=== PATIENT | male | born 1970 | race Caucasian/White ===

== ENCOUNTER 2017-02-14 20:16 | Inpatient (IN) | payer OTHER ==
[2017-02-14] MEDS ORDERED: RX INFO: IV CONTRAST WAS GIVEN 1 EACH MISC MISCELLANE PRN (20:29)
[2017-02-14] MEDS ORDERED: MORPHINE SULFATE 4 MG/ML SYRINGE IVP STA (20:29)
[2017-02-14 20:44] LABS: Basophils % (A) 1 %; CH 29.3; CHCM 35.1; Eosinophils # (A) 0.1 k/uL (0-0.7); Eosinophils % (A) 2 %; HCT 43.1 % (39.0-53.0); HDW 3.54; HGB 15.4 gm/dL (13.0-17.5); Luc # (Auto) 0.18; Luc % (Auto) 3; Lymphocytes # (A) 2.2 k/uL (1.0-4.8); Lymphocytes % (A) 36 %; MCHC 35.8 g/dL (31.0-37.0); MCV 83.9 fL (80.0-100.0); Mean Platelet Volume 7.5; Monocytes # (A) 0.4 k/uL (0-1.0); Monocytes % (A) 6 %; Neutrophils # (A) 3.2 k/uL (1.3-7.7); Neutrophils % (A) 53 %; Poikilocytosis Slight; RBC 5.14 m/uL (4.30-5.90); RDW 13.9 % (11.5-15.5); WBC 6.1 k/uL (3.8-10.6)
[2017-02-14 21:02] LABS: ALT 40 U/L (21-72); AST 25 U/L (17-59); Alkaline Phosphatase 80 U/L (38-126); Amylase 48 U/L (30-110); Anion Gap 13 mmol/L; Blood Urea Nitrogen 14 mg/dL (9-20); Calcium 9.9 mg/dL (8.4-10.2); Carbon Dioxide 25 mmol/L (22-30); Chloride 99 mmol/L (98-107); Glucose 299 mg/dL (74-99); Non-African American GFR(MDRD) >60 (>60 ml/min/1.73 sqM); Potassium 4.2 mmol/L (3.5-5.1); Sodium 137 mmol/L (137-145); Total Bilirubin 0.6 mg/dL (0.2-1.3)
--- NOTE | 2017-02-14 21:11 | XR ---
EXAMINATION TYPE: XR chest 1V DATE OF EXAM: 02/14/2017 COMPARISON: NONE HISTORY: Chest pain TECHNIQUE: Single frontal view of the chest is obtained. FINDINGS: Heart and mediastinum are normal. Lungs are clear. There are chest leads. Diaphragm is nor mal. IMPRESSION: Normal chest
[2017-02-14 21:19] LABS: Creatine Kinase MB 0.7 ng/mL (0.0-2.4)
[2017-02-14 21:23] LABS: Troponin I 0.045 ng/mL (0.000-0.034)
--- NOTE | 2017-02-14 21:51 | CT ---
EXAMINATION TYPE: CT angio chest DATE OF EXAM: 02/14/2017 9:46 PM COMPARISON: NONE HISTORY: Pain between shoulder blades and shortness of breath CT DLP: 629.8 mGycm Automated exposure control for dose reduction was used. CONTRAST: CTA scan of the thorax is performed with IV Contrast, patient injected with 100 mL of Omnipaque 350, pulmonary embolism protocol. There are 3-D post processed images.. FINDINGS: The lungs are clear of consolidation. There is no sign of a pulmonary mass. There is no evidence of a ortic aneurysm or dissection. I see no filling defects in the pulmonary arteries. There is normal con trast opacification of the pulmonary arteries. There are no hilar masses. There is no mediastinal franco nopathy. The bony thorax is intact. There is a triangle shaped 8mm density in the subpleural left pos terior lung base of doubtful significance. There is a 4 mm calcified granuloma in the subpleural righ t lower lobe. IMPRESSION: NO EVIDENCE OF PULMONARY EMBOLISM. MINIMAL PULMONARY FINDINGS OF DOUBTFUL SIGNIFICANCE.
[2017-02-14] MEDS ORDERED: ASPIRIN 81 MG CHEW PO STA (22:09)
[2017-02-14] MEDS ORDERED: NITROGLYCERIN SL TABS 0.4 MG TAB SUBLINGUAL PRN (22:35)
[2017-02-14] MEDS ORDERED: HEPARIN SODIUM,PORCINE 5,000 UNIT/ML 1 ML VIAL IV ONE (22:35)
--- NOTE | 2017-02-14 22:35 | ED ---
Chest Pain HPI - General Chief Complaint: Chest Pain Stated Complaint: Chest Pain Time Seen by Provider: 02/14/17 20:21 Source: patient Mode of arrival: wheelchair Limitations: no limitations - History of Present Illness Initial Comments: This is a 38-year-old male with history of hypertension and diabetes who presents emergency department for stabbing back pain shooting through to his chest. He states that it started earlier today and has progressively getting worse. He states that nothing seems to make it better or worse. He states he has not had anything like this previously. He does suffer from spinal stenosis and his cervical spine but not in worries having pain currently. He denies any shortness of breath. Denies that it's a ripping sensation. No nausea or vomiting. No other complaints. - Related Data Home Medications Medication Instructions Recorded Confirmed Ascorbic Acid [Vitamin C] 500 mg PO DAILY 02/14/17 02/14/17 Aspirin [Adult Low Dose Aspirin EC] 81 mg PO DAILY 02/14/17 02/14/17 Cholecalciferol [Vitamin D3] 400 unit PO DAILY 02/14/17 02/14/17 Cranberry Fruit Extract [Cranberry] 200 mg PO DAILY 02/14/17 02/14/17 Insulin Aspart [NovoLOG Flexpen] 5 units SQ BID 02/14/17 02/14/17 Insulin Glargine,Hum.rec.anlog 15 unit SQ HS 02/14/17 02/14/17 [Lantus Solostar] Lisinopril [Zestril] 5 mg PO DAILY 02/14/17 02/14/17 Multivitamins, Thera [Multivitamin 1 tab PO DAILY 02/14/17 02/14/17 (formulary)] [place]-3 Fatty Acids/Fish Oil [Fish 1 cap PO DAILY 02/14/17 02/14/17 Oil 1,000 mg Capsule] Omeprazole [PriLOSEC] 20 mg PO DAILY 02/14/17 02/14/17 amLODIPine [Norvasc] 10 mg PO DAILY 02/14/17 02/14/17 glipiZIDE [Glipizide] 10 mg PO BID 02/14/17 02/14/17 metFORMIN HCL [Metformin HCl] 1,000 mg PO BID 02/14/17 02/14/17 Allergies Allergy/AdvReac Type Severity Reaction Status Date / Time steroids Allergy Hallucinati Uncoded 02/14/17 20:24 ons Review of Systems ROS Statement: Those systems with pertinent positive or pertinent negative responses have been documented in the HPI. ROS Other: All systems not noted in ROS Statement are negative. EKG Findings - EKG Comments: EKG Findings:: EKG showing sinus tachycardia with rate of 116. No abnormal ST segment changes. There is some T-wave inversions in lead 3 and aVF. QTC is 444. Other intervals normal. No ectopy. Past Medical History Past Medical History: Diabetes Mellitus, Hyperlipidemia, Hypertension History of Any Multi-Drug Resistant Organisms: None Reported Past Surgical History: Appendectomy, Heart Catheterization Additional Past Surgical History / Comment(s): lap band 2008 Past Psychological History: No Psychological Hx Reported Smoking Status: Never smoker Past Alcohol Use History: Rare Past Drug Use History: None Reported General Exam - General Exam Comments Initial Comments: Constitutional: Awake alert appears uncomfortable Head: Normocephalic atraumatic Eyes: no conjunctival injection No scleral icterus EOMI Neck: No JVD Supple Heart: Regular rate rhythm normal S1-S2 no murmurs Lungs: Clear to auscultation bilaterally No wheezing No rales Abdomen: Soft nondistended nontender Extremities: Non edematous DP pulses intact Radial pulses intact Neuro: A&Ox3 No focal neurologic deficits Psych: Appropriate mood and affect Limitations: no limitations Course Vital Signs 02/14/17 02/14/17 02/14/17 20:21 20:25 21:25 Temperature 97.6 F Pulse Rate 85 114 H 106 H Respiratory 24 24 20 Rate Blood Pressure 193/93 184/89 143/80 O2 Sat by Pulse 99 95 Oximetry Chest Pain MDM - MDM Is a 38-year-old male presents emergency department for back and chest pain. CTA of the chest did not reveal any PE or aortic dissection. Troponin is slightly elevated at 0.045. I like to keep the patient hospital for further cardiac evaluation. Patient was updated and agrees. Dr. Hannon accepts admission. Disposition Clinical Impression: Unstable angina Disposition: ADMITTED IP TO THIS HOSP Condition: Stable Referrals: Natan Morrison DO [Primary Care Provider] - 1-2 days
[2017-02-14] MEDS ORDERED: HEPARIN SODIUM,PORCINE/D5W PMX 25,000 UNIT in DEXTROSE/WATER 1 500ML.BAG IV SCH (22:45)
[2017-02-14] MEDS ORDERED: TEMAZEPAM 15 MG CAP PO PRN (23:22)
[2017-02-14] MEDS ORDERED: ALPRAZolam 0.25 MG TAB PO PRN (23:22)
[2017-02-14 23:56] LABS: Glucose,Whole Blood 198 mg/dL (75-99)
[2017-02-15 00:03] LABS: INR 0.9 (<1.1); Partial Thromboplastin Time 22.9 sec (22.0-30.0); Prothrombin Time 9.8 sec (9.0-12.0)
[2017-02-15] MEDS: INSULIN GLARGINE 100 UNIT/ML 10 ML VIAL SQ SCH ×2 (00:37→21:30)
[2017-02-15 00:41] LABS: Glucose,Whole Blood 247 mg/dL (75-99)
[2017-02-15] MEDS: INSULIN LISPRO (humaLOG) 300 UNIT/3 ML VIAL SQ SCH ×7 (01:38→21:31)
[2017-02-15 02:56] LABS: Creatine Kinase MB 0.6 ng/mL (0.0-2.4)
[2017-02-15 03:32] LABS: Troponin I 0.064 ng/mL (0.000-0.034)
[2017-02-15 05:53] LABS: Glucose,Whole Blood 197 mg/dL (75-99)
[2017-02-15 06:04] LABS: Basophils % (A) 1 %; CH 29.2; CHCM 35.3; Eosinophils # (A) 0.1 k/uL (0-0.7); Eosinophils % (A) 3 %; HCT 40.3 % (39.0-53.0); HDW 3.57; HGB 13.9 gm/dL (13.0-17.5); Luc # (Auto) 0.11; Luc % (Auto) 2; Lymphocytes # (A) 1.6 k/uL (1.0-4.8); Lymphocytes % (A) 34 %; MCH 28.8 pg (25.0-35.0); MCHC 34.5 g/dL (31.0-37.0); MCV 83.4 fL (80.0-100.0); Mean Platelet Volume 7.6; Monocytes # (A) 0.3 k/uL (0-1.0); Monocytes % (A) 6 %; Neutrophils # (A) 2.6 k/uL (1.3-7.7); Neutrophils % (A) 54 %; Poikilocytosis Slight; RBC 4.84 m/uL (4.30-5.90); WBC 4.8 k/uL (3.8-10.6); WBC (Perox) 4.98
[2017-02-15] MEDS: PANTOPRAZOLE 40 MG TABLET PO SCH (06:08)
[2017-02-15 06:15] LABS: Anion Gap 9 mmol/L; Blood Urea Nitrogen 14 mg/dL (9-20); Calcium 9.3 mg/dL (8.4-10.2); Carbon Dioxide 27 mmol/L (22-30); Chloride 102 mmol/L (98-107); Cholesterol 248 mg/dL (<200); Glucose 197 mg/dL (74-99); HDL Cholesterol 37 mg/dL (40-60); Non-African American GFR(MDRD) >60 (>60 ml/min/1.73 sqM); Potassium 4.1 mmol/L (3.5-5.1); Sodium 138 mmol/L (137-145)
[2017-02-15 06:23] LABS: Triglycerides 658 mg/dL (<150)
[2017-02-15] MEDS ORDERED: HEPARIN SODIUM,PORCINE 5,000 UNIT/ML 1 ML VIAL IV STA (06:26)
[2017-02-15] MEDS ORDERED: NITROGLYCERIN SL TABS 0.4 MG TAB SUBLINGUAL PRN ×2 (08:49→12:56)
[2017-02-15] MEDS ORDERED: ALPRAZolam 0.5 MG TAB PO PRN ×2 (08:49→12:56)
[2017-02-15] MEDS ORDERED: ALPRAZolam 0.25 MG TAB PO PRN ×2 (08:49→12:56)
[2017-02-15] MEDS ORDERED: SODIUM CHLORIDE 0.9% 1,000 ML in EMPTY BAG 1 BAG IV ONE ×2 (08:49→12:56)
[2017-02-15] MEDS ORDERED: ATORVASTATIN 80 MG TAB PO STA ×2 (08:49→12:56)
[2017-02-15] MEDS ORDERED: ASPIRIN 325 MG TAB PO STA ×2 (08:49→12:56)
[2017-02-15] MEDS: CHOLECALCIFEROL 400 UNIT TAB PO SCH (08:57)
[2017-02-15] MEDS: glipiZIDE 10 MG TAB PO SCH ×2 (08:57→21:30)
[2017-02-15] MEDS: amLODIPine 10 MG TAB PO SCH (08:59)
[2017-02-15] MEDS ORDERED: INSULIN LISPRO (humaLOG) 300 UNIT/3 ML VIAL SQ SCH (09:00)
[2017-02-15] MEDS ORDERED: NON-FORMULARY DRUG (Omeprazole 20 MG) PO SCH (09:00)
[2017-02-15] MEDS ORDERED: ASPIRIN 325 MG TAB PO SCH (09:00)
[2017-02-15] MEDS ORDERED: NON-FORMULARY DRUG (Metformin Hcl [Metformin Hcl] 1,000 MG) PO SCH (09:00)
[2017-02-15] MEDS: MULTIVITAMINS, THERA 1 EACH TAB PO SCH (09:02)
--- NOTE | 2017-02-15 09:19 | CONS ---
DATE OF CONSULTATION: CHIEF COMPLAINT: Chest pain. Bishnu is a 46-year-old gentleman with multiple coronary risk factors including hypertension, diabetes, dyslipidemia, and family history of premature coronary artery disease who presented to [facility] Emergency Room complaining of chest pain. He describes it as episodes of chest pressure that he felt in the interscapular area, came on with activity and gradually subsided after he came to the hospital. The patient has a cervical spine problem and usually when he has disc discomfort he takes pain medications with which the pain usually resolves. This pain was different. He has also been becoming short of breath over the last several days with activity. It is mild to moderate intensity. In the ER, they did a CT scan of the chest that is negative for pulmonary embolism. EKGs are within normal limits. He had a troponin that is elevated at 0.04 and 0.06. Creatinine is normal at 0.7. Hemoglobin is 13.9. The patient had a cardiac catheterization in [address] out of town and was told that he had minimal disease. Past medical history is significant for hypertension, diabetes, dyslipidemia. Medications include fish oil, multivitamin, insulin, metformin, glipizide, Norvasc, Prilosec, Zestril and aspirin. Allergic to STEROIDS. Family history is significant for premature coronary artery disease in his father. Social history is negative for smoking, EtOH abuse or drug abuse. REVIEW OF SYSTEMS: HEENT: Unremarkable. CARDIAC: As described above. RESPIRATORY: Negative. GI: Negative. GENITOURINARY: Negative. ALLERGY/IMMUNOLOGY: Negative. SKIN: Negative. MUSCULOSKELETAL: Negative. ENDOCRINE: Negative. HEMATOLOGICAL: Negative. DERMATOLOGY: Negative. CONSTITUTIONAL: Negative. The rest of the system review is not relevant. On exam, he is comfortable at rest, morbidly obese. Vital signs are stable. There is no jugular venous distention. Carotid upstroke is normal. There is no bruit. Chest exam reveals good air entry bilaterally. Heart exam reveals first and second heart sounds. No gallop. No murmur. Abdomen is soft, nontender. Exam of extremities did not reveal edema. Peripheral pulses are felt. 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 EKG does not reveal ischemic changes. Troponins are slightly elevated. Cholesterol is elevated at 248, triglycerides is 658, HDL is 37. His blood sugars are elevated. ASSESSMENT: 1. Unstable angina. 2. Dyslipidemia. 3. Hypertension. 4. Insulin-requiring diabetes with poorly controlled blood sugars. PLAN: Given the chest pain, elevated troponin and the multiple risk factors, I advised the patient to undergo cardiac catheterization with a view to performing angioplasty. If the cath is normal, he can be discharged home. If not, he will undergo angioplasty and will go home tomorrow. He will have an echocardiogram done to assess his LV function.
[2017-02-15 09:48] LABS: Creatine Kinase MB 0.7 ng/mL (0.0-2.4)
[2017-02-15 09:51] LABS: Troponin I 0.091 ng/mL (0.000-0.034)
[2017-02-15] MEDS ORDERED: IV FLUID CONTINUATION 1,000 ML IV ONE (09:55)
[2017-02-15] MEDS ORDERED: LIDOCAINE 2% INJ 20 MG/ML (20 ML MDV) ONE (10:14)
[2017-02-15] MEDS ORDERED: MIDAZOLAM 2 MG/2 ML VIAL ONE (10:14)
[2017-02-15] MEDS: MIDAZOLAM 2 MG/2 ML VIAL IV ONE ×2 (10:17→10:24)
[2017-02-15] MEDS ORDERED: fentaNYL (PF) 50 MCG/ML 2 ML AMP ONE (10:18)
[2017-02-15] MEDS ORDERED: LIDOCAINE 2% INJ 20 MG/ML SQ ONE (10:19)
[2017-02-15] MEDS: fentaNYL (PF) 50 MCG/ML 2 ML AMP IV ONE ×2 (10:19→10:45)
[2017-02-15] MEDS ORDERED: METOPROLOL TARTRATE 5 MG/5 ML VIAL IVP ONE ×2 (10:41→10:44)
[2017-02-15] MEDS ORDERED: NITROGLYCERIN OINT 1 INCH/GM PACKET TOPICAL ONE ×2 (10:41→10:44)
[2017-02-15] MEDS ORDERED: IOHEXOL 350 MG/ML 125ML BOTTLE INJ ONE (10:56)
--- NOTE | 2017-02-15 11:13 | CC ---
INDICATION: Unstable angina. PROCEDURE NOTE: After obtaining informed consent, left heart catheterization and coronary angiogram were performed via the right femoral artery using standard Rebel catheters. Patient tolerated the procedure well without any immediate complications. Total sedation time was 15 minutes. Conscious sedation was done. FINDINGS: 1. Hemodynamics: Left ventricular end-diastolic pressure is 14 to 16 mm. There is no significant gradient across the aortic valve. 2. Left ventriculogram: Left ventriculogram is not performed. 3. Angiographic data: a. Left main coronary artery: Left main coronary artery is a normal size vessel and is free of stenosis, divides into left anterior descending coronary artery and circumflex coronary artery. LAD shows a 95% stenosis in the proximal part. b. Circumflex coronary artery is a large dominant vessel that shows mild atherosclerotic plaque involving OM 1, OM 2 and distal third. c. Right coronary artery is a nondominant vessel and is free of significant stenosis. CONCLUSIONS: 95% focal stenosis in the proximal left anterior descending coronary artery. PLAN: Patient will undergo angioplasty of the same by Dr. Quarles, the on-call technology trainer.
[2017-02-15] MEDS ORDERED: RX INFO: IV CONTRAST WAS GIVEN 1 EACH MISC MISCELLANE PRN (11:15)
[2017-02-15 11:49] LABS: Hemoglobin A1C 9.5 % (4.2-6.1)
[2017-02-15] MEDS: LISINOPRIL 5 MG TAB PO SCH (11:51)
[2017-02-15] MEDS: HYDROmorphone 1 MG/ML 1 ML SYRINGE IVP PRN ×2 (11:51→23:45)
[2017-02-15] MEDS: SODIUM CHLORIDE 0.9% 1,000 ML IV SCH ×2 (11:52→23:37)
--- NOTE | 2017-02-15 11:53 | HP ---
DATE OF ADMISSION: DATE OF SERVICE: 02/14/2017 CHIEF COMPLAINT: Interscapular pain and chest pain. HISTORY OF PRESENT ILLNESS: This 46-year-old gentleman with a past medical history of diabetes mellitus, hypertension, hyperlipidemia, history of cardiac catheterization being followed by Dr. Natan Morrison in the outpatient setting admitted with chest pain. The patient initially had interscapular pain, which was sharp in character, which was felt in the anterior part of the chest also. There was no history of any fevers, rigors or chills. No history of headache, loss of consciousness or seizures. The patient was rather shooting and getting worse and there was no associated sweating or palpitations. There is no shortness of breath. The patient cam to [facility] Emergency Room and was admitted for further evaluation and treatment. In the emergency room, the patient had a CTA of the chest which showed no evidence of pulmonary embolism. The patient was admitted for further evaluation and treatment. A 4 calcified granuloma and 8 mm density in the subpleural area was also noted. Of note, the troponin was found to 0.045. EKG was reviewed which showed tachycardia and ST-T changes. The patient also had cardiac stress test several years ago followed by cardiac catheterization, which apparently showed only 30% stenosis, results are not available and the patient also had a chemical stress test about 2 years ago, again results are not available, but apparently patient passed the test. There is no history of any fever, rigors or chills. No history of headache, loss of consciousness or seizures PAST MEDICAL HISTORY: History of diabetes, hypertension, hyperlipidemia, previous cardiac cath and lap band surgery as stress test as mentioned earlier. MEDICATIONS PRIOR TO ADMISSION: 1. [place]-3 fatty acid 1 p.o. daily. 2. Multivitamin 1 p.o. daily. 3. Insulin NovoLog 5 units subcu b.i.d. 4. Lantus 15 units subcu q.h.s. 5. Metformin 1000 mg p.o. b.i.d. 6. Glipizide 10 mg b.i.d. 7. Cranberry 200 mg daily. 8. Vitamin D3, 400 units daily 9. Vitamin C 500 daily. 10. Norvasc 10 mg daily. 11. Prilosec 20 mg daily. 12. Zestril 5 mg p.o. daily. 13. Aspirin 81 mg daily. Allergies are STEROIDS. FAMILY HISTORY: No history of heart disease or strokes in the family. 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 No history of smoking. No history of alcohol intake. REVIEW OF SYSTEMS: ENT: No diminishing hearing or diminished vision. CARDIOVASCULAR: As mentioned earlier. RESPIRATORY: As mentioned earlier. GI: No nausea. : No dysuria. NERVOUS SYSTEM: No numbness or weakness. ALLERGY/IMMUNOLOGY: No history of asthma or hayfever. MUSCULOSKELETAL: As mentioned earlier. HEMATOLOGY/ONCOLOGY: No history of anemia. ENDOCRINE: As mentioned earlier. CONSTITUTIONAL: As mentioned earlier. DERMATOLOGY: Negative. RHEUMATOLOGY: Negative. PSYCHIATRY: As mentioned earlier. PHYSICAL EXAMINATION: The patient is alert and oriented x3. Pulse 106, blood pressure 143/80, respirations 20, temperature 97.6, pulse ox 95% on 2 L. HEENT: Conjunctivae normal. Oral mucosa moist. NECK: No jugular venous distention. No carotid bruit. No lymph node enlargement. CARDIOVASCULAR: S1 and S2, muffled. No S3, no S4. RESPIRATORY: Breath sounds diminished at the bases. No rhonchi, no crackles. ABDOMEN: Soft, obese, nontender. No mass palpable. LEGS: No edema, no swelling. NERVOUS SYSTEM: Higher function as mentioned. Moves all 4 limbs. No focal motor or sensory deficits. LYMPHATICS: No lymphadenopathy of neck, axillae or groin. SKIN: No ulcers, rashes or bleeding. Labs are at this time shows CBC within normal limits. Glucose 299. Troponin 0.045. ASSESSMENT: 1. Chest pain, possible unstable angina, rule out acute non-ST segment elevation myocardial infarction. 2. Troponin 0.045. 3. Diabetes mellitus type 2. 4. Obesity, body mass index 41.3. 5. Hypertension, essential. 6. Hyperlipidemia. 7. History of appendectomy. 8. History of cardiac catheterization previously, 9. History of lap band. 10. FULL CODE. RECOMMENDATIONS AND DISCUSSION: This 46-year-old gentleman who presented with multiple complex medical issues, we will monitor the patient closely. Continue the current medications. Continue symptomatic treatment. unstable angina protocol. Will closely follow with Cardiology. Other than that I would also recommend symptomatic treatment. Resume the home medications. Guarded prognosis because of multiple complex medical issues. Further recommendations to follow. See orders for further details. Will check troponin x3. Discussed with the patient. A copy of dictation forwarded to Dr. Morrison who is the primary physician. TATUM
[2017-02-15 12:01] LABS: Glucose,Whole Blood 184 mg/dL (75-99)
--- NOTE | 2017-02-15 12:25 | ECHOF ---
Referral Reason:chest pain MEASUREMENTS -------- HEIGHT: 175.3 cm WEIGHT: 126.1 kg BP: 131/86 RVIDd: 2.9 cm (< 3.3) IVSd: 1.4 cm (0.6 - 1.1) LVIDd: 4.2 cm (3.9 - 5.3) LVPWd: 1.3 cm (0.6 - 1.1) IVSs: 1.7 cm LVIDs: 3.0 cm LVPWs: 1.9 cm LA Diam: 3.9 cm (2.7 - 3.8) LAESV Index (A-L): 26.61 ml/m Ao Diam: 3.4 cm (2.0 - 3.7) AV Cusp: 2.5 cm (1.5 - 2.6) MV EXCURSION: 12.148 mm (> 18.000) MV EF SLOPE: 38 mm/s (70 - 150) EPSS: 0.9 cm MV E Dave: 1.07 m/s MV DecT: 215 ms MV A Dave: 0.96 m/s MV E/A Ratio: 1.11 RAP: 5.00 mmHg RVSP: 28.81 mmHg FINDINGS -------- This was a technically adequate study. The left ventricular size is normal. There is moderate concentric left ventricular hypertrophy. Overall left ventricular systolic function is normal with, an EF between 55 - 60 %. The right ventricle is normal in size. Normal LA size by volume 22+/-6 ml/m2. The right atrium is normal in size. The aortic valve is trileaflet and appears structurally normal. Mild mitral annular calcification present. There is trace mitral regurgitation. Mild thickening of the anterior mitral valve leaflet. Trace tricuspid regurgitation present. Right ventricular systolic pressure is normal at < 35 mmHg. The pulmonic valve was not well visualized. The aortic root size is normal. The pericardium is normal. CONCLUSIONS -------- 1. This was a technically adequate study. 2. There is trace mitral regurgitation. 3. Mild thickening of the anterior mitral valve leaflet. 4. Trace tricuspid regurgitation present. 5. Right ventricular systolic pressure is normal at < 35 mmHg. 6. The pulmonic valve was not well visualized. 7. The aortic root size is normal. 8. The pericardium is normal. 9. The left ventricular size is normal. 10. There is moderate concentric left ventricular hypertrophy. 11. Overall left ventricular systolic function is normal with, an EF between 55 - 60 %. 12. The right ventricle is normal in size. 13. Normal LA size by volume 22+/-6 ml/m2. 14. The right atrium is normal in size. 15. The aortic valve is trileaflet and appears structurally normal. 16. Mild mitral annular calcification present. PIANO REGULATOR: Nadia Childs RDCS
[2017-02-15] MEDS: HYDROcodone/APAP 5-325MG 1 EACH TAB PO PRN ×2 (13:18→21:28)
[2017-02-15 16:11] VITALS: BMI 41.1
[2017-02-15 16:56] LABS: Glucose,Whole Blood 201 mg/dL (75-99)
[2017-02-15 20:57] LABS: Glucose,Whole Blood 193 mg/dL (75-99)
--- NOTE | 2017-02-15 21:40 | PN ---
DATE OF SERVICE: 02/15/2017 This 46-year-old gentleman admitted with scapular pain and chest pain and features of acute non-ST elevation myocardial infarction. The patient underwent cardiac catheterization by Dr. Mccullough which showed LAD 95% focus on proximal LAD. Stenting angioplasty was planned by cardiology, Dr. Quarles tomorrow. No chest or palpitation. No fever. On exam, alert and oriented x3. Pulse is 90 blood pressure 136/82. Respiratory rate 16. Temperature 97 degrees. Pulse ox 94% on room air. HEENT: Conjunctivae normal. NECK : No jugular venous distention. CARDIOVASCULAR: S1, S2 muffled. RESPIRATORY: Breath sounds diminished at the bases. A few scattered rhonchi and crackles. ABDOMEN: Soft, nontender. LEGS: No edema. No swelling. CENTRAL NERVOUS SYSTEM: No focal deficits. LABS: Triglycerides 658, cholesterol is 248, and troponin was 0.091. ASSESSMENT: 1. Chest pain, possible acute non-ST segment elevation myocardial infarction. Troponin 0.045. 2. Status post cardiac catheterization, left anterior descending coronary artery stenosis. 3. Hyperlipidemia. 4. Hypertriglyceridemia. 5. Diabetes mellitus type 2. 6. Obesity body mass index 41.3. 7. Essential hypertension. 8. History of appendectomy. 9. History of cardiac catheterization previously. 10. History of lap band. 11. FULL CODE. RECOMMENDATIONS AND DISCUSSION: Recommend to continue with the current medications, continue symptomatic. Otherwise, at this time, continue with cholesterol-lowering agents. I would also recommend antiplatelet agents. Follow closely with cardiology. Further stenting and other evaluation by cardiology. Further recommendations to follow to follow.
[2017-02-16 05:45] LABS: Basophils % (A) 0 %; CH 29.2; CHCM 34.9; Eosinophils # (A) 0.1 k/uL (0-0.7); Eosinophils % (A) 1 %; HCT 41.1 % (39.0-53.0); HDW 3.51; HGB 14.3 gm/dL (13.0-17.5); Luc # (Auto) 0.09; Luc % (Auto) 1; Lymphocytes # (A) 1.2 k/uL (1.0-4.8); Lymphocytes % (A) 18 %; MCH 29.1 pg (25.0-35.0); MCHC 34.7 g/dL (31.0-37.0); Mean Platelet Volume 7.2; Monocytes # (A) 0.4 k/uL (0-1.0); Monocytes % (A) 6 %; Neutrophils # (A) 4.9 k/uL (1.3-7.7); Neutrophils % (A) 74 %; Poikilocytosis Slight; RDW 13.9 % (11.5-15.5); WBC 6.6 k/uL (3.8-10.6); WBC (Perox) 7.02
[2017-02-16 05:57] LABS: Anion Gap 11 mmol/L; Blood Urea Nitrogen 10 mg/dL (9-20); Calcium 9.2 mg/dL (8.4-10.2); Carbon Dioxide 27 mmol/L (22-30); Chloride 100 mmol/L (98-107); Glucose 165 mg/dL (74-99); Non-African American GFR(MDRD) >60 (>60 ml/min/1.73 sqM); Potassium 4.5 mmol/L (3.5-5.1); Sodium 138 mmol/L (137-145)
[2017-02-16 05:59] LABS: Glucose,Whole Blood 152 mg/dL (75-99)
[2017-02-16] MEDS: amLODIPine 10 MG TAB PO SCH (06:07)
[2017-02-16] MEDS: LISINOPRIL 5 MG TAB PO SCH ×3 (06:07→20:15)
[2017-02-16] MEDS ORDERED: LIDOCAINE 2% INJ 20 MG/ML (20 ML MDV) ONE (06:33)
[2017-02-16] MEDS: INSULIN LISPRO (humaLOG) 300 UNIT/3 ML VIAL SQ SCH ×6 (06:33→21:45)
[2017-02-16] MEDS ORDERED: VERAPAMIL 2.5 MG/ML 2 ML AMP ONE (06:33)
[2017-02-16] MEDS ORDERED: HEPARIN SODIUM 1,000 UNIT/ML VIAL ONE (06:33)
[2017-02-16] MEDS ORDERED: fentaNYL (PF) 50 MCG/ML 2 ML AMP ONE (06:34)
[2017-02-16] MEDS ORDERED: fentaNYL (PF) 50 MCG/ML 2 ML AMP IV ONE (06:47)
[2017-02-16] MEDS ORDERED: LIDOCAINE 2% INJ 20 MG/ML SQ ONE (06:49)
[2017-02-16] MEDS ORDERED: VERAPAMIL SYRINGE (5 MG/10 ML) INTRAARTER ONE (06:50)
[2017-02-16] MEDS ORDERED: SODIUM CHLORIDE 0.9% 1,000 ML IV ONE (06:50)
[2017-02-16] MEDS ORDERED: PRASUGREL 10 MG TAB ONE (06:52)
[2017-02-16] MEDS ORDERED: PRASUGREL 10 MG TAB PO ONE (06:55)
[2017-02-16] MEDS ORDERED: BIVALIRUDIN BOLUS 250 MG/50 ML IV ONE (06:58)
[2017-02-16] MEDS ORDERED: BIVALIRUDIN 250 MG in SODIUM CHLORIDE 0.9% 50 ML IV ONE (06:58)
[2017-02-16] MEDS ORDERED: NITROGLYCERIN 1000MCG/10ML SYRINGE INTRACORON ONE (06:59)
[2017-02-16] MEDS ORDERED: IOHEXOL 350 MG/ML 100 ML BOTTLE INJ ONE (07:11)
[2017-02-16] MEDS ORDERED: NITROGLYCERIN SL TABS 0.4 MG TAB SUBLINGUAL PRN (07:19)
[2017-02-16] MEDS ORDERED: RX INFO: IV CONTRAST WAS GIVEN 1 EACH MISC MISCELLANE PRN (07:19)
[2017-02-16] MEDS ORDERED: MAG HYDROX/AL HYDROX/SIMETH 30 ML CUP PO PRN (07:19)
[2017-02-16] MEDS ORDERED: ATROPINE SULFATE 0.1 MG/ML 10ML SYRINGE IV PRN (07:19)
[2017-02-16] MEDS: PANTOPRAZOLE 40 MG TABLET PO SCH (07:29)
[2017-02-16] MEDS ORDERED: SODIUM CHLORIDE 0.9% 1,000 ML IV SCH (07:30)
[2017-02-16] MEDS: CHOLECALCIFEROL 400 UNIT TAB PO SCH (07:37)
[2017-02-16] MEDS: amLODIPine 5 MG TAB PO SCH (07:39)
[2017-02-16] MEDS: glipiZIDE 10 MG TAB PO SCH ×2 (07:46→21:45)
[2017-02-16] MEDS ORDERED: ASPIRIN 81 MG CHEW PO SCH (09:00)
[2017-02-16] MEDS: METOPROLOL TARTRATE 25 MG TAB PO SCH ×2 (13:25→20:15)
[2017-02-16] MEDS: MULTIVITAMINS, THERA 1 EACH TAB PO SCH (13:28)
[2017-02-16] MEDS: SODIUM CHLORIDE 0.9% 1,000 ML IV SCH (13:29)
[2017-02-16 16:52] LABS: Glucose,Whole Blood 221 mg/dL (75-99)
--- NOTE | 2017-02-16 17:20 | PTCA ---
DATE OF SERVICE: Mr. Ellis is a 46-year-old male with known history of diabetes who presented with symptoms of chest discomfort and was diagnosed with non-STEMI. He underwent cardiac catheterization by Dr. Mccullough and was found to have significant stenosis involving the proximal LAD. In view of that, recommendation was made regarding angioplasty and stenting. The procedure, its risks and complications were discussed with the patient, who was in full understanding and agreement. PROCEDURE: Patient was brought to the dental laboratory manager in fasting, semi-sedated state after receiving fentanyl and Benadryl. After achieving moderate conscious sedated state, using Xylocaine anesthesia and Seldinger technique, a 6 [place] sheath was introduced in the right radial artery. A 6 [place] 3-1/2 FL guiding catheter was introduced into the system. After cannulating the left main, a 0.014 balanced medium-weight J-wire was advanced across the lesion, positioned distally. Then 3.5 x 23 mm Xience Alpine stent was deployed, post dilated at 14 atmospheres. After the last inflation, after appropriate wait, the balloon and the guidewire were withdrawn back into the guiding catheter. Images were obtained and repeated. Those images revealed stable successful stenting. At that point the guiding catheter, the balloon and the guidewire were removed. The sheath was removed. Hemostasis was obtained with deployment of a TR band. There was no immediate complication. Patient was returned to his room in stable condition. Of note, the patient had chest discomfort and EKG changes with the inflation that resolved at the end of the procedure. RESULT: Successful stenting of a long segment of the proximal LAD with reduction in stenosis from 95% to 0%. RECOMMENDATION: Patient will be continued on aspirin, Effient, beta raj and simvastatin. The importance of dual antiplatelet treatment was discussed with the patient and his family, and they are in full understanding and agreement. Duration of the procedure was 25 minutes.
--- NOTE | 2017-02-16 17:22 | LTR ---
February 16, 2017 RE: Bishnu Ellis Dear Dr. Morrison, I had the pleasure of performing coronary angioplasty and stenting on Mr. Ellis at [facility] February 16, and a full copy of the procedure note will be forwarded to you. In brief, he underwent successful stenting of the proximal LAD using a drug-eluting stent. I am hopeful that this procedure will stabilize his status. Thank you again for allowing me to participate in his care. Please feel free to call with any questions. Sincerely, JALYN CARPENTER MD
--- NOTE | 2017-02-16 19:46 | PN ---
DATE OF SERVICE: 02/16/2017 This 46-year-old gentleman admitted with acute [id number]-elevation myocardial infarction had LAD stenting today. No chest pain. No palpitation. No fever. On exam, alert and oriented x3. Pulse 85, blood pressure 130/71, respiration 18, temperature 97.3, pulse ox 96% on room air. HEENT: Conjunctivae normal. NECK: No jugular venous distention. CARDIOVASCULAR SYSTEM: S1, S2 muffled. RESPIRATORY SYSTEM: Breath sounds diminished at the bases. No rhonchi. No crackles. ABDOMEN: Soft, non-tender. No mass palpable. LEGS: No edema. No swelling. NERVOUS SYSTEM: No focal deficit. LABS: CBC within normal limits. Accu-Cheks are 152. ASSESSMENT: 1. Chest pain, possible acute bvl-ZL-[id number]-elevation myocardial infarction; troponin 0.045. 2. Status post cardiac catheterization; left anterior descending coronary artery. 3. Hyperlipidemia. 4. Hypertriglyceridemia. 5. Diabetes mellitus, type 2. 6. Obesity; body mass index of 41.3. 7. Essential hypertension. 8. History of appendectomy. 9. History of cardiac catheterization previously. 10. History of lap band. 11. FULL CODE. RECOMMENDATIONS AND DISCUSSION: I recommend to continue with the current medications, continue with the monitoring, symptomatic treatment. Otherwise, we will monitor the patient closely. Continue with dual antiplatelet treatment. Guarded prognosis because of multiple complex medical issues. Further recommendations to follow.
[2017-02-16] MEDS ORDERED: ZOLPIDEM 5 MG TAB PO PRN (21:00)
[2017-02-16] MEDS ORDERED: ATORVASTATIN 80 MG TAB PO SCH (21:00)
[2017-02-16 21:03] LABS: Glucose,Whole Blood 234 mg/dL (75-99)
[2017-02-16] MEDS: INSULIN GLARGINE 100 UNIT/ML 10 ML VIAL SQ SCH (21:44)
[2017-02-17] MEDS: SODIUM CHLORIDE 0.9% 1,000 ML IV SCH (05:57)
[2017-02-17 06:41] LABS: Glucose,Whole Blood 223 mg/dL (75-99)
[2017-02-17] MEDS: PANTOPRAZOLE 40 MG TABLET PO SCH (06:43)
[2017-02-17] MEDS: INSULIN LISPRO (humaLOG) 300 UNIT/3 ML VIAL SQ SCH ×4 (07:16→12:46)
[2017-02-17] MEDS: glipiZIDE 10 MG TAB PO SCH (07:54)
[2017-02-17] MEDS: METOPROLOL TARTRATE 25 MG TAB PO SCH (07:54)
[2017-02-17] MEDS: CHOLECALCIFEROL 400 UNIT TAB PO SCH (07:55)
[2017-02-17] MEDS: amLODIPine 5 MG TAB PO SCH (07:55)
[2017-02-17] MEDS: LISINOPRIL 5 MG TAB PO SCH (07:55)
[2017-02-17] MEDS: MULTIVITAMINS, THERA 1 EACH TAB PO SCH (07:55)
[2017-02-17 08:57] VITALS: TEMP 97.4
[2017-02-17] MEDS ORDERED: PRASUGREL 10 MG TAB PO SCH (09:00)
[2017-02-17] MEDS ORDERED: ASPIRIN 81 MG CHEW PO SCH (09:00)
[2017-02-17 10:43] LABS: Basophils % (A) 1 %; CH 29.4; CHCM 34.6; Eosinophils # (A) 0.1 k/uL (0-0.7); Eosinophils % (A) 2 %; HCT 40.1 % (39.0-53.0); HGB 13.7 gm/dL (13.0-17.5); Luc # (Auto) 0.12; Luc % (Auto) 2; Lymphocytes % (A) 18 %; MCH 29.1 pg (25.0-35.0); MCHC 34.1 g/dL (31.0-37.0); MCV 85.3 fL (80.0-100.0); Mean Platelet Volume 7.9; Monocytes # (A) 0.5 k/uL (0-1.0); Monocytes % (A) 9 %; Neutrophils # (A) 3.9 k/uL (1.3-7.7); Neutrophils % (A) 69 %; RDW 13.9 % (11.5-15.5); WBC 5.7 k/uL (3.8-10.6); WBC (Perox) 5.83
[2017-02-17 10:48] LABS: Anion Gap 9 mmol/L; Blood Urea Nitrogen 10 mg/dL (9-20); Calcium 9.4 mg/dL (8.4-10.2); Carbon Dioxide 29 mmol/L (22-30); Chloride 100 mmol/L (98-107); Glucose 245 mg/dL (74-99); Non-African American GFR(MDRD) >60 (>60 ml/min/1.73 sqM); Potassium 4.3 mmol/L (3.5-5.1); Sodium 138 mmol/L (137-145)
--- NOTE | 2017-02-17 12:07 | P.PN ---
Subjective Principal diagnosis: LAD stent This is a 46-year-old gentleman who presented to the hospital with acute coronary syndrome, he underwent angioplasty with stent placement of the LAD by Dr. Quarles. Patient was seen and examined this morning, feels well, denies any chest pain or difficulty in breathing. Right groin and right radial site clean and dry with good distal pulses. Blood pressure 122/80 with a heart rate in the 80s. CBC normal. Potassium 4.3, BUN 10, creatinine 0.7. Objective - Vital Signs Vital signs: Vital Signs Temp 97.4 F L 02/17/17 08:00 Pulse 91 02/17/17 08:00 Resp 17 02/17/17 08:00 BP 158/73 02/17/17 08:00 Pulse Ox 97 02/17/17 08:00 Intake & Output 02/16/17 02/17/17 02/17/17 18:59 06:59 18:59 Intake Total 1480 150 230 Output Total 1000 Balance 480 150 230 Weight 123.5 kg Intake: IV 150 Sodium Chloride 0.9% 1, 150 000 ml @ 75 mls/hr IV . [id number] [facility] Rx#:[id number] Intake, IV Titration 1000 Amount Sodium Chloride 0.9% 1, 1000 000 ml @ 100 mls/hr IV . Q10H [facility] Rx#:[id number] Oral 480 230 Output: Urine 1000 Other: Voiding Method Toilet Toilet Urinal Urinal # Voids 1 1 2 - Exam PHYSICAL EXAMINATION: HEENT: Head is atraumatic, normocephalic. Pupils equal, round. Neck is supple. There is no elevated jugular venous pressure. HEART EXAMINATION: Heart S1, S2 normal. No murmur or gallop heard. CHEST EXAMINATION: Lungs are clear to auscultation and precussion. No chest wall tenderness is noted on palpation or with deep breathing. ABDOMEN: Soft, nontender. Bowel sounds are heard. No organomegaly noted. Right groin and right radial site clean and dry, good distal pulse. EXTREMITIES: 2+ peripheral pulses with no evidence of peripheral edema and no calf tenderness noted. NEUROLOGIC patient is awake, alert and oriented -3. . - Labs CBC & Chem 7: 02/17/17 06:08 02/17/17 06:08 Labs: Abnormal Lab Results - Last 24 Hours (Table) 02/16/17 02/16/17 02/17/17 Range/Units 16:47 21:02 06:08 Glucose 245 H (74-99) mg/dL POC Glucose (mg/dL) 221 H 234 H (75-99) mg/dL 02/17/17 Range/Units 06:31 Glucose (74-99) mg/dL POC Glucose (mg/dL) 223 H (75-99) mg/dL Assessment and Plan (1) ACS (acute coronary syndrome) Status: Acute (2) Presence of stent in LAD coronary artery Status: Acute (3) HTN (hypertension) Status: Acute (4) Diabetes Status: Acute (5) Hyperlipemia Status: Acute Plan: From cardiology's perspective, patient may be able to be discharged home today. He will be discharged home on Effient 10 mg daily, which she will take for one month, then the patient will start Plavix 75 mg daily. He will also be discharged home on aspirin 81 mg daily, Norvasc 5 mg daily, Lipitor 80 mg daily , Glucotrol 10 mg twice a day, insulin as at home, Zestril 5 mg by mouth twice a day, metoprolol tartrate 25 mg one tablet by mouth twice a day, and sublingual nitroglycerin as needed for chest pain. Patient has been educated regarding his medication, diet, activity, and follow-up appointment. See Dr. Mendoza in the office in one week. DNP note has been reviewed, I agree with a documented findings and plan of care. Patient was seen and examined.
[2017-02-17 12:59] VITALS: BP 150/70; PULSE 85; RESP 18
--- NOTE | 2017-02-18 15:21 | DS ---
DATE OF ADMISSION: 02/14/2017 DATE OF DISCHARGE: 02/17/2017 FINAL DIAGNOSES: 1. Chest pain, possible acute non- ST segment elevation myocardial infarction. Troponin 0.045. 2. Status post cardiac catheterization and left anterior descending stenting. 3. Hyperlipidemia. 4. Hypertriglyceridemia. 5. Diabetes mellitus type 2. 6. Obesity, body mass index of 41.3. 7. History of hypertension. 8. History of appendectomy. 9. History of cardiac catheterization previously. 10. History of lap band. 11. FULL CODE. DISCHARGE DISPOSITION: Patient is being discharged in stable condition with guarded prognosis. HISTORY OF PRESENT ILLNESS: This 46-year-old gentleman with a past medical history of multiple medical problems was admitted with chest pain, possible acute non-ST elevation myocardial infarction. Cardiac catheterization and stenting also. Patient improved significantly. On exam, vitals are stable. CARDIOVASCULAR SYSTEM: S1, S2. ABDOMEN: soft. NERVOUS SYSTEM: No focal deficits. LABS: Glucose is elevated to 223, recommend a close follow up in the outpatient setting. DISCHARGE ADVICE: 1. Diet is cardiac, consistent carb. 2. Activity limited until follow up. 3. Follow up with Dr. Morrison in 1 to 2 days. 4. Follow with Dr. Casandra Mccullough as advised. MEDICATIONS: 1. Norvasc 10 mg p.o. daily. 2. Vitamin C 500 mg p.o. daily. 3. Ecotrin 81 mg p.o. daily. 4. Lipitor 80 mg p.o. q.h.s. 5. Vitamin D 300 to 400 units daily. 6. Cranberry 200 mg p.o. daily. 7. Glipizide 10 mg p.o. b.i.d. 8. NovoLog Flex pen 5 units subcu b.i.d. 9. Lantus 15 units subcu q.h.s. 10. Zestril 5 mg p.o. daily. 11. Metformin 1000 mg p.o. b.i.d. 12. Lopressor 25 mg p.o. b.i.d. 13. Multivitamin 1 p.o. daily. 14. Nitrostat 0.4 sublingual p.r.n. 15. Fish oil 1 p.o. daily. 16. Prilosec 20 mg p.o. daily. 17. Effient 10 mg p.o. daily. Once again, the patient is being discharged in stable condition with guarded prognosis.
== END 2017-02-17 14:29 | disposition home or self-care (01) | DRG 247 ==
LOC: EC 20:16 → 6SEL 22:35
PROVIDERS: ADMIT Hospitalist; ATTEND Hospitalist
PROC: 027034Z Dilation of Coronary Artery, One Artery with Drug-eluting Intraluminal Device, Percutaneous Approach (ICD-10-PCS; 2017-02-15)
PROC: 4A023N7 Measurement of Cardiac Sampling and Pressure, Left Heart, Percutaneous Approach (ICD-10-PCS; principal; 2017-02-15 09:55)
PROC: B2111ZZ Fluoroscopy of Multiple Coronary Arteries using Low Osmolar Contrast (ICD-10-PCS; principal; 2017-02-15 09:55)
DX: I21.4 Non-ST elevation (NSTEMI) myocardial infarction (principal); Z68.41 Body mass index [BMI] 40.0-44.9, adult; I10 Essential (primary) hypertension; E11.9 Type 2 diabetes mellitus without complications; E66.9 Obesity, unspecified; E78.1 Pure hyperglyceridemia; E78.5 Hyperlipidemia, unspecified; I25.110 Atherosclerotic heart disease of native coronary artery with unstable angina pectoris; Z79.4 Long term (current) use of insulin; Z79.82 Long term (current) use of aspirin; Z79.84 Long term (current) use of oral hypoglycemic drugs; Z79.899 Other long term (current) drug therapy; Z82.49 Family history of ischemic heart disease and other diseases of the circulatory system; Z88.8 Allergy status to other drugs, medicaments and biological substances; Z98.84 Bariatric surgery status
CPT/HCPCS: 36415; 71010; 71275; 80048; 80053; 80061; 82150; 82550; 82553; 83036; 83690; 84484; 85025; 85610; 85730; 93005; 93306; 93458; 96365; 96375; 96376; 99285

== ENCOUNTER 2017-03-01 22:22 | Observation (INO) | payer OTHER ==
[2017-03-01] MEDS ORDERED: NITROGLYCERIN OINT 1 INCH/GM PACKET TOPICAL STA (22:34)
[2017-03-01] MEDS ORDERED: SODIUM CHLORIDE 0.9% 1,000 ML IV STA (22:34)
[2017-03-01] MEDS ORDERED: ASPIRIN 81 MG CHEW PO STA (22:34)
[2017-03-01] MEDS ORDERED: MORPHINE SULFATE 4 MG/ML SYRINGE IV STA (22:34)
--- NOTE | 2017-03-01 22:41 | ED ---
Chest Pain HPI - General Chief Complaint: Chest Pain Stated Complaint: Chest pain Heart Hx Time Seen by Provider: 03/01/17 22:30 Source: patient, family, RN notes reviewed, old records reviewed Mode of arrival: ambulatory Limitations: no limitations - History of Present Illness Initial Comments: This is a 38-year-old male with a history of hypertension and insulin-dependent diabetes any recent stent placed in the LAD who presents with complaints of the onset of chest pain this evening. He did take multiple nitroglycerin was some relief. He states pain was as severe as 8/10 and states pain is still 8/10 severity. He had nausea with a no vomiting did take 81 mg of aspirin this morning along with his Plavix. He denies any fever or chills he did have some sweats MD Complaint: chest pain - Related Data Home Medications Medication Instructions Recorded Confirmed Ascorbic Acid [Vitamin C] 500 mg PO DAILY 02/14/17 03/01/17 Aspirin [Adult Low Dose Aspirin EC] 81 mg PO DAILY 02/14/17 03/01/17 Cholecalciferol [Vitamin D3] 400 unit PO DAILY 02/14/17 03/01/17 Cranberry Fruit Extract [Cranberry] 200 mg PO DAILY 02/14/17 03/01/17 Insulin Aspart [NovoLOG Flexpen] 5 units SQ BID 02/14/17 03/01/17 Insulin Glargine,Hum.rec.anlog 15 unit SQ HS 02/14/17 03/01/17 [Lantus Solostar] Lisinopril [Zestril] 5 mg PO DAILY 02/14/17 03/01/17 Multivitamins, Thera [Multivitamin 1 tab PO DAILY 02/14/17 03/01/17 (formulary)] [place]-3 Fatty Acids/Fish Oil [Fish 1 cap PO DAILY 02/14/17 03/01/17 Oil 1,000 mg Capsule] Omeprazole [PriLOSEC] 20 mg PO DAILY 02/14/17 03/01/17 amLODIPine [Norvasc] 10 mg PO DAILY 02/14/17 03/01/17 glipiZIDE [Glipizide] 10 mg PO BID 02/14/17 03/01/17 metFORMIN HCL [Metformin HCl] 1,000 mg PO BID 02/14/17 03/01/17 Previous Rx's Medication Instructions Recorded Atorvastatin [Lipitor] 80 mg PO HS #30 tab 02/17/17 Metoprolol Tartrate [Lopressor] 25 mg PO BID #60 tab 02/17/17 Nitroglycerin Sl Tabs [Nitrostat] 0.4 mg SUBLINGUAL Q5M PRN #25 tab 02/17/17 Prasugrel [Effient] 10 mg PO DAILY #30 tab 02/17/17 Allergies Allergy/AdvReac Type Severity Reaction Status Date / Time steroids Allergy Hallucinati Uncoded 03/01/17 22:35 ons Review of Systems ROS Statement: Those systems with pertinent positive or pertinent negative responses have been documented in the HPI. ROS Other: All systems not noted in ROS Statement are negative. EKG Findings - EKG Results: EKG: interpreted by [facility], sinus rhythm (Sinus tachycardia rate 113. We'll 154 QRS 96 QT since QTC of 326/[address]-T wave changes as compared with previous EKGs 02/17/17 except for the rate no acute changes) Past Medical History Past Medical History: Diabetes Mellitus, Hyperlipidemia, Hypertension History of Any Multi-Drug Resistant Organisms: None Reported Past Surgical History: Appendectomy, Heart Catheterization Additional Past Surgical History / Comment(s): lap band 2008 Past Anesthesia/Blood Transfusion Reactions: No Reported Reaction Past Psychological History: No Psychological Hx Reported Smoking Status: Never smoker Past Alcohol Use History: Rare Past Drug Use History: None Reported - Past Family History Father Family Medical History: Diabetes Mellitus, Deep Vein Thrombosis (DVT), Hypertension, Myocardial Infarction ([place]) Mother Family Medical History: Cancer Additional Family Medical History / Comment(s): Brain tumor, mass removed from neck General Exam - General Exam Comments Initial Comments: This is a well-developed well-nourished awake alert oriented 3 male Limitations: no limitations General appearance: alert Head exam: Present: atraumatic, normocephalic, normal inspection Eye exam: Present: normal appearance, PERRL, EOMI. Absent: scleral icterus, conjunctival injection, periorbital swelling ENT exam: Present: normal exam, mucous membranes moist Neck exam: Present: normal inspection. Absent: tenderness, meningismus, lymphadenopathy Respiratory exam: Present: normal lung sounds bilaterally. Absent: respiratory distress, wheezes, rales, rhonchi, stridor Cardiovascular Exam: Present: regular rate, normal rhythm, normal heart sounds. Absent: systolic murmur, diastolic murmur, rubs, gallop, clicks GI/Abdominal exam: Present: soft, normal bowel sounds. Absent: distended, tenderness, guarding, rebound, rigid Extremities exam: Present: normal inspection, full ROM, normal capillary refill. Absent: tenderness, pedal edema, joint swelling, calf tenderness Back exam: Present: normal inspection Neurological exam: Present: alert, oriented X3, CN II-XII intact Psychiatric exam: Present: normal affect, normal mood Skin exam: Present: warm, intact, normal color, diaphoretic. Absent: rash Course Vital Signs 03/01/17 03/01/17 22:33 23:17 Temperature 97.7 F Pulse Rate 113 H 101 H Respiratory 20 18 Rate Blood Pressure 143/76 117/65 O2 Sat by Pulse 99 96 Oximetry - Reevaluation(s) Reevaluation #1: 03/01/17 23:55 Reevaluation patient reveals he is pain-free. Chest Pain MDM - MDM I did review the x-ray no acute findings and discussed the patient's family. Patient be admitted for evaluation by cardiology. Critical Care Time Critical Care Time: Yes Critical Care Time: 31 minutes of critical care time which includes initial presentation with history physical labs x-rays reevaluation the patient review of old charting. Documentation above discussion with the admitting physician and admission orders. Disposition Clinical Impression: Unstable angina Disposition: ADMITTED IP TO THIS HOSP Condition: Stable Referrals: Natan Morrison DO [Primary Care Provider] - 1-2 days
[2017-03-01 22:55] LABS: Basophils # (A) 0.1 k/uL (0-0.2); Basophils % (A) 1 %; CHCM 33.5; Eosinophils # (A) 0.1 k/uL (0-0.7); Eosinophils % (A) 2 %; HCT 46.5 % (39.0-53.0); HDW 3.41; Luc # (Auto) 0.14; Luc % (Auto) 2; Lymphocytes # (A) 2.2 k/uL (1.0-4.8); Lymphocytes % (A) 35 %; MCH 29.1 pg (25.0-35.0); MCHC 32.3 g/dL (31.0-37.0); MCV 90.2 fL (80.0-100.0); Mean Platelet Volume 9.3; Monocytes # (A) 0.3 k/uL (0-1.0); Monocytes % (A) 5 %; Neutrophils # (A) 3.4 k/uL (1.3-7.7); Neutrophils % (A) 55 %; Poikilocytosis Slight; RBC 5.15 m/uL (4.30-5.90); RDW 15.3 % (11.5-15.5); WBC 6.2 k/uL (3.8-10.6); WBC (Perox) 5.52
[2017-03-01 23:01] LABS: INR 0.9 (<1.1); Partial Thromboplastin Time 22.8 sec (22.0-30.0); Prothrombin Time 9.6 sec (9.0-12.0)
[2017-03-01 23:09] LABS: ALT 52 U/L (21-72); AST 28 U/L (17-59); Alkaline Phosphatase 84 U/L (38-126); Anion Gap 17 mmol/L; Blood Urea Nitrogen 15 mg/dL (9-20); Calcium 10.2 mg/dL (8.4-10.2); Carbon Dioxide 24 mmol/L (22-30); Chloride 99 mmol/L (98-107); Glucose 241 mg/dL (74-99); Magnesium 1.6 mg/dL (1.6-2.3); Non-African American GFR(MDRD) >60 (>60 ml/min/1.73 sqM); Sodium 140 mmol/L (137-145); Total Bilirubin 0.4 mg/dL (0.2-1.3); Total Protein 7.6 g/dL (6.3-8.2)
[2017-03-01 23:12] LABS: Creatine Kinase 54 U/L (55-170)
--- NOTE | 2017-03-01 23:23 | XR ---
EXAM: XR Chest, 2 Views CLINICAL HISTORY: Chest pain. TECHNIQUE: Frontal and lateral views of the chest. COMPARISON: CXR and CTA dated 02/14/2017. FINDINGS: Lungs: Slightly low lung volumes. No definite focal consolidation. No evidence of pulmonary edema. Pleural space: No pleural effusion. No pneumothorax. Heart: Unremarkable. No cardiomegaly. Mediastinum: Unremarkable. Bones/joints: Unremarkable. IMPRESSION: No radiographic evidence of acute cardiopulmonary process accounting for slightly low lung volumes.
[2017-03-01 23:25] LABS: Creatine Kinase MB 0.3 ng/mL (0.0-2.4); Troponin I <0.012 ng/mL (0.000-0.034)
[2017-03-01] MEDS ORDERED: SODIUM CHLORIDE 0.9% 1,000 ML IV SCH (23:45)
[2017-03-01] MEDS ORDERED: NITROGLYCERIN SL TABS 0.4 MG TAB SUBLINGUAL PRN (23:56)
[2017-03-02] MEDS: NITROGLYCERIN OINT 1 INCH/GM PACKET TOPICAL SCH ×2 (00:23→05:36)
[2017-03-02] MEDS ORDERED: INSULIN GLARGINE 100 UNIT/ML 10 ML VIAL SQ SCH ×2 (01:11→21:00)
[2017-03-02] MEDS: ACETAMINOPHEN TAB 325 MG TAB PO PRN ×2 (01:33→11:38)
[2017-03-02 06:05] LABS: Cholesterol 215 mg/dL (<200); HDL Cholesterol 41 mg/dL (40-60); Triglycerides 223 mg/dL (<150)
[2017-03-02 06:07] LABS: Creatine Kinase 41 U/L (55-170)
[2017-03-02 06:20] LABS: Creatine Kinase MB 0.2 ng/mL (0.0-2.4); Troponin I <0.012 ng/mL (0.000-0.034)
[2017-03-02 06:47] LABS: Glucose,Whole Blood 221 mg/dL (75-99)
[2017-03-02] MEDS ORDERED: SODIUM CHLORIDE 0.9% 1,000 ML in EMPTY BAG 1 BAG IV ONE (07:07)
[2017-03-02] MEDS ORDERED: ATORVASTATIN 80 MG TAB PO STA (07:07)
[2017-03-02] MEDS ORDERED: NITROGLYCERIN SL TABS 0.4 MG TAB SUBLINGUAL PRN (07:07)
[2017-03-02] MEDS ORDERED: ASPIRIN 325 MG TAB PO STA (07:07)
[2017-03-02] MEDS ORDERED: ALPRAZolam 0.5 MG TAB PO PRN (07:07)
[2017-03-02] MEDS ORDERED: ALPRAZolam 0.25 MG TAB PO PRN (07:07)
[2017-03-02 07:26] VITALS: RESP 16; TEMP 98
[2017-03-02] MEDS ORDERED: SODIUM CHLORIDE 0.9% 500 ML IV ONE (08:00)
[2017-03-02] MEDS ORDERED: CLOPIDOGREL 75 MG TAB PO ONE (08:10)
[2017-03-02] MEDS ORDERED: ASPIRIN 325 MG TAB PO ONE (08:10)
[2017-03-02] MEDS ORDERED: fentaNYL (PF) 50 MCG/ML 2 ML AMP IV ONE (08:12)
[2017-03-02] MEDS ORDERED: LIDOCAINE 2% INJ 20 MG/ML SQ ONE ×2 (08:12)
[2017-03-02] MEDS ORDERED: MIDAZOLAM 2 MG/2 ML VIAL IV ONE (08:13)
[2017-03-02] MEDS ORDERED: IOHEXOL 350 MG/ML 125ML BOTTLE INJ ONE (08:29)
[2017-03-02] MEDS ORDERED: RX INFO: IV CONTRAST WAS GIVEN 1 EACH MISC MISCELLANE PRN (08:32)
[2017-03-02] MEDS ORDERED: SODIUM CHLORIDE 0.9% 1,000 ML IV SCH (08:45)
[2017-03-02 08:58] LABS: Glucose,Whole Blood 239 mg/dL (75-99)
[2017-03-02] MEDS ORDERED: CLOPIDOGREL 75 MG TAB PO SCH (09:00)
[2017-03-02] MEDS ORDERED: INSULIN LISPRO (humaLOG) 300 UNIT/3 ML VIAL SQ SCH (09:00)
[2017-03-02] MEDS ORDERED: LISINOPRIL 5 MG TAB PO SCH (09:00)
[2017-03-02] MEDS ORDERED: metFORMIN 500 MG TAB PO SCH (09:00)
[2017-03-02] MEDS ORDERED: PANTOPRAZOLE 40 MG TABLET PO SCH (09:00)
[2017-03-02] MEDS ORDERED: ASPIRIN 325 MG TAB PO SCH (09:00)
[2017-03-02] MEDS ORDERED: glipiZIDE 10 MG TAB PO SCH (09:00)
[2017-03-02] MEDS ORDERED: amLODIPine 10 MG TAB PO SCH (09:00)
[2017-03-02] MEDS ORDERED: PRASUGREL 10 MG TAB PO SCH (09:00)
[2017-03-02] MEDS ORDERED: METOPROLOL TARTRATE 25 MG TAB PO SCH (09:00)
[2017-03-02] MEDS ORDERED: MULTIVITAMINS, THERA 1 EACH TAB PO SCH (09:00)
[2017-03-02] MEDS ORDERED: NON-FORMULARY DRUG (Omega-3 Fatty Acids/Fish Oil [Fish Oil 1,000 Mg Capsule] 1 CAP) PO SCH (09:00)
--- NOTE | 2017-03-02 09:21 | CC ---
DATE OF SERVICE: INDICATION: Unstable angina. PROCEDURE NOTE: After obtaining informed consent, left heart catheterization and coronary angiogram are performed via the right femoral artery using standard Rebel catheters. Patient tolerated the procedure well without any obvious immediate complications. Total sedation time was 20 minutes. A femoral angiogram was obtained and Angio-Seal was deployed for hemostasis. FINDINGS: 1. HEMODYNAMICS: Ventricular end-diastolic pressure is 12 mm. There is no significant gradient across the aortic valve. 2. LEFT VENTRICULOGRAM: Left ventriculogram was not performed. 3. ANGIOGRAPHIC DATA: Left main coronary artery: Left main coronary artery is a short vessel and is free of stenosis, divides into left anterior descending coronary artery and circumflex coronary artery. LAD was previously stented in its midportion and the stented segment appears patent. There is a small caliber diagonal branch that shows a mild atherosclerotic plaque in its ostial portion. I engage the LAD using a size 4.5 Rebel catheter. Circumflex coronary artery, which is a large codominant vessel. There is a moderate area of stenosis involving the distal circ and the OM branch. Right coronary artery is a nondominant vessel and is free of significant stenosis. CONCLUSIONS: Patent stent within the left anterior descending artery, moderate disease involving circ and obtuse marginal. PLAN: Lesions do not seem to be bad enough to do an angioplasty at this time. I will do an outpatient stress test and if necessary perform angioplasty at that time. The diag shows mild stenosis in the ostial portion, which looks the same as it did at the end of last angioplasty.
[2017-03-02 11:27] VITALS: BP 129/80; PULSE 78
[2017-03-02 11:40] LABS: Glucose,Whole Blood 247 mg/dL (75-99)
[2017-03-02 12:39] LABS: Creatine Kinase 43 U/L (55-170)
--- NOTE | 2017-03-02 12:39 | CONS ---
DATE OF CONSULTATION: Mr. Ellis is a 46-year-old male with known history of hypertension, hyperlipidemia, diabetes mellitus, and a history of coronary artery disease, who presented with symptoms of chest discomfort. His cardiac history is remarkable for the fact that earlier this month he was admitted to the hospital with symptoms of chest discomfort and was diagnosed with non- ST segment elevation myocardial infarction. He underwent a cardiac catheterization by Dr. Mccullough and was found to have significant stenosis involving the left anterior descending artery and subsequently to that he underwent a stenting of the left anterior descending artery on the 16 of February using 3.5, 23 mm Xience Alpine stent. He has done well from the cardiac standpoint, went home. He is not very active physically, but has done well up until yesterday when he started to have discomfort in the chest associated with nausea, took some nitroglycerin with some improvement. Because of the persistent symptoms, he came into the emergency room and subsequently admitted. At the time of my evaluation, he is pain free. Patient denies any dizziness. No palpitation. No syncope. He denies any PND, orthopnea, or peripheral edema. His coronary risk factors are noted for hypertension, hyperlipidemia, and diabetes. His medications include aspirin, Lipitor 80 mg daily, insulin, lisinopril 5 mg daily, metoprolol tartrate 25 mg twice a day, Plavix 75 mg daily, amlodipine 10 mg daily, glipizide 10 mg twice a day and metformin 1 gram twice a day. REVIEW OF SYSTEMS: RESPIRATORY SYSTEM: No recent wheezing. No cough. No history of obstructive lung disease. GI SYSTEM: No recent GI bleeding. No peptic ulcer disease. SYSTEM: No dysuria or hematuria. NERVOUS SYSTEM: No stroke or seizure. PHYSICAL EXAMINATION: A 46-year-old male, alert, oriented, in no apparent distress. Blood pressure 106/60 with the heart rate in the 80s. HEAD: Normocephalic. EYES: Sclerae anicteric. NECK: Good upstroke. No bruit. No jugular venous distention. LUNGS: Clear to auscultation. HEART: Regular rate and rhythm. S1, S2, no S3, no rub with a soft systolic murmur. ABDOMEN: Soft, nontender, obese. Positive bowel sounds. No organomegaly. EXTREMITIES: No edema. Intact distal pulses. Lab data revealed a troponin less than 0.012 for 2 samples. Cholesterol 215, LDL 129. BUN and creatinine 15 and 0.8. Potassium 4.0. Hemoglobin of 15. EKG revealed a sinus mechanism, rate of [address]-T wave changes. A chest x-ray shows no evidence of infiltrate. IMPRESSION: 1. Symptoms of chest discomfort in a patient who has underwent percutaneous revascularization recently. The details of the symptoms are unclear the likelihood of stent thrombosis is very low since his enzymes and EKG are unremarkable. Patient is too early to have an in-stent restenosis. 2. Hypertension. 3. Hyperlipidemia. 4. Diabetes mellitus. 5. Obesity. RECOMMENDATION: Because of his prior history and presentation, I have recommended to proceed with coronary angiography to assess his stent. The procedure will be done by Dr. Mccullough. I have discussed with the patient those findings. He is in full understanding and agreement. Thank you for this consult. We will follow with you.
[2017-03-02 12:50] LABS: Creatine Kinase MB 0.3 ng/mL (0.0-2.4); Troponin I <0.012 ng/mL (0.000-0.034)
--- NOTE | 2017-03-02 19:56 | HP ---
DATE OF ADMISSION: 03/01/2017 CHIEF COMPLAINT: Chest pain. HISTORY OF PRESENT ILLNESS: Mr. Ellis is a 46-year-old male with a known history of hypertension, hyperlipidemia, insulin-dependent diabetes mellitus and coronary artery disease, status post stent placed to the LAD recently came to the ER with complaints of chest pain, started yesterday evening. He did take multiple nitroglycerin tablets at home without much relief. ( ) 8 out of 10, midsternal. Had nausea but no associated vomiting. Denied any radiation of the pain. Due to persistence of symptoms, patient came to the ER. Currently, patient was seen by cardiology and recommended cardiac catheterization. Currently chest pain free. Otherwise, denied any dizziness or lightheadedness. No palpitation. No orthopnea, no PND. REVIEW OF SYSTEMS: CONSTITUTIONAL: No fever. No chills. No weakness. RESPIRATORY: No cough or sputum production. CARDIOVASCULAR: No chest pain or short of breath. ABDOMEN: No nausea, vomiting, abdominal pain. GENITOURINARY: No dysuria or hematuria. NEUROLOGICAL: Negative. ENDOCRINE: Negative. PSYCHIATRY: Negative. SKIN: Negative. All other 14 point review of systems negative except as above. PAST MEDICAL HISTORY: Hypertension, hyperlipidemia, diabetes mellitus, coronary artery disease and stent placement recently. PAST SURGICAL HISTORY: Appendectomy. Heart catheterization. Lap band surgery in 2008. No psychosocial history. FAMILY HISTORY: Father had diabetes mellitus. DVT, hypertension, and [place]. Mother has brain tumor, mass removed from neck. SOCIAL HISTORY: Patient never a smoker. Occasional alcohol use. Denied any drugs or IVDU. ALLERGIES: STEROIDS. Home medications include: 1. Ascorbic acid. 2. Aspirin. 3. Vitamin D3. 4. Cranberry fruit extract. 5. NovoLog. 6. Insulin glargine. 7. Lisinopril. 8. Multivitamin. 9. [place]-3 fatty acids. 10. Prilosec. 11. Amlodipine. 12. Glipizide. 13. Metformin. 14. Atorvastatin. 15. Metoprolol tartrate. 16. Nitroglycerin sublingual tablets. 17. Effient. PHYSICAL EXAMINATION: A 46-year-old male, morbidly obese, lying in the bed comfortably, in no apparent distress. VITALS: Blood pressure is 122/59, pulse is 90, respirations 18, temperature afebrile, pulse ox is saturating well on room air. HEENT: Atraumatic. Neck is supple. No JVD. CVS: S1, S2 heard. No murmurs, no gallop, no rub. LUNGS: Bilateral air entry is present. No wheezing. No crackles. Nonlabored breathing. ABDOMEN: Soft, nontender. Bowel sounds present. PHLEBOTOMY INSTRUCTOR: Awake, alert and oriented x3. No focal deficits. EXTREMITIES: No edema. Pulses palpable bilaterally. No clubbing or cyanosis. PSYCHIATRIC: Cooperative. LABORATORY DATA: WBC 6.2, hemoglobin 15.0, platelets 235 and INR 0.9. Sodium 140, potassium 4.0, chloride 99, bicarb is 24. BUN 15, creatinine 0.8, blood sugar is elevated to 221, Magnesium 1.6 and LDL is 129. EKG sinus tachycardia. Chest x-ray, no radiographic evidence of acute cardiopulmonary process accounting for slightly low lung volumes. IMPRESSION: 1. Chest discomfort/angina in a patient with recent PCI. 2. History of coronary artery disease, status post recent stent placement to left anterior descending coronary artery. Patient says that he is compliant with his medications. 3. Hypertension, controlled. 4. Hyperlipidemia. 5. Hyperglycemia with uncontrolled diabetes. 6. Morbid obesity with body mass index 39.9. DISCUSSION AND PLAN: Patient will be continued on telemonitoring and serial EKGs and troponins. ( ). Cardiology is being consulted for further evaluation.
[2017-03-02] MEDS ORDERED: ATORVASTATIN 80 MG TAB PO SCH (21:00)
[2017-03-03] MEDS ORDERED: ASPIRIN 81 MG CHEW PO SCH (09:00)
--- NOTE | 2017-03-03 13:18 | DS ---
DATE OF ADMISSION: 03/01/2017 DATE OF DISCHARGE: 03/02/2017 DISCHARGE DIAGNOSES: 1. Angina pectoris with recent PCI. Repeat angiogram showed no evidence of stenosis. Serial EKGs and troponins are negative. 2. History of coronary artery disease. 3. Hypertension. 4. Uncontrolled diabetes mellitus. 5. Hyperlipidemia. 6. Morbid obesity. HOSPITAL COURSE: Mr. Ellis is a 46-year-old male with known history of recent PCI with stenting to left anterior descending admitted to the hospital with complaints of chest discomfort with nausea and diaphoresis. No radiation. No orthopnea, no PND as noted. Due to persistence of symptoms patient came to the hospital and not relieved by nitroglycerin. The patient was seen by cardiology and serial EKGs and troponins are negative. Cardiology recommended for repeat cardiac catheterization which was done by Dr. Mccullough today, which showed no evidence of significant stenosis. Otherwise patient is chest pain free now. Cleared from Cardiology standpoint. Patient will be continued on current medications and follow with primary care physician. The patient otherwise stable to be discharged home. DISCHARGE PHYSICAL EXAMINATION: A 46-year-old male lying in the bed, awake, alert, and oriented x3. Appears to be in no apparent distress. VITALS: Blood pressure is 129/80, pulse is 78, respirations 16, temperature afebrile, pulse ox 97% on room air. Laboratory data reviewed. LDL is 129, total cholesterol is 215. Troponin x3 negative. Discharge physical examination done. Discharge medication reconciliation done. Discharge medications include: 1. Vitamin C 500 mg p.o. daily. 2. Aspirin 81 mg p.o. daily. 3. Vitamin D3 400 units of p.o. daily. 4. Cranberry fruit extract 200 mg p.o. daily. 5. NovoLog Flex pen 5 units subcutaneous b.i.d. 6. Insulin glargine 15 units subcu at bedtime. 7. Lisinopril 5 mg p.o. daily. 8. Multivitamins 1 tablet daily. 9. [place]-3 fatty acids 1 capsule p.o. daily. 10. Prilosec 20 mg p.o. daily. 11. Amlodipine 10 mg p.o. daily. 12. Glipizide 10 mg p.o. b.i.d. 13. Atorvastatin 80 mg p.o. at bedtime. 14. Metoprolol 25 mg p.o. b.i.d. 15. Nitroglycerin sublingual 0.4 mg sublingual q.5 minutes p.r.n. for chest pain. 16. Prasugrel 10 mg p.o. daily. 17. Metformin 1000 mg p.o. b.i.d. Patient will be discharged home in stable condition. Activity as tolerated. Follow with Dr. Natan Morrison in [address] Raheem Mccullough in the cardiology clinic. Heart healthy diet and low cholesterol diet. Activity as tolerated. Home with self-care.
== END 2017-03-02 16:00 | disposition home or self-care (01) ==
LOC: EC 22:22 → 3OBS 23:56
PROVIDERS: ADMIT Internal Medicine; ATTEND Internal Medicine
DX: I25.110 Atherosclerotic heart disease of native coronary artery with unstable angina pectoris (principal); E11.65 Type 2 diabetes mellitus with hyperglycemia; I10 Essential (primary) hypertension; E78.5 Hyperlipidemia, unspecified; E66.01 Morbid (severe) obesity due to excess calories; I25.2 Old myocardial infarction; Z98.84 Bariatric surgery status; Z82.49 Family history of ischemic heart disease and other diseases of the circulatory system; Z79.899 Other long term (current) drug therapy; Z79.4 Long term (current) use of insulin; Z95.5 Presence of coronary angioplasty implant and graft; Z79.82 Long term (current) use of aspirin; Z79.02 Long term (current) use of antithrombotics/antiplatelets; Z79.84 Long term (current) use of oral hypoglycemic drugs; Z88.8 Allergy status to other drugs, medicaments and biological substances; Z68.39 Body mass index [BMI] 39.0-39.9, adult
CPT/HCPCS: 96374; 99291; 36415; 93005; 93458; 80061; 80053; 82550 ×2; 82553 ×2; 83735; 84484 ×2; 85025; 85610; 85730; 71020; G0378 ×2; C1760; C1894; C1769; J2001; J2250; J2270; J3010; Q9967

== ENCOUNTER 2017-03-22 18:10 | Emergency (ER) | payer OTHER ==
[2017-03-22] MEDS ORDERED: RX INFO: IV CONTRAST WAS GIVEN 1 EACH MISC MISCELLANE PRN (19:59)
[2017-03-22] MEDS ORDERED: SODIUM CHLORIDE 0.9% 1,000 ML IV STA (19:59)
--- NOTE | 2017-03-22 20:07 | ED ---
Abdominal Pain HPI - General Chief Complaint: Abdominal Pain Stated Complaint: Abd pain Time Seen by Provider: 03/22/17 19:42 Source: patient, RN notes reviewed Mode of arrival: ambulatory Limitations: no limitations - History of Present Illness Initial Comments: 46 yo male presents to the ER with cc of right sided abdominal pain. Patient states it's in the lower right side. Patient states it feels as if someone is taking pending stabbing him. Patient states he did have nausea vomiting the day before this started this started yesterday. Patient states been on a continuous 6 out of 10. 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 Patient states he was concerned about that. Patient states at that time he was told he had his appendix improve but recent CTs they said he still did have an appendix. Patient denies any fever chills with this. Patient denies any changes in bowel or bladder function. They were concerned due to the patient's pains without that he should be seen. Patient denies any recent fever, chills, shortness of breath, chest pain, back pain, numbness or tingling , dysuria or hematuria, constipation or diarrhea, headaches or visual changes, or any other current symptoms. - Related Data Home Medications Medication Instructions Recorded Confirmed Ascorbic Acid [Vitamin C] 500 mg PO DAILY 02/14/17 03/22/17 Aspirin [Adult Low Dose Aspirin EC] 81 mg PO DAILY 02/14/17 03/22/17 Cholecalciferol [Vitamin D3] 400 unit PO DAILY 02/14/17 03/22/17 Cranberry Fruit Extract [Cranberry] 200 mg PO DAILY 02/14/17 03/22/17 Insulin Aspart [NovoLOG Flexpen] 5 units SQ BID 02/14/17 03/22/17 Insulin Glargine,Hum.rec.anlog 15 unit SQ HS 02/14/17 03/22/17 [Lantus Solostar] Lisinopril [Zestril] 5 mg PO DAILY 02/14/17 03/22/17 Multivitamins, Thera [Multivitamin 1 tab PO DAILY 02/14/17 03/22/17 (formulary)] Mclaughlin-3 Fatty Acids/Fish Oil [Fish 1 cap PO DAILY 02/14/17 03/22/17 Oil 1,000 mg Capsule] Omeprazole [PriLOSEC] 20 mg PO DAILY 02/14/17 03/22/17 amLODIPine [Norvasc] 10 mg PO DAILY 02/14/17 03/22/17 glipiZIDE [-] 10 mg PO BID 02/14/17 03/22/17 Clopidogrel Bisulfate [Plavix] 75 mg PO DAILY 03/22/17 03/22/17 Metoprolol Succinate (ER) [Toprol 50 mg PO DAILY 03/22/17 03/22/17 Xl] Previous Rx's Medication Instructions Recorded Nitroglycerin Sl Tabs [Nitrostat] 0.4 mg SUBLINGUAL Q5M PRN #25 tab 02/17/17 metFORMIN HCL [Metformin HCl] 1,000 mg PO BID #0 03/02/17 Allergies Allergy/AdvReac Type Severity Reaction Status Date / Time steroids Allergy Hallucinati Uncoded 03/22/17 18:31 ons Review of Systems ROS Statement: Those systems with pertinent positive or pertinent negative responses have been documented in the HPI. ROS Other: All systems not noted in ROS Statement are negative. Past Medical History Past Medical History: Diabetes Mellitus, Hyperlipidemia, Hypertension, Myocardial Infarction ([place]) Last Myocardial Infarction Date:: 02/16/17 History of Any Multi-Drug Resistant Organisms: None Reported Past Surgical History: Appendectomy, Heart Catheterization, Heart Catheterization With Stent Additional Past Surgical History / Comment(s): lap band 2008, cardiac cath with stent to LAD 02/16/2017 Past Anesthesia/Blood Transfusion Reactions: No Reported Reaction Date of Last Stent Placement:: 02/16/17 Past Psychological History: No Psychological Hx Reported Smoking Status: Never smoker Past Alcohol Use History: None Reported Past Drug Use History: None Reported - Past Family History Father Family Medical History: Diabetes Mellitus, Deep Vein Thrombosis (DVT), Hypertension, Myocardial Infarction ([place]) Mother Family Medical History: Cancer Additional Family Medical History / Comment(s): Brain tumor, mass removed from neck General Exam - General Exam Comments Initial Comments: General: The patient is awake and alert, in no distress, and does not appear acutely ill. Eye: Pupils are equal, round and reactive to light, extra-ocular movements are intact; there is normal conjunctiva bilaterally. No signs of icterus. Ears, nose, mouth and throat: There are moist mucous membranes and no oral lesions. Neck: The neck is supple, there is no tenderness. Cardiovascular: There is a regular rate and rhythm. No murmur, rub or gallop is appreciated. Respiratory: Lungs are clear to auscultation, respirations are non-labored, breath sounds are equal. No wheezes, stridor, rales, or rhonchi. Gastrointestinal: Soft, non-distended, mild tender in the right lower quadrant of the abdomen without masses or organomegaly noted. There is no rebound or guarding present. No CVA tenderness. Bowel sounds are unremarkable. Back: There is no tenderness to palpation in the midline. There is no obvious deformity. No rashes noted. Musculoskeletal: Normal ROM, no tenderness, There is no pedal edema. There is no calf tenderness or swelling. Sensation intact. Pulses equal bilaterally 2+. Neurological: CN II-XII intact, There are no obvious motor or sensory deficits. Coordination appears grossly intact. Speech is normal. Skin: Skin is warm and dry and no rashes or lesions are noted. Psychiatric: Cooperative, appropriate mood & affect, normal judgment. Limitations: no limitations Course Vital Signs 03/22/17 03/22/17 18:29 22:00 Temperature 98.4 F 98.9 F Pulse Rate 90 87 Respiratory 20 18 Rate Blood Pressure 135/76 142/76 O2 Sat by Pulse 99 95 Oximetry Medical Decision Making - Medical Decision Making 46-year-old male presents emergency Department chief complaint of right-sided abdominal pain. At this time the patient does appear to have urinary retention. We did straight Patient and did empty his bladder. At this time the patient was out. However he does not want that. At this time we discussed single home he did urinate throughout the day today without difficulty. We discussed that he does not urinate by morning please return to the emergency department immediately. We did discuss the significance of this. We will begin follow-up urology. Patient is in agreement with this plan all questions have been answered. This time patient will be discharged home. - Lab Data Result diagrams: 03/22/17 20:10 03/22/17 20:10 Lab Results 03/22/17 03/22/17 03/22/17 Range/Units 20:10 20:10 20:10 WBC 4.9 (3.8-10.6) k/uL RBC 5.22 (4.30-5.90) m/uL Hgb 14.9 (13.0-17.5) gm/dL Hct 43.5 (39.0-53.0) % MCV 83.2 D (80.0-100.0) fL MCH 28.5 (25.0-35.0) pg MCHC 34.3 (31.0-37.0) g/dL RDW 14.1 (11.5-15.5) % Plt Count 189 (150-450) k/uL Neutrophils % 61 % Lymphocytes % 28 % Monocytes % 7 % Eosinophils % 2 % Basophils % 1 % Neutrophils # 3.0 (1.3-7.7) k/uL Lymphocytes # 1.4 (1.0-4.8) k/uL Monocytes # 0.3 (0-1.0) k/uL Eosinophils # 0.1 (0-0.7) k/uL Basophils # 0.0 (0-0.2) k/uL Poikilocytosis Slight PT 9.7 (9.0-12.0) sec INR 0.9 (<1.1) APTT 23.0 (22.0-30.0) sec Sodium 141 (137-145) mmol/L Potassium 4.4 (3.5-5.1) mmol/L Chloride 99 (98-107) mmol/L Carbon Dioxide 29 (22-30) mmol/L Anion Gap 13 mmol/L BUN 10 (9-20) mg/dL Creatinine 0.70 (0.66-1.25) mg/dL Est GFR (MDRD) Af Amer >60 (>60 ml/min/1.73 sqM) Est GFR (MDRD) Non-Af >60 (>60 ml/min/1.73 sqM) Glucose 204 H (74-99) mg/dL Plasma Lactic Acid Zaki (0.7-2.0) mmol/L Calcium 10.2 (8.4-10.2) mg/dL Total Bilirubin 0.4 (0.2-1.3) mg/dL AST 21 (17-59) U/L ALT 41 (21-72) U/L Alkaline Phosphatase 67 (38-126) U/L Total Protein 7.6 (6.3-8.2) g/dL Albumin 4.6 (3.5-5.0) g/dL Amylase <30 L (30-110) U/L Lipase 98 (23-300) U/L Urine Color Urine Appearance (Clear) Urine pH (5.0-8.0) Ur Specific [place] (1.001-1.035) Urine Protein (Negative) Urine Glucose (UA) (Negative) Urine Ketones (Negative) Urine Blood (Negative) Urine Nitrite (Negative) Urine Bilirubin (Negative) Urine Urobilinogen (<2.0) mg/dL Ur Leukocyte Esterase (Negative) Urine RBC (0-5) /hpf Urine WBC (0-5) /hpf 03/22/17 03/22/17 Range/Units 20:35 22:45 WBC (3.8-10.6) k/uL RBC (4.30-5.90) m/uL Hgb (13.0-17.5) gm/dL Hct (39.0-53.0) % MCV (80.0-100.0) fL MCH (25.0-35.0) pg MCHC (31.0-37.0) g/dL RDW (11.5-15.5) % Plt Count (150-450) k/uL Neutrophils % % Lymphocytes % % Monocytes % % Eosinophils % % Basophils % % Neutrophils # (1.3-7.7) k/uL Lymphocytes # (1.0-4.8) k/uL Monocytes # (0-1.0) k/uL Eosinophils # (0-0.7) k/uL Basophils # (0-0.2) k/uL Poikilocytosis PT (9.0-12.0) sec INR (<1.1) APTT (22.0-30.0) sec Sodium (137-145) mmol/L Potassium (3.5-5.1) mmol/L Chloride (98-107) mmol/L Carbon Dioxide (22-30) mmol/L Anion Gap mmol/L BUN (9-20) mg/dL Creatinine (0.66-1.25) mg/dL Est GFR (MDRD) Af Amer (>60 ml/min/1.73 sqM) Est GFR (MDRD) Non-Af (>60 ml/min/1.73 sqM) Glucose (74-99) mg/dL Plasma Lactic Acid Zaki 1.9 (0.7-2.0) mmol/L Calcium (8.4-10.2) mg/dL Total Bilirubin (0.2-1.3) mg/dL AST (17-59) U/L ALT (21-72) U/L Alkaline Phosphatase (38-126) U/L Total Protein (6.3-8.2) g/dL Albumin (3.5-5.0) g/dL Amylase (30-110) U/L Lipase (23-300) U/L Urine Color Light Yellow Urine Appearance Clear (Clear) Urine pH 7.0 (5.0-8.0) Ur Specific [place] >1.050 H (1.001-1.035) Urine Protein Trace H (Negative) Urine Glucose (UA) 3+ H (Negative) Urine Ketones Negative (Negative) Urine Blood Trace H (Negative) Urine Nitrite Negative (Negative) Urine Bilirubin Negative (Negative) Urine Urobilinogen <2.0 (<2.0) mg/dL Ur Leukocyte Esterase Negative (Negative) Urine RBC 2 (0-5) /hpf Urine WBC <1 (0-5) /hpf - Radiology Data Radiology results: report reviewed, image reviewed Disposition Clinical Impression: Urinary retention Disposition: HOME SELF-CARE Condition: Stable Instructions: Urinary Retention in Men (ED) Additional Instructions: Please use medication as discussed. Please follow up with family doctor if symptoms have not improved over the next two days. Please return to the emergency room if your symptoms increase or worsen or for any other concerns. Referrals: Natan Morrison DO [Primary Care Provider] - 1-2 days Mckay De La Cruz MD [STAFF PHYSICIAN] - 1-2 days Time of Disposition: 23:30
[2017-03-22 20:25] LABS: Basophils % (A) 1 %; CH 28.7; CHCM 34.6; Eosinophils # (A) 0.1 k/uL (0-0.7); Eosinophils % (A) 2 %; HCT 43.5 % (39.0-53.0); HDW 3.43; HGB 14.9 gm/dL (13.0-17.5); Luc % (Auto) 2; Lymphocytes # (A) 1.4 k/uL (1.0-4.8); Lymphocytes % (A) 28 %; MCH 28.5 pg (25.0-35.0); MCHC 34.3 g/dL (31.0-37.0); Mean Platelet Volume 7.6; Monocytes # (A) 0.3 k/uL (0-1.0); Monocytes % (A) 7 %; Neutrophils % (A) 61 %; Poikilocytosis Slight; RBC 5.22 m/uL (4.30-5.90); RDW 14.1 % (11.5-15.5); WBC 4.9 k/uL (3.8-10.6); WBC (Perox) 4.91
[2017-03-22 20:27] LABS: MCV 83.2 fL (80.0-100.0)
[2017-03-22 20:34] LABS: ALT 41 U/L (21-72); AST 21 U/L (17-59); Alkaline Phosphatase 67 U/L (38-126); Amylase <30 U/L (30-110); Anion Gap 13 mmol/L; Blood Urea Nitrogen 10 mg/dL (9-20); Calcium 10.2 mg/dL (8.4-10.2); Carbon Dioxide 29 mmol/L (22-30); Chloride 99 mmol/L (98-107); Glucose 204 mg/dL (74-99); Non-African American GFR(MDRD) >60 (>60 ml/min/1.73 sqM); Potassium 4.4 mmol/L (3.5-5.1); Sodium 141 mmol/L (137-145); Total Bilirubin 0.4 mg/dL (0.2-1.3); Total Protein 7.6 g/dL (6.3-8.2)
[2017-03-22 20:45] LABS: INR 0.9 (<1.1); Prothrombin Time 9.7 sec (9.0-12.0)
--- NOTE | 2017-03-22 21:59 | CT ---
EXAMINATION TYPE: CT abdomen pelvis w con DATE OF EXAM: 03/22/2017 COMPARISON: NONE HISTORY: RLQ pain x1 day. CT DLP: 2282.4 mGycm Automated exposure control for dose reduction was used. TECHNIQUE: Helical acquisition of images was performed from the lung bases through the pelvis. CONTRAST: Performed without Oral Contrast and with IV Contrast, patient injected with 100 mL of Omnipaque 300. FINDINGS: LUNG BASES: No significant abnormality is appreciated. LIVER/GB: No significant abnormality is appreciated. PANCREAS: No significant abnormality is seen. SPLEEN: No significant abnormality is seen. ADRENALS: No significant abnormality is seen. KIDNEYS: No significant abnormality is seen. FREE AIR: No free air is visualized. RETROPERITONEAL ADENOPATHY: None visualized REPRODUCTIVE ORGANS: No significant abnormality is seen URINARY BLADDER: No significant abnormality is seen. PELVIC ADENOPATHY: None visualized. OSSEOUS STRUCTURES: No significant abnormality is seen. BOWEL: Gastric band is noted. No significant abnormality is seen. OTHER: Vasculature is unremarkable. IMPRESSION: NO ACUTE PROCESS.
[2017-03-22 22:21] VITALS: RESP 18
[2017-03-22 23:10] LABS: Appearance,Urine Clear (Clear); Bilirubin,Urine Negative (Negative); Glucose,Urine (UA) 3+ (Negative); Ketones,Urine Negative (Negative); Leukocyte Esterase,Urine Negative (Negative); Nitrite,Urine Negative (Negative); Particle Count 221; Protein,Urine Trace (Negative); RBC,Urine 2 /hpf (0-5); UA Billing (MACRO vs. MICRO) MICRO; Urobilinogen,Urine <2.0 mg/dL (<2.0); WBC,Urine <1 /hpf (0-5)
[2017-03-22 23:11] LABS: Specific Gravity,Urine >1.050 (1.001-1.035)
[2017-03-22] MEDS ORDERED: TAMSULOSIN 0.4 MG CAP.ER.24H PO STA (23:30)
[2017-03-22 23:49] VITALS: BP 137/62; PULSE 82; TEMP 98
== END 2017-03-22 23:45 | disposition home or self-care (01) ==
LOC: EC 18:10
DX: R33.9 Retention of urine, unspecified (principal); R10.31 Right lower quadrant pain; R11.2 Nausea with vomiting, unspecified; E11.9 Type 2 diabetes mellitus without complications; I10 Essential (primary) hypertension; I25.2 Old myocardial infarction; Z79.02 Long term (current) use of antithrombotics/antiplatelets; Z79.4 Long term (current) use of insulin; Z79.82 Long term (current) use of aspirin; Z79.899 Other long term (current) drug therapy; Z88.8 Allergy status to other drugs, medicaments and biological substances; Z90.49 Acquired absence of other specified parts of digestive tract
CPT/HCPCS: 36415; 80053; 82150; 83605; 83690; 85025; 85610; 85730; 81001; 87086; 74177; 99284; 96360; Q9967

== ENCOUNTER 2018-09-17 02:11 | Emergency (ER) | payer OTHER ==
[2018-09-17] MEDS ORDERED: SODIUM CHLORIDE 0.9% 2,000 ML IV ONE (02:37)
[2018-09-17 02:42] VITALS: TEMP 98.1
[2018-09-17 03:45] LABS: Glucose,Whole Blood 331 mg/dL (75-99)
[2018-09-17] MEDS ORDERED: ACETAMINOPHEN TAB 325 MG TAB PO STA (03:45)
[2018-09-17 03:46] LABS: Basophils % (A) 0 %; Eosinophils # (A) 0.1 k/uL (0-0.7); Eosinophils % (A) 1 %; HCT 39.6 % (39.0-53.0); HGB 13.7 gm/dL (13.0-17.5); Lymphocytes # (A) 1.2 k/uL (1.0-4.8); Lymphocytes % (A) 18 %; MCH 29.3 pg (25.0-35.0); MCHC 34.7 g/dL (31.0-37.0); MCV 84.5 fL (80.0-100.0); Mean Platelet Volume 8.5; Monocytes # (A) 0.5 k/uL (0-1.0); Monocytes % (A) 7 %; Neutrophils # (A) 4.9 k/uL (1.3-7.7); Neutrophils % (A) 72 %; Platelet Count 187 k/uL (150-450); RBC 4.69 m/uL (4.30-5.90); RDW 14.2 % (11.5-15.5); WBC 6.8 k/uL (3.8-10.6)
[2018-09-17 03:57] LABS: ALT 37 U/L (21-72); AST 30 U/L (17-59); Acetaminophen <10.0 ug/mL; Albumin 4.4 g/dL (3.5-5.0); Alcohol <10 mg/dL; Alkaline Phosphatase 68 U/L (38-126); Anion Gap 10 mmol/L; Blood Urea Nitrogen 19 mg/dL (9-20); Calcium 9.6 mg/dL (8.4-10.2); Carbon Dioxide 25 mmol/L (22-30); Chloride 102 mmol/L (98-107); Glucose 304 mg/dL (74-99); Magnesium 1.7 mg/dL (1.6-2.3); Potassium 5.3 mmol/L (3.5-5.1); Salicylate <1.0 mg/dL; Sodium 137 mmol/L (137-145); Total Bilirubin 0.8 mg/dL (0.2-1.3); Total Protein 7.2 g/dL (6.3-8.2)
[2018-09-17 04:12] LABS: Appearance,Urine Clear (Clear); Bilirubin,Urine Negative (Negative); Blood,Urine Trace (Negative); Color,Urine Yellow; Glucose,Urine (UA) 4+ (Negative); Hyaline Casts,Urine 3 /lpf (0-2); Leukocyte Esterase,Urine Negative (Negative); Mucus,Urine Occasional /hpf; Nitrite,Urine Negative (Negative); PH, Urine 5.5 (5.0-8.0); Protein,Urine 1+ (Negative); RBC,Urine 2 /hpf (0-5); Specific Gravity,Urine 1.025 (1.001-1.035); Urobilinogen,Urine <2.0 mg/dL (<2.0); WBC,Urine 2 /hpf (0-5)
[2018-09-17 04:23] LABS: Ketones,Urine 2+ (Negative)
--- NOTE | 2018-09-17 04:30 | ED ---
General Adult HPI - General Chief complaint: Altered Mental Status Stated complaint: Hyperglycemia Time Seen by Provider: 09/17/18 02:33 Source: patient Mode of arrival: EMS Limitations: no limitations - History of Present Illness Initial comments: Bishnu is a 47-year-old gentleman who presents the emergency department for evaluation of agitation and abdominal pain. 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 At that time he was treated with multiple medications. Patient reports at that time he weighed nearly 400 pounds and was told that all of the medications he was given were fat soluble so that if he lost weight quickly the medications would dissolve from the fat back into his body and he would have side effects. Patient reports that anytime he loses more than 2 pounds per week she has side effects from the previous medications he received in 2008. Patient reports that he has been on a diet to help his lose weight for her upcoming back surgery. He reports that because of this he has lost nearly 30 pounds over the past month and he can feel a side effect of the medications coming out of the fact that he is losing. Patient reports that he just feels agitated and out of it. also reports she's having some epigastric abdominal pain and once the position of his lap band checked. She does admit that due to feeling out of it he hasn't taken his oral hypoglycemics for 2 or 3 days. - Related Data Home Medications Medication Instructions Recorded Confirmed Ascorbic Acid [Vitamin C] 500 mg PO DAILY 02/14/17 09/17/18 Aspirin [Adult Low Dose Aspirin EC] 81 mg PO DAILY 02/14/17 09/17/18 Cholecalciferol [Vitamin D3] 400 unit PO DAILY 02/14/17 09/17/18 Cranberry Fruit Extract [Cranberry] 200 mg PO DAILY 02/14/17 09/17/18 Insulin Aspart [NovoLOG Flexpen] 5 units SQ BID 02/14/17 09/17/18 Insulin Glargine,Hum.rec.anlog 15 unit SQ HS 02/14/17 09/17/18 [Lantus Solostar] Lisinopril [Zestril] 5 mg PO DAILY 02/14/17 09/17/18 Multivitamins, Thera [Multivitamin 1 tab PO DAILY 02/14/17 09/17/18 (formulary)] [place]-3 Fatty Acids/Fish Oil [Fish 1 cap PO DAILY 02/14/17 09/17/18 Oil 1,000 mg Capsule] Omeprazole [PriLOSEC] 20 mg PO DAILY 02/14/17 09/17/18 amLODIPine [Norvasc] 10 mg PO DAILY 02/14/17 09/17/18 glipiZIDE [-] 10 mg PO BID 02/14/17 09/17/18 Clopidogrel Bisulfate [Plavix] 75 mg PO DAILY 03/22/17 09/17/18 Metoprolol Succinate (ER) [Toprol 50 mg PO DAILY 03/22/17 09/17/18 Xl] Previous Rx's Medication Instructions Recorded Nitroglycerin Sl Tabs [Nitrostat] 0.4 mg SUBLINGUAL Q5M PRN #25 tab 02/17/17 metFORMIN HCL [Metformin HCl] 1,000 mg PO BID #0 03/02/17 Tamsulosin [Flomax] 0.4 mg PO DAILY #5 cap 03/22/17 Allergies Allergy/AdvReac Type Severity Reaction Status Date / Time steroids Allergy Hallucinati Uncoded 03/22/17 18:31 ons Review of Systems ROS Statement: Those systems with pertinent positive or pertinent negative responses have been documented in the HPI. ROS Other: All systems not noted in ROS Statement are negative. Past Medical History Past Medical History: Diabetes Mellitus, Hyperlipidemia, Hypertension, Myocardial Infarction ([place]) Last Myocardial Infarction Date:: 02/16/17 History of Any Multi-Drug Resistant Organisms: None Reported Past Surgical History: Appendectomy, Heart Catheterization, Heart Catheterization With Stent Additional Past Surgical History / Comment(s): lap band 2008, cardiac cath with stent to LAD 02/16/2017 Past Anesthesia/Blood Transfusion Reactions: No Reported Reaction Date of Last Stent Placement:: 02/16/17 Past Psychological History: No Psychological Hx Reported Smoking Status: Never smoker Past Alcohol Use History: None Reported Past Drug Use History: None Reported - Past Family History Father Family Medical History: Diabetes Mellitus, Deep Vein Thrombosis (DVT), Hypertension, Myocardial Infarction ([place]) Mother Family Medical History: Cancer Additional Family Medical History / Comment(s): Brain tumor, mass removed from neck General Exam - General Exam Comments Initial Comments: Physical Exam GENERAL: Obese male in no acute distress HENT: Normocephalic, Atraumatic. EYES: PERRL, EOMI PULMONARY: Unlabored respirations. No audible rales rhonchi or wheezing was noted. CARDIOVASCULAR: There is a regular rate and rhythm without any murmurs gallops or rubs. ABDOMEN: Soft and nontender with normal bowel sounds. SKIN: Skin is clear with no lesions or rashes and otherwise unremarkable. : Deferred NEUROLOGIC: Patient is alert and oriented x3. Moving all extremities spontaneously Patient at times slurs his speech or speaks in baby talk but then returns to normal speech MUSCULOSKELETAL: Normal extremities with adequate strength and full range of motion. No lower extremity swelling or edema. No calf tenderness. PSYCHIATRIC: Very odd affect Occasional baby talk occasional slurred speech Occasional yelling out Denies homicidal or suicidal ideation does not appear to be acutely psychotic or danger to himself or others Limitations: no limitations Limitations: no limitations Course Vital Signs 09/17/18 09/17/18 02:40 06:58 Temperature 98.1 F Pulse Rate 91 82 Respiratory 20 18 Rate Blood Pressure 165/98 160/90 O2 Sat by Pulse 98 98 Oximetry Medical Decision Making - Medical Decision Making The patient was seen and evaluated history was obtained from the patient and at bedside Patient with a concern that when he loses weight he has side effects from previous medications administered 9 years ago. Patient believes he is having side effects from these medications reports that he just feels off. He reports this happens to him every time that he loses weight this is his typical side effects and he is used to this. Patient reports that he hasn't taken his home medications Labs and abdominal x-ray ordered Labs consistent with hyperglycemia with no evidence of DKA Fluids and insulin ordered X-ray with normal position of patient's lab and with no signs of obstruction Labs and imaging results were discussed with the patient and at bedside. At this time is comfortable with plan for discharge home she reports that the patient gets agitated like this but it usually resolves and she is comfortable with taking him home. Patient is comfortable plan for discharge home. Daughter at bedside with like to take her parents home. - Lab Data Result diagrams: 09/17/18 03:21 09/17/18 03:21 Lab Results 09/17/18 09/17/18 09/17/18 Range/Units 02:41 03:21 03:21 WBC 6.8 (3.8-10.6) k/uL RBC 4.69 (4.30-5.90) m/uL Hgb 13.7 (13.0-17.5) gm/dL Hct 39.6 (39.0-53.0) % MCV 84.5 (80.0-100.0) fL MCH 29.3 (25.0-35.0) pg MCHC 34.7 (31.0-37.0) g/dL RDW 14.2 (11.5-15.5) % Plt Count 187 (150-450) k/uL Neutrophils % 72 % Lymphocytes % 18 % Monocytes % 7 % Eosinophils % 1 % Basophils % 0 % Neutrophils # 4.9 (1.3-7.7) k/uL Lymphocytes # 1.2 (1.0-4.8) k/uL Monocytes # 0.5 (0-1.0) k/uL Eosinophils # 0.1 (0-0.7) k/uL Basophils # 0.0 (0-0.2) k/uL VBG pH (7.31-7.41) VBG pCO2 (37-51) mmHg VBG HCO3 (24-28) mmol/L Sodium 137 (137-145) mmol/L Potassium 5.3 H (3.5-5.1) mmol/L Chloride 102 (98-107) mmol/L Carbon Dioxide 25 (22-30) mmol/L Anion Gap 10 mmol/L BUN 19 (9-20) mg/dL Creatinine 0.83 (0.66-1.25) mg/dL Est GFR (CKD-EPI)AfAm >90 (>60 ml/min/1.73 sqM) Est GFR (CKD-EPI)NonAf >90 (>60 ml/min/1.73 sqM) Glucose 304 H (74-99) mg/dL POC Glucose (mg/dL) 331 H (75-99) mg/dL POC Glu Sports Clerk ID Astrid Ashley Plasma Lactic Acid Zaki (0.7-2.0) mmol/L Calcium 9.6 (8.4-10.2) mg/dL Magnesium 1.7 (1.6-2.3) mg/dL Total Bilirubin 0.8 (0.2-1.3) mg/dL AST 30 (17-59) U/L ALT 37 (21-72) U/L Alkaline Phosphatase 68 (38-126) U/L Total Protein 7.2 (6.3-8.2) g/dL Albumin 4.4 (3.5-5.0) g/dL Urine Color Urine Appearance (Clear) Urine pH (5.0-8.0) Ur Specific Elizabeth (1.001-1.035) Urine Protein (Negative) Urine Glucose (UA) (Negative) Urine Ketones (Negative) Urine Blood (Negative) Urine Nitrite (Negative) Urine Bilirubin (Negative) Urine Urobilinogen (<2.0) mg/dL Ur Leukocyte Esterase (Negative) Urine RBC (0-5) /hpf Urine WBC (0-5) /hpf Hyaline Casts (0-2) /lpf Urine Mucus (None) /hpf Salicylates <1.0 mg/dL Urine Opiates Screen (NotDetected) Ur Oxycodone Screen (NotDetected) Urine Methadone Screen (NotDetected) Ur Propoxyphene Screen (NotDetected) Acetaminophen <10.0 ug/mL Ur Barbiturates Screen (NotDetected) U Tricyclic Antidepress (NotDetected) Ur Phencyclidine Scrn (NotDetected) Ur Amphetamines Screen (NotDetected) U Methamphetamines Scrn (NotDetected) U Benzodiazepines Scrn (NotDetected) Urine Cocaine Screen (NotDetected) U Marijuana (THC) Screen (NotDetected) Serum Alcohol <10 mg/dL Acetone, Qual Negative (Negative) 09/17/18 09/17/18 09/17/18 Range/Units 03:21 03:56 04:06 WBC (3.8-10.6) k/uL RBC (4.30-5.90) m/uL Hgb (13.0-17.5) gm/dL Hct (39.0-53.0) % MCV (80.0-100.0) fL MCH (25.0-35.0) pg MCHC (31.0-37.0) g/dL RDW (11.5-15.5) % Plt Count (150-450) k/uL Neutrophils % % Lymphocytes % % Monocytes % % Eosinophils % % Basophils % % Neutrophils # (1.3-7.7) k/uL Lymphocytes # (1.0-4.8) k/uL Monocytes # (0-1.0) k/uL Eosinophils # (0-0.7) k/uL Basophils # (0-0.2) k/uL VBG pH 7.42 H (7.31-7.41) VBG pCO2 35 L (37-51) mmHg VBG HCO3 22 L (24-28) mmol/L Sodium (137-145) mmol/L Potassium (3.5-5.1) mmol/L Chloride (98-107) mmol/L Carbon Dioxide (22-30) mmol/L Anion Gap mmol/L BUN (9-20) mg/dL Creatinine (0.66-1.25) mg/dL Est GFR (CKD-EPI)AfAm (>60 ml/min/1.73 sqM) Est GFR (CKD-EPI)NonAf (>60 ml/min/1.73 sqM) Glucose (74-99) mg/dL POC Glucose (mg/dL) (75-99) mg/dL POC Glu Sports Clerk ID Plasma Lactic Acid Zaki 1.8 (0.7-2.0) mmol/L Calcium (8.4-10.2) mg/dL Magnesium (1.6-2.3) mg/dL Total Bilirubin (0.2-1.3) mg/dL AST (17-59) U/L ALT (21-72) U/L Alkaline Phosphatase (38-126) U/L Total Protein (6.3-8.2) g/dL Albumin (3.5-5.0) g/dL Urine Color Yellow Urine Appearance Clear (Clear) Urine pH 5.5 (5.0-8.0) Ur Specific Elizabeth 1.025 (1.001-1.035) Urine Protein 1+ H (Negative) Urine Glucose (UA) 4+ H (Negative) Urine Ketones 2+ H (Negative) Urine Blood Trace H (Negative) Urine Nitrite Negative (Negative) Urine Bilirubin Negative (Negative) Urine Urobilinogen <2.0 (<2.0) mg/dL Ur Leukocyte Esterase Negative (Negative) Urine RBC 2 (0-5) /hpf Urine WBC 2 (0-5) /hpf Hyaline Casts 3 H (0-2) /lpf Urine Mucus Occasional H (None) /hpf Salicylates mg/dL Urine Opiates Screen Not Detected (NotDetected) Ur Oxycodone Screen Not Detected (NotDetected) Urine Methadone Screen Not Detected (NotDetected) Ur Propoxyphene Screen Not Detected (NotDetected) Acetaminophen ug/mL Ur Barbiturates Screen Not Detected (NotDetected) U Tricyclic Antidepress Not Detected (NotDetected) Ur Phencyclidine Scrn Not Detected (NotDetected) Ur Amphetamines Screen Not Detected (NotDetected) U Methamphetamines Scrn Not Detected (NotDetected) U Benzodiazepines Scrn Not Detected (NotDetected) Urine Cocaine Screen Not Detected (NotDetected) U Marijuana (THC) Screen Not Detected (NotDetected) Serum Alcohol mg/dL Acetone, Qual (Negative) 09/17/18 Range/Units 05:42 WBC (3.8-10.6) k/uL RBC (4.30-5.90) m/uL Hgb (13.0-17.5) gm/dL Hct (39.0-53.0) % MCV (80.0-100.0) fL MCH (25.0-35.0) pg MCHC (31.0-37.0) g/dL RDW (11.5-15.5) % Plt Count (150-450) k/uL Neutrophils % % Lymphocytes % % Monocytes % % Eosinophils % % Basophils % % Neutrophils # (1.3-7.7) k/uL Lymphocytes # (1.0-4.8) k/uL Monocytes # (0-1.0) k/uL Eosinophils # (0-0.7) k/uL Basophils # (0-0.2) k/uL VBG pH (7.31-7.41) VBG pCO2 (37-51) mmHg VBG HCO3 (24-28) mmol/L Sodium (137-145) mmol/L Potassium (3.5-5.1) mmol/L Chloride (98-107) mmol/L Carbon Dioxide (22-30) mmol/L Anion Gap mmol/L BUN (9-20) mg/dL Creatinine (0.66-1.25) mg/dL Est GFR (CKD-EPI)AfAm (>60 ml/min/1.73 sqM) Est GFR (CKD-EPI)NonAf (>60 ml/min/1.73 sqM) Glucose (74-99) mg/dL POC Glucose (mg/dL) 239 H (75-99) mg/dL POC Glu Sports Clerk ID Ashley Resendiz Plasma Lactic Acid Zaki (0.7-2.0) mmol/L Calcium (8.4-10.2) mg/dL Magnesium (1.6-2.3) mg/dL Total Bilirubin (0.2-1.3) mg/dL AST (17-59) U/L ALT (21-72) U/L Alkaline Phosphatase (38-126) U/L Total Protein (6.3-8.2) g/dL Albumin (3.5-5.0) g/dL Urine Color Urine Appearance (Clear) Urine pH (5.0-8.0) Ur Specific Elizabeth (1.001-1.035) Urine Protein (Negative) Urine Glucose (UA) (Negative) Urine Ketones (Negative) Urine Blood (Negative) Urine Nitrite (Negative) Urine Bilirubin (Negative) Urine Urobilinogen (<2.0) mg/dL Ur Leukocyte Esterase (Negative) Urine RBC (0-5) /hpf Urine WBC (0-5) /hpf Hyaline Casts (0-2) /lpf Urine Mucus (None) /hpf Salicylates mg/dL Urine Opiates Screen (NotDetected) Ur Oxycodone Screen (NotDetected) Urine Methadone Screen (NotDetected) Ur Propoxyphene Screen (NotDetected) Acetaminophen ug/mL Ur Barbiturates Screen (NotDetected) U Tricyclic Antidepress (NotDetected) Ur Phencyclidine Scrn (NotDetected) Ur Amphetamines Screen (NotDetected) U Methamphetamines Scrn (NotDetected) U Benzodiazepines Scrn (NotDetected) Urine Cocaine Screen (NotDetected) U Marijuana (THC) Screen (NotDetected) Serum Alcohol mg/dL Acetone, Qual (Negative) Disposition Clinical Impression: Diabetes, Altered mental status Disposition: HOME SELF-CARE Instructions: Diabetic Hyperglycemia (ED) Is patient prescribed a controlled substance at d/c from ED?: No Referrals: Ochoa iKrkland MD [Primary Care Provider] - 1-2 days
[2018-09-17 04:31] LABS: VBG PH 7.42 (7.31-7.41)
[2018-09-17 04:33] LABS: Amphetamine Screen,Urine Not Detected (NotDetected); Barbiturate Screen,Urine Not Detected (NotDetected); Benzodiazepines Screen,Urine Not Detected (NotDetected); Cocaine Screen,Urine Not Detected (NotDetected); Methadone Screen, Urine Not Detected (NotDetected); Opiate Screen,Urine Not Detected (NotDetected); Oxycodone Screen, Urine Not Detected (NotDetected); Phencyclidine Screen,Urine Not Detected (NotDetected); Tricyclic Antidepressant,Urine Not Detected (NotDetected); Urn Cannabinoid Scrn Not Detected (NotDetected)
[2018-09-17] MEDS ORDERED: INSULIN REGULAR 100 UNIT/ML VIAL SQ ONE (04:46)
--- NOTE | 2018-09-17 05:31 | XR ---
EXAMINATION TYPE: XR KUB DATE OF EXAM: 09/17/2018 COMPARISON: NONE HISTORY: Abdominal pain TECHNIQUE: 2 views upright FINDINGS: There is gastric sleeve noted with tubing over the upper abdomen. There is no sign of intes tinal obstruction or pneumoperitoneum. Fecal pattern is normal. Lung bases are clear. There are no pa thologic calcifications over the kidneys. IMPRESSION: Nonacute abdomen.
[2018-09-17 05:58] LABS: Glucose,Whole Blood 239 mg/dL (75-99)
[2018-09-17 07:00] VITALS: BP 160/90; PULSE 82; RESP 18
== END 2018-09-17 06:59 | disposition home or self-care (01) ==
LOC: EC 02:11
DX: E11.9 Type 2 diabetes mellitus without complications (principal); R41.82 Altered mental status, unspecified; R45.1 Restlessness and agitation; R10.13 Epigastric pain; E78.5 Hyperlipidemia, unspecified; I10 Essential (primary) hypertension; I25.2 Old myocardial infarction; Z90.49 Acquired absence of other specified parts of digestive tract; Z95.5 Presence of coronary angioplasty implant and graft; Z98.890 Other specified postprocedural states; Z79.02 Long term (current) use of antithrombotics/antiplatelets; Z79.4 Long term (current) use of insulin; Z79.82 Long term (current) use of aspirin; Z79.899 Other long term (current) drug therapy; Z88.8 Allergy status to other drugs, medicaments and biological substances
CPT/HCPCS: 36415; 74018; 80053; 80306; 80320; 81001; 82009; 82803; 83520; 83605; 83735; 85025; 96360; 99285

== ENCOUNTER 2018-09-18 11:24 | Emergency (ER) | payer OTHER ==
[2018-09-18] MEDS ORDERED: LORazepam 2 MG/ML INJ IM STA (12:05)
--- NOTE | 2018-09-18 15:32 | ED ---
Psych HPI <Moises Gunderson - Last Filed: 09/18/18 23:01> - General Source: EMS Mode of arrival: EMS <Shannan Wheat - Last Filed: 09/18/18 23:56> - General Chief Complaint: Psychiatric Symptoms Stated Complaint: Mental health Time Seen by Provider: 09/18/18 12:02 - History of Present Illness Initial Comments: 47-year-old male with past medical history of previous episodes of psychosis currently off any antipsychotic medications, hypertension, diabetes on oral regimen, previous myocardial infarction 2 years ago on Plavix, HLD. Patient presents after being petitioned by for bizarre thoughts. 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 He states that this has been ongoing since Sunday. She denies imaging suicidal or homicidal ideations. She states he began throwing around items this morning, she states she called the police and petitioned patient for mental health evaluation. Upon arrival, patient ages a word salad. Patient quickly changes from topic to topic. Patient becomes agitated upon questioning. Patient appears paranoid. Patient will not make appropriate eye contact. Of review of systems obtained and was negative. (Shannan Wheat) - Related Data Home Medications Medication Instructions Recorded Confirmed amLODIPine [Norvasc] 10 mg PO DAILY 02/14/17 09/18/18 glipiZIDE [-] 10 mg PO BID 02/14/17 09/18/18 Clopidogrel Bisulfate [Plavix] 75 mg PO DAILY 03/22/17 09/18/18 Metoprolol Succinate (ER) [Toprol 50 mg PO DAILY 03/22/17 09/18/18 Xl] Candesartan [Atacand] 16 mg PO DAILY 09/18/18 09/18/18 Pantoprazole Sodium [Protonix] 20 mg PO DAILY 09/18/18 09/18/18 Pravastatin Sodium 80 mg PO DAILY 09/18/18 09/18/18 Ursodiol 500 mg PO BID 09/18/18 09/18/18 Previous Rx's Medication Instructions Recorded Nitroglycerin Sl Tabs [Nitrostat] 0.4 mg SUBLINGUAL Q5M PRN #25 tab 02/17/17 metFORMIN HCL [Metformin HCl] 1,000 mg PO BID #0 06/23/17 Allergies Allergy/AdvReac Type Severity Reaction Status Date / Time steroids Allergy Hallucinati Uncoded 09/18/18 11:41 ons Review of Systems ROS Other: All systems not noted in ROS Statement are negative. <Moises Gunderson - Last Filed: 09/18/18 23:01> ROS Other: All systems not noted in ROS Statement are negative. <Shannan Wheat - Last Filed: 09/18/18 23:56> ROS Statement: Those systems with pertinent positive or pertinent negative responses have been documented in the HPI. Past Medical History Past Medical History: Diabetes Mellitus, Hyperlipidemia, Hypertension, Myocardial Infarction ([place]) Last Myocardial Infarction Date:: 02/16/17 History of Any Multi-Drug Resistant Organisms: None Reported Past Surgical History: Appendectomy, Heart Catheterization, Heart Catheterization With Stent Additional Past Surgical History / Comment(s): lap band 2008, cardiac cath with stent to LAD 02/16/2017 Past Anesthesia/Blood Transfusion Reactions: No Reported Reaction Date of Last Stent Placement:: 02/16/17 Past Psychological History: No Psychological Hx Reported Smoking Status: Never smoker Past Alcohol Use History: None Reported Past Drug Use History: None Reported - Past Family History Father Family Medical History: Diabetes Mellitus, Deep Vein Thrombosis (DVT), Hypertension, Myocardial Infarction (DC) Mother Family Medical History: Cancer Additional Family Medical History / Comment(s): Brain tumor, mass removed from neck <Shannan Wheat - Last Filed: 09/18/18 23:56> General Exam <Moises Gunderson - Last Filed: 09/18/18 23:01> <Shannan Wheat - Last Filed: 09/18/18 23:56> - General Exam Comments Initial Comments: General: The patient is awake, stated. Word salad Eye: +3 mm pupils are equal, round and reactive to light, extra-ocular movements are intact. No nystagmus. There is normal conjunctiva bilaterally. No signs of icterus. Ears, nose, mouth and throat: There are moist mucous membranes and no oral lesions. Neck: The neck is supple, there is no tenderness or JVD. Cardiovascular: There is a regular rate and rhythm. No murmur, rub or gallop is appreciated. Respiratory: Lungs are clear to auscultation, respirations are non-labored, breath sounds are equal. No wheezes, stridor, rales, or rhonchi. Gastrointestinal: Soft, non-distended, non-tender abdomen without masses or organomegaly noted. There is no rebound or guarding present. Musculoskeletal: Normal ROM, no tenderness. Strength 5/5. Sensation intact. Pulses equal bilaterally 2+. Neurological: A&O x 3. CN II-XII intact, There are no obvious motor or sensory deficits. Coordination appears grossly intact. Skin: Skin is warm and dry and no rashes or lesions are noted. Psychiatric: Word salad, paranoid, no maintainable eye contact (Shannan Wheat) Vital Signs 09/18/18 09/18/18 09/18/18 11:27 19:30 21:08 Temperature 98.9 F Pulse Rate 119 H Respiratory 16 17 17 Rate Blood Pressure 178/96 O2 Sat by Pulse 97 Oximetry 09/18/18 22:22 Temperature 98.8 F Pulse Rate 105 H Respiratory 22 Rate Blood Pressure 168/92 O2 Sat by Pulse 99 Oximetry Medical Decision Making - Lab Data Result diagrams: 09/18/18 15:45 09/18/18 15:45 - EKG Data -: EKG Interpreted by [facility] EKG shows normal: sinus rhythm, axis (Normal), intervals (Normal), QRS complexes (Normal), ST-T waves (Normal) Rate: normal, tachycardia (Rate 105 bpm) <Moises Gunderson - Last Filed: 09/18/18 23:01> - Lab Data Result diagrams: 09/18/18 15:45 09/18/18 15:45 <Shannan Wheat - Last Filed: 09/18/18 23:56> - Medical Decision Making Laboratory studies unremarkable, glucose elevated patient is known diabetic on oral agents. Patient refuses to give urine sample. Upon initial history taking patient became agitated beginning to rise from bed. Stating " I will show you my home behavior". Pt given 2mg Ativan, pt is aware of administration of medicines and complaint. Remainder of stay in the emergency department, no additional episodes of agitation. Patient was medically cleared for EPS evaluation, they recommended admission as well as transfer for care. I am agreeable with plan. Case discussed with attending who evaluated patient in person. Care resumed with Dr. Gunderson as pt is held in ER until transfer (Shannan Wheat) - Lab Data Lab Results 09/18/18 09/18/18 Range/Units 15:45 15:45 WBC 5.9 (3.8-10.6) k/uL RBC 4.76 (4.30-5.90) m/uL Hgb 13.5 (13.0-17.5) gm/dL Hct 40.6 (39.0-53.0) % MCV 85.5 (80.0-100.0) fL MCH 28.4 (25.0-35.0) pg MCHC 33.2 (31.0-37.0) g/dL RDW 14.5 (11.5-15.5) % Plt Count 195 (150-450) k/uL Neutrophils % 73 % Lymphocytes % 19 % Monocytes % 6 % Eosinophils % 1 % Basophils % 1 % Neutrophils # 4.3 (1.3-7.7) k/uL Lymphocytes # 1.1 (1.0-4.8) k/uL Monocytes # 0.4 (0-1.0) k/uL Eosinophils # 0.0 (0-0.7) k/uL Basophils # 0.0 (0-0.2) k/uL Sodium 137 (137-145) mmol/L Potassium 4.4 (3.5-5.1) mmol/L Chloride 103 (98-107) mmol/L Carbon Dioxide 24 (22-30) mmol/L Anion Gap 10 mmol/L BUN 13 (9-20) mg/dL Creatinine 0.68 (0.66-1.25) mg/dL Est GFR (CKD-EPI)AfAm >90 (>60 ml/min/1.73 sqM) Est GFR (CKD-EPI)NonAf >90 (>60 ml/min/1.73 sqM) Glucose 292 H (74-99) mg/dL Calcium 9.9 (8.4-10.2) mg/dL Total Bilirubin 0.7 (0.2-1.3) mg/dL AST 25 (17-59) U/L ALT 33 (21-72) U/L Alkaline Phosphatase 63 (38-126) U/L Total Protein 7.3 (6.3-8.2) g/dL Albumin 4.5 (3.5-5.0) g/dL TSH 1.140 (0.465-4.680) mIU/L Disposition <Moises Gunderson - Last Filed: 09/18/18 23:01> Time of Disposition: 23:56 <Shannan Wheat - Last Filed: 09/18/18 23:56> Clinical Impression: Psychosis Disposition: TRANSFER TO PSYCH HOSP/UNIT Condition: Stable Referrals: [facility]inic [Primary Care Provider] - 1-2 days
[2018-09-18 16:17] LABS: Basophils % (A) 1 %; Eosinophils % (A) 1 %; HCT 40.6 % (39.0-53.0); HGB 13.5 gm/dL (13.0-17.5); Lymphocytes # (A) 1.1 k/uL (1.0-4.8); Lymphocytes % (A) 19 %; MCH 28.4 pg (25.0-35.0); MCHC 33.2 g/dL (31.0-37.0); MCV 85.5 fL (80.0-100.0); Mean Platelet Volume 7.4; Monocytes # (A) 0.4 k/uL (0-1.0); Monocytes % (A) 6 %; Neutrophils # (A) 4.3 k/uL (1.3-7.7); Neutrophils % (A) 73 %; Platelet Count 195 k/uL (150-450); RBC 4.76 m/uL (4.30-5.90); RDW 14.5 % (11.5-15.5); WBC 5.9 k/uL (3.8-10.6)
[2018-09-18 16:39] LABS: ALT 33 U/L (21-72); AST 25 U/L (17-59); Albumin 4.5 g/dL (3.5-5.0); Alkaline Phosphatase 63 U/L (38-126); Anion Gap 10 mmol/L; Blood Urea Nitrogen 13 mg/dL (9-20); Calcium 9.9 mg/dL (8.4-10.2); Carbon Dioxide 24 mmol/L (22-30); Chloride 103 mmol/L (98-107); Glucose 292 mg/dL (74-99); Potassium 4.4 mmol/L (3.5-5.1); Sodium 137 mmol/L (137-145); Total Bilirubin 0.7 mg/dL (0.2-1.3); Total Protein 7.3 g/dL (6.3-8.2)
[2018-09-19 00:22] LABS: Appearance,Urine Clear (Clear); Bacteria,Urine Rare /hpf; Bilirubin,Urine Negative (Negative); Blood,Urine Trace (Negative); Color,Urine Light Yellow; Glucose,Urine (UA) 4+ (Negative); Ketones,Urine 1+ (Negative); Leukocyte Esterase,Urine Negative (Negative); Mucus,Urine Rare /hpf; Nitrite,Urine Negative (Negative); Protein,Urine Negative (Negative); RBC,Urine 2 /hpf (0-5); Specific Gravity,Urine 1.011 (1.001-1.035); Urobilinogen,Urine <2.0 mg/dL (<2.0)
[2018-09-19 00:32] LABS: Amphetamine Screen,Urine Not Detected (NotDetected); Barbiturate Screen,Urine Not Detected (NotDetected); Benzodiazepines Screen,Urine Detected (NotDetected); Cocaine Screen,Urine Not Detected (NotDetected); Methadone Screen, Urine Not Detected (NotDetected); Opiate Screen,Urine Not Detected (NotDetected); Oxycodone Screen, Urine Not Detected (NotDetected); Phencyclidine Screen,Urine Not Detected (NotDetected); Tricyclic Antidepressant,Urine Not Detected (NotDetected); Urn Cannabinoid Scrn Not Detected (NotDetected)
[2018-09-19] MEDS ORDERED: INSULIN ASPART 100 UNIT/ML 1 ML 10 ML VIAL SQ ONE (09:03)
[2018-09-19 10:42] LABS: Glucose,Whole Blood 383 mg/dL (75-99)
[2018-09-19] MEDS ORDERED: LOSARTAN 50 MG TAB PO SCH (12:00)
[2018-09-19] MEDS ORDERED: amLODIPine 10 MG TAB PO SCH (12:00)
[2018-09-19] MEDS ORDERED: PRAVASTATIN SODIUM 80 MG TAB PO SCH (12:00)
[2018-09-19] MEDS ORDERED: METOPROLOL SUCCINATE (ER) 50 MG TAB.ER.24H PO SCH (12:00)
[2018-09-19] MEDS: glipiZIDE 10 MG TAB PO SCH ×2 (12:03→17:56)
[2018-09-19] MEDS: metFORMIN 500 MG TAB PO SCH ×2 (12:03→17:56)
[2018-09-19] MEDS: INSULIN ASPART 100 UNIT/ML 1 ML 10 ML VIAL SQ SCH ×3 (13:55→22:02)
[2018-09-19 15:33] LABS: Glucose,Whole Blood 175 mg/dL (75-99)
[2018-09-19] MEDS ORDERED: URSODIOL 500 MG PO SCH (21:00)
[2018-09-20 00:37] VITALS: BP 161/95; PULSE 105; RESP 20; TEMP 99
[2018-09-20] MEDS ORDERED: PANTOPRAZOLE 40 MG TABLET PO SCH (07:30)
[2018-09-20 08:03] LABS: Glucose,Whole Blood 180 mg/dL (75-99)
[2018-09-20 08:03] LABS: Glucose,Whole Blood 201 mg/dL (75-99)
[2018-09-20] MEDS ORDERED: CLOPIDOGREL 75 MG TAB PO SCH (09:00)
== END 2018-09-20 00:38 ==
LOC: EC 11:24 → SUPCPDRO 11:24 → EC 09-20 00:38
DX: F29 Unspecified psychosis not due to a substance or known physiological condition (principal); E11.9 Type 2 diabetes mellitus without complications; I10 Essential (primary) hypertension; E78.5 Hyperlipidemia, unspecified; I25.2 Old myocardial infarction; Z91.14 Patient's other noncompliance with medication regimen; Z79.84 Long term (current) use of oral hypoglycemic drugs; Z79.899 Other long term (current) drug therapy; Z88.8 Allergy status to other drugs, medicaments and biological substances; Z79.02 Long term (current) use of antithrombotics/antiplatelets; Z95.5 Presence of coronary angioplasty implant and graft
CPT/HCPCS: 82075; 36415 ×2; 93005; 80053; 84443; 85025; 81001; 80306; 99285; 96372; J2060

== ENCOUNTER 2019-10-06 13:50 | Emergency (ER) | payer OTHER ==
[2019-10-06 14:08] VITALS: BP 144/85; PULSE 85; TEMP 98.1
--- NOTE | 2019-10-06 14:45 | ED ---
General Adult HPI - General Chief complaint: ENT Stated complaint: pain under ear Time Seen by Provider: 10/06/19 14:30 Source: patient, RN notes reviewed, old records reviewed Mode of arrival: ambulatory Limitations: no limitations - History of Present Illness Initial comments: 48-year-old male presents for evaluation of right hip pain. Patient has been ongoing for many months. He states he was told previously that he had an effusion in his right ear and was treated with antihistamines. He has remote history of hydrocephalus and it followed at the [facility] system. He has no shunt. No previous surgical intervention. He denies dizziness, denies lightheadedness. Denies vomiting. Denies headache. Pain is isolated to the base of the right ear. Described as sharp in nature. Denies any focal numbness or weakness. No fevers. No URI symptoms. No nasal congestion. He recently obtained insurance and hasn't plans to follow-up with his primary care physician. He also is requesting referral to a neurologist as he is outside of the [place] system at this time. - Related Data Home Medications Medication Instructions Recorded Confirmed amLODIPine [Norvasc] 10 mg PO DAILY 02/14/17 09/18/18 glipiZIDE [-] 10 mg PO BID 02/14/17 09/18/18 Clopidogrel Bisulfate [Plavix] 75 mg PO DAILY 03/22/17 09/18/18 Metoprolol Succinate (ER) [Toprol 50 mg PO DAILY 03/22/17 09/18/18 Xl] Candesartan [Atacand] 16 mg PO DAILY 09/18/18 09/18/18 Pantoprazole Sodium [Protonix] 20 mg PO DAILY 09/18/18 09/18/18 Pravastatin Sodium 80 mg PO DAILY 09/18/18 09/18/18 Ursodiol 500 mg PO BID 09/18/18 09/18/18 Previous Rx's Medication Instructions Recorded Nitroglycerin Sl Tabs [Nitrostat] 0.4 mg SUBLINGUAL Q5M PRN #25 tab 02/17/17 metFORMIN HCL [Metformin HCl] 1,000 mg PO BID #0 03/02/17 Allergies Allergy/AdvReac Type Severity Reaction Status Date / Time steroids Allergy Hallucinati Uncoded 09/18/18 11:41 ons Review of Systems ROS Statement: Those systems with pertinent positive or pertinent negative responses have been documented in the HPI. ROS Other: All systems not noted in ROS Statement are negative. Past Medical History Past Medical History: Diabetes Mellitus, Hyperlipidemia, Hypertension, Myocardial Infarction ([place]) Additional Past Medical History / Comment(s): hydrocephalus Last Myocardial Infarction Date:: 02/16/17 History of Any Multi-Drug Resistant Organisms: None Reported Past Surgical History: Appendectomy, Heart Catheterization, Heart Catheterization With Stent Additional Past Surgical History / Comment(s): lap band 2008, cardiac cath with stent to LAD 02/16/2017 Past Anesthesia/Blood Transfusion Reactions: No Reported Reaction Date of Last Stent Placement:: 02/16/17 Past Psychological History: No Psychological Hx Reported Smoking Status: Never smoker Past Alcohol Use History: None Reported Past Drug Use History: None Reported - Past Family History Father Family Medical History: Diabetes Mellitus, Deep Vein Thrombosis (DVT), Hypertension, Myocardial Infarction ([place]) Mother Family Medical History: Cancer Additional Family Medical History / Comment(s): Brain tumor, mass removed from neck General Exam Limitations: no limitations General appearance: alert, in no apparent distress Head exam: Present: atraumatic, normocephalic Eye exam: Present: normal appearance, PERRL, EOMI ENT exam: Present: normal exam, normal oropharynx, other (No tenderness at the right mastoid, no erythema). Absent: TM's normal bilaterally (Right TM, trace effusion, no erythema, nonbulging, normal external canal) Neck exam: Present: normal inspection. Absent: tenderness, lymphadenopathy Respiratory exam: Present: normal lung sounds bilaterally. Absent: respiratory distress, wheezes Cardiovascular Exam: Present: regular rate, normal rhythm GI/Abdominal exam: Present: soft. Absent: distended, tenderness Extremities exam: Present: normal inspection, full ROM, normal capillary refill. Absent: pedal edema Neurological exam: Present: alert, oriented X3, CN II-XII intact. Absent: motor sensory deficit Psychiatric exam: Present: normal affect, normal mood Skin exam: Present: warm, dry, intact. Absent: cyanosis, diaphoretic Course Vital Signs 10/06/19 14:04 Temperature 98.1 F Pulse Rate 85 Respiratory 18 Rate Blood Pressure 144/85 O2 Sat by Pulse 98 Oximetry Medical Decision Making - Medical Decision Making 48-year-old male with right ear pain, effusion on exam. Patient started on Claritin, will follow-up with his primary care physician. Patient also requesting neurology follow-up with history of hydrocephalus. No alarming features on history or physical exam to suggest that this ear pain is related to hydrocephalus or anything intracranial. Disposition Clinical Impression: Acute effusion of right ear Disposition: HOME SELF-CARE Condition: Good Instructions (If sedation given, give patient instructions): Earache (ED) Additional Instructions: Please take Claritin daily., Follow-up with her primary care physician. Is patient prescribed a controlled substance at d/c from ED?: No Referrals: Ochoa Kirkland MD [Primary Care Provider] - 1-2 days Reji Ivey MD [Medical Doctor] - 1-2 days Russell Colbert MD [STAFF PHYSICIAN] - 1-2 days Time of Disposition: 14:44
[2019-10-06 15:02] VITALS: RESP 20
== END 2019-10-06 15:03 | disposition home or self-care (01) ==
LOC: EC 13:50
DX: H93.8X1 Other specified disorders of right ear (principal); H92.01 Otalgia, right ear; E11.9 Type 2 diabetes mellitus without complications; E78.5 Hyperlipidemia, unspecified; I10 Essential (primary) hypertension; I25.2 Old myocardial infarction; Z88.8 Allergy status to other drugs, medicaments and biological substances; Z79.02 Long term (current) use of antithrombotics/antiplatelets; Z79.84 Long term (current) use of oral hypoglycemic drugs; Z79.899 Other long term (current) drug therapy; Z95.5 Presence of coronary angioplasty implant and graft; Z86.69 Personal history of other diseases of the nervous system and sense organs
CPT/HCPCS: 99283

== ENCOUNTER 2019-11-23 | Emergency (ER) | payer OTHER | END 2019-11-23 15:39 | disposition left against medical advice (07) | CPT/HCPCS: 36415; 71046; 80053; 83735; 84484; 85025; 85610; 85730; 93005; 99284 ==

== ENCOUNTER 2020-01-27 20:34 | Emergency (ER) | payer OTHER ==
[2020-01-27] MEDS ORDERED: METOCLOPRAMIDE 5 MG/ML 2 ML VIAL IVP STA (20:59)
[2020-01-27] MEDS ORDERED: MORPHINE SULFATE 4 MG/ML SYRINGE IV STA (20:59)
[2020-01-27] MEDS ORDERED: SODIUM CHLORIDE 0.9% 500 ML 500 ML IV ONE (20:59)
--- NOTE | 2020-01-27 21:28 | ED ---
General Adult HPI - General Chief complaint: Headache Stated complaint: Dizziness, nausea Time Seen by Provider: 01/27/20 20:50 Source: patient, RN notes reviewed, old records reviewed Mode of arrival: ambulatory Limitations: no limitations - History of Present Illness Initial comments: 49-year-old male patient past history of hydrocephalus which is currently being watched by MRIs every 6 months since ED for chief complaint headache. Patient reports that approximately 3 PM he had a headache which began behind his left eye and his left joshua frontal region. Patient reports that the headache region active intensity within 30 minutes. Reports that the headache has been very painful. Reports nausea without emesis. Denies a loss of consciousness. D enies any changes in vision. Denies weakness in upper or lower extremities or any facial droop. Denies any use of blood denies. Denies any other complaints. Systemic: Pt denies fatigue, fever/chills, rash. Pt denies weakness, night sweats, weight loss. Neuro: Pt denies visual disturbances, syncope or pre-syncope. HEENT: Pt denies ocular discharge or irritation, otalgia, rhinorrhea, pharyngiti s or notable lymphadenopathy. Cardiopulmonary: Pt denies chest pain, SOB, heart palpitations, dyspnea on exertion. Abdominal/GI: Pt denies abdominal pain, n/v/d. : Pt denies dysuria, burning w/ urination, frequency/urgency. Denies new onset urinary or bowel incontinence. MSK: Pt denies myalgia, loss of strength or function in extremities. Neuro: Pt denies new onset weakness, paresthesias. - Related Data Home Medications Medication Instructions Recorded Confirmed amLODIPine [Norvasc] 10 mg PO DAILY 02/14/17 11/23/19 glipiZIDE [-] 10 mg PO BID 02/14/17 11/23/19 Clopidogrel Bisulfate [Plavix] 75 mg PO DAILY 03/22/17 11/23/19 Metoprolol Succinate (ER) [Toprol 50 mg PO DAILY 03/22/17 11/23/19 Xl] Pravastatin Sodium 80 mg PO HS 09/18/18 11/23/19 Ursodiol 500 mg PO BID 09/18/18 11/23/19 Ascorbic Acid [Vitamin C] 500 mg PO DAILY 11/23/19 11/23/19 Aspirin EC [Ecotrin Low Dose] 81 mg PO DAILY 11/23/19 11/23/19 Cranberry Fruit Extract [Cranberry] 500 mg PO DAILY 11/23/19 11/23/19 Glucos Sul 2Kcl/MSM/Chond/C/Mn 1 cap PO DAILY 11/23/19 11/23/19 [Glucosamine Chondroitin Cap] Multivitamins, Thera [Multivitamin 1 tab PO DAILY 11/23/19 11/23/19 (formulary)] Pantoprazole Sodium [Protonix] 40 mg PO DAILY 11/23/19 11/23/19 Vit C/E/Zn/Coppr/Lutein/Zeaxan 1 cap PO DAILY 11/23/19 11/23/19 [Preservision Areds 2 Softgel] Previous Rx's Medication Instructions Recorded Nitroglycerin Sl Tabs [Nitrostat] 0.4 mg SUBLINGUAL Q5M PRN #25 tab 02/17/17 metFORMIN HCL [Metformin HCl] 1,000 mg PO BID #0 03/02/17 Allergies Allergy/AdvReac Type Severity Reaction Status Date / Time steroids Allergy Hallucinati Uncoded 01/27/20 20:43 ons Review of Systems ROS Statement: Those systems with pertinent positive or pertinent negative responses have been documented in the HPI. ROS Other: All systems not noted in ROS Statement are negative. Past Medical History Past Medical History: Diabetes Mellitus, Hyperlipidemia, Hypertension, Myocardial Infarction ([place]) Additional Past Medical History / Comment(s): hydrocephalus Last Myocardial Infarction Date:: 02/16/17 History of Any Multi-Drug Resistant Organisms: None Reported Past Surgical History: Appendectomy, Heart Catheterization, Heart Catheterization With Stent Additional Past Surgical History / Comment(s): lap band 2008, cardiac cath with stent to LAD 02/16/2017 Past Anesthesia/Blood Transfusion Reactions: No Reported Reaction Date of Last Stent Placement:: 02/16/17 Past Psychological History: No Psychological Hx Reported Smoking Status: Never smoker Past Alcohol Use History: None Reported Past Drug Use History: None Reported - Past Family History Father Family Medical History: Diabetes Mellitus, Deep Vein Thrombosis (DVT), Hypertension, Myocardial Infarction ([place]) Mother Family Medical History: Cancer Additional Family Medical History / Comment(s): Brain tumor, mass removed from neck General Exam - General Exam Comments Initial Comments: Constitutional: NAD, AOX3, Pt has pleasant affect. HEENT: NC/AT, trachea midline, neck supple, no lymphadenopathy. Posterior pharynx non erythematous, without exudates. External ears appear normal, without discharge. Mucous membranes moist. Eyes PERRLA, EOM intact. There is no scleral icterus. No pallor noted. Cardiopulmonary: RRR, no murmurs, rubs or gallops, no JVD noted. Lungs CTAB in anterior and posterior campbell. No peripheral edema. Abdominal exam: Abdomen soft and non-distended. Abdomen non-tender to palpation in all 4 quadrants. Bowel sounds active in LLQ. No hepatosplenomegaly. No ecchymosis Neuro: CN II-XII intact. No nuchal rigidity. No raccon eyes, no núñez sign, no hemotympanum. No cervical spinal tenderness. NIH 0. MSK: No posterior calf tenderness bilaterally, homans sign negative bilaterally. Posterior tibialis and radial pulse +2 bilaterally. Sensation intact in upper and lower extremities. Full active ROM in upper and lower extremities, 5/5 stregnth. Limitations: no limitations Course Vital Signs 01/27/20 20:40 Temperature 97.8 F Pulse Rate 96 Respiratory 20 Rate Blood Pressure 164/92 O2 Sat by Pulse 98 Oximetry Medical Decision Making - Medical Decision Making 49-year-old male patient past history of hydrocephalus which is currently being watched by MRIs every 6 months since ED for chief complaint headache. Patient reports that approximately 3 PM he had a headache which began behind his left eye and his left joshua frontal region. Patient reports that the headache region active intensity within 30 minutes. Reports that the headache has been very painful. Reports nausea without emesis. Denies a loss of consciousness. Denies any changes in vision. Denies weakness in upper or lower extremities or any facial droop. Denies any use of blood denies. Denies any other complaints. Pt VSS, afebrile. Patient vital signs stable, afebrile. Physical exam demonstrates acute pathology. Neurologic exam is intact. Laboratory investigations are unremarkable, mild hyperglycemia. CT displayed no acute intracranial hemorrhage or midline shift. there is mild diffuse age-related cerebral atrophy and chronic small vessel ischemic changes along with assymetric mild to moderate hydrocephalus thought present. Pt reports that headache has essentially resolved and he is feeling much improved, requesting discharge. Pt will be discharged will follow up with PCP and nurologist tomorrow and carli lreturn to ED if condition worsens. Case discussed in depth with Dr. Garces. - Lab Data Result diagrams: 01/27/20 21:35 01/27/20 21:35 Lab Results 01/27/20 01/27/20 Range/Units 21:35 21:35 WBC 6.9 (3.8-10.6) k/uL RBC 4.60 (4.30-5.90) m/uL Hgb 12.7 L (13.0-17.5) gm/dL Hct 38.6 L (39.0-53.0) % MCV 84.0 (80.0-100.0) fL MCH 27.6 (25.0-35.0) pg MCHC 32.9 (31.0-37.0) g/dL RDW 14.0 (11.5-15.5) % Plt Count 189 (150-450) k/uL Neutrophils % 73 % Lymphocytes % 16 % Monocytes % 7 % Eosinophils % 2 % Basophils % 1 % Neutrophils # 5.0 (1.3-7.7) k/uL Lymphocytes # 1.1 (1.0-4.8) k/uL Monocytes # 0.5 (0-1.0) k/uL Eosinophils # 0.2 (0-0.7) k/uL Basophils # 0.0 (0-0.2) k/uL Sodium 136 L (137-145) mmol/L Potassium 4.5 (3.5-5.1) mmol/L Chloride 97 L (98-107) mmol/L Carbon Dioxide 29 (22-30) mmol/L Anion Gap 10 mmol/L BUN 23 H (9-20) mg/dL Creatinine 0.89 (0.66-1.25) mg/dL Est GFR (CKD-EPI)AfAm >90 (>60 ml/min/1.73 sqM) Est GFR (CKD-EPI)NonAf >90 (>60 ml/min/1.73 sqM) Glucose 231 H (74-99) mg/dL Calcium 10.1 (8.4-10.2) mg/dL Total Bilirubin 0.4 (0.2-1.3) mg/dL AST 31 (17-59) U/L ALT 23 (4-49) U/L Alkaline Phosphatase 73 (38-126) U/L Total Protein 8.2 (6.3-8.2) g/dL Albumin 4.8 (3.5-5.0) g/dL - EKG Data -: EKG Interpreted by Me (and Dr. Garces ) EKG Comments: Ventricular rate 89, WI interval 162, QRS 102, QT/QTc 370/450, Normal sinus rhyth, normal EKG, no concern for acute ischemia. Disposition Clinical Impression: Acute headache Disposition: HOME SELF-CARE Condition: Stable Instructions (If sedation given, give patient instructions): Acute Headache (ED) Additional Instructions: Follow up with PCP and neurologist tomorrow. Return to ED if condition worsens in anyway. Is patient prescribed a controlled substance at d/c from ED?: No Referrals: Ochoa Kirkland MD [Primary Care Provider] - 1-2 days
--- NOTE | 2020-01-27 21:47 | CT ---
EXAMINATION TYPE: CT brain wo con DATE OF EXAM: 01/27/2020 HISTORY: Headache and nausea. History of hydrocephalus. CT DLP: 1161.4 mGycm. Automated Exposure Control for Dose Reduction was Utilized. TECHNIQUE: CT scan of the head is performed without contrast. COMPARISON: None at this institution. FINDINGS: There is no acute intracranial hemorrhage or midline shift identified. There is ventricle and sulcal prominence but prominence of the ventricles out of proportion to degree of sulcal effacem ent especially superiorly and involving the fourth ventricle. Correlate clinically for normal pressur e hydrocephalus. There is low-attenuation in the periventricular white matter consistent with chronic small vessel ischemic change. The globes are intact and the visualized sinuses are clear. IMPRESSION: No acute intracranial hemorrhage or midline shift. There is mild diffuse age-related ce rebral atrophy and chronic small vessel ischemic change along with asymmetric mild to moderate hydroc ephalus thought present. Correlation with old outside CT or MRI would be beneficial to confirm stabi lity of the latter.
[2020-01-27 22:01] LABS: Basophils % (A) 1 %; Eosinophils # (A) 0.2 k/uL (0-0.7); Eosinophils % (A) 2 %; HCT 38.6 % (39.0-53.0); HGB 12.7 gm/dL (13.0-17.5); Lymphocytes # (A) 1.1 k/uL (1.0-4.8); Lymphocytes % (A) 16 %; MCH 27.6 pg (25.0-35.0); MCHC 32.9 g/dL (31.0-37.0); Mean Platelet Volume 8.1; Monocytes # (A) 0.5 k/uL (0-1.0); Monocytes % (A) 7 %; Neutrophils % (A) 73 %; Platelet Count 189 k/uL (150-450); WBC 6.9 k/uL (3.8-10.6)
[2020-01-27 22:10] LABS: ALT 23 U/L (4-49); AST 31 U/L (17-59); African American GFR (CKD) >90 (>60 ml/min/1.73 sqM); Albumin 4.8 g/dL (3.5-5.0); Alkaline Phosphatase 73 U/L (38-126); Anion Gap 10 mmol/L; Blood Urea Nitrogen 23 mg/dL (9-20); Calcium 10.1 mg/dL (8.4-10.2); Carbon Dioxide 29 mmol/L (22-30); Chloride 97 mmol/L (98-107); Glucose 231 mg/dL (74-99); Non-African American GFR(CKD) >90 (>60 ml/min/1.73 sqM); Potassium 4.5 mmol/L (3.5-5.1); Sodium 136 mmol/L (137-145); Total Bilirubin 0.4 mg/dL (0.2-1.3); Total Protein 8.2 g/dL (6.3-8.2)
[2020-01-27] MEDS ORDERED: ACETAMINOPHEN TAB 325 MG TAB PO STA (22:41)
[2020-01-27 23:53] VITALS: BP 140/86; PULSE 84; RESP 17
[2020-01-28 00:08] VITALS: TEMP 98.4
== END 2020-01-27 23:53 | disposition home or self-care (01) ==
LOC: EC 20:34
DX: R51 Headache (principal); R42 Dizziness and giddiness; R11.0 Nausea; G91.9 Hydrocephalus, unspecified; G31.1 Senile degeneration of brain, not elsewhere classified; E11.65 Type 2 diabetes mellitus with hyperglycemia; E78.5 Hyperlipidemia, unspecified; I25.2 Old myocardial infarction; Z79.82 Long term (current) use of aspirin; Z79.02 Long term (current) use of antithrombotics/antiplatelets; Z79.899 Other long term (current) drug therapy; Z88.8 Allergy status to other drugs, medicaments and biological substances; Z95.5 Presence of coronary angioplasty implant and graft
CPT/HCPCS: 36415; 93005; 80053; 85025; 70450; 99285; 96374; 96375; 96361; J2270; J2765

== ENCOUNTER 2020-02-04 13:04 | Emergency (ER) | payer OTHER ==
[2020-02-04 13:19] VITALS: BP 120/81; PULSE 78; RESP 18; TEMP 98.6
--- NOTE | 2020-02-04 15:02 | XR ---
EXAM TYPE: LUMBAR SPINE X RAY SERIES COMPARISON: NONE HISTORY: Pain TECHNIQUE: 3 views are submitted. FINDINGS: Alignment is anatomic. The pedicles are intact. The transverse processes are intact. There is no spondylolisthesis. Postoperative gastric surgery suggested. There is degenerative disc disease at L4 -5 and L5-S1 with facet arthropathy and hypertrophic spurring. No compression deformities. IMPRESSION: 1. Moderate degenerative disc disease and facet arthropathy lower lumbar spine.
--- NOTE | 2020-02-04 15:09 | ED ---
Back Pain HPI - General Chief Complaint: Back Pain/Injury Stated Complaint: Lower Back Pain Time Seen by Provider: 02/04/20 13:56 Source: patient Limitations: no limitations - History of Present Illness Initial Comments: Patient is a 49-year-old male presenting to the emergency Department with complaints of lower back pain has been going on for 2 months. Patient states 2 months ago he was pulling on some boxes and doing a lot of lifting and in the next day he had some muscle soreness. Patient states this pain has been increasing over the past 2 months. The reason he came in today was because his pain medications and a longer helping and is having trouble sleeping. He states some pain has been radiating into his right lower extremity. He denies any loss of bowel or bladder control. He denies numbness into his lower extremities. He denies any further injuries or trauma. Denies any previous back surgeries. He denies any fever or chills. He has no other complaints. - Related Data Home Medications Medication Instructions Recorded Confirmed amLODIPine [Norvasc] 10 mg PO DAILY 02/14/17 11/23/19 glipiZIDE [-] 10 mg PO BID 02/14/17 11/23/19 Clopidogrel Bisulfate [Plavix] 75 mg PO DAILY 03/22/17 11/23/19 Metoprolol Succinate (ER) [Toprol 50 mg PO DAILY 03/22/17 11/23/19 Xl] Pravastatin Sodium 80 mg PO HS 09/18/18 11/23/19 Ursodiol 500 mg PO BID 09/18/18 11/23/19 Ascorbic Acid [Vitamin C] 500 mg PO DAILY 11/23/19 11/23/19 Aspirin EC [Ecotrin Low Dose] 81 mg PO DAILY 11/23/19 11/23/19 Cranberry Fruit Extract [Cranberry] 500 mg PO DAILY 11/23/19 11/23/19 Glucos Sul 2Kcl/MSM/Chond/C/Mn 1 cap PO DAILY 11/23/19 11/23/19 [Glucosamine Chondroitin Cap] Multivitamins, Thera [Multivitamin 1 tab PO DAILY 11/23/19 11/23/19 (formulary)] Pantoprazole Sodium [Protonix] 40 mg PO DAILY 11/23/19 11/23/19 Vit C/E/Zn/Coppr/Lutein/Zeaxan 1 cap PO DAILY 11/23/19 11/23/19 [Preservision Areds 2 Softgel] Previous Rx's Medication Instructions Recorded Nitroglycerin Sl Tabs [Nitrostat] 0.4 mg SUBLINGUAL Q5M PRN #25 tab 02/17/17 metFORMIN HCL [Metformin HCl] 1,000 mg PO BID #0 03/02/17 Allergies Allergy/AdvReac Type Severity Reaction Status Date / Time steroids Allergy Hallucinati Uncoded 02/04/20 13:19 ons Review of Systems ROS Statement: Those systems with pertinent positive or pertinent negative responses have been documented in the HPI. ROS Other: All systems not noted in ROS Statement are negative. Past Medical History Past Medical History: Diabetes Mellitus, Hyperlipidemia, Hypertension, Myoca [place]dial Infarction ([place]) Additional Past Medical History / Comment(s): hydrocephalus Last Myocardial Infarction Date:: 02/16/17 History of Any Multi-Drug Resistant Organisms: None Reported Past Surgical History: Appendectomy, Heart Catheterization, Heart Catheterization With Stent Additional Past Surgical History / Comment(s): lap band 2008, cardiac cath with stent to LAD 02/16/2017 Past Anesthesia/Blood Transfusion Reactions: No Reported Reaction Date of Last Stent Placement:: 02/16/17 Past Psychological History: No Psychological Hx Reported Smoking Status: Never smoker Past Alcohol Use History: None Reported Past Drug Use History: None Reported - Past Family History Father Family Medical History: Diabetes Mellitus, Deep Vein Thrombosis (DVT), Hypertension, Myocardial Infarction ([place]) Mother Family Medical History: Cancer Additional Family Medical History / Comment(s): Brain tumor, mass removed from neck General Exam - General Exam Comments Initial Comments: GENERAL: Well-appearing, well-nourished and in no acute distress. HEAD: Atraumatic, normocephalic. EYES: Pupils equal round and reactive to light, extraocular movements intact, sclera anicteric, conjunctiva are normal. ENT: TMs normal, nares patent, oropharynx clear without exudates. Moist mucous membranes. NECK: Normal range of motion, supple without lymphadenopathy or JVD. LUNGS: Breath sounds clear to auscultation bilaterally and equal. No wheezes rales or rhonchi. HEART: Regular rate and rhythm without murmurs, rubs or gallops. ABDOMEN: Soft, nontender, normoactive bowel sounds. No guarding, no rebound. No masses appreciated. : Deferred EXTREMITIES: Normal Glut activation. Patient has full trunk range of motion, increased pain with trunk flexion. Patient has 5 out of 5 strength in his upper and lower extremities. Sensation is equal in bilateral lower extremities. Normal range of motion, no pitting or edema. No clubbing or cyanosis. NEUROLOGICAL: Cranial nerves II through XII grossly intact. Normal speech, normal gait. PSYCH: Normal mood, normal affect. SKIN: Warm, Dry, normal turgor, no rashes or lesions noted. Limitations: no limitations Course Vital Signs 02/04/20 13:16 Temperature 98.6 F Pulse Rate 78 Respiratory 18 Rate Blood Pressure 120/81 O2 Sat by Pulse 97 Oximetry Medical Decision Making - Medical Decision Making Patient is a 49-year-old male presenting for low back pain 2 months. Patient denies any falls or acute injury. X-rays reveal no acute fractures dislocations. Patient has normal glut activation. No neuro deficits. Patient is already prescribed narcotics as well as muscle relaxer from previous injuries. He will continue taking these as needed for pain control. I discussed with patient this is most likely coming from a muscle spasm and or inflammation. I recommended heat to the area and gentle stretching. Patient will follow up with Juancarlos gaviria. He is in agreement with this plan of care. He is stable for discharge at this time. Disposition Clinical Impression: Lumbar back pain with radiculopathy affecting right lower extremity Disposition: HOME SELF-CARE Condition: Stable Instructions (If sedation given, give patient instructions): Acute Low Back Pain (ED) Additional Instructions: Please return to the Emergency Department if symptoms worsen or any other concerns. Follow up with orthopedics as discussed. Continue with home pain medications and/or muscle relaxers. Trial of heat to the area and gentle stretching. Is patient prescribed a controlled substance at d/c from ED?: No Referrals: Ochoa Kirkland MD [Primary Care Provider] - 1-2 days Tony Valdes DO [Doctor of Osteopathic Medicine] - 1-2 days
== END 2020-02-04 15:18 | disposition home or self-care (01) ==
LOC: EC 13:04
DX: M51.16 Intervertebral disc disorders with radiculopathy, lumbar region (principal); E11.9 Type 2 diabetes mellitus without complications; I10 Essential (primary) hypertension; E78.5 Hyperlipidemia, unspecified; I25.2 Old myocardial infarction; Z79.84 Long term (current) use of oral hypoglycemic drugs; Z79.02 Long term (current) use of antithrombotics/antiplatelets; Z79.899 Other long term (current) drug therapy; Z79.82 Long term (current) use of aspirin; Z88.8 Allergy status to other drugs, medicaments and biological substances; Z98.84 Bariatric surgery status; Z95.5 Presence of coronary angioplasty implant and graft
CPT/HCPCS: 72100; 99283

== ENCOUNTER 2021-06-23 06:58 | Emergency (ER) | payer BC, OTHER ==
[2021-06-23 07:54] LABS: Basophils # (A) 0.1 k/uL (0-0.2); Basophils % (A) 1 %; Eosinophils # (A) 0.2 k/uL (0-0.7); Eosinophils % (A) 3 %; HCT 35.3 % (39.0-53.0); Lymphocytes # (A) 1.3 k/uL (1.0-4.8); Lymphocytes % (A) 20 %; MCH 28.8 pg (25.0-35.0); MCHC 33.9 g/dL (31.0-37.0); MCV 84.9 fL (80.0-100.0); Mean Platelet Volume 8.4; Monocytes # (A) 0.4 k/uL (0-1.0); Monocytes % (A) 7 %; Neutrophils # (A) 4.3 k/uL (1.3-7.7); Neutrophils % (A) 68 %; Platelet Count 220 k/uL (150-450); RBC 4.16 m/uL (4.30-5.90); RDW 13.7 % (11.5-15.5); WBC 6.3 k/uL (3.8-10.6)
--- NOTE | 2021-06-23 07:56 | XR ---
EXAMINATION TYPE: XR chest 1V portable DATE OF EXAM: 06/23/2021 COMPARISON: Chest x-ray November 23, 2019 HISTORY: Chest pain and shortness of breath. TECHNIQUE: Single AP portable frontal upright view of the chest is obtained. FINDINGS: There is no suspicious new focal air space opacity, pleural effusion, or pneumothorax seen . The cardiac silhouette size is mildly enlarged. The osseous structures remain intact. Overlying EKG leads redemonstrated. IMPRESSION: Mild cardiomegaly without acute pulmonary process.
[2021-06-23 07:58] LABS: INR 0.9 (<1.2); Partial Thromboplastin Time 23.7 sec (22.0-30.0); Prothrombin Time 9.7 sec (9.0-12.0)
[2021-06-23 08:01] LABS: Albumin 4.4 g/dL (3.5-5.0); Calcium 9.7 mg/dL (8.4-10.2); Magnesium 1.8 mg/dL (1.6-2.3); Potassium 4.4 mmol/L (3.5-5.1); Total Bilirubin 0.4 mg/dL (0.2-1.3); Total Protein 7.6 g/dL (6.3-8.2)
--- NOTE | 2021-06-23 08:08 | ED ---
General Adult HPI - General Chief complaint: Chest Pain Stated complaint: SOB Time Seen by Provider: 06/23/21 07:17 Source: patient Mode of arrival: ambulatory Limitations: no limitations - History of Present Illness Initial comments: Dictation was produced using [employer] dictation software. please excuse any grammatical, word or spelling errors. Chief Complaint: 50-year-old male presents to the emergency department for chest pain History of Present Illness: She is 50-year-old male who states that several years ago he had coronary artery disease and stent placement performed by one of our local voltage tester. Today he complains of substernal chest pressure. Nonradiating. No associated diaphoresis or nausea. He has some mild pain at rest but feels like it's worse whenever he palpates anterior chest. No fevers. No cough. No pleurisy. He has been complaining of some mild dyspnea and lower extremity swelling for the last several months. No calf pain. The ROS documented in this emergency department record has been reviewed and confirmed by me. Those systems with pertinent positive or negative responses have been documented in the HPI. All other systems are other negative and/or noncontributory. PHYSICAL EXAM: General Impression: Alert and oriented x3, not in acute distress HEENT: Normocephalic atraumatic, extra-ocular movements intact, pupils equal and reactive to light bilaterally, mucous membranes moist. Cardiovascular: Heart regular rate and rhythm Chest: Able to complete full sentences, no retractions, no tachypnea Abdomen: abdomen soft, non-tender, non-distended, no organomegaly Musculoskeletal: Pulses present and equal in all extremities, no peripheral edema Motor: no focal deficits noted Neurological: CN II-XII grossly intact, no focal motor or sensory deficits noted Skin: Intact with no visualized rashes Psych: Normal affect and mood ED course: 50-year-old male presents to the emergency department for chest pain and shortness of breath. His chest pain is atypical with typical features. Complains of dyspnea however is not tachycardic or hypoxic. He is not showing any signs of dyspnea at the bedside. Upon arrival are within acceptable limits. EKG interpretation: Ventricular rate a 7, normal sinus rhythm,. Interval 164, QRS 90, QTc 454. No DE prolongation, no QTC prolongation, no ST or T-wave changes noted. EKG compared to 01/27/2020 showing no changes. Overall, this EK G is unremarkable Laboratory evaluation obtained. CBC within acceptable limits. Coag panel unremarkable. Metabolic panel shows slight elevation of renal markers. Glucose of 287. 4 panel viral PCR is negative. Chest x-ray is nonacute. Disposition options were discussed with patient. He is agreeable to 2nd troponin. 2 troponins negative. patient advised to follow up with PCP. return precautions discussed - Related Data Home Medications Medication Instructions Recorded Confirmed amLODIPine [Norvasc] 10 mg PO DAILY 02/14/17 11/23/19 glipiZIDE [-] 10 mg PO BID 02/14/17 11/23/19 Clopidogrel Bisulfate [Plavix] 75 mg PO DAILY 03/22/17 11/23/19 Metoprolol Succinate (ER) [Toprol 50 mg PO DAILY 03/22/17 11/23/19 Xl] Pravastatin Sodium 80 mg PO HS 09/18/18 11/23/19 ursodioL [Ursodiol] 500 mg PO BID 09/18/18 11/23/19 Ascorbic Acid [Vitamin C] 500 mg PO DAILY 11/23/19 11/23/19 Aspirin EC [Ecotrin Low Dose] 81 mg PO DAILY 11/23/19 11/23/19 Cranberry Fruit Extract [Cranberry] 500 mg PO DAILY 11/23/19 11/23/19 Glucos Sul 2Kcl/MSM/Chond/C/Mn 1 cap PO DAILY 11/23/19 11/23/19 [Glucosamine Chondroitin Cap] Multivitamins, Thera [Multivitamin 1 tab PO DAILY 11/23/19 11/23/19 (formulary)] Pantoprazole Sodium [Protonix] 40 mg PO DAILY 11/23/19 11/23/19 Vit C/E/Zn/Coppr/Lutein/Zeaxan 1 cap PO DAILY 11/23/19 11/23/19 [Preservision Areds 2 Softgel] Previous Rx's Medication Instructions Recorded Nitroglycerin Sl Tabs [Nitrostat] 0.4 mg SUBLINGUAL Q5M PRN #25 tab 02/17/17 metFORMIN HCL [Metformin HCl] 1,000 mg PO BID #0 03/02/17 Allergies Allergy/AdvReac Type Severity Reaction Status Date / Time steroids AdvReac Hallucinati Uncoded 06/23/21 12:14 ons Review of Systems ROS Statement: Those systems with pertinent positive or pertinent negative responses have been documented in the HPI. ROS Other: All systems not noted in ROS Statement are negative. Past Medical History Past Medical History: Diabetes Mellitus, Hyperlipidemia, Hypertension, Myocardial Infarction ([place]) Additional Past Medical History / Comment(s): hydrocephalus Last Myocardial Infarction Date:: 02/16/17 History of Any Multi-Drug Resistant Organisms: None Reported Past Surgical History: Appendectomy, Heart Catheterization, Heart Catheterization With Stent Additional Past Surgical History / Comment(s): lap band 2008, cardiac cath with stent to LAD 02/16/2017 Past Anesthesia/Blood Transfusion Reactions: No Reported Reaction Date of Last Stent Placement:: 02/16/17 Past Psychological History: No Psychological Hx Reported Smoking Status: Never smoker Past Alcohol Use History: None Reported Past Drug Use History: None Reported - Past Family History Father Family Medical History: Diabetes Mellitus, Deep Vein Thrombosis (DVT), Hypertension, Myocardial Infarction ([place]) Mother Family Medical History: Cancer Additional Family Medical History / Comment(s): Brain tumor, mass removed from neck General Exam Limitations: no limitations Course Vital Signs 06/23/21 06/23/21 06/23/21 07:09 09:37 11:47 Temperature 98.2 F Pulse Rate 79 78 73 Respiratory 22 16 16 Rate Blood Pressure 151/92 148/91 136/86 O2 Sat by Pulse 99 98 95 Oximetry Medical Decision Making - Lab Data Result diagrams: 06/23/21 07:27 06/23/21 07:27 Lab Results 06/23/21 06/23/21 06/23/21 Range/Units 07:27 07:27 07:27 WBC 6.3 (3.8-10.6) k/uL RBC 4.16 L (4.30-5.90) m/uL Hgb 12.0 L (13.0-17.5) gm/dL Hct 35.3 L (39.0-53.0) % MCV 84.9 (80.0-100.0) fL MCH 28.8 (25.0-35.0) pg MCHC 33.9 (31.0-37.0) g/dL RDW 13.7 (11.5-15.5) % Plt Count 220 (150-450) k/uL MPV 8.4 Neutrophils % 68 % Lymphocytes % 20 % Monocytes % 7 % Eosinophils % 3 % Basophils % 1 % Neutrophils # 4.3 (1.3-7.7) k/uL Lymphocytes # 1.3 (1.0-4.8) k/uL Monocytes # 0.4 (0-1.0) k/uL Eosinophils # 0.2 (0-0.7) k/uL Basophils # 0.1 (0-0.2) k/uL PT 9.7 (9.0-12.0) sec INR 0.9 (<1.2) APTT 23.7 (22.0-30.0) sec Sodium 137 (137-145) mmol/L Potassium 4.4 (3.5-5.1) mmol/L Chloride 101 (98-107) mmol/L Carbon Dioxide 24 (22-30) mmol/L Anion Gap 12 mmol/L BUN 26 H (9-20) mg/dL Creatinine 1.45 H (0.66-1.25) mg/dL Est GFR (CKD-EPI)AfAm 64 (>60 ml/min/1.73 sqM) Est GFR (CKD-EPI)NonAf 55 (>60 ml/min/1.73 sqM) Glucose 287 H (74-99) mg/dL Calcium 9.7 (8.4-10.2) mg/dL Magnesium 1.8 (1.6-2.3) mg/dL Total Bilirubin 0.4 (0.2-1.3) mg/dL AST 25 (17-59) U/L ALT 23 (4-49) U/L Alkaline Phosphatase 89 (38-126) U/L Troponin I (0.000-0.034) ng/mL NT-Pro-B Natriuret Pep pg/mL Total Protein 7.6 (6.3-8.2) g/dL Albumin 4.4 (3.5-5.0) g/dL TSH 0.191 L (0.465-4.680) mIU/L Influenza Type A (PCR) (Not Detectd) Influenza Type B (PCR) (Not Detectd) RSV (PCR) (Not Detectd) SARS-CoV-2 (PCR) (Not Detectd) 06/23/21 06/23/21 06/23/21 Range/Units 07:27 07:27 07:27 WBC (3.8-10.6) k/uL RBC (4.30-5.90) m/uL Hgb (13.0-17.5) gm/dL Hct (39.0-53.0) % MCV (80.0-100.0) fL MCH (25.0-35.0) pg MCHC (31.0-37.0) g/dL RDW (11.5-15.5) % Plt Count (150-450) k/uL MPV Neutrophils % % Lymphocytes % % Monocytes % % Eosinophils % % Basophils % % Neutrophils # (1.3-7.7) k/uL Lymphocytes # (1.0-4.8) k/uL Monocytes # (0-1.0) k/uL Eosinophils # (0-0.7) k/uL Basophils # (0-0.2) k/uL PT (9.0-12.0) sec INR (<1.2) APTT (22.0-30.0) sec Sodium (137-145) mmol/L Potassium (3.5-5.1) mmol/L Chloride (98-107) mmol/L Carbon Dioxide (22-30) mmol/L Anion Gap mmol/L BUN (9-20) mg/dL Creatinine (0.66-1.25) mg/dL Est GFR (CKD-EPI)AfAm (>60 ml/min/1.73 sqM) Est GFR (CKD-EPI)NonAf (>60 ml/min/1.73 sqM) Glucose (74-99) mg/dL Calcium (8.4-10.2) mg/dL Magnesium (1.6-2.3) mg/dL Total Bilirubin (0.2-1.3) mg/dL AST (17-59) U/L ALT (4-49) U/L Alkaline Phosphatase (38-126) U/L Troponin I <0.012 (0.000-0.034) ng/mL NT-Pro-B Natriuret Pep 50 pg/mL Total Protein (6.3-8.2) g/dL Albumin (3.5-5.0) g/dL TSH (0.465-4.680) mIU/L Influenza Type A (PCR) Not Detected (Not Detectd) Influenza Type B (PCR) Not Detected (Not Detectd) RSV (PCR) Not Detected (Not Detectd) SARS-CoV-2 (PCR) Not Detected (Not Detectd) 06/23/21 Range/Units 10:27 WBC (3.8-10.6) k/uL RBC (4.30-5.90) m/uL Hgb (13.0-17.5) gm/dL Hct (39.0-53.0) % MCV (80.0-100.0) fL MCH (25.0-35.0) pg MCHC (31.0-37.0) g/dL RDW (11.5-15.5) % Plt Count (150-450) k/uL MPV Neutrophils % % Lymphocytes % % Monocytes % % Eosinophils % % Basophils % % Neutrophils # (1.3-7.7) k/uL Lymphocytes # (1.0-4.8) k/uL Monocytes # (0-1.0) k/uL Eosinophils # (0-0.7) k/uL Basophils # (0-0.2) k/uL PT (9.0-12.0) sec INR (<1.2) APTT (22.0-30.0) sec Sodium (137-145) mmol/L Potassium (3.5-5.1) mmol/L Chloride (98-107) mmol/L Carbon Dioxide (22-30) mmol/L Anion Gap mmol/L BUN (9-20) mg/dL Creatinine (0.66-1.25) mg/dL Est GFR (CKD-EPI)AfAm (>60 ml/min/1.73 sqM) Est GFR (CKD-EPI)NonAf (>60 ml/min/1.73 sqM) Glucose (74-99) mg/dL Calcium (8.4-10.2) mg/dL Magnesium (1.6-2.3) mg/dL Total Bilirubin (0.2-1.3) mg/dL AST (17-59) U/L ALT (4-49) U/L Alkaline Phosphatase (38-126) U/L Troponin I <0.012 (0.000-0.034) ng/mL NT-Pro-B Natriuret Pep pg/mL Total Protein (6.3-8.2) g/dL Albumin (3.5-5.0) g/dL TSH (0.465-4.680) mIU/L Influenza Type A (PCR) (Not Detectd) Influenza Type B (PCR) (Not Detectd) RSV (PCR) (Not Detectd) SARS-CoV-2 (PCR) (Not Detectd) Disposition Clinical Impression: Chest pain Disposition: HOME SELF-CARE Condition: Good Instructions (If sedation given, give patient instructions): Chest Pain (ED) Is patient prescribed a controlled substance at d/c from ED?: No Referrals: Ochoa Kirkland MD [Primary Care Provider] - 1-2 days
[2021-06-23 09:38] VITALS: RESP 16
[2021-06-23] MEDS ORDERED: MAG HYDROX/AL HYDROX/SIMETH 30 ML, HYOSCYAMINE ELIXIR 10 ML, LIDOCAINE VISCOUS 2% 10 ML PO STA ×3 (09:41)
[2021-06-23] MEDS ORDERED: ASPIRIN 81 MG PO STA (12:26)
[2021-06-23 12:41] VITALS: BP 147/86; PULSE 76; TEMP 98.3
== END 2021-06-23 12:40 | disposition home or self-care (01) ==
LOC: EC 06:58
DX: R07.89 Other chest pain (principal); E11.9 Type 2 diabetes mellitus without complications; E78.5 Hyperlipidemia, unspecified; I11.9 Hypertensive heart disease without heart failure; I25.10 Atherosclerotic heart disease of native coronary artery without angina pectoris; I25.2 Old myocardial infarction; Z79.82 Long term (current) use of aspirin; Z79.84 Long term (current) use of oral hypoglycemic drugs; Z79.899 Other long term (current) drug therapy; Z90.49 Acquired absence of other specified parts of digestive tract; Z95.5 Presence of coronary angioplasty implant and graft; Z20.822 Contact with and (suspected) exposure to COVID-19
CPT/HCPCS: 36415; 71045; 80053; 83735; 83880; 84443; 84484; 85025; 85610; 85730; 87636; 93005; 99285

== ENCOUNTER 2021-08-23 16:58 | Emergency (ER) | payer BC ==
[2021-08-23 17:16] VITALS: TEMP 98.2
[2021-08-23] MEDS ORDERED: SODIUM CHLORIDE 0.9% 500 ML 500 ML IV STA (19:13)
--- NOTE | 2021-08-23 19:18 | ED ---
General Adult HPI - General Source: patient, family (spouse), RN notes reviewed, old records reviewed Mode of arrival: wheelchair Limitations: no limitations - History of Present Illness -: hour(s) (4) Location: right, upper extremity (thigh) Severity scale (1-10): 0 Consistency: now resolved Associated Symptoms: headaches, seizure Treatments Prior to Arrival: none <Yo Bustillos - Last Filed: 08/23/21 21:52> <Merry Garces - Last Filed: 09/01/21 00:58> - General Chief complaint: Seizure Stated complaint: Poss Seizure Time Seen by Provider: 08/23/21 18:58 - History of Present Illness Initial comments: This is a well-appearing obese 50-year-old male who presents to the emergency room with complaints of having a seizure today around 3:30 while he was in bed. Patient states he does have a history of having seizures in the past. He does have a history of hydrocephalus. He does not have a shunt. He states that he has no pain or injury but he does have right thigh tightness and cramping since having seizure. He states that he had an MRI approximately 6 months ago. He does not have a current neurologist. He is not on any seizure medications. He does have history of diabetes, hypertension, [place]. (Yo Bustillos) - Related Data Home Medications Medication Instructions Recorded Confirmed amLODIPine [Norvasc] 10 mg PO DAILY 02/14/17 08/27/21 Pravastatin Sodium 80 mg PO HS 09/18/18 08/27/21 Ascorbic Acid [Vitamin C] 500 mg PO DAILY 11/23/19 08/27/21 Aspirin EC [Ecotrin Low Dose] 81 mg PO DAILY 11/23/19 08/27/21 Multivitamins, Thera [Multivitamin 1 tab PO DAILY 11/23/19 08/27/21 (formulary)] Pantoprazole Sodium [Protonix] 40 mg PO DAILY 11/23/19 08/27/21 Magnesium Oxide [Omer] 500 mg PO TID 06/23/21 08/27/21 Potassium Gluconate [Potassium 99 mg PO Q48H 06/23/21 08/27/21 Gluconate ER] Candesartan Cilexetil [Atacand] 32 mg PO DAILY 08/27/21 08/27/21 Metoprolol Succinate (ER) [Toprol 100 mg PO DAILY 08/27/21 08/27/21 Xl] glipiZIDE [Glucotrol] 10 mg PO AC-BID 08/27/21 08/27/21 Previous Rx's Medication Instructions Recorded Nitroglycerin Sl Tabs [Nitrostat] 0.4 mg SUBLINGUAL Q5M PRN #25 tab 02/17/17 metFORMIN HCL [Metformin HCl] 1,000 mg PO BID #0 03/02/17 Allergies Allergy/AdvReac Type Severity Reaction Status Date / Time steroids AdvReac Hallucinati Uncoded 08/27/21 08:55 ons Review of Systems ROS Other: All systems not noted in ROS Statement are negative. <Yo Bustillos - Last Filed: 08/23/21 21:52> ROS Other: All systems not noted in ROS Statement are negative. <Merry Garces - Last Filed: 09/01/21 00:58> ROS Statement: Those systems with pertinent positive or pertinent negative responses have been documented in the HPI. Past Medical History Past Medical History: Diabetes Mellitus, Hyperlipidemia, Hypertension, Myocardial Infarction ([place]) Additional Past Medical History / Comment(s): hydrocephalus Last Myocardial Infarction Date:: 02/16/17 History of Any Multi-Drug Resistant Organisms: None Reported Past Surgical History: Appendectomy, Heart Catheterization, Heart Catheterizatio n With Stent Additional Past Surgical History / Comment(s): lap band 2008, cardiac cath with stent to LAD 02/16/2017 Past Anesthesia/Blood Transfusion Reactions: No Reported Reaction Date of Last Stent Placement:: 02/16/17 Past Psychological History: No Psychological Hx Reported Smoking Status: Never smoker Past Alcohol Use History: None Reported Past Drug Use History: None Reported - Past Family History Father Family Medical History: Diabetes Mellitus, Deep Vein Thrombosis (DVT), Hypertension, Myocardial Infarction ([place]) Mother Family Medical History: Cancer Additional Family Medical History / Comment(s): Brain tumor, mass removed from neck <Yo Bustillos - Last Filed: 08/23/21 21:52> General Exam Limitations: no limitations General appearance: alert, in no apparent distress Head exam: Present: atraumatic, normocephalic, normal inspection Eye exam: Present: normal appearance, PERRL, EOMI. Absent: scleral icterus, conjunctival injection, periorbital swelling ENT exam: Present: normal exam, normal oropharynx, mucous membranes moist Neck exam: Present: normal inspection, full ROM. Absent: tenderness, meningismus, lymphadenopathy, thyromegaly Respiratory exam: Present: normal lung sounds bilaterally. Absent: respiratory distress, wheezes, rales, rhonchi, stridor, chest wall tenderness, accessory muscle use, decreased breath sounds Cardiovascular Exam: Present: regular rate, normal rhythm, normal heart sounds. Absent: systolic murmur, diastolic murmur, rubs, gallop, clicks, JVD GI/Abdominal exam: Present: soft, normal bowel sounds. Absent: distended, tenderness, guarding, rebound, rigid Extremities exam: Present: normal inspection, full ROM, normal capillary refill. Absent: tenderness, pedal edema, joint swelling, calf tenderness Back exam: Present: normal inspection, full ROM. Absent: tenderness, CVA tenderness (R), CVA tenderness (L), paraspinal tenderness, vertebral tenderness, rash noted Neurological exam: Present: alert, oriented X3, CN II-XII intact Expanded Patient oriented to: Present: person, place, time Speech: Present: fluid speech Cranial nerves: EOM's Intact: Normal, Gag Reflex: Normal, Tongue Deviation: Normal Cerebellar function: Finger to Nose: Normal, Heel to [place]: Normal Motor strength exam: RUE: 5, LUE: 5, RLE: 5, LLE: 5 Eye Response: (4) open spontaneously Motor Response: (6) obeys commands Verbal Response: (5) oriented Aidan Total: 15 Psychiatric exam: Present: normal affect, normal mood Skin exam: Present: warm, dry, intact, normal color. Absent: rash, cyanosis, diaphoretic, erythema, petechiae, pallor, mottled <Denny Bustillosi - Last Filed: 08/23/21 21:52> Course Vital Signs 08/23/21 08/23/21 17:12 22:23 Temperature 98.2 F Pulse Rate 94 78 Respiratory 18 16 Rate Blood Pressure 175/89 160/78 O2 Sat by Pulse 96 98 Oximetry Medical Decision Making - Lab Data Result diagrams: 08/23/21 19:49 08/23/21 19:49 <Yo Bustillos - Last Filed: 08/23/21 21:52> - Lab Data Result diagrams: 08/23/21 19:49 08/23/21 19:49 <Merry Garces - Last Filed: 09/01/21 00:58> - Medical Decision Making This is a well-appearing 50-year-old presents to the emergency room with complaints of having a seizure today around 3:30 while he was in bed. Patient s tates he does have a seizure history related to hydrocephalus. He does not have a shunt. Patient has no head trauma, states has not had any fevers or nausea and vomiting. He states that he did lose continence of urine at home during the seizure. CT of the brain shows no evidence of hydrocephalus, no acute intracranial process. He was observed in the emergency room for over 4 hours and had no focal neurological deficits, seizures or pain. Patient is comfortable being discharged home and following up with his primary care doctor. He states that he has an appointment next week with his doctor. Instructed not to drive and he states he does not have a license. states that she will stay with him tonight. He is requesting Flexeril for muscle relaxer. Case was discussed with Dr. Garces. (Apollo,Yo) I was available for consultation in the emergency department. The history and physical exam were done by the midlevel provider. I was consulted for this patients care. I reviewed the case with the midlevel provider and based on their presentation of the patient, I agree with the assessment, medical decision making and plan of care as documented. Chart was dictated using [employer] dictation software. Attempts were made to correct any dictation errors however some typographical errors may persist. Patient was seen during a national state of emergency due to the Covid-19 pandemic. (Merry Garces) - Lab Data Lab Results 08/23/21 08/23/21 08/23/21 Range/Units 19:49 19:49 21:17 WBC 7.9 (3.8-10.6) k/uL RBC 4.10 L (4.30-5.90) m/uL Hgb 11.7 L (13.0-17.5) gm/dL Hct 35.8 L (39.0-53.0) % MCV 87.3 (80.0-100.0) fL MCH 28.6 (25.0-35.0) pg MCHC 32.8 (31.0-37.0) g/dL RDW 14.7 (11.5-15.5) % Plt Count 197 (150-450) k/uL MPV 8.5 Neutrophils % 78 % Lymphocytes % 14 % Monocytes % 5 % Eosinophils % 1 % Basophils % 1 % Neutrophils # 6.2 (1.3-7.7) k/uL Lymphocytes # 1.1 (1.0-4.8) k/uL Monocytes # 0.4 (0-1.0) k/uL Eosinophils # 0.1 (0-0.7) k/uL Basophils # 0.0 (0-0.2) k/uL Sodium 135 L (137-145) mmol/L Potassium 4.6 (3.5-5.1) mmol/L Chloride 98 (98-107) mmol/L Carbon Dioxide 24 (22-30) mmol/L Anion Gap 13 mmol/L BUN 27 H (9-20) mg/dL Creatinine 1.45 H (0.66-1.25) mg/dL Est GFR (CKD-EPI)AfAm 64 (>60 ml/min/1.73 sqM) Est GFR (CKD-EPI)NonAf 55 (>60 ml/min/1.73 sqM) Glucose 342 H (74-99) mg/dL POC Glucose (mg/dL) 246 H (75-99) mg/dL POC Glu Manager [employer]ostatistics ID Arlyn King Calcium 9.6 (8.4-10.2) mg/dL Total Bilirubin 0.2 (0.2-1.3) mg/dL AST 31 (17-59) U/L ALT 30 (4-49) U/L Alkaline Phosphatase 76 (38-126) U/L Total Protein 7.2 (6.3-8.2) g/dL Albumin 4.1 (3.5-5.0) g/dL Disposition Is patient prescribed a controlled substance at d/c from ED?: No Time of Disposition: 21:47 <Yo Bustillos - Last Filed: 08/23/21 21:52> <Merry Garces - Last Filed: 09/01/21 00:58> Clinical Impression: Generalized seizure Disposition: HOME SELF-CARE Instructions (If sedation given, give patient instructions): Seizure/Epilepsy Discharge Instructions & Follow-Up, Recurrent Seizures in Adults (ED) Additional Instructions: Do not drive. Keep your appointment with the primary care doctor next week. Return to the emergency room with any new or worsening symptoms. Referrals: Ochoa Kirkland MD [Primary Care Provider] - 1-2 days
[2021-08-23 20:08] LABS: Basophils % (A) 1 %; Eosinophils # (A) 0.1 k/uL (0-0.7); Eosinophils % (A) 1 %; HCT 35.8 % (39.0-53.0); HGB 11.7 gm/dL (13.0-17.5); Lymphocytes # (A) 1.1 k/uL (1.0-4.8); Lymphocytes % (A) 14 %; MCH 28.6 pg (25.0-35.0); MCHC 32.8 g/dL (31.0-37.0); MCV 87.3 fL (80.0-100.0); Mean Platelet Volume 8.5; Monocytes # (A) 0.4 k/uL (0-1.0); Monocytes % (A) 5 %; Neutrophils # (A) 6.2 k/uL (1.3-7.7); Neutrophils % (A) 78 %; Platelet Count 197 k/uL (150-450); RDW 14.7 % (11.5-15.5); WBC 7.9 k/uL (3.8-10.6)
[2021-08-23 20:17] LABS: Albumin 4.1 g/dL (3.5-5.0); Calcium 9.6 mg/dL (8.4-10.2); Potassium 4.6 mmol/L (3.5-5.1); Total Bilirubin 0.2 mg/dL (0.2-1.3); Total Protein 7.2 g/dL (6.3-8.2)
[2021-08-23] MEDS ORDERED: ORPHENADRINE 30 MG/ML 2 ML VIAL IM STA (20:19)
--- NOTE | 2021-08-23 20:21 | CT ---
EXAMINATION TYPE: CT brain wo con CT DLP: 1154.4 mGycm, Automated exposure control for dose reduction was used. DATE OF EXAM: 08/23/2021 8:08 PM COMPARISON: Prior CT Brain from 06/28/2020 . CLINICAL INDICATION:Male, 50 years old with history of seizure activity;, seizures, h/o hydrocephalus TECHNIQUE: Brain: Multiple axial CT images of the brain were obtained without IV contrast. FINDINGS: Brain: Extra-axial spaces: No abnormal extra-axial fluid collections. Ventricular system: Stable dilation as seen on prior imaging. Cerebral parenchyma: Cerebral atrophy. No acute intraparenchymal hemorrhage or mass effect. The wright -white junction is well differentiated. Scattered hypoattenuating areas are seen within the white mat ter. Cerebellum: Unremarkable. Mass effect: No evidence of midline shift. Intracranial vasculature: Atherosclerotic calcifications of the intracranial vessels. Soft tissues: Normal. Calvarium/osseous structures: No depressed skull fracture. Paranasal sinuses and mastoid air cells: Clear. Visualized orbits: Orbital contents are intact. IMPRESSION: 1. No evidence of hydrocephalus. Similar dilation of the ventricles as seen on prior imaging. 2. No acute intracranial process. 3. Nonspecific white matter changes, likely secondary to chronic small vessel ischemic disease.
[2021-08-23 21:18] LABS: Glucose,Whole Blood 246 mg/dL (75-99)
[2021-08-23] MEDS ORDERED: CYCLOBENZAPRINE 10MG STARTER 3 TAB BTL PO STA (21:48)
[2021-08-23 22:24] VITALS: BP 160/78; PULSE 78; RESP 16
== END 2021-08-23 22:25 | disposition home or self-care (01) ==
LOC: EC 16:58
DX: R56.9 Unspecified convulsions (principal); E11.9 Type 2 diabetes mellitus without complications; I10 Essential (primary) hypertension; I25.2 Old myocardial infarction; E78.5 Hyperlipidemia, unspecified; Z79.84 Long term (current) use of oral hypoglycemic drugs; Z79.82 Long term (current) use of aspirin; Z79.899 Other long term (current) drug therapy
CPT/HCPCS: 36415; 80053; 85025; 70450; 99284; 96372; J2360

== ENCOUNTER → 2021-08-29 | Outpatient (CLI) | payer BC | LOC: NEUROMAIN 08:51 | PROVIDERS: ATTEND Psychiatry & Neurology Neurology | DX: R56.9 Unspecified convulsions (principal); G91.9 Hydrocephalus, unspecified; Z88.8 Allergy status to other drugs, medicaments and biological substances | CPT/HCPCS: 95713 ==

== ENCOUNTER 2021-12-19 04:13 | Emergency (ER) | payer BC, OTHER ==
[2021-12-19 04:26] VITALS: TEMP 98.1
--- NOTE | 2021-12-19 04:50 | ED ---
General Adult HPI - General Chief complaint: Recheck/Abnormal Lab/Rx Stated complaint: high bp Time Seen by Provider: 12/19/21 04:19 Source: patient, EMS Mode of arrival: EMS Limitations: no limitations - History of Present Illness Initial comments: This patient is a 51-year-old man who presents to have evaluation as he is concerned about possibility of having seizure. The patient states that tonight he was feeling cold or chills and also that his foot felt funny. He states he has experienced this previously prior to onset of seizure. I addition, patient states he might have missed some of his medications because he was very busy throughout the day. He is not having any headache or vision change. No other neurologic symptoms. No chest pain, dyspnea, palpitations. No abdominal pain nausea or vomiting. -: hour(s) Location: lower extremity Radiation: non-radiation Severity scale (1-10): 0 Consistency: constant Improves with: none Worsens with: none Associated Symptoms: fever/chills Treatments Prior to Arrival: none - Related Data Home Medications Medication Instructions Recorded Confirmed amLODIPine [Norvasc] 10 mg PO DAILY 02/14/17 12/19/21 Pravastatin Sodium 80 mg PO HS 09/18/18 12/19/21 Aspirin EC [Ecotrin Low Dose] 81 mg PO DAILY 11/23/19 12/19/21 Pantoprazole Sodium [Protonix] 40 mg PO DAILY 11/23/19 12/19/21 Metoprolol Succinate (ER) [Toprol 100 mg PO DAILY 08/27/21 12/19/21 Xl] Previous Rx's Medication Instructions Recorded metFORMIN HCL [Metformin HCl] 1,000 mg PO BID #0 03/02/17 Allergies Allergy/AdvReac Type Severity Reaction Status Date / Time steroids AdvReac Hallucinati Uncoded 12/19/21 07:16 ons Review of Systems ROS Statement: Those systems with pertinent positive or pertinent negative responses have been documented in the HPI. ROS Other: All systems not noted in ROS Statement are negative. Constitutional: Reports: chills. Denies: fever, weakness Eyes: Denies: vision change Respiratory: Denies: cough, dyspnea Cardiovascular: Denies: chest pain, palpitations Gastrointestinal: Denies: abdominal pain, vomiting, diarrhea Genitourinary: Denies: dysuria Skin: Denies: rash Neurological: Denies: headache, weakness Past Medical History Past Medical History: Diabetes Mellitus, Hyperlipidemia, Hypertension, Myocardial Infarction ([place]) Additional Past Medical History / Comment(s): hydrocephalus Last Myocardial Infarction Date:: 02/16/17 History of Any Multi-Drug Resistant Organisms: None Reported Past Surgical History: Appendectomy, Heart Catheterization, Heart Catheterization With Stent Additional Past Surgical History / Comment(s): lap band 2008, cardiac cath with stent to LAD 02/16/2017 Past Anesthesia/Blood Transfusion Reactions: No Reported Reaction Date of Last Stent Placement:: 02/16/17 Past Psychological History: Bipolar, Depression Smoking Status: Never smoker Past Alcohol Use History: None Reported Past Drug Use History: None Reported - Past Family History Father Family Medical History: Diabetes Mellitus, Deep Vein Thrombosis (DVT), Hypertension, Myocardial Infarction ([place]) Mother Family Medical History: Cancer Additional Family Medical History / Comment(s): Brain tumor, mass removed from neck General Exam Limitations: no limitations General appearance: alert, in no apparent distress Head exam: Present: atraumatic, normocephalic Eye exam: Present: normal appearance. Absent: scleral icterus, conjunctival injection Neck exam: Present: normal inspection Respiratory exam: Present: normal lung sounds bilaterally. Absent: respiratory distress, wheezes, rales, rhonchi, stridor Cardiovascular Exam: Present: regular rate, normal rhythm, normal heart sounds. Absent: systolic murmur, diastolic murmur, rubs, gallop GI/Abdominal exam: Present: soft. Absent: distended, tenderness, guarding, rebound, rigid, mass Extremities exam: Present: normal inspection Neurological exam: Present: alert, oriented X3, CN II-XII intact. Absent: motor sensory deficit Skin exam: Present: warm, dry, intact, normal color. Absent: rash Course Vital Signs 12/19/21 12/19/21 12/19/21 04:14 05:20 07:00 Temperature 98.1 F Pulse Rate 102 H 90 87 Respiratory 24 20 18 Rate Blood Pressure 163/84 115/70 144/87 O2 Sat by Pulse 97 97 98 Oximetry EKG Findings - EKG Results: EKG: interpreted by NAPOLEON, sinus rhythm, normal axis, normal QRS, normal ST/T, no acute changes EKG shows: tachycardia (Rate 106 bpm) Medical Decision Making - Medical Decision Making Patient's 51-year-old man presenting with symptoms that to him are similar to what he has previous experience prior to seizure. He has had leg workup here without remarkable findings. He is feeling better and would like to go home now. Discussed appropriate further care and follow-up - Lab Data Result diagrams: 12/19/21 04:49 12/19/21 04:49 Lab Results 12/19/21 12/19/21 Range/Units 04:49 04:49 WBC 6.2 (3.8-10.6) k/uL RBC 3.80 L (4.30-5.90) m/uL Hgb 10.7 L (13.0-17.5) gm/dL Hct 32.6 L (39.0-53.0) % MCV 85.7 (80.0-100.0) fL MCH 28.1 (25.0-35.0) pg MCHC 32.8 (31.0-37.0) g/dL RDW 14.6 (11.5-15.5) % Plt Count 207 (150-450) k/uL MPV 8.8 Neutrophils % 71 % Lymphocytes % 17 % Monocytes % 7 % Eosinophils % 3 % Basophils % 1 % Neutrophils # 4.4 (1.3-7.7) k/uL Lymphocytes # 1.0 (1.0-4.8) k/uL Monocytes # 0.5 (0-1.0) k/uL Eosinophils # 0.2 (0-0.7) k/uL Basophils # 0.1 (0-0.2) k/uL Sodium 139 (137-145) mmol/L Potassium 4.1 (3.5-5.1) mmol/L Chloride 104 (98-107) mmol/L Carbon Dioxide 26 (22-30) mmol/L Anion Gap 9 mmol/L BUN 26 H (9-20) mg/dL Creatinine 1.64 H (0.66-1.25) mg/dL Est GFR (CKD-EPI)AfAm 54 (>60 ml/min/1.73 sqM) Est GFR (CKD-EPI)NonAf 47 (>60 ml/min/1.73 sqM) Glucose 169 H (74-99) mg/dL Calcium 9.3 (8.4-10.2) mg/dL Magnesium 2.2 (1.6-2.3) mg/dL Total Bilirubin 0.4 (0.2-1.3) mg/dL AST 33 (17-59) U/L ALT 23 (4-49) U/L Alkaline Phosphatase 73 (38-126) U/L Total Protein 7.3 (6.3-8.2) g/dL Albumin 4.2 (3.5-5.0) g/dL Disposition Clinical Impression: Aura Disposition: HOME SELF-CARE Condition: Good Instructions (If sedation given, give patient instructions): Recurrent Seizures in Adults (ED) Is patient prescribed a controlled substance at d/c from ED?: No Referrals: Ochoa Kirkland MD [Primary Care Provider] - 1-2 days
[2021-12-19 05:16] LABS: Basophils # (A) 0.1 k/uL (0-0.2); Basophils % (A) 1 %; Eosinophils # (A) 0.2 k/uL (0-0.7); Eosinophils % (A) 3 %; HCT 32.6 % (39.0-53.0); HGB 10.7 gm/dL (13.0-17.5); Lymphocytes % (A) 17 %; MCH 28.1 pg (25.0-35.0); MCHC 32.8 g/dL (31.0-37.0); MCV 85.7 fL (80.0-100.0); Mean Platelet Volume 8.8; Monocytes # (A) 0.5 k/uL (0-1.0); Monocytes % (A) 7 %; Neutrophils # (A) 4.4 k/uL (1.3-7.7); Neutrophils % (A) 71 %; Platelet Count 207 k/uL (150-450); RDW 14.6 % (11.5-15.5); WBC 6.2 k/uL (3.8-10.6)
[2021-12-19 05:21] LABS: Albumin 4.2 g/dL (3.5-5.0); Calcium 9.3 mg/dL (8.4-10.2); Magnesium 2.2 mg/dL (1.6-2.3); Potassium 4.1 mmol/L (3.5-5.1); Total Bilirubin 0.4 mg/dL (0.2-1.3); Total Protein 7.3 g/dL (6.3-8.2)
[2021-12-19 07:02] VITALS: BP 144/87; PULSE 87; RESP 18
[2021-12-19] MEDS ORDERED: SODIUM CHLORIDE 0.9% 1,000 ML IV ONE (07:16)
== END 2021-12-19 07:51 | disposition home or self-care (01) ==
LOC: EC 04:13
DX: R56.9 Unspecified convulsions (principal); I10 Essential (primary) hypertension; E11.9 Type 2 diabetes mellitus without complications; E78.5 Hyperlipidemia, unspecified; I25.2 Old myocardial infarction; F31.9 Bipolar disorder, unspecified; Z79.82 Long term (current) use of aspirin; Z79.84 Long term (current) use of oral hypoglycemic drugs; Z95.5 Presence of coronary angioplasty implant and graft; Z79.899 Other long term (current) drug therapy
CPT/HCPCS: 36415; 80053; 83735; 85025; 93005; 96360; 99285

== ENCOUNTER 2022-02-06 10:55 | Emergency (ER) | payer OTHER ==
[2022-02-06 11:06] VITALS: BP 176/98; PULSE 98; RESP 18; TEMP 100
[2022-02-06 11:09] LABS: Glucose,Whole Blood 385 mg/dL (75-99)
[2022-02-06 12:10] LABS: Basophils % (A) 0 %; Eosinophils # (A) 0.1 k/uL (0-0.7); Eosinophils % (A) 1 %; HCT 28.3 % (39.0-53.0); Lymphocytes # (A) 0.7 k/uL (1.0-4.8); Lymphocytes % (A) 7 %; MCH 28.2 pg (25.0-35.0); MCHC 32.5 g/dL (31.0-37.0); MCV 86.9 fL (80.0-100.0); Monocytes # (A) 0.6 k/uL (0-1.0); Monocytes % (A) 6 %; Neutrophils % (A) 84 %; Platelet Count 246 k/uL (150-450); RBC 3.26 m/uL (4.30-5.90); RDW 13.8 % (11.5-15.5); WBC 9.5 k/uL (3.8-10.6)
[2022-02-06 12:11] LABS: HGB 9.2 gm/dL (13.0-17.5)
[2022-02-06 12:13] LABS: Albumin 3.1 g/dL (3.5-5.0); Calcium 8.1 mg/dL (8.4-10.2); Potassium 4.3 mmol/L (3.5-5.1); Total Bilirubin 0.3 mg/dL (0.2-1.3); Total Protein 6.1 g/dL (6.3-8.2)
[2022-02-06] MEDS ORDERED: SODIUM CHLORIDE 0.9% 500 ML 500 ML IV STA (12:30)
--- NOTE | 2022-02-06 12:44 | ED ---
General Adult HPI - General Chief complaint: Extremity Injury, Lower Stated complaint: bilat foot pain Time Seen by Provider: 02/06/22 11:23 Source: patient, EMS Mode of arrival: EMS Limitations: no limitations - History of Present Illness Initial comments: This 51-year-old male with a past medical history of diabetes mellitus, hypertension, myocardial infarction and hyperlipidemia presents emergency department with bilateral foot pain. Patient states about 10 days ago he noticed some wounds on bilateral plantar surface of feet. Patient states over the last few days they have been increasing in pain. Patient states the left foot wound began to get red, warm and he noticed increased pain 2 days ago. Patient states he is able to get up and walk around on his feet however causes increased pain to the bilateral feet. Patient states he has had this in the past. Patient states he does have diabetic neuropathy that is unchanged, he states he does have some numbness in bilateral toes but is able to feel sharp sensations. Patient states he is prescribed oxycodone which he has been taking for his pain that he states minimally helps. Patient states he has been soaking his feet in the hot tub which seems to help his pain. Patient states he did have leftover Keflex 500 mg that he has been taking twice a day for the last 2 days. Patient states he just recently got supportive shoes which have seemed to minimally help. Patient denies any loss of range of motion of either lower extremity or foot. He denies any chest pain, shortness of breath, abdominal pain, nausea, vomiting, change in bowel or bladder, change in appetite, lightheadedness, dizziness, fever, change in vision. Patient states he does use NovoLog sliding scale, however he states he has not used yet today. - Related Data Home Medications Medication Instructions Recorded Confirmed amLODIPine [Norvasc] 10 mg PO DAILY 02/14/17 12/19/21 Pravastatin Sodium 80 mg PO HS 09/18/18 12/19/21 Aspirin EC [Ecotrin Low Dose] 81 mg PO DAILY 11/23/19 12/19/21 Pantoprazole Sodium [Protonix] 40 mg PO DAILY 11/23/19 12/19/21 Metoprolol Succinate (ER) [Toprol 100 mg PO DAILY 08/27/21 12/19/21 Xl] Previous Rx's Medication Instructions Recorded metFORMIN HCL [Metformin HCl] 1,000 mg PO BID #0 03/02/17 Cephalexin [Keflex] 500 mg PO Q6HR #28 cap 02/06/22 Sulfamethox-Tmp 800-160Mg [Bactrim 1 tab PO Q12HR #14 tab 02/06/22 DS 800-160 mg] Allergies Allergy/AdvReac Type Severity Reaction Status Date / Time steroids AdvReac Hallucinati Uncoded 12/19/21 07:16 ons Review of Systems ROS Statement: Those systems with pertinent positive or pertinent negative responses have been documented in the HPI. ROS Other: All systems not noted in ROS Statement are negative. Past Medical History Past Medical History: Diabetes Mellitus, Hyperlipidemia, Hypertension, Myocardial Infarction ([place]) Additional Past Medical History / Comment(s): hydrocephalus Last Myocardial Infarction Date:: 02/16/17 History of Any Multi-Drug Resistant Organisms: None Reported Past Surgical History: Appendectomy, Heart Catheterization, Heart Catheterization With Stent Additional Past Surgical History / Comment(s): lap band 2008, cardiac cath with stent to LAD 02/16/2017 Past Anesthesia/Blood Transfusion Reactions: No Reported Reaction Date of Last Stent Placement:: 02/16/17 Past Psychological History: Bipolar, Depression Smoking Status: Never smoker Past Alcohol Use History: None Reported Past Drug Use History: None Reported - Past Family History Father Family Medical History: Diabetes Mellitus, Deep Vein Thrombosis (DVT), Hypertension, Myocardial Infarction ([place]) Mother Family Medical History: Cancer Additional Family Medical History / Comment(s): Brain tumor, mass removed from neck General Exam Limitations: no limitations General appearance: alert, in no apparent distress Head exam: Present: atraumatic, normocephalic, normal inspection Eye exam: Present: normal appearance, PERRL, EOMI. Absent: scleral icterus, conjunctival injection, periorbital swelling Pupils: Present: normal accommodation ENT exam: Present: mucous membranes moist Neck exam: Present: normal inspection, full ROM. Absent: tenderness, meningismus, lymphadenopathy Respiratory exam: Present: normal lung sounds bilaterally. Absent: respiratory distress, wheezes, rales, rhonchi, stridor Cardiovascular Exam: Present: regular rate, normal rhythm, normal heart sounds. Absent: systolic murmur, diastolic murmur, rubs, gallop, clicks GI/Abdominal exam: Present: soft, normal bowel sounds. Absent: distended, tenderness, guarding, rebound, rigid Extremities exam: Present: normal inspection (Scrap/healed wound on pad of right foot without any erythema, fluctuance or induration- no sign of infection present), full ROM (Full range of motion. DP pulses palpable bilaterally. Patient able to feel light touch sensation over bilateral shins, ankles, feet. Patient able to feel sharp sensation to bilateral toes which he states is his normal over the last few years as he does have diabetic neuropathy), tenderness (Patient with tenderness to palpation over had some bilateral feet. Patient with abscess formation (size of a quarter) to left pad of foot-fluctuance palpated. Minimal erythema surrounding wound on pad of left foot. ), normal capillary refill. Absent: pedal edema, joint swelling, calf tenderness Back exam: Present: full ROM. Absent: CVA tenderness (R), CVA tenderness (L), paraspinal tenderness, vertebral tenderness Neurological exam: Present: alert, oriented X3, CN II-XII intact, normal gait (Patient is able to walk on bilateral feet, however he states it does cause pain to his feet walk, left foot greater than right) Psychiatric exam: Present: normal affect, normal mood Skin exam: Present: warm, dry, intact, normal color. Absent: rash Course Vital Signs 02/06/22 10:56 Temperature 100.0 F H Pulse Rate 98 Respiratory 18 Rate Blood Pressure 176/98 O2 Sat by Pulse 98 Oximetry Procedures - Incision & Drainage Consent Obtained: verbal consent Site: foot Size (cm): 3 I&D Cleaning Method: Alcohol Wipe Scalpel Used: #11 I&D Drainage Obtained: Pus, Blood Culture Obtained?: Yes Patient Tolerated Procedure: well, no complications Medical Decision Making - Medical Decision Making This 51-year-old male presents emergency department with bilateral foot pain and abscess on pad of left foot. Patient's temperature 100.0 degrees. Patient without any leukocytosis. Patient's hemoglobin 9.2 compared to 10.7 12/19/21- patient denies any signs or symptoms of bleeding. Denies any bloody or black stool. Patient's glucose 345, however he denies taking his NovoLog this morning with breakfast, he states he will recheck when he gets home and will take NovoLog sliding scale as directed. Acetone negative. abscess the size of a quarter was incised and drained, wound culture sent for pathology. Small amount of erythema surrounding abscess. There is a chronic closed healing wound present on right pad of plantar foot -no sign of infection. Bilateral foot x- ray impression: There may be soft tissue injury along the ball of right foot plantar aspect. Clinical correlation recommended. Abscess formation was present on pad of medial left plantar foot. No acute osseous abnormality. Follow-up exams can be performed as clinically indicated. I did instruct patient not to soak or submerge feet in his hot tub or any other water. Admission was discussed with patient, however he did request to be discharged and stated he would return if any of his symptoms worsen or if any other concerning symptoms arise. One dose of Unasyn given the patient prior to discharge. Keflex and Bactrim prescription given to patient. Patient did receive 1 dose of IV antibiotics prior to discharge- Dr. Garces did suggest 1 dose Ancef prior to discharge. Patient instructed to follow up with his primary care provider next 1-2 days. Patient states he does have an appointment with his primary care provider in mid February, however I stated he should try and call to have his appointment moved up to this week. Strict return precautions were discussed. Patient verbally agree to plan. Patient's home stable condition. Case discussed in detail my attending, . - Lab Data Result diagrams: 02/06/22 11:57 02/06/22 11:57 Lab Results 02/06/22 02/06/22 02/06/22 Range/Units 11:07 11:57 11:57 WBC 9.5 (3.8-10.6) k/uL RBC 3.26 L (4.30-5.90) m/uL Hgb 9.2 L D (13.0-17.5) gm/dL Hct 28.3 L (39.0-53.0) % MCV 86.9 (80.0-100.0) fL MCH 28.2 (25.0-35.0) pg MCHC 32.5 (31.0-37.0) g/dL RDW 13.8 (11.5-15.5) % Plt Count 246 (150-450) k/uL MPV 8.0 Neutrophils % 84 % Lymphocytes % 7 % Monocytes % 6 % Eosinophils % 1 % Basophils % 0 % Neutrophils # 8.0 H (1.3-7.7) k/uL Lymphocytes # 0.7 L (1.0-4.8) k/uL Monocytes # 0.6 (0-1.0) k/uL Eosinophils # 0.1 (0-0.7) k/uL Basophils # 0.0 (0-0.2) k/uL Sodium 134 L (137-145) mmol/L Potassium 4.3 (3.5-5.1) mmol/L Chloride 101 (98-107) mmol/L Carbon Dioxide 27 (22-30) mmol/L Anion Gap 6 mmol/L BUN 21 H (9-20) mg/dL Creatinine 1.18 (0.66-1.25) mg/dL Est GFR (CKD-EPI)AfAm 81 (>60 ml/min/1.73 sqM) Est GFR (CKD-EPI)NonAf 70 (>60 ml/min/1.73 sqM) Glucose 345 H (74-99) mg/dL POC Glucose (mg/dL) 385 H (75-99) mg/dL POC Glu [employer] ID Belval, Arlyn Calcium 8.1 L (8.4-10.2) mg/dL Total Bilirubin 0.3 (0.2-1.3) mg/dL AST 20 (17-59) U/L ALT 15 (4-49) U/L Alkaline Phosphatase 80 (38-126) U/L Total Protein 6.1 L (6.3-8.2) g/dL Albumin 3.1 L (3.5-5.0) g/dL Acetone, Qual (Negative) 02/06/22 Range/Units 11:57 WBC (3.8-10.6) k/uL RBC (4.30-5.90) m/uL Hgb (13.0-17.5) gm/dL Hct (39.0-53.0) % MCV (80.0-100.0) fL MCH (25.0-35.0) pg MCHC (31.0-37.0) g/dL RDW (11.5-15.5) % Plt Count (150-450) k/uL MPV Neutrophils % % Lymphocytes % % Monocytes % % Eosinophils % % Basophils % % Neutrophils # (1.3-7.7) k/uL Lymphocytes # (1.0-4.8) k/uL Monocytes # (0-1.0) k/uL Eosinophils # (0-0.7) k/uL Basophils # (0-0.2) k/uL Sodium (137-145) mmol/L Potassium (3.5-5.1) mmol/L Chloride (98-107) mmol/L Carbon Dioxide (22-30) mmol/L Anion Gap mmol/L BUN (9-20) mg/dL Creatinine (0.66-1.25) mg/dL Est GFR (CKD-EPI)AfAm (>60 ml/min/1.73 sqM) Est GFR (CKD-EPI)NonAf (>60 ml/min/1.73 sqM) Glucose (74-99) mg/dL POC Glucose (mg/dL) (75-99) mg/dL POC Glu [employer] ID Calcium (8.4-10.2) mg/dL Total Bilirubin (0.2-1.3) mg/dL AST (17-59) U/L ALT (4-49) U/L Alkaline Phosphatase (38-126) U/L Total Protein (6.3-8.2) g/dL Albumin (3.5-5.0) g/dL Acetone, Qual Negative (Negative) Disposition Clinical Impression: Abscess of left foot, History of diabetes mellitus Disposition: HOME SELF-CARE Condition: Stable Instructions (If sedation given, give patient instructions): Abscess Incision and Drainage (ED) Additional Instructions: Based take Keflex and Bactrim as directed. Follow-up with primary care provider next 1-2 days. Return to the emergency department with any new, worsening, or concerning symptoms. Do not submerge foot in water, do not submerge foot in hot tub. Prescriptions: Sulfamethox-Tmp 800-160Mg [Bactrim DS 800-160 mg] 1 tab PO Q12HR #14 tab Cephalexin [Keflex] 500 mg PO Q6HR #28 cap Is patient prescribed a controlled substance at d/c from ED?: No Referrals: None,Stated [Primary Care Provider] - 1-2 days Lino Segovia [STAFF PHYSICIAN] - 1-2 days Time of Disposition: 13:26
--- NOTE | 2022-02-06 12:53 | XR ---
EXAMINATION TYPE: XR foot complete bilateral DATE OF EXAM: 02/06/2022 COMPARISON: None HISTORY: Pain TECHNIQUE: Three-view right foot FINDINGS: Right foot: No acute fracture or dislocation is evident. There is some lucency within the ball of fo ot on the lateral projection. Correlate with location of the patient's wound. Plantar calcaneal heel spur is present. No suspicious cortical erosions are evident. Follow up exams can be performed as cli nically indicated. Left foot: No acute fracture or dislocation is evident. Soft tissues appear normal. Joint spaces are preserved. IMPRESSION: 1. There may be a soft tissue injury along the ball of right foot plantar aspect. Clinical correlati on recommended. 2. No acute osseous abnormality. 3. Follow up exams can be performed as clinically indicated.
[2022-02-06] MEDS ORDERED: ceFAZolin 1,000 MG VIAL (IM USE) IM STA (13:13)
== END 2022-02-06 15:34 | disposition home or self-care (01) ==
LOC: EC 10:55
DX: L02.612 Cutaneous abscess of left foot (principal); M79.671 Pain in right foot; E11.9 Type 2 diabetes mellitus without complications; I10 Essential (primary) hypertension; I25.2 Old myocardial infarction; E78.5 Hyperlipidemia, unspecified; F31.9 Bipolar disorder, unspecified; Z79.84 Long term (current) use of oral hypoglycemic drugs; Z79.82 Long term (current) use of aspirin; Z79.899 Other long term (current) drug therapy
CPT/HCPCS: 36415; 80053; 82009; 85025; 87070; 87205; 73630; 10060; 99283; 96360; 96372; J0690

== ENCOUNTER 2022-02-10 21:00 | Observation (INO) | payer OTHER ==
--- NOTE | 2022-02-10 23:37 | ED ---
General Adult HPI - General Chief complaint: Skin/Abscess/Foreign Body Stated complaint: Here 02/06/Abscess on R ft Time Seen by Provider: 02/10/22 23:20 Source: patient, RN notes reviewed, old records reviewed Mode of arrival: wheelchair Limitations: no limitations - History of Present Illness Initial comments: 51-year-old male presents to the emergency room with right second toe swelling and abscess for one day. Patient states he was seen in the hospital on February 06 for a similar lesion on his left foot that was i&d's and he was put on antibiotics at that time. Patient states he did try to drain the abscess to his second toe himself with a needle and now with increased redness swelling and tenderness. He denies any fevers. He is taking antibiotics as prescribed. He does not have a primary care doctor at this time. -: days(s) Location: right, lower extremity (second toe) Severity scale (1-10): 6 Quality: constant Consistency: constant Improves with: none Associated Symptoms: denies other symptoms Treatments Prior to Arrival: other (He did attempt an incision and drainage at home himself) - Related Data Home Medications Medication Instructions Recorded Confirmed amLODIPine [Norvasc] 10 mg PO DAILY 02/14/17 12/19/21 Pravastatin Sodium 80 mg PO HS 09/18/18 12/19/21 Aspirin EC [Ecotrin Low Dose] 81 mg PO DAILY 11/23/19 12/19/21 Pantoprazole Sodium [Protonix] 40 mg PO DAILY 11/23/19 12/19/21 Metoprolol Succinate (ER) [Toprol 100 mg PO DAILY 08/27/21 12/19/21 Xl] Previous Rx's Medication Instructions Recorded metFORMIN HCL [Metformin HCl] 1,000 mg PO BID #0 03/02/17 Cephalexin [Keflex] 500 mg PO Q6HR #28 cap 02/06/22 Sulfamethox-Tmp 800-160Mg [Bactrim 1 tab PO Q12HR #14 tab 02/06/22 DS 800-160 mg] Allergies Allergy/AdvReac Type Severity Reaction Status Date / Time steroids AdvReac Hallucinati Uncoded 12/19/21 07:16 ons Review of Systems ROS Statement: Those systems with pertinent positive or pertinent negative responses have been documented in the HPI. ROS Other: All systems not noted in ROS Statement are negative. Past Medical History Past Medical History: Diabetes Mellitus, Hyperlipidemia, Hypertension, Myocardial Infarction ([place]) Additional Past Medical History / Comment(s): hydrocephalus Last Myocardial Infarction Date:: 02/16/17 History of Any Multi-Drug Resistant Organisms: None Reported Past Surgical History: Appendectomy, Heart Catheterization, Heart Catheterization With Stent Additional Past Surgical History / Comment(s): lap band 2008, cardiac cath with stent to LAD 02/16/2017 Past Anesthesia/Blood Transfusion Reactions: No Reported Reaction Date of Last Stent Placement:: 02/16/17 Past Psychological History: Bipolar, Depression Smoking Status: Never smoker Past Alcohol Use History: None Reported Past Drug Use History: None Reported - Past Family History Father Family Medical History: Diabetes Mellitus, Deep Vein Thrombosis (DVT), Hypertension, Myocardial Infarction ([place]) Mother Family Medical History: Cancer Additional Family Medical History / Comment(s): Brain tumor, mass removed from neck General Exam Limitations: no limitations General appearance: alert, in no apparent distress Head exam: Present: atraumatic, normocephalic, normal inspection Right Foot/Toe exam: Present: tenderness, swelling, erythema (Second toe swelling with an area of induration and erythema) Neurovascular tendon exam: Present: no vascular compromise. Absent: abnormal cap refill, pallor Neurological exam: Present: alert, oriented X3 Psychiatric exam: Present: normal affect, normal mood Skin exam: Present: warm. Absent: cyanosis, diaphoretic Course Vital Signs 02/10/22 02/10/22 21:16 23:17 Temperature 99.1 F 99.1 F Pulse Rate 90 89 Respiratory 18 20 Rate Blood Pressure 168/88 138/79 O2 Sat by Pulse 98 99 Oximetry Procedures - Incision & Drainage Consent Obtained: verbal consent Site: foot (Second toe) I&D Cleaning Method: Betadine Scalpel Used: #11 Needle Aspiration Performed?: No Irrigation Performed?: No I&D Drainage Obtained: Pus, Blood Culture Obtained?: Yes Patient Tolerated Procedure: well Medical Decision Making - Medical Decision Making X-ray shows moderate soft tissue swelling of the entire foot. No evidence of osteomyelitis. Patient is afebrile there is no sign of leukocytosis. No lactic acidosis. His creatinine is elevated at 1.54, patient does have a history of elevated creatinine levels. Patient has been on antibiotics since February 07. He will be admitted for cellulitis, failed outpatient therapy. - Lab Data Result diagrams: 02/11/22 00:19 02/11/22 00:19 Lab Results 02/11/22 02/11/22 Range/Units 00:19 00:19 WBC 8.3 (3.8-10.6) k/uL RBC 3.21 L (4.30-5.90) m/uL Hgb 8.8 L (13.0-17.5) gm/dL Hct 27.6 L (39.0-53.0) % MCV 86.0 (80.0-100.0) fL MCH 27.6 (25.0-35.0) pg MCHC 32.1 (31.0-37.0) g/dL RDW 13.7 (11.5-15.5) % Plt Count 310 (150-450) k/uL MPV 8.4 Neutrophils % 77 % Lymphocytes % 14 % Monocytes % 6 % Eosinophils % 2 % Basophils % 0 % Neutrophils # 6.4 (1.3-7.7) k/uL Lymphocytes # 1.1 (1.0-4.8) k/uL Monocytes # 0.5 (0-1.0) k/uL Eosinophils # 0.1 (0-0.7) k/uL Basophils # 0.0 (0-0.2) k/uL Sodium 134 L (137-145) mmol/L Potassium 4.2 (3.5-5.1) mmol/L Chloride 98 (98-107) mmol/L Carbon Dioxide 27 (22-30) mmol/L Anion Gap 9 mmol/L BUN 22 H (9-20) mg/dL Creatinine 1.54 H (0.66-1.25) mg/dL Est GFR (CKD-EPI)AfAm 59 (>60 ml/min/1.73 sqM) Est GFR (CKD-EPI)NonAf 51 (>60 ml/min/1.73 sqM) Glucose 130 H (74-99) mg/dL Calcium 8.7 (8.4-10.2) mg/dL Disposition Clinical Impression: Diabetic foot ulcer, Cellulitis and abscess of foot Disposition: ADMITTED IP TO THIS HOSP Decision Date: 02/10/22 Decision Time: 23:54
--- NOTE | 2022-02-11 00:07 | XR ---
EXAMINATION TYPE: XR foot complete RT DATE OF EXAM: 02/10/2022 COMPARISON: 02/06/2022 HISTORY: Swelling. Pain TECHNIQUE: 3 views FINDINGS: The metatarsals are intact. Toes appear intact. There is soft tissue swelling of the entire foot. There is plantar calcaneal spurring. No focal bone destruction. IMPRESSION: Moderate soft tissue swelling which is new compared to the old exam. Calcaneal spurring n oted. No sign of osteomyelitis.
[2022-02-11] MEDS ORDERED: IBUPROFEN 600 MG TAB PO STA (00:31)
[2022-02-11 01:04] LABS: Calcium 8.7 mg/dL (8.4-10.2); Potassium 4.2 mmol/L (3.5-5.1)
[2022-02-11 01:24] LABS: Basophils % (A) 0 %; Eosinophils # (A) 0.1 k/uL (0-0.7); Eosinophils % (A) 2 %; HCT 27.6 % (39.0-53.0); HGB 8.8 gm/dL (13.0-17.5); Lymphocytes # (A) 1.1 k/uL (1.0-4.8); Lymphocytes % (A) 14 %; MCH 27.6 pg (25.0-35.0); MCHC 32.1 g/dL (31.0-37.0); Mean Platelet Volume 8.4; Monocytes # (A) 0.5 k/uL (0-1.0); Monocytes % (A) 6 %; Neutrophils # (A) 6.4 k/uL (1.3-7.7); Neutrophils % (A) 77 %; Platelet Count 310 k/uL (150-450); RBC 3.21 m/uL (4.30-5.90); RDW 13.7 % (11.5-15.5); WBC 8.3 k/uL (3.8-10.6)
[2022-02-11] MEDS ORDERED: NALOXONE 0.4 MG/ML 1 ML VIAL IV PRN (02:01)
[2022-02-11] MEDS ORDERED: ACETAMINOPHEN TAB 325 MG TAB PO PRN (02:01)
[2022-02-11] MEDS ORDERED: VANCOMYCIN IV PER PHARMACY 1 EACH MISC MISCELLANE PRN (02:03)
[2022-02-11] MEDS ORDERED: SODIUM CHLORIDE 0.9% 1,000 ML IV SCH (02:15)
[2022-02-11] MEDS ORDERED: VANCOMYCIN 1,750 MG in SODIUM CHLORIDE 0.9% 500 ML 500 ML IVPB ONE (02:15)
--- NOTE | 2022-02-11 03:39 | P.HPIM ---
History of Present Illness H&P Date: 02/11/22 Patient is a 51-year-old male with an extensive PMH including CAD status post LA, hypertension, hyperlipidemia, chronic kidney disease, type II DM who presented to the emergency room with complaints of bilateral foot ulcers and pain. The patient notes that he was seen in the emergency room on 02/06 with initial complaints of left foot ulcer. Reports that the ulcer was incised and drained in the emergency room, which provided relief. He was sent home on an oral course of Bactrim and Keflex. He then developed a right foot ulcer with pain and swelling the following day. Reports that the pain is gradually worsened, is extending up to the ankle. Denies fever or chills at home. Also denies chest discomfort, shortness of breath, nausea, vomiting, abdominal pain, diarrhea. Foot x-ray in the emergency room revealed soft tissue swelling without osteomyelitis. Laboratory evaluation was reviewed. Review of systems: Pertinent positives and negatives as discussed in HPI, a complete review of systems was performed and all other systems are negative. Physical examination: General: non toxic, no distress, appears older than stated age, obese Derm: Left first interdigital web ulcer with erythema and warmth, R foot plantar surface 5 cm ulcer with draining pupulent material, no unusual ecchymoses, warm, dry Head: atraumatic, normocephalic, symmetric Eyes: EOMI, no lid lag, anicteric sclera, pupils equal round reactive to light ENT: Nose and ears atraumatic, no thrush, no pharyngeal erythema Neck: No thyromegaly, no cervical lymphadenopathy, trachea midline, supple Mouth: no lip lesion, mucus membranes moist Cardiovascular: S1S2 reg, no murmur, positive posterior tibial pulse bilateral, no edema, capillary refill less than 2 seconds Lungs: CTA bilateral, no rhonchi, no rales , no accessory muscle use Abdominal: soft, nontender to palpation, no guarding, no appreciable organome henry, normal bowel sounds Ext: no gross muscle atrophy, muscle strength 5 out of 5 in all 4 extremities grossly, no contractures, Neuro: CN II-XI grossly intact, light touch intact all 4 extremities, finger to nose within normal limits, Psych: Alert, oriented, appropriate affect Assessment/plan Left foot ulcer with surrounding cellulitis -Continue with IV vancomycin -Wound care and infectious disease consults -Gentle IV hydration -Follow-up cultures Chronic conditions: Type 2 DM, hypertension, hyperlipidemia, coronary artery disease, chronic kidney disease -Continue with home meds -Insulin sliding scale blood glucose monitoring DVT prophylaxis -Heparin subcu The patient is admitted with an anticipated less than 2 midnight stay for evaluation of L foot ulcer. CODE STATUS: Full Code Discussed with: Patient Anticipated discharge date: 02/[address]: Home Past Medical History Past Medical History: Diabetes Mellitus, Hyperlipidemia, Hypertension, Myocardial Infarction ([place]) Additional Past Medical History / Comment(s): hydrocephalus Last Myocardial Infarction Date:: 02/16/17 History of Any Multi-Drug Resistant Organisms: None Reported Past Surgical History: Appendectomy, Heart Catheterization, Heart Catheterization With Stent Additional Past Surgical History / Comment(s): lap band 2008, cardiac cath with stent to LAD 02/16/2017 Past Anesthesia/Blood Transfusion Reactions: No Reported Reaction Date of Last Stent Placement:: 02/16/17 Past Psychological History: Bipolar, Depression Smoking Status: Never smoker Past Alcohol Use History: None Reported Past Drug Use History: None Reported - Past Family History Father Family Medical History: Diabetes Mellitus, Deep Vein Thrombosis (DVT), Hyp ertension, Myocardial Infarction ([place]) Mother Family Medical History: Cancer Additional Family Medical History / Comment(s): Brain tumor, mass removed from neck Medications and Allergies Home Medications Medication Instructions Recorded Confirmed Type amLODIPine [Norvasc] 10 mg PO DAILY 02/14/17 12/19/21 History metFORMIN HCL [Metformin HCl] 1,000 mg PO BID #0 03/02/17 12/19/21 Rx Pravastatin Sodium 80 mg PO HS 09/18/18 12/19/21 History Aspirin EC [Ecotrin Low Dose] 81 mg PO DAILY 11/23/19 12/19/21 History Pantoprazole Sodium [Protonix] 40 mg PO DAILY 11/23/19 12/19/21 History Metoprolol Succinate (ER) [Toprol 100 mg PO DAILY 08/27/21 12/19/21 History Xl] Cephalexin [Keflex] 500 mg PO Q6HR #28 cap 02/06/22 Rx Sulfamethox-Tmp 800-160Mg [Bactrim 1 tab PO Q12HR #14 tab 02/06/22 Rx DS 800-160 mg] Allergies Allergy/AdvReac Type Severity Reaction Status Date / Time steroids AdvReac Hallucinati Uncoded 12/19/21 07:16 ons Physical Exam Vitals: Vital Signs Temp Pulse Resp BP Pulse Ox 02/10/22 23:17 99.1 F 89 20 138/79 99 02/10/22 21:16 99.1 F 90 18 168/88 98 Intake and Output 02/10/22 02/10/22 02/11/22 14:59 22:59 06:59 Other: Weight 106.594 kg Results CBC & Chem 7: 02/11/22 00:19 02/11/22 00:19 Labs: Abnormal Lab Results - Last 24 Hours (Table) 02/11/22 02/11/22 Range/Units 00:19 00:19 RBC 3.21 L (4.30-5.90) m/uL Hgb 8.8 L (13.0-17.5) gm/dL Hct 27.6 L (39.0-53.0) % Sodium 134 L (137-145) mmol/L BUN 22 H (9-20) mg/dL Creatinine 1.54 H (0.66-1.25) mg/dL Glucose 130 H (74-99) mg/dL
[2022-02-11 07:18] LABS: Glucose,Whole Blood 123 mg/dL (75-99)
[2022-02-11] MEDS ORDERED: INSULIN ASPART (NovoLOG) 100 UNIT/ML VIAL SQ SCH (07:30)
[2022-02-11] MEDS ORDERED: HEPARIN SODIUM,PORCINE/PF 5,000 UNIT/0.5 ML SYRINGE SQ SCH (08:00)
[2022-02-11 08:05] VITALS: BP 171/93; PULSE 79; RESP 18; TEMP 98.2
--- NOTE | 2022-02-11 14:03 | P.DS ---
Providers Date of admission: 02/11/22 00:23 Expected date of discharge: 02/11/22 (discharged 02/11/22) Attending physician: Deanne Gonzales MD Primary care physician: Stated None Hospital Course: Patient left AGAINST MEDICAL ADVICE approximately 4 hours after seeing seen by my partner Discharge Diagnosis: AGAINST MEDICAL ADVICE Infected B/L daibetic foot ulcers with surroudning cellulitis Hospital Course: Patient is a 51-year-old male with a history of coronary artery disease, hypertension, dyslipidemia, chronic kidney disease, diabetes who presented to [facility] ER with complaints of bilateral foot ulcers and pain. He had already been taking oral Bactrim and Keflex at home. He was afebrile with normal white count. He was admitted and started on vancomycin and infectious disease was consulted. However patient left 5 hours after his initial H&P. Notified by nursing was not able to evaluate patient prior to them leaving. He has a course of Bactrim and Keflex at home per nursing. Patient Condition at Discharge: Fair Plan - Discharge Summary Discharge Rx Participant: Yes New Discharge Prescriptions: No Action amLODIPine [Norvasc] 10 mg PO DAILY metFORMIN HCL [Metformin HCl] 1,000 mg PO BID #0 Pravastatin Sodium 80 mg PO HS Pantoprazole Sodium [Protonix] 40 mg PO DAILY Aspirin EC [Ecotrin Low Dose] 81 mg PO DAILY Cephalexin [Keflex] 500 mg PO Q6HR #28 cap Metoprolol Succinate (ER) [Toprol Xl] 100 mg PO DAILY Sulfamethox-Tmp 800-160Mg [Bactrim DS 800-160 mg] 1 tab PO Q12HR #14 tab Discharge Medication List amLODIPine [Norvasc] 10 mg PO DAILY 02/14/17 [History] metFORMIN HCL [Metformin HCl] 1,000 mg PO BID #0 03/02/17 [Rx] Pravastatin Sodium 80 mg PO HS 09/18/18 [History] Aspirin EC [Ecotrin Low Dose] 81 mg PO DAILY 11/23/19 [History] Pantoprazole Sodium [Protonix] 40 mg PO DAILY 11/23/19 [History] Metoprolol Succinate (ER) [Toprol Xl] 100 mg PO DAILY 08/27/21 [History] Cephalexin [Keflex] 500 mg PO Q6HR #28 cap 02/06/22 [Rx] Sulfamethox-Tmp 800-160Mg [Bactrim DS 800-160 mg] 1 tab PO Q12HR #14 tab 02/06/22 [Rx] Follow up Appointment(s)/Referral(s): None,Stated [Primary Care Provider] - 1-2 days Discharge Disposition: Left Against Medical Advice
[2022-02-11] MEDS ORDERED: VANCOMYCIN 1,750 MG in SODIUM CHLORIDE 0.9% 500 ML 500 ML IVPB SCH (20:00)
== END 2022-02-11 07:59 | disposition left against medical advice (07) ==
LOC: EC 21:00 → 4SSUR 02-11 00:23
PROVIDERS: ADMIT Internal Medicine; ATTEND Internal Medicine
DX: E11.621 Type 2 diabetes mellitus with foot ulcer (principal); L03.116 Cellulitis of left lower limb; L03.115 Cellulitis of right lower limb; E11.628 Type 2 diabetes mellitus with other skin complications; Z53.29 Procedure and treatment not carried out because of patient's decision for other reasons; I12.9 Hypertensive chronic kidney disease with stage 1 through stage 4 chronic kidney disease, or unspecified chronic kidney disease; E11.22 Type 2 diabetes mellitus with diabetic chronic kidney disease; N18.9 Chronic kidney disease, unspecified; I25.10 Atherosclerotic heart disease of native coronary artery without angina pectoris; M77.31 Calcaneal spur, right foot; E78.5 Hyperlipidemia, unspecified; I25.2 Old myocardial infarction; F32.A Depression, unspecified; G91.9 Hydrocephalus, unspecified; E66.9 Obesity, unspecified; Z68.34 Body mass index [BMI] 34.0-34.9, adult; Z79.84 Long term (current) use of oral hypoglycemic drugs; Z79.82 Long term (current) use of aspirin; Z79.899 Other long term (current) drug therapy; Z88.8 Allergy status to other drugs, medicaments and biological substances; Z90.49 Acquired absence of other specified parts of digestive tract; L97.519 Non-pressure chronic ulcer of other part of right foot with unspecified severity; L97.529 Non-pressure chronic ulcer of other part of left foot with unspecified severity; Z98.84 Bariatric surgery status; Z83.3 Family history of diabetes mellitus; Z82.49 Family history of ischemic heart disease and other diseases of the circulatory system; Z80.8 Family history of malignant neoplasm of other organs or systems
CPT/HCPCS: 99285; 96360; 96361; 36415; 80048; 83605; 85025; 87040; 87070; 87205; 73630; G0378; J3370; 87077; 87186

== ENCOUNTER 2022-09-25 07:06 | Emergency (ER) | payer OTHER ==
[2022-09-25] MEDS ORDERED: KETOROLAC 15 MG/ML 1 ML VIAL IVP STA (07:33)
--- NOTE | 2022-09-25 07:41 | ED ---
General Adult HPI - General Chief complaint: Back Pain/Injury Stated complaint: back pain Time Seen by Provider: 09/25/22 07:10 Source: patient, RN notes reviewed, old records reviewed Mode of arrival: EMS Limitations: no limitations - History of Present Illness Initial comments: This a 51-year-old male complaining of back pain for the last 2 days. Patient was in the emergency department yesterday and he states the pain came back at 1:30 this morning. Patient states palpating the area does seem to make it worse. Patient denies movement making it any worse. Patient denies nausea vomiting. Patient states he did feel little suprapubic pressure and thinks he might have a urinary tract infection. Patient states she's had one the past. Patient denies any fever chills. Patient states he does have some renal disease as well. - Related Data Home Medications Medication Instructions Recorded Confirmed Pravastatin Sodium 80 mg PO HS 09/18/18 09/25/22 Pantoprazole Sodium [Protonix] 40 mg PO DAILY 11/23/19 09/25/22 Metoprolol Succinate (ER) [Toprol 100 mg PO DAILY 08/27/21 09/25/22 Xl] Cetirizine HCl [Zyrtec] 10 mg PO DAILY 09/25/22 09/25/22 Insulin NPH Human Isophane See Protocol SQ AC-TID 09/25/22 09/25/22 [Novolin N] Olmesartan/Hydrochlorothiazide 1 tab PO DAILY 09/25/22 09/25/22 [Benicar Hct 40-12.5 mg Tablet] Previous Rx's Medication Instructions Recorded Sulfamethox-Tmp 800-160Mg [Bactrim 1 each PO Q12HR #20 tab 09/25/22 DS 800-160 mg] Allergies Allergy/AdvReac Type Severity Reaction Status Date / Time prednisone AdvReac Steroid Verified 09/25/22 08:54 induced psychosis steroids AdvReac Unknown Hallucinati Uncoded 09/25/22 08:54 ons Review of Systems ROS Statement: Those systems with pertinent positive or pertinent negative responses have been documented in the HPI. ROS Other: All systems not noted in ROS Statement are negative. Past Medical History Past Medical History: Diabetes Mellitus, Hyperlipidemia, Hypertension, Myocardial Infarction ([place]) Additional Past Medical History / Comment(s): hydrocephalus Last Myocardial Infarction Date:: 02/16/17 History of Any Multi-Drug Resistant Organisms: None Reported Past Surgical History: Appendectomy, Heart Catheterization, Heart Catheterization With Stent Additional Past Surgical History / Comment(s): lap band 2008, cardiac cath with stent to LAD 02/16/2017 Past Anesthesia/Blood Transfusion Reactions: No Reported Reaction Date of Last Stent Placement:: 02/16/17 Past Psychological History: Bipolar, Depression Smoking Status: Never smoker Past Alcohol Use History: None Reported Past Drug Use History: None Reported - Past Family History Father Family Medical History: Diabetes Mellitus, Deep Vein Thrombosis (DVT), Hypertension, Myocardial Infarction ([place]) Mother Family Medical History: Cancer Additional Family Medical History / Comment(s): Brain tumor, mass removed from neck General Exam - General Exam Comments Initial Comments: GENERAL: Patient is well-developed and well-nourished. Patient is nontoxic and well- hydrated and is in no acute distress. Patient was sleeping when he went in the room and was no distress ENT: Neck is soft and supple. No significant lymphadenopathy is noted. Oropharynx is clear. Moist mucous membranes. Neck has full range of motion without eliciting any pain. EYES: The sclera were anicteric and conjunctiva were pink and moist. Extraocular movements were intact and pupils were equal round and reactive to light. Eyelids were unremarkable. PULMONARY: Unlabored respirations. Good breath sounds bilaterally. No audible rales rhonchi or wheezing was noted. CARDIOVASCULAR: There is a regular rate and rhythm without any murmurs gallops or rubs. ABDOMEN: Soft and nontender with normal bowel sounds. SKIN: Skin is clear with no lesions or rashes and otherwise unremarkable. NEUROLOGIC: Patient is alert and oriented x3. Cranial nerves II through XII are grossly intact. Motor and sensory are also intact. Normal speech, volume and content. Symmetrical smile. MUSCULOSKELETAL: Normal extremities with adequate strength and full range of motion. No lower extremity swelling or edema. No calf tenderness. Palpating the lower back bilaterally was painful and he stated that was the same pain he was feeling earlier LYMPHATICS: No significant lymphadenopathy is noted PSYCHIATRIC: Normal psychiatric evaluation. Limitations: no limitations Course Vital Signs 09/25/22 09/25/22 07:12 07:48 Temperature 98.6 F Pulse Rate 99 98 Respiratory 16 18 Rate Blood Pressure 184/102 171/85 O2 Sat by Pulse 93 L 96 Oximetry Medical Decision Making - Medical Decision Making Was pt. sent in by a medical professional or institution (, DOUG, HISTORY PROFESSOR, urgent care, hospital, or prison...) When possible be specific @ -No Did you speak to anyone other than the patient for history (EMS, parent, family, police, friend...)? What history was obtained from this source @ -No Did you review nursing and triage notes (agree or disagree)? Why? @ -I reviewed and agree with nursing and triage notes Were old charts reviewed (outside hosp., previous admission, EMS record, old EKG, old radiological studies, urgent care reports/EKG's, prison records)? Report findings @ -I looked at the old lab work from this patient as well as the recent CAT scan Differential Diagnosis (chest pain, altered mental status, abdominal pain women, abdominal pain men, vaginal bleeding, weakness, fever, dyspnea, syncope, headache, dizziness, GI bleed, back pain, seizure, CVA, palpatations, mental health)? @ -Differential Abdominal Pain Men: Appendicitis, cholecystitis, diverticulosis, ischemic bowel, pancreatitis, hepatitis, UTI, gastroenteritis, AAA, incarcerated hernia, bowel obstruction, constipation, inflammatory bowel, hepatitis, peptic ulcer disease, splenic infarction, perforated viscus, testicular torsion, this is not meant to be an all-inclusive list EKG interpreted by me (3pts min.). @ -None X-rays interpreted by me (1pt min.). @ -None done CT interpreted by me (1pt min.). @ -None done U/S interpreted by me (1pt. min.). @ -None done What testing was considered but not performed or refused? (CT, X-rays, U/S, labs)? Why? @ -None What meds were considered but not given or refused? Why? @ -None Did you discuss the management of the patient with other professionals (professionals i.e. , DOUG, HISTORY PROFESSOR, lab, RT, psych nurse, social media strategist, customs entry clerk, teacher, information systems security officer, clinical case manager)? Give summary @ -No Was smoking cessation discussed for >3mins.? @ -No Was critical care preformed (if so, how long)? @ -No Were there social determinants of health that impacted care today? How? (Homelessness, low income, unemployed, alcoholism, drug addiction, transportation, low edu. Level, literacy, decrease access to med. care, prison, rehab)? @ -No Was there de-escalation of care discussed even if they declined (Discuss DNR or withdrawal of care, Hospice)? DNR status @ -No What co-morbidities impacted this encounter? (DM, HTN, Smoking, COPD, CAD, Cancer, CVA, ARF, Chemo, Hep., AIDS, mental health diagnosis, sleep apnea, morbid obesity)? @ -None Was patient admitted / discharged? Hospital course, mention meds given and route, prescriptions, significant lab abnormalities, going to OR and other pertinent info. @ -Patient received Toradol almost completely alleviated his pain. Patient was found to have urinary tract infection given 2 g Rocephin emergency department patient will be sent home on an antibiotic. Undiagnosed new problem with uncertain prognosis? @ -No Drug Therapy requiring intensive monitoring for toxicity (Heparin, Nitro, Insulin, Cardizem)? @ -No Were any procedures done? @ -No Diagnosis/symptom? @ -Urinary Tract infection Acute, or Chronic, or Acute on Chronic? @ -Acute Uncomplicated (without systemic symptoms) or Complicated (systemic symptoms)? @ -Complicated Side effects of treatment? @ -No Exacerbation, Progression, or Severe Exacerbation? @ -No Poses a threat to life or bodily function? How? (Chest pain, [place], [place], pneumonia, PE, COPD, DKA, ARF, appy, cholecystitis, CVA, Diverticulitis, Homicidal, Suicidal, threat to staff... and all critical care pts) @ -Yes patient's creatinine is elevated and this continued can lead to significant renal failure Diagnosis/symptom? @ -Renal insufficiency Acute, or Chronic, or Acute on Chronic? @ -Acute on chronic Uncomplicated (without systemic symptoms) or Complicated (systemic symptoms)? @ -Uncomplicated Side effects of treatment? @ -none Exacerbation, Progression, or Severe Exacerbation] @ -no Poses a threat to life or bodily function? @ -no - Lab Data Result diagrams: 09/25/22 07:58 09/25/22 07:58 Lab Results 09/25/22 09/25/22 09/25/22 Range/Units 07:58 07:58 07:58 WBC 8.8 (3.8-10.6) k/uL RBC 3.87 L (4.30-5.90) m/uL Hgb 11.2 L (13.0-17.5) gm/dL Hct 32.9 L (39.0-53.0) % MCV 85.0 (80.0-100.0) fL MCH 28.9 (25.0-35.0) pg MCHC 34.0 (31.0-37.0) g/dL RDW 13.7 (11.5-15.5) % Plt Count 183 (150-450) k/uL MPV 8.5 Neutrophils % 82 % Lymphocytes % 9 % Monocytes % 6 % Eosinophils % 2 % Basophils % 1 % Neutrophils # 7.2 (1.3-7.7) k/uL Lymphocytes # 0.8 L (1.0-4.8) k/uL Monocytes # 0.5 (0-1.0) k/uL Eosinophils # 0.1 (0-0.7) k/uL Basophils # 0.0 (0-0.2) k/uL Sodium 137 (137-145) mmol/L Potassium 4.6 (3.5-5.1) mmol/L Chloride 101 (98-107) mmol/L Carbon Dioxide 29 (22-30) mmol/L Anion Gap 7 mmol/L BUN 30 H (9-20) mg/dL Creatinine 1.90 H (0.66-1.25) mg/dL Est GFR (CKD-EPI)AfAm 46 (>60 ml/min/1.73 sqM) Est GFR (CKD-EPI)NonAf 39 (>60 ml/min/1.73 sqM) Glucose 224 H (74-99) mg/dL Calcium 8.7 (8.4-10.2) mg/dL Total Bilirubin 0.3 (0.2-1.3) mg/dL AST 22 (17-59) U/L ALT 22 (4-49) U/L Alkaline Phosphatase 91 (38-126) U/L Total Protein 7.3 (6.3-8.2) g/dL Albumin 4.1 (3.5-5.0) g/dL Urine Color Light Yellow Urine Appearance Turbid (Clear) Urine pH 5.5 (5.0-8.0) Ur Specific [place] 1.016 (1.001-1.035) Urine Protein 2+ H (Negative) Urine Glucose (UA) 1+ H (Negative) Urine Ketones Negative (Negative) Urine Blood Large H (Negative) Urine Nitrite Negative (Negative) Urine Bilirubin Negative (Negative) Urine Urobilinogen <2.0 (<2.0) mg/dL Ur Leukocyte Esterase Large H (Negative) Urine RBC >182 H (0-5) /hpf Urine WBC >182 H (0-5) /hpf Urine WBC Clumps Many H (None) /hpf Ur Squamous Epith Cells 1 (0-4) /hpf Urine Bacteria Moderate H (None) /hpf Disposition Clinical Impression: Urinary tract infection Disposition: HOME SELF-CARE Condition: Good Instructions (If sedation given, give patient instructions): Urinary Tract Infection in Men (ED) Prescriptions: Sulfamethox-Tmp 800-160Mg [Bactrim DS 800-160 mg] 1 each PO Q12HR #20 tab Is patient prescribed a controlled substance at d/c from ED?: No Referrals: Nonstaff,Physician [Primary Care Provider] - 1-2 days Time of Disposition: 09:50
[2022-09-25 07:49] VITALS: RESP 18
[2022-09-25 08:06] LABS: Basophils % (A) 1 %; Eosinophils # (A) 0.1 k/uL (0-0.7); Eosinophils % (A) 2 %; HCT 32.9 % (39.0-53.0); HGB 11.2 gm/dL (13.0-17.5); Lymphocytes # (A) 0.8 k/uL (1.0-4.8); Lymphocytes % (A) 9 %; MCH 28.9 pg (25.0-35.0); Mean Platelet Volume 8.5; Monocytes # (A) 0.5 k/uL (0-1.0); Monocytes % (A) 6 %; Neutrophils # (A) 7.2 k/uL (1.3-7.7); Neutrophils % (A) 82 %; Platelet Count 183 k/uL (150-450); RBC 3.87 m/uL (4.30-5.90); RDW 13.7 % (11.5-15.5); WBC 8.8 k/uL (3.8-10.6)
[2022-09-25 08:34] LABS: Albumin 4.1 g/dL (3.5-5.0); Calcium 8.7 mg/dL (8.4-10.2); Potassium 4.6 mmol/L (3.5-5.1); Total Bilirubin 0.3 mg/dL (0.2-1.3); Total Protein 7.3 g/dL (6.3-8.2)
[2022-09-25 09:29] LABS: Appearance,Urine Turbid (Clear); Bacteria,Urine Moderate /hpf; Bilirubin,Urine Negative (Negative); Blood,Urine Large (Negative); Color,Urine Light Yellow; Glucose,Urine (UA) 1+ (Negative); Ketones,Urine Negative (Negative); Leukocyte Esterase,Urine Large (Negative); Nitrite,Urine Negative (Negative); PH, Urine 5.5 (5.0-8.0); Protein,Urine 2+ (Negative); RBC,Urine >182 /hpf (0-5); Specific Gravity,Urine 1.016 (1.001-1.035); Squamous Epithelial Cell,Urine 1 /hpf (0-4); Urobilinogen,Urine <2.0 mg/dL (<2.0); WBC,Urine >182 /hpf (0-5)
[2022-09-25] MEDS ORDERED: cefTRIAXone IN SWFI 1,000 MG/10 ML SYRINGE IVP STA (09:52)
[2022-09-25 10:42] VITALS: BP 137/89; PULSE 87; TEMP 98.3
== END 2022-09-25 10:40 | disposition home or self-care (01) ==
LOC: EC 07:06
DX: N39.0 Urinary tract infection, site not specified (principal); E11.9 Type 2 diabetes mellitus without complications; E78.5 Hyperlipidemia, unspecified; I10 Essential (primary) hypertension; I25.2 Old myocardial infarction; F31.9 Bipolar disorder, unspecified; Z88.8 Allergy status to other drugs, medicaments and biological substances; Z79.4 Long term (current) use of insulin; Z79.899 Other long term (current) drug therapy
CPT/HCPCS: 99284; 96374; 96375; 36415; 80053; 85025; 81001; 87086; J0696; J1885; 87077; 87186

== ENCOUNTER 2022-11-18 06:33 | Observation (INO) | payer OTHER ==
[2022-11-18] MEDS ORDERED: SODIUM CHLORIDE 0.9% 1,000 ML IV STA (06:46)
[2022-11-18] MEDS ORDERED: SODIUM CHLORIDE 0.9% 500 ML 500 ML IV STA (06:46)
[2022-11-18 07:03] LABS: Basophils % (A) 1 %; Eosinophils # (A) 0.1 k/uL (0-0.7); Eosinophils % (A) 2 %; HGB 12.7 gm/dL (13.0-17.5); Lymphocytes % (A) 16 %; MCH 28.6 pg (25.0-35.0); MCHC 33.4 g/dL (31.0-37.0); MCV 85.6 fL (80.0-100.0); Mean Platelet Volume 8.8; Monocytes # (A) 0.4 k/uL (0-1.0); Monocytes % (A) 6 %; Neutrophils # (A) 4.7 k/uL (1.3-7.7); Neutrophils % (A) 74 %; Platelet Count 221 k/uL (150-450); RBC 4.44 m/uL (4.30-5.90); RDW 14.1 % (11.5-15.5); WBC 6.4 k/uL (3.8-10.6)
--- NOTE | 2022-11-18 07:06 | ED ---
General Adult HPI - General Chief complaint: Nausea/Vomiting/Diarrhea Stated complaint: SOB, Nausea Time Seen by Provider: 11/18/22 06:38 Source: patient, EMS, RN notes reviewed Mode of arrival: EMS Limitations: no limitations - History of Present Illness Initial comments: 51-year-old male presents emergency Department with chief complaint of nausea vomiting diarrhea shortness of breath. Patient states she's been sick last few days which she states she's been having profuse diarrhea he states it's all watery. He had an episode of vomiting states she's had prior lap and which makes it difficult to vomit he was given Zofran prior arrival to help his nausea. Patient states she has some abdominal cramping. He denies any dysuria hematuria is on insulin for his known diabetes. Patient denies any chest pain states she did have some back discomfort. No cough, runny nose or congestion. Denies sore throat. Denies any sick contacts. Patient believes this is related to food intake. - Related Data Home Medications Medication Instructions Recorded Confirmed Pravastatin Sodium 80 mg PO HS 09/18/18 10/23/22 Pantoprazole Sodium [Protonix] 40 mg PO DAILY 11/23/19 10/23/22 Metoprolol Succinate (ER) [Toprol 100 mg PO DAILY 08/27/21 10/23/22 XL] Olmesartan/Hydrochlorothiazide 1 tab PO DAILY 09/25/22 10/23/22 [Benicar Hct 40-12.5 mg Tablet] Insulin Glargine [Lantus Vial] 30 unit SQ HS 10/23/22 10/23/22 Insulin Lispro [humaLOG Kwikpen] See Protocol SQ AC-TID 10/23/22 10/23/22 Previous Rx's Medication Instructions Recorded Amoxic-Pot Clav 875-125Mg 1 tab PO Q12HR 12 Days #24 tab 10/25/22 [Augmentin 875-125] Allergies Allergy/AdvReac Type Severity Reaction Status Date / Time prednisone AdvReac Steroid Verified 11/18/22 06:45 induced psychosis steroids AdvReac Unknown Hallucinati Uncoded 11/18/22 06:45 ons Review of Systems ROS Statement: Those systems with pertinent positive or pertinent negative responses have been documented in the HPI. ROS Other: All systems not noted in ROS Statement are negative. Past Medical History Past Medical History: Diabetes Mellitus, Hyperlipidemia, Hypertension, Myocardial Infarction ([place]) Additional Past Medical History / Comment(s): hydrocephalus Last Myocardial Infarction Date:: 02/16/17 History of Any Multi-Drug Resistant Organisms: None Reported Past Surgical History: Appendectomy, Heart Catheterization, Heart Catheterization With Stent Additional Past Surgical History / Comment(s): lap band 2008, cardiac cath with stent to LAD 02/16/2017 Past Anesthesia/Blood Transfusion Reactions: No Reported Reaction Date of Last Stent Placement:: 02/16/17 Past Psychological History: Bipolar, Depression Smoking Status: Never smoker Past Alcohol Use History: None Reported Past Drug Use History: None Reported - Past Family History Father Family Medical History: Diabetes Mellitus, Deep Vein Thrombosis (DVT), Hypertension, Myocardial Infarction ([place]) Mother Family Medical History: Cancer Additional Family Medical History / Comment(s): Brain tumor, mass removed from neck General Exam Limitations: no limitations General appearance: alert, in no apparent distress Head exam: Present: atraumatic, normocephalic, normal inspection Eye exam: Present: normal appearance, PERRL, EOMI. Absent: scleral icterus, conjunctival injection, periorbital swelling ENT exam: Present: normal exam, normal oropharynx, mucous membranes moist Neck exam: Present: normal inspection, full ROM. Absent: tenderness, meni ngismus, lymphadenopathy Respiratory exam: Present: normal lung sounds bilaterally, decreased breath sounds. Absent: respiratory distress, wheezes, rales, rhonchi, stridor Cardiovascular Exam: Present: regular rate, normal rhythm, normal heart sounds. Absent: systolic murmur, diastolic murmur, rubs, gallop, clicks GI/Abdominal exam: Present: soft, normal bowel sounds. Absent: distended, tenderness, guarding, rebound, rigid Back exam: Absent: CVA tenderness (R), CVA tenderness (L) Neurological exam: Present: alert Skin exam: Present: warm, dry, intact, normal color. Absent: rash Course Vital Signs 11/18/22 11/18/22 06:45 07:29 Temperature 97.7 F Pulse Rate 102 H 89 Respiratory 18 22 Rate Blood Pressure 91/62 87/65 O2 Sat by Pulse 99 96 Oximetry EKG Findings - EKG Comments: EKG Findings:: EKG performed at 6:58 sinus rhythm rate of 95 VT 148 QRS 110 QT / QTC 351/404 - EKG Results: EKG: [facility] by [facility] Medical Decision Making - Medical Decision Making Was pt. sent in by a medical professional or institution (, DOUG, DRAWBRIDGE OPERATOR, urgent care, hospital, or snf...) When possible be specific @ -No Did you speak to anyone other than the patient for history (EMS, parent, family, police, friend...)? What history was obtained from this source @ -No Did you review nursing and triage notes (agree or disagree)? Why? @ -I reviewed and agree with nursing and triage notes Were old charts reviewed (outside hosp., previous admission, EMS record, old EKG, old radiological studies, urgent care reports/EKG's, snf records)? Report findings @ -No old charts were reviewed Differential Diagnosis (chest pain, altered mental status, abdominal pain women, abdominal pain men, vaginal bleeding, weakness, fever, dyspnea, syncope, headache, dizziness, GI bleed, back pain, seizure, CVA, palpatations, mental health, musculoskeletal)? @ -Differential Abdominal Pain Men: Appendicitis, cholecystitis, diverticulosis, ischemic bowel, pancreatitis, hepatitis, UTI, gastroenteritis, AAA, incarcerated hernia, bowel obstruction, constipation, inflammatory bowel, hepatitis, peptic ulcer disease, splenic infarction, perforated viscus, testicular torsion, this is not meant to be an all-inclusive list EKG interpreted by me (3pts min.). @ -As above X-rays interpreted by me (1pt min.). @ -None done CT interpreted by me (1pt min.). @ -None done U/S interpreted by me (1pt. min.). @ -None done What testing was considered but not performed or refused? (CT, X-rays, U/S, labs)? Why? @ -None What meds were considered but not given or refused? Why? @ -None Did you discuss the management of the patient with other professionals (professionals i.e. , DOUG, DRAWBRIDGE OPERATOR, lab, RT, psych nurse, manager social work, calender machine operator helper, teacher, weapons officer, correctional case manager)? Give summary @ -Dr. Alexandre for admission of patient for acute kidney injury will continue IV fluid hydration, sliding scale recommended given additional fluid bolus Was smoking cessation discussed for >3mins.? @ -No Was critical care preformed (if so, how long)? @ -No Were there social determinants of health that impacted care today? How? (Homelessness, low income, unemployed, alcoholism, drug addiction, transportation, low edu. Level, literacy, decrease access to med. care, fdc, rehab)? @ -No Was there de-escalation of care discussed even if they declined (Discuss DNR or withdrawal of care, Hospice)? DNR status @ -No What co-morbidities impacted this encounter? (DM, HTN, Smoking, COPD, CAD, Cancer, CVA, ARF, Chemo, Hep., AIDS, mental health diagnosis, sleep apnea, morbid obesity)? @ -Diabetes, hyperlipidemia, CAD Was patient admitted / discharged? Hospital course, mention meds given and route, prescriptions, significant lab abnormalities, going to OR and other pertinent info. @ -Admitted patient has acute kidney injury from his baseline, dehydration, hyperglycemia with ongoing diarrhea. This is related to metabolic acidosis. Patient was given fluid bolus, maintenance fluids, sliding scale insulin. Undiagnosed new problem with uncertain prognosis? @ -No Drug Therapy requiring intensive monitoring for toxicity (Heparin, Nitro, Insulin, Cardizem)? @ -No Were any procedures done? @ -No Diagnosis/symptom? @ -Acute kidney injury Acute, or Chronic, or Acute on Chronic? @ -Acute Uncomplicated (without systemic symptoms) or Complicated (systemic symptoms)? @ -Uncomplicated Side effects of treatment? @ -No Exacerbation, Progression, or Severe Exacerbation? @ -No Poses a threat to life or bodily function? How? (Chest pain, [place], [place], pneumonia, PE, COPD, DKA, ARF, appy, cholecystitis, CVA, Diverticulitis, Homicidal, Suicidal, threat to staff... and all critical care pts) @ -No Diagnosis/symptom? @ -Metabolic acidosis Acute, or Chronic, or Acute on Chronic? @ -Acute Uncomplicated (without systemic symptoms) or Complicated (systemic symptoms)? @ -. Uncomplicated Side effects of treatment? @ -none Exacerbation, Progression, or Severe Exacerbation] @ -no Poses a threat to life or bodily function? @ -no Diagnosis/symptom? @ Diarrhea Acute, or Chronic, or Acute on Chronic? @ -Acute Uncomplicated (without systemic symptoms) or Complicated (systemic symptoms)? @ -Uncomplicated Side effects of treatment? @ -none Exacerbation, Progression, or Severe Exacerbation] @ -no Poses a threat to life or bodily function? @ -no - Lab Data Result diagrams: 11/18/22 06:54 11/18/22 06:54 Lab Results 11/18/22 11/18/22 11/18/22 Range/Units 06:54 06:54 06:54 WBC 6.4 (3.8-10.6) k/uL RBC 4.44 (4.30-5.90) m/uL Hgb 12.7 L (13.0-17.5) gm/dL Hct 38.0 L (39.0-53.0) % MCV 85.6 (80.0-100.0) fL MCH 28.6 (25.0-35.0) pg MCHC 33.4 (31.0-37.0) g/dL RDW 14.1 (11.5-15.5) % Plt Count 221 (150-450) k/uL MPV 8.8 Neutrophils % 74 % Lymphocytes % 16 % Monocytes % 6 % Eosinophils % 2 % Basophils % 1 % Neutrophils # 4.7 (1.3-7.7) k/uL Lymphocytes # 1.0 (1.0-4.8) k/uL Monocytes # 0.4 (0-1.0) k/uL Eosinophils # 0.1 (0-0.7) k/uL Basophils # 0.0 (0-0.2) k/uL Sodium 132 L (137-145) mmol/L Potassium 4.0 (3.5-5.1) mmol/L Chloride 97 L (98-107) mmol/L Carbon Dioxide 18 L (22-30) mmol/L Anion Gap 17 mmol/L BUN 54 H (9-20) mg/dL Creatinine 4.18 H (0.66-1.25) mg/dL Est GFR (CKD-EPI)AfAm 18 (>60 ml/min/1.73 sqM) Est GFR (CKD-EPI)NonAf 15 (>60 ml/min/1.73 sqM) Glucose 413 H (74-99) mg/dL POC Glucose (mg/dL) (70-110) mg/dL POC Glu Environmental Studies Faculty Member ID Calcium 9.3 (8.4-10.2) mg/dL Magnesium 1.5 L (1.6-2.3) mg/dL Total Bilirubin 0.4 (0.2-1.3) mg/dL AST 24 (17-59) U/L ALT 29 (4-49) U/L Alkaline Phosphatase 95 (38-126) U/L Troponin I <0.012 (0.000-0.034) ng/mL Total Protein 7.4 (6.3-8.2) g/dL Albumin 4.3 (3.5-5.0) g/dL Lipase 96 (23-300) U/L 11/18/22 Range/Units 07:40 WBC (3.8-10.6) k/uL RBC (4.30-5.90) m/uL Hgb (13.0-17.5) gm/dL Hct (39.0-53.0) % MCV (80.0-100.0) fL MCH (25.0-35.0) pg MCHC (31.0-37.0) g/dL RDW (11.5-15.5) % Plt Count (150-450) k/uL MPV Neutrophils % % Lymphocytes % % Monocytes % % Eosinophils % % Basophils % % Neutrophils # (1.3-7.7) k/uL Lymphocytes # (1.0-4.8) k/uL Monocytes # (0-1.0) k/uL Eosinophils # (0-0.7) k/uL Basophils # (0-0.2) k/uL Sodium (137-145) mmol/L Potassium (3.5-5.1) mmol/L Chloride (98-107) mmol/L Carbon Dioxide (22-30) mmol/L Anion Gap mmol/L BUN (9-20) mg/dL Creatinine (0.66-1.25) mg/dL Est GFR (CKD-EPI)AfAm (>60 ml/min/1.73 sqM) Est GFR (CKD-EPI)NonAf (>60 ml/min/1.73 sqM) Glucose (74-99) mg/dL POC Glucose (mg/dL) 351 H (70-110) mg/dL POC Glu Environmental Studies Faculty Member ID Robbie Rojas Calcium (8.4-10.2) mg/dL Magnesium (1.6-2.3) mg/dL Total Bilirubin (0.2-1.3) mg/dL AST (17-59) U/L ALT (4-49) U/L Alkaline Phosphatase (38-126) U/L Troponin I (0.000-0.034) ng/mL Total Protein (6.3-8.2) g/dL Albumin (3.5-5.0) g/dL Lipase (23-300) U/L Disposition Clinical Impression: REY (acute kidney injury), Hypomagnesemia, Diarrhea, Diabetes, Hyperglycemia Disposition: ADMITTED IP TO THIS HOSP Condition: Fair Referrals: Brittny Miles MD [Primary Care Provider] - 1-2 days Time of Disposition: 07:50
[2022-11-18 07:15] LABS: Albumin 4.3 g/dL (3.5-5.0); Calcium 9.3 mg/dL (8.4-10.2); Magnesium 1.5 mg/dL (1.6-2.3); Total Bilirubin 0.4 mg/dL (0.2-1.3); Total Protein 7.4 g/dL (6.3-8.2)
--- NOTE | 2022-11-18 07:33 | XR ---
EXAMINATION TYPE: XR chest 2V DATE OF EXAM: 11/18/2022 7:19 AM COMPARISON: Chest radiographs from 06/23/2021 TECHNIQUE: XR chest 2V Frontal and lateral views of the chest. CLINICAL INDICATION:Male, 51 years old with history of sob; FINDINGS: Lungs/Pleura: There is no evidence of pleural effusion, focal consolidation, or pneumothorax. Pulmonary vascularity: Unremarkable. Heart/mediastinum: Cardiomediastinal silhouette is unremarkable. Musculoskeletal: No acute osseous pathology. IMPRESSION: No acute cardiopulmonary disease/process.
[2022-11-18] MEDS ORDERED: MAGNESIUM OXIDE 400 MG TAB PO STA (07:39)
[2022-11-18 07:42] LABS: Glucose,Whole Blood 351 mg/dL (70-110)
[2022-11-18] MEDS ORDERED: DEXTROSE 50% SYRINGE 50 ML IVP PRN ×2 (07:46)
[2022-11-18] MEDS ORDERED: SODIUM CHLORIDE 0.9% 1,000 ML IV ONE (07:46)
[2022-11-18] MEDS ORDERED: ACETAMINOPHEN TAB 325 MG TAB PO PRN (07:50)
[2022-11-18] MEDS ORDERED: ONDANSETRON 4 MG/2 ML VIAL IVP PRN (07:50)
[2022-11-18] MEDS ORDERED: NALOXONE 0.4 MG/ML 1 ML VIAL IV PRN (07:50)
[2022-11-18] MEDS: SODIUM CHLORIDE 0.9% 1,000 ML IV SCH ×2 (08:27→16:14)
[2022-11-18 08:38] LABS: Glucose,Whole Blood 269 mg/dL (70-110)
--- NOTE | 2022-11-18 10:41 | P.HPIM ---
History of Present Illness H&P Date: 11/18/22 Chief Complaint: Shortness of breath Patient is a 51-year-old male with a past medical history of memory impairment, type 2 diabetes mellitus, CKD stage III, coronary artery disease status post stents (2016) who recently was admitted for right great toe ulcer that has now resolved who presents to the ED with shortness of breath. Patient states that for the past 3 days he has been having profuse diarrhea and nausea vomiting. Patient states that his diarrhea and nausea vomiting have now resolved. However last night shortness of breath woke him up from his sleep. Patient was concerned because he has a extensive cardiac history so wanted to get checked out which made him come to the ED. Patient also reports that is been having decreased urine output and has lost more than 10 pounds in the last 3 days. Patient states that due to his memory impairment he sometimes forgets to take his insulin. In the ED patient creatinine was 4.18 and bicarb was 18 and blood glucose was 413 and troponin less than 0.012. EKG showed normal sinus rhythm. Patient was then referred for admission for acute kidney injury. Patient was given 3 L of fluid bolus in the ED. Patient states that his shortness of breath has now resolved. Review of Systems 10 ROS reviewed and are negative except as noted in HPI Past Medical History Past Medical History: Diabetes Mellitus, Hyperlipidemia, Hypertension, Myocardial Infarction ([place]) Additional Past Medical History / Comment(s): hydrocephalus Last Myocardial Infarction Date:: 02/16/17 History of Any Multi-Drug Resistant Organisms: None Reported Past Surgical History: Appendectomy, Heart Catheterization, Heart Cath eterization With Stent Additional Past Surgical History / Comment(s): lap band 2008, cardiac cath with stent to LAD 02/16/2017 Past Anesthesia/Blood Transfusion Reactions: No Reported Reaction Date of Last Stent Placement:: 02/16/17 Past Psychological History: Bipolar, Depression Smoking Status: Never smoker Past Alcohol Use History: None Reported Past Drug Use History: None Reported - Past Family History Father Family Medical History: Diabetes Mellitus, Deep Vein Thrombosis (DVT), Hypertension, Myocardial Infarction ([place]) Mother Family Medical History: Cancer Additional Family Medical History / Comment(s): Brain tumor, mass removed from neck Medications and Allergies Home Medications Medication Instructions Recorded Confirmed Type Pravastatin Sodium 80 mg PO HS 09/18/18 10/23/22 History Pantoprazole Sodium [Protonix] 40 mg PO DAILY 11/23/19 10/23/22 History Metoprolol Succinate (ER) [Toprol 100 mg PO DAILY 08/27/21 10/23/22 History XL] Olmesartan/Hydrochlorothiazide 1 tab PO DAILY 09/25/22 10/23/22 History [Benicar Hct 40-12.5 mg Tablet] Insulin Glargine [Lantus Vial] 30 unit SQ HS 10/23/22 10/23/22 History Insulin Lispro [humaLOG Kwikpen] See Protocol SQ AC-TID 10/23/22 10/23/22 History Amoxic-Pot Clav 875-125Mg 1 tab PO Q12HR 12 Days #24 tab 10/25/22 Rx [Augmentin 875-125] Allergies Allergy/AdvReac Type Severity Reaction Status Date / Time prednisone AdvReac Steroid Verified 11/18/22 06:45 induced psychosis steroids AdvReac Unknown Hallucinati Uncoded 11/18/22 06:45 ons Physical Exam Osteopathic Statement: *. No significant issues noted on an osteopathic structural exam other than those noted in the History and Physical/Consult. Vitals: Vital Signs Temp Pulse Pulse Resp BP BP Pulse Ox 11/18/22 09:10 97.7 F 92 17 116/60 98 11/18/22 08:42 83 18 99/52 96 11/18/22 08:00 80 16 98/62 96 11/18/22 07:29 89 22 87/65 96 11/18/22 06:45 97.7 F 102 H 18 91/62 99 Intake and Output 11/17/22 11/18/22 11/18/22 22:59 06:59 14:59 Other: Weight 124.738 kg General: [Alert and oriented, well nourished, no acute distress]. Eye: [PERRL, EOMI, normal conjunctiva]. HENT: [Normocephalic, clear tympanic membranes, normal hearing, moist oral mucosa, no scleral icterus, no sinus tenderness]. Neck: [Supple, non-tender, no carotid bruits, no JVD, no lymphadenopathy]. Lungs: [Clear to auscultation and percussion, non-labored respiration]. Heart: [Normal rate, regular rhythm, no murmur, gallop or edema]. Abdomen: [Soft, non-tender, non-distended, normal bowel sounds, no masses, obese]. Musculoskeletal: [Normal range of motion and strength, no tenderness or swelling]. Skin: [Skin is warm, dry and pink, no rashes or lesions]. Neurologic: [Awake, alert, and oriented X3, CN II-XII intact]. Psychiatric: [Cooperative, appropriate mood and affect]. Results CBC & Chem 7: 11/18/22 06:54 11/18/22 06:54 Labs: Abnormal Lab Results - Last 24 Hours (Table) 11/18/22 11/18/22 11/18/22 Range/Units 06:54 06:54 07:40 Hgb 12.7 L (13.0-17.5) gm/dL Hct 38.0 L (39.0-53.0) % Sodium 132 L (137-145) mmol/L Chloride 97 L (98-107) mmol/L Carbon Dioxide 18 L (22-30) mmol/L BUN 54 H (9-20) mg/dL Creatinine 4.18 H (0.66-1.25) mg/dL Glucose 413 H (74-99) mg/dL POC Glucose (mg/dL) 351 H (70-110) mg/dL Magnesium 1.5 L (1.6-2.3) mg/dL 11/18/22 Range/Units 08:37 Hgb (13.0-17.5) gm/dL Hct (39.0-53.0) % Sodium (137-145) mmol/L Chloride (98-107) mmol/L Carbon Dioxide (22-30) mmol/L BUN (9-20) mg/dL Creatinine (0.66-1.25) mg/dL Glucose (74-99) mg/dL POC Glucose (mg/dL) 269 H (70-110) mg/dL Magnesium (1.6-2.3) mg/dL Assessment and Plan Assessment: Patient is a 51-year-old male with a past medical history of memory impairment, type 2 diabetes mellitus, CKD stage III, coronary artery disease status post stents (2017) who recently was admitted for right great toe ulcer that has now resolved who presents to the ED with shortness of breath. Patient states that for the past 3 days he has been having profuse diarrhea and nausea vomiting. Patient states that his diarrhea and nausea vomiting have now resolved. However last night shortness of breath woke him up from his sleep. Patient was concerned because he has a extensive cardiac history so wanted to get checked out which made him come to the ED. Patient also reports that is been having decreased urine output and has lost more than 10 pounds in the last 3 days. Patient states that due to his memory impairment he sometimes forgets to take his insulin. In the ED patient creatinine was 4.18 and bicarb was 18 and blood glucose was 413 and troponin less than 0.012. EKG showed normal sinus rhythm. Patient was then referred for admission for acute kidney injury. Patient was given 3 L of fluid bolus in the ED. Patient states that his shortness of breath has now resolved. Acute kidney injury on CK D stage III suspect due to dehydration as patient had diarrhea for the last 3 days Mild metabolic acidosis from diarrhea and renal failure Patient's baseline creatinine is 1.7. On admission creatinine was 4.18 On admission bicarb was 18 indicating likely mild acidosis We'll continue with aggressive IV fluids Check bladder scan to rule out obstruction Trend BMP Shortness of breath suspect hypoventilation due to mild metabolic acidosis Resolved Hypomagnesemia due to GI losses Magnesium on admission is 1.5. 4 g magnesium sulfate ordered Trend magnesium level Diabetes mellitus uncontrolled secondary to noncompliance Resume sliding scale insulin with additional 5 units of aspart before each meal and Levemir at bedtime Titrate blood glucose for better control Patient states that times he forgets to take his insulin due to memory impairment Check hemoglobin A1c Hypertension Hold Benicar due to acute kidney injury Monitor blood pressure Coronary disease status post stent Resume statin Resume beta raj GERD Resume Protonix Patient claims he has history of memory impairment due to hydrocephalus Stable CODE STATUS:full code DVT prophylaxis: Subcu heparin Discussed with: Patient, ER, rn Anticipated length of stay > than [address]: home
[2022-11-18 11:19] LABS: African American GFR (CKD) 21 (>60 ml/min/1.73 sqM); Anion Gap 12 mmol/L; Blood Urea Nitrogen 54 mg/dL (9-20); Calcium 8.7 mg/dL (8.4-10.2); Carbon Dioxide 20 mmol/L (22-30); Chloride 104 mmol/L (98-107); Glucose 164 mg/dL (74-99); Non-African American GFR(CKD) 18 (>60 ml/min/1.73 sqM); Sodium 136 mmol/L (137-145)
[2022-11-18 11:54] LABS: Glucose,Whole Blood 117 mg/dL (70-110)
[2022-11-18] MEDS: METOPROLOL SUCCINATE (ER) 100 MG TAB.ER.24H PO SCH (12:01)
[2022-11-18] MEDS: PANTOPRAZOLE 40 MG TABLET PO SCH (12:01)
[2022-11-18] MEDS: INSULIN ASPART (NovoLOG) 100 UNIT/ML VIAL SQ SCH ×5 (12:10→21:29)
[2022-11-18] MEDS: MAGNESIUM SULFATE-D5W PMX 1 GM in DEXTROSE/WATER 1 100ML.BAG IVPB SCH ×4 (12:10→16:14)
[2022-11-18 16:44] LABS: Appearance,Urine Clear (Clear); Bilirubin,Urine Negative (Negative); Blood,Urine Negative (Negative); Color,Urine Yellow; Glucose,Urine (UA) Negative (Negative); Ketones,Urine Negative (Negative); Leukocyte Esterase,Urine Negative (Negative); Nitrite,Urine Negative (Negative); Protein,Urine Trace (Negative); Specific Gravity,Urine 1.013 (1.001-1.035); Urobilinogen,Urine <2.0 mg/dL (<2.0)
[2022-11-18 16:55] LABS: Glucose,Whole Blood 221 mg/dL (70-110)
[2022-11-18] MEDS ORDERED: INSULIN DETEMIR (LEVEMIR) 100 UNIT/ML SYR SQ SCH (21:00)
[2022-11-18] MEDS ORDERED: PRAVASTATIN SODIUM 80 MG TAB PO SCH (21:00)
[2022-11-18 21:18] LABS: Glucose,Whole Blood 212 mg/dL (70-110)
[2022-11-18] MEDS: HEPARIN SODIUM,PORCINE/PF 5,000 UNIT/0.5 ML SYRINGE SQ SCH (21:28)
[2022-11-19] MEDS: SODIUM CHLORIDE 0.9% 1,000 ML IV SCH ×2 (00:11→06:53)
[2022-11-19 06:01] LABS: African American GFR (CKD) 31 (>60 ml/min/1.73 sqM); Anion Gap 9 mmol/L; Blood Urea Nitrogen 40 mg/dL (9-20); Calcium 8.6 mg/dL (8.4-10.2); Carbon Dioxide 21 mmol/L (22-30); Chloride 107 mmol/L (98-107); Glucose 184 mg/dL (74-99); Magnesium 2.2 mg/dL (1.6-2.3); Non-African American GFR(CKD) 27 (>60 ml/min/1.73 sqM); Potassium 4.2 mmol/L (3.5-5.1); Sodium 137 mmol/L (137-145)
[2022-11-19 06:39] LABS: Glucose,Whole Blood 186 mg/dL (70-110)
[2022-11-19] MEDS: INSULIN ASPART (NovoLOG) 100 UNIT/ML VIAL SQ SCH ×4 (06:52→12:24)
[2022-11-19] MEDS: PANTOPRAZOLE 40 MG TABLET PO SCH (06:52)
[2022-11-19 08:33] VITALS: BP 119/71; PULSE 82; RESP 18; TEMP 98.5
[2022-11-19] MEDS: METOPROLOL SUCCINATE (ER) 100 MG TAB.ER.24H PO SCH (09:26)
[2022-11-19] MEDS: HEPARIN SODIUM,PORCINE/PF 5,000 UNIT/0.5 ML SYRINGE SQ SCH (09:27)
[2022-11-19 12:04] LABS: Glucose,Whole Blood 245 mg/dL (70-110)
--- NOTE | 2022-11-19 14:38 | P.DS ---
Providers Date of admission: 11/18/22 08:02 Expected date of discharge: 11/19/22 Attending physician: Morgan Alexandre MD Primary care physician: Brittny Ginger [facility] Course: Discharge Diagnosis: Acute kidney injury on CKD stage III dehydration Mild metabolic acidosis Diarrhea Dyspnea Hypomagnesemia Type II uncontrolled diabetes mellitus Hypertension CAD status post stent . Hospital Course: 51-year-old male with a past medical history of memory impairment, type 2 diabetes mellitus, CKD stage III, coronary artery disease status post stents (2016) who recently was admitted for right great toe ulcer that has now resolved who presents to the ED with shortness of breath. In the ED patient creatinine was 4.18 and bicarb was 18 and blood glucose was 413 and troponin less than 0.012. EKG showed normal sinus rhythm. Patient was then referred for admission for acute kidney injury. Patient was given 3 L of fluid bolus in the ED. Renal function continued to improve IV fluids. Diarrhea has resolved. Patient being discharged, no longer continuing antihypertensives. Patient will see his PCP for repeat BMP as well as restart antihypertensives. Patient seen and examined at bedside. Vital signs reviewed and stable. General: nontoxic, no distress, appears at stated age Derm: warm, dry Head: atraumatic, normocephalic, symmetric Eyes: EOMI, no lid lag, anicteric sclera Mouth: no lip lesion, mucus membranes moist Cardiovascular: S1S2 reg, no murmur Lungs: CTA bilateral, no rhonchi, no rales , no accessory muscle use Abdominal: soft, nontender to palpation, no guarding, no appreciable organomegaly Ext: no gross muscle atrophy, no edema, no contractures Neuro: CN II-XI grossly intact, no focal neuro deficits Psych: Alert, oriented, appropriate affect A total of 36 minutes of time were spent preparing this complex discharge summary. Patient was discharged on 11/19/22 at 9:54. Patient Condition at Discharge: Stable Plan - Discharge Summary Discharge Rx Participant: Yes New Discharge Prescriptions: Continue Pravastatin Sodium 80 mg PO HS Pantoprazole Sodium [Protonix] 40 mg PO DAILY Insulin Lispro [humaLOG Kwikpen] See Protocol SQ AC-TID Insulin Glargine [Lantus Vial] 30 unit SQ HS Metoprolol Succinate (ER) [Toprol XL] 100 mg PO DAILY Discontinued Olmesartan/Hydrochlorothiazide [Benicar Hct 40-12.5 mg Tablet] 1 tab PO DAILY Discharge Medication List Pravastatin Sodium 80 mg PO HS 09/18/18 [History] Pantoprazole Sodium [Protonix] 40 mg PO DAILY 11/23/19 [History] Metoprolol Succinate (ER) [Toprol XL] 100 mg PO DAILY 08/27/21 [History] Insulin Glargine [Lantus Vial] 30 unit SQ HS 10/23/22 [History] Insulin Lispro [humaLOG Kwikpen] See Protocol SQ AC-TID 10/23/22 [History] Follow up Appointment(s)/Referral(s): Britnty Miles MD [Primary Care Provider] - 1-2 days Patient Instructions/Handouts: Acute Kidney Injury ([place]), Chronic Hypertension ([place]) Activity/Diet/Wound Care/Special Instructions: Please see your PCP within 2-3 days. You will need repeat blood work to check your kidney function. Your blood pressure medications have been stopped as it can impact your kidneys. Please see your PCP before you can restart your blood pressure medication. Discharge Disposition: HOME SELF-CARE
== END 2022-11-19 13:01 | disposition home or self-care (01) ==
LOC: EC 06:33 → INTOOBSV 08:02 → 4SSUR 08:02 → UNDODISIN 11-19 13:01
PROVIDERS: ADMIT Internal Medicine; ATTEND Internal Medicine
DX: N17.9 Acute kidney failure, unspecified (principal); I12.9 Hypertensive chronic kidney disease with stage 1 through stage 4 chronic kidney disease, or unspecified chronic kidney disease; N18.30 Chronic kidney disease, stage 3 unspecified; E86.0 Dehydration; E87.20 Acidosis, unspecified; R19.7 Diarrhea, unspecified; R06.00 Dyspnea, unspecified; E83.42 Hypomagnesemia; E11.22 Type 2 diabetes mellitus with diabetic chronic kidney disease; E11.65 Type 2 diabetes mellitus with hyperglycemia; I25.10 Atherosclerotic heart disease of native coronary artery without angina pectoris; E78.5 Hyperlipidemia, unspecified; F31.9 Bipolar disorder, unspecified; G91.9 Hydrocephalus, unspecified; K21.9 Gastro-esophageal reflux disease without esophagitis; I25.2 Old myocardial infarction; Z95.5 Presence of coronary angioplasty implant and graft; Z98.84 Bariatric surgery status; Z79.4 Long term (current) use of insulin; Z79.899 Other long term (current) drug therapy
CPT/HCPCS: 96361 ×3; 96365; 96366; 96372 ×2; 99285; 36415; 93005; 80053; 80048 ×2; 83690; 83735 ×2; 84484; 85025; 81003; 83036; 71046; G0378 ×2; J3475; J1644; 96360

== ENCOUNTER 2022-12-29 01:48 | Inpatient (IN) | payer OTHER ==
[2022-12-29] MEDS ORDERED: HEPARIN SODIUM 1,000 UN/ML (10ML VL) IV ONE (01:56)
[2022-12-29] MEDS ORDERED: SODIUM CHLORIDE 0.9% 1,000 ML IV STA (01:56)
[2022-12-29 02:01] LABS: Glucose,Whole Blood 429 mg/dL (70-110)
[2022-12-29 02:08] LABS: Basophils % (A) 1 %; Eosinophils # (A) 0.2 k/uL (0-0.7); Eosinophils % (A) 3 %; HCT 34.6 % (39.0-53.0); HGB 11.8 gm/dL (13.0-17.5); Lymphocytes # (A) 1.7 k/uL (1.0-4.8); Lymphocytes % (A) 28 %; MCH 29.8 pg (25.0-35.0); MCHC 34.3 g/dL (31.0-37.0); MCV 86.8 fL (80.0-100.0); Mean Platelet Volume 8.6; Monocytes # (A) 0.3 k/uL (0-1.0); Monocytes % (A) 5 %; Neutrophils # (A) 3.6 k/uL (1.3-7.7); Neutrophils % (A) 61 %; Platelet Count 182 k/uL (150-450); RBC 3.98 m/uL (4.30-5.90); RDW 14.2 % (11.5-15.5); WBC 5.9 k/uL (3.8-10.6)
--- NOTE | 2022-12-29 02:20 | ED ---
General Adult HPI - General Stated complaint: Chest Pain Time Seen by Provider: 12/29/22 01:54 Source: patient, EMS, RN notes reviewed, old records reviewed Mode of arrival: EMS Limitations: no limitations - History of Present Illness Initial comments: Patient is a 52-year-old male who presents emergency Department complaining of left shoulder pain. Has had it somewhat constantly for the last 3 days but noticed a sudden significant worsening of it at approximately 8 PM this evening. Does have a history of a cardiac stent placed in 2017, hypertension, diabetes. Patient states this is identical pain to prior heart attack that he experienced. Became concerned because it did not improved this evening when it suddenly got worse which is why called EMS. EMS was concerned for STEMI and administered the patient 1 aspirin 324 mg as well as a nitroglycerin sublingual tablet. Patient's pain improved from a 8 out of 10 to a 3 out of 10. States it is minimal at this time. States he has had some mild shortness of breath with the symptoms. As well as nausea earlier. Denies any current shortness of breath. Denies abdominal pain, nausea, vomiting. Did have mild diaphoresis earlier when the pain got worse. Denies any current lightheadedness or blurry vision. States he feels better than when he initially called EMS. Patient states he was seen a extrusion die template maker but has not followed up with one in ears but is due to see a new one but cannot recall the names of his extrusion die template maker of the Dr. Mccullough who placed a stent in 2016. No other acute complaints at this time. - Related Data Home Medications Medication Instructions Recorded Confirmed Pravastatin Sodium 80 mg PO HS 09/18/18 11/18/22 Pantoprazole Sodium [Protonix] 40 mg PO DAILY 11/23/19 11/18/22 Metoprolol Succinate (ER) [Toprol 100 mg PO DAILY 08/27/21 11/18/22 XL] Insulin Glargine [Lantus Vial] 30 unit SQ HS 10/23/22 11/18/22 Insulin Lispro [humaLOG Kwikpen] See Protocol SQ AC-TID 10/23/22 11/18/22 Allergies Allergy/AdvReac Type Severity Reaction Status Date / Time prednisone AdvReac Steroid Verified 11/18/22 10:59 induced psychosis steroids AdvReac Unknown Hallucinati Uncoded 03/11/23 06:45 ons Review of Systems ROS Statement: Those systems with pertinent positive or pertinent negative responses have been documented in the HPI. Review of Systems: CONST: Denies fever EYES: Denies blurry vision ENT: Denies nasal congestion C/V: Endorses left shoulder pain RESP: Denies shortness of breath GI: Denies abdominal pain : Denies dysuria SKIN: Denies rash. MSK: Denies joint pain. NEURO: Denies headache ROS Other: All systems not noted in ROS Statement are negative. Past Medical History Past Medical History: Diabetes Mellitus, Hyperlipidemia, Hypertension, Myocardi al Infarction ([place]) Additional Past Medical History / Comment(s): hydrocephalus Last Myocardial Infarction Date:: 02/16/17 History of Any Multi-Drug Resistant Organisms: None Reported Past Surgical History: Appendectomy, Heart Catheterization, Heart Catheterization With Stent Additional Past Surgical History / Comment(s): lap band 2008, cardiac cath with stent to LAD 02/16/2017 Past Anesthesia/Blood Transfusion Reactions: No Reported Reaction Date of Last Stent Placement:: 02/16/17 Past Psychological History: Bipolar, Depression Smoking Status: Never smoker Past Alcohol Use History: None Reported Past Drug Use History: None Reported - Past Family History Father Family Medical History: Diabetes Mellitus, Deep Vein Thrombosis (DVT), Hypertension, Myocardial Infarction ([place]) Mother Family Medical History: Cancer Additional Family Medical History / Comment(s): Brain tumor, mass removed from neck General Exam - General Exam Comments Initial Comments: General: Appears in mild discomfort secondary to pain. HEAD: Normal with no signs of head trauma. EYES: PERRLA, EOMI, conjunctiva normal, no discharge. ENT: Hearing grossly intact, normal oropharynx. RESPIRATORY: Clear breath sounds bilaterally. No wheezes, rales, or rhonchi. C/V: tachycardic. S1 and S2 auscultated, peripheral pulses 2+ and intact throughout ABD: Abd is soft, nontender, nondistended EXT: Normal range of motion, no obvious deformity. Shoulder blade pain not reproducible on movement or palpation. SKIN: No rashes or lesions observed on exposed skin. NEURO: Alert and oriented 4. Limitations: no limitations Course Vital Signs 12/29/22 12/29/22 12/29/22 01:51 01:59 02:05 Temperature 97.9 F Pulse Rate 111 H 111 H 111 H Respiratory 16 16 16 Rate Blood Pressure 158/92 167/90 137/94 O2 Sat by Pulse 99 98 98 Oximetry 12/29/22 12/29/22 12/29/22 02:10 02:15 02:20 Temperature Pulse Rate 111 H 109 H 106 H Respiratory 16 16 16 Rate Blood Pressure 149/91 152/84 144/90 O2 Sat by Pulse 98 99 98 Oximetry Medical Decision Making - Medical Decision Making Was pt. sent in by a medical professional or institution (, PA, BUDGET OFFICER, urgent care, hospital, or [facility]...) When possible be specific @ -No Did you speak to anyone other than the patient for history (EMS, parent, family, police, friend...)? What history was obtained from this source @ -No Did you review nursing and triage notes (agree or disagree)? Why? @ -I reviewed and agree with nursing and triage notes Were old charts reviewed (outside hosp., previous admission, EMS record, old EKG, old radiological studies, urgent care reports/EKG's, [facility] records)? Report findings @ -old charts reviewed from November 2022 including EKGs Differential Diagnosis (chest pain, altered mental status, abdominal pain women, abdominal pain men, vaginal bleeding, weakness, fever, dyspnea, syncope, headache, dizziness, GI bleed, back pain, seizure, CVA, palpatations, mental health, musculoskeletal)? @ -Differential Chest Pain: Stable Angina, Unstable Angina, STEMI, NSTEMI Aortic Dissection, Pneumothorax, Musculoskeletal, Esophageal Spasm GERD, Cholecystitis, Pancreatitis, Zoster, this is not meant to be an all-inclusive list. EKG interpreted by me (3pts min.). @ -As above X-rays interpreted by me (1pt min.). @ -Chest x-ray reveals no obvious acute cardio pulmonary process when compared to prior x-rays. CT interpreted by me (1pt min.). @ -None done U/S interpreted by me (1pt. min.). @ -None done What testing was considered but not performed or refused? (CT, X-rays, U/S, labs)? Why? @ -None What meds were considered but not given or refused? Why? @ -Nitro glycerin will be held due to concern for inferior wall [place] Did you discuss the management of the patient with other professionals (professionals i.e. Dr., PA, BUDGET OFFICER, lab, RT, psych nurse, social work therapist, corncob pipes assembler, teacher, chief information security officer, assistant case manager)? Give summary @ -No Was smoking cessation discussed for >3mins.? @ -No Was critical care preformed (if so, how long)? @ -Yes, 35 minutes Were there social determinants of health that impacted care today? How? (Homelessness, low income, unemployed, alcoholism, drug addiction, transportation, low edu. Level, literacy, decrease access to med. care, retirement, rehab)? @ -No Was there de-escalation of care discussed even if they declined (Discuss DNR or withdrawal of care, Hospice)? DNR status @ -No What co-morbidities impacted this encounter? (DM, HTN, Smoking, COPD, CAD, Cancer, CVA, ARF, Chemo, Hep., AIDS, mental health diagnosis, sleep apnea, morbid obesity)? @ -CAD, diabetes, hypertension Was patient admitted / discharged? Hospital course, mention meds given and route, prescriptions, significant lab abnormalities, going to OR and other pertinent info. @ -Based on the patient's presentation and physical exam, I'm concerned for what appears to be a STEMI. Rhythm strip from EMS does show a ST segment elevation in II, III, avF with reciprocal depressions in aVL, and V3. This was uploaded into the system. Our 12-lead EKG does show a substantial findings of the elevations and depressions are 1-1.5mm and still present. However with the sudden worsening of the identical [place] symptoms that he had previously this evening with the EKG changes the decision was made to activate the STEMI act ivation. Cardiac labs will be obtained. Screening x-ray revealed no obvious acute cardiopulmonary process. Dr. Mccullough called back and I notified him of the activation and he was in agreement with this plan. Patient was bolused heparin, as already received 324 millions of aspirin. Was placed on oxygen for comfort. States his pain is well-controlled at a 2-3 out of 10. Was in agreement with e plan. Patient is otherwise hemodynamically stable.Patient was placed on defibrillator pads on portable teletypesetter monitor Patient was taken to [facility] for heart catheterization. Will be admitted to Dr. Dockery afterwards. I spoke with Dr. Dockery who accepted the admission. Patient's laboratory studies returned after patient was taken to [facility]. They are significant for a chronic anemia with a hemoglobin of 11.8. This appears stable for the patient. Patient also has an elevated troponin of 0.131. Patient is hyperglycemic to 429. Patient also has elevated BUN and creatinine, which is chronic and appears to be at his baseline. Undiagnosed new problem with uncertain prognosis? @ -No Drug Therapy requiring intensive monitoring for toxicity (Heparin, Nitro, Insulin, Cardizem)? @ -No Were any procedures done? @ -No Diagnosis/symptom? @ -STEMI Acute, or Chronic, or Acute on Chronic? @ -Acute Uncomplicated (without systemic symptoms) or Complicated (systemic symptoms)? @ -Complicated Side effects of treatment? @ -No Exacerbation, Progression, or Severe Exacerbation? @ -No Poses a threat to life or bodily function? How? (Chest pain, [place], [place], pneumonia, PE, COPD, DKA, ARF, appy, cholecystitis, CVA, Diverticulitis, Homicidal, Suicidal, threat to staff... and all critical care pts) @ -Yes Diagnosis/symptom? @ -Diabetes, poorly controlled Acute, or Chronic, or Acute on Chronic? @ -Chronic Uncomplicated (without systemic symptoms) or Complicated (systemic symptoms)? @ -Uncomplicated Side effects of treatment? @ -none Exacerbation, Progression, or Severe Exacerbation] @ -no Poses a threat to life or bodily function? @ -no - Lab Data Result diagrams: 12/29/22 01:58 12/29/22 01:58 Lab Results 12/29/22 12/29/22 12/29/22 Range/Units 01:58 01:58 01:58 WBC 5.9 (3.8-10.6) k/uL RBC 3.98 L (4.30-5.90) m/uL Hgb 11.8 L (13.0-17.5) gm/dL Hct 34.6 L (39.0-53.0) % MCV 86.8 (80.0-100.0) fL MCH 29.8 (25.0-35.0) pg MCHC 34.3 (31.0-37.0) g/dL RDW 14.2 (11.5-15.5) % Plt Count 182 (150-450) k/uL MPV 8.6 Neutrophils % 61 % Lymphocytes % 28 % Monocytes % 5 % Eosinophils % 3 % Basophils % 1 % Neutrophils # 3.6 (1.3-7.7) k/uL Lymphocytes # 1.7 (1.0-4.8) k/uL Monocytes # 0.3 (0-1.0) k/uL Eosinophils # 0.2 (0-0.7) k/uL Basophils # 0.0 (0-0.2) k/uL PT 9.6 (9.0-12.0) sec INR 0.9 (<1.2) APTT 22.6 (22.0-30.0) sec Sodium 135 L (137-145) mmol/L Potassium 4.3 (3.5-5.1) mmol/L Chloride 103 (98-107) mmol/L Carbon Dioxide 22 (22-30) mmol/L Anion Gap 10 mmol/L BUN 39 H (9-20) mg/dL Creatinine 1.89 H (0.66-1.25) mg/dL Est GFR (CKD-EPI)AfAm 45 (>60 ml/min/1.73 sqM) Est GFR (CKD-EPI)NonAf 39 (>60 ml/min/1.73 sqM) Glucose 439 H (74-99) mg/dL POC Glucose (mg/dL) (70-110) mg/dL POC Glu [facility] Worker ID Calcium 9.1 (8.4-10.2) mg/dL Total Bilirubin 0.2 (0.2-1.3) mg/dL AST 23 (17-59) U/L ALT 23 (4-49) U/L Alkaline Phosphatase 97 (38-126) U/L Troponin I (0.000-0.034) ng/mL Total Protein 6.9 (6.3-8.2) g/dL Albumin 3.9 (3.5-5.0) g/dL 12/29/22 12/29/22 Range/Units 01:58 02:00 WBC (3.8-10.6) k/uL RBC (4.30-5.90) m/uL Hgb (13.0-17.5) gm/dL Hct (39.0-53.0) % MCV (80.0-100.0) fL MCH (25.0-35.0) pg MCHC (31.0-37.0) g/dL RDW (11.5-15.5) % Plt Count (150-450) k/uL MPV Neutrophils % % Lymphocytes % % Monocytes % % Eosinophils % % Basophils % % Neutrophils # (1.3-7.7) k/uL Lymphocytes # (1.0-4.8) k/uL Monocytes # (0-1.0) k/uL Eosinophils # (0-0.7) k/uL Basophils # (0-0.2) k/uL PT (9.0-12.0) sec INR (<1.2) APTT (22.0-30.0) sec Sodium (137-145) mmol/L Potassium (3.5-5.1) mmol/L Chloride (98-107) mmol/L Carbon Dioxide (22-30) mmol/L Anion Gap mmol/L BUN (9-20) mg/dL Creatinine (0.66-1.25) mg/dL Est GFR (CKD-EPI)AfAm (>60 ml/min/1.73 sqM) Est GFR (CKD-EPI)NonAf (>60 ml/min/1.73 sqM) Glucose (74-99) mg/dL POC Glucose (mg/dL) 429 H (70-110) mg/dL POC Glu [place] Worker ID Ruddy Santos Calcium (8.4-10.2) mg/dL Total Bilirubin (0.2-1.3) mg/dL AST (17-59) U/L ALT (4-49) U/L Alkaline Phosphatase (38-126) U/L Troponin I 0.131 H* (0.000-0.034) ng/mL Total Protein (6.3-8.2) g/dL Albumin (3.5-5.0) g/dL - EKG Data -: EKG Interpreted by Me EKG Comments: 12-lead Electrocardiogram Interpretation Note EKG was reviewed and interpreted by myself. 12-lead ECG performed at 0150 is interpreted by me as revealing sinus tachycardia at a rate of 111 beats per minute. [place] is normal. SC interval is 165 ms, QRS duration is 104 ms, QTc is 398 ms.. There are what appear to be acute ST segment elevations of 1 mm in leads II, III, aVF with reciprocal 1 mm depression in aVL as well as mildly in V3. When compared with the rhythm strip, it is similar that he must obtained where there was 1 mm elevations in leads II, III, aVF, with depressions in aVL, V2. R wave progression across the precordium was satisfactory. By my interpretation, this EKG is concerning for acute ischemia. Compared with prior EKGs from November 2022, showing acute change. Disposition Clinical Impression: ST elevation myocardial infarction (STEMI) Disposition: ADMITTED IP TO THIS HOSP Condition: Serious Time of Disposition: 02:30
[2022-12-29 02:24] LABS: INR 0.9 (<1.2); Partial Thromboplastin Time 22.6 sec (22.0-30.0); Prothrombin Time 9.6 sec (9.0-12.0)
[2022-12-29] MEDS ORDERED: LIDOCAINE 1% INJ 10MG/ML (20 ML MDV) ONE (02:29)
[2022-12-29] MEDS ORDERED: HEPARIN SODIUM 1,000 UN/ML (10ML VL) ONE (02:29)
[2022-12-29] MEDS ORDERED: VERAPAMIL 2.5 MG/ML 2 ML AMP ONE (02:29)
[2022-12-29] MEDS ORDERED: NALOXONE 0.4 MG/ML 1 ML VIAL IV PRN (02:34)
[2022-12-29] MEDS ORDERED: fentaNYL (PF) 50 MCG/ML 2 ML AMP ONE (02:48)
[2022-12-29] MEDS ORDERED: LIDOCAINE 1% INJ 10MG/ML (20 ML MDV) SQ ONE (02:48)
[2022-12-29] MEDS: MIDAZOLAM 2 MG/2 ML VIAL IV ONE ×2 (02:50→02:53)
[2022-12-29] MEDS ORDERED: fentaNYL (PF) 50 MCG/ML 2 ML AMP IV ONE (02:50)
[2022-12-29] MEDS ORDERED: VERAPAMIL SYRINGE (5 MG/10 ML) INTRAARTER ONE (03:02)
[2022-12-29] MEDS: HEPARIN SODIUM 1,000 UN/ML (10ML VL) IV ONE ×3 (03:04→04:06)
[2022-12-29] MEDS ORDERED: PRASUGREL 10 MG TAB ONE (03:08)
[2022-12-29] MEDS ORDERED: PRASUGREL 10 MG TAB PO ONE (03:09)
[2022-12-29] MEDS ORDERED: IV FLUID CONTINUATION 1,000 ML IV ONE (03:11)
[2022-12-29] MEDS ORDERED: IOPAMIDOL-370 100ML BTL INJ ONE ×2 (03:16→04:01)
[2022-12-29 03:43] LABS: Albumin 3.9 g/dL (3.5-5.0)
[2022-12-29] MEDS ORDERED: NITROGLYCERIN SL TABS 0.4 MG TAB SUBLINGUAL PRN (04:09)
[2022-12-29] MEDS ORDERED: ZOLPIDEM 5 MG TAB PO PRN (04:09)
[2022-12-29] MEDS ORDERED: MAG HYDROX/AL HYDROX/SIMETH 30 ML CUP PO PRN (04:09)
[2022-12-29] MEDS ORDERED: ATROPINE SULFATE 0.1 MG/ML 10ML SYRINGE IV PRN (04:09)
[2022-12-29] MEDS ORDERED: RX INFO: IV CONTRAST WAS GIVEN 1 EACH MISC MISCELLANE PRN (04:09)
[2022-12-29 04:10] LABS: Calcium 9.1 mg/dL (8.4-10.2); Potassium 4.3 mmol/L (3.5-5.1); Total Bilirubin 0.2 mg/dL (0.2-1.3); Total Protein 6.9 g/dL (6.3-8.2)
[2022-12-29] MEDS ORDERED: SODIUM CHLORIDE 0.9% 1,000 ML in EMPTY BAG 1 BAG IV SCH (04:15)
--- NOTE | 2022-12-29 04:22 | P.CARDCATH ---
Date of Procedure: 12/29/22 Description of Procedure: Cardiac Catheterization: The patient is a 52-year-old male with known history of hypertension, hyperlipidemia, diabetes mellitus, history of CAD status post stenting in 2017 who presented with an acute inferior wall myocardial infarction, he was evaluated by Dr. Mccullough . Recommendations were made regarding cardiac catheterization, the risks and the complications were discussed with the patient who is in full understanding and agreement. Procedure Description: Patient was brought to mobile lab technician in fasting semi-sedated state after receiving Fentanyl and Benadryl achieiving moderate conscious sedated state. Dr. Mccullough attempted to cannulate the right radial artery with some difficulty subsequently I scrubbed in. Using Xylocaine Anesthesia and Seldinger technique, a 6-Polish sheath was introduced in the right radial artery . Subsequently, selective coronary angiography was performed using a 5-Polish 3.5 bend right Rebel catheter. Subsequently a 6-Polish FL 3.5 guiding catheter was introduced. Multiple views of the coronary artery including hemiaxial views were obtained. The 5-Polish pigtail catheter was used to cross the aortic valve and LVEDP was calculated. PCI: Using the 6-Polish FL 3.5 guiding catheter a 0.014 BMW J-wire was advanced in the left circumflex and positioned in the obtuse marginal branch, subsequently another 0.014 BMW J-wire was positioned in the left PDA. A 2.5 x 12 mm treck balloon was advanced and multiple inflations at 8 mad[place] were done, after removing the balloon a 2.5 x 38 mm Xience sorin point stent was advanced and deployed at 16 madina. After removing the balloon attempt to advance a 3.0 x 20 mm NC Treck were unsuccessful, the balloon was removed and a 6-Polish guide liner was advanced and subsequently the balloon was advanced and inflations at 10 madina were done. After removing the balloon an IVUS [place] [employer] catheter was advanced and images were obtained. After removing the catheter to 3.0 x 20 mm NC balloon was readvanced and inflations were done at 10 mad[place], subsequently a 4.0 x 12 mm NC Treck was advanced and inflations were done proximally at 10 madina. Following that the wire was withdrawn back and again a catheter images were obtained and revealed stable successful stenting. Following that, catheter and sheath were removed. Hemostasis was obtained with deployment of TR band . There was no immediate complication. Patient was returned to room in stable condition. Of note, the patient received a total of 10,000 units of intravenous heparin as well as intra-arterial verapamil. He received an oral loading dose of Effient. His ACT was monitored. He was pain-free at the end of the procedure with resolution of his EKG changes. Findings: Left main: This is a short sized vessel that bifurcates immediately into LAD and left circumflex, left main has no high-grade stenosis LAD: This is a large size vessel giving rise to a moderately sized diagonal branch proximally the stented segment in the proximal LAD is patent, there is mild disease of 10-20% Left circumflex: This is a large codominant vessel bifurcating distally into PDA and PLV giving rise to 3 obtuse marginal branch. The mid Circumflex has an 85% stenosis and the left PDA has a 90% stenosis, the rest of the vessel has intimal disease with no high-grade stenosis. RCA: This is a moderate size vessel codominant giving rise to a very proximal bifurcation of the PDA that the right coronary artery has mild intimal disease with no high-grade stenosis. Left Ventriculogram: Not performed Hemodynamics: There was no gradient across the aortic valve , LVEDP was 5-10 mmHg Conclusion: 1. Critical stenosis in the codominant left circumflex 2. Patent stent of the LAD 3. Mild disease in the RCA 4. Successful stenting of the codominant mid and distal left circumflex with reduction of stenosis from 99% to 0% with intravascular ultrasound imaging. Recommendations: The patient will continue on aspirin and Effient without any interruption for one year in addition to aggressive coronary risks modification. The findings and the recommendations were discussed with the patient and the family and they were in full understanding and agreement. Duration of sedation is 60 minutes.
[2022-12-29 04:44] LABS: Glucose,Whole Blood 212 mg/dL (70-110)
--- NOTE | 2022-12-29 06:21 | XR ---
EXAMINATION TYPE: XR chest 1V portable DATE OF EXAM: 12/29/2022 COMPARISON: Chest x-ray November 18, 2022 HISTORY: Chest pain. ST elevated myocardial infarction. TECHNIQUE: Single AP portable frontal upright view of the chest is obtained. FINDINGS: Somewhat low lung volumes. There is no focal air space opacity, pleural effusion, or pneumo thorax seen. The cardiac silhouette size is mildly enlarged. The osseous structures are intact. IMPRESSION: Mild cardiomegaly without acute pulmonary process.
--- NOTE | 2022-12-29 08:04 | P.PN ---
Subjective Progress Note Date: 12/29/22 PROGRESS NOTE The patient is a 52-year-old male with a known history of CAD, status post stenting of the LAD in 2017 who presented with an acute inferior wall myocardial infarction, his cardiac catheterization showed critical stenosis in the codominant left circumflex. He underwent stenting of that vessel. He is doing well this morning. He denies any chest discomfort, dizziness or palpitations. He continues to be in sinus mechanism. Hemodynamically he stable, in sinus mechanism with no arrhythmia. Medications: Aspirin, Lipitor 80 mg daily, Zestril 5 mg daily, metoprolol 25 mg 3 times a day, Effient 10 mg daily PHYSICAL EXAMINATION: Blood pressure 132/70 heart rate 80, obese LUNGS: Clear to auscultation HEART: Regular rate and rhythm, S1, S2. No S3. systolic ejection murmur ABDOMEN: Soft, nontender, no organomegaly EXTREMETIES: No edema, right radial no hematoma LAB: Troponin 2.18. BUN and creatinine on admission 39 and 1.89. IMPRESSION: 1. Status post inferior wall myocardial infarction and stenting of codominant left circumflex 2. Prior stenting of LAD in 2017, patent 3. hyperlipidemia 4. Diabetes 5. History of hypertension PLAN 1. Increase beta raj 2. Obtain an echocardiogram with Doppler 3. Increase activity 4. If stable transfer to telemetry in the afternoon, depending on his progress further recommendations will be made. Objective - Vital Signs Vital signs: Vital Signs Temp 97.8 F 12/29/22 04:39 Pulse 89 12/29/22 07:00 Resp 19 12/29/22 07:00 BP 132/74 12/29/22 07:00 Pulse Ox 97 12/29/22 07:00 FiO2 Intake & Output 12/28/22 12/29/22 12/29/22 18:59 06:59 18:59 Intake Total 460 130 Balance 460 130 Weight 129.274 kg Intake: IV 200 Intake, IV Titration 260 130 Amount Sodium Chloride 0.9% 1, 260 130 000 ml In Empty Bag 1 bag @ 1 ML/KG/HR 129.274 mls /hr IV .[id number] [facility] Rx#: [id number] - Labs CBC & Chem 7: 12/29/22 01:58 12/29/22 01:58 Labs: Abnormal Lab Results - Last 24 Hours (Table) 12/29/22 12/29/2223 Range/Units 01:58 01:58 01:58 RBC 3.98 L (4.30-5.90) m/uL Hgb 11.8 L (13.0-17.5) gm/dL Hct 34.6 L (39.0-53.0) % Sodium 135 L (137-145) mmol/L BUN 39 H (9-20) mg/dL Creatinine 1.89 H (0.66-1.25) mg/dL Glucose 439 H (74-99) mg/dL POC Glucose (mg/dL) (70-110) mg/dL Troponin I 0.131 H* (0.000-0.034) ng/mL 12/29/22 12/29/22 12/29/22 Range/Units 02:00 04:42 05:30 RBC (4.30-5.90) m/uL Hgb (13.0-17.5) gm/dL Hct (39.0-53.0) % Sodium (137-145) mmol/L BUN (9-20) mg/dL Creatinine (0.66-1.25) mg/dL Glucose (74-99) mg/dL POC Glucose (mg/dL) 429 H 212 H (70-110) mg/dL Troponin I 2.180 H* (0.000-0.034) ng/mL
--- NOTE | 2022-12-29 08:22 | CONS ---
CONSULTATION CHIEF COMPLAINT: Chest pain. HISTORY OF PRESENT ILLNESS: Bishnu is a 52-year-old gentleman with history of coronary artery disease, status post prior anterior wall myocardial infarction, catheterization and angioplasty of LAD in 2017, who has not been following with a validation scientist regularly, is moved back into the area recently. Currently lives in [place] and has been having on and off chest and shoulder discomfort for the last 2 days. Early this morning, the pain got suddenly worse and he felt interscapular pain due to which he came to the ER, from where we were called as a STEMI alert. ER doctor made a diagnosis of acute inferior wall myocardial infarction and activated the lab. I am seeing the patient. The first EKG was done at 0150. I met the patient in the dock or pier laborer at 0240. The patient has just arrived in the lab. At the time of my evaluation, he states that his chest discomfort has improved with the nitroglycerin. He is stable hemodynamically. I advised him to undergo cardiac catheterization with a view to performing angioplasty. PAST MEDICAL HISTORY: Significant for diabetes and coronary artery disease. MEDICATIONS: Are as charted. ALLERGIES: None. FAMILY HISTORY: Significant for coronary artery disease in his father. SOCIAL HISTORY: Negative for current smoking, EtOH abuse, or drug abuse. REVIEW OF SYSTEMS: review of systems has been performed. Pertinents are as documented. PHYSICAL EXAMINATION: GENERAL: The patient is comfortable at rest. VITAL SIGNS: Stable. CHEST: Reveals good air entry bilaterally. HEART: Reveals first and second heart sounds. No gallop. No murmur. ABDOMEN: Soft. EXTREMITIES: Did not reveal any edema. Peripheral pulses are felt. LABORATORY DATA: Labs are pending at this time. ASSESSMENT: Acute inferior wall myocardial infarction. PLAN: We will perform emergent cardiac catheterization with a view to performing primary angioplasty. MMODL / IJN: [id number] /
[2022-12-29 08:51] LABS: Chol/HDL Ratio 7.05 Ratio; LDL Cholesterol,Calculated 216.4 mg/dL (0.0-131.0)
[2022-12-29] MEDS ORDERED: METOPROLOL TARTRATE 25 MG TAB PO SCH (09:00)
[2022-12-29] MEDS ORDERED: lisinopriL 5 MG TAB PO SCH (09:00)
[2022-12-29] MEDS: ASPIRIN 81 MG PO SCH (09:52)
[2022-12-29] MEDS: PANTOPRAZOLE 40 MG TABLET PO SCH (09:53)
[2022-12-29] MEDS: METOPROLOL TARTRATE 50 MG TAB PO SCH ×2 (09:53→20:38)
[2022-12-29] MEDS ORDERED: LOSARTAN 25 MG TAB PO SCH (10:30)
[2022-12-29 10:42] LABS: Glucose,Whole Blood 268 mg/dL (70-110)
[2022-12-29 12:00] VITALS: BMI 42.0
[2022-12-29] MEDS: amLODIPine 5 MG TAB PO SCH (14:57)
[2022-12-29 16:06] LABS: Glucose,Whole Blood 267 mg/dL (70-110)
[2022-12-29] MEDS ORDERED: DEXTROSE 50% SYRINGE 50 ML IVP PRN ×2 (16:13)
[2022-12-29] MEDS: INSULIN ASPART (NovoLOG) 100 UNIT/ML VIAL SQ SCH ×2 (16:22→20:38)
--- NOTE | 2022-12-29 19:22 | CA ---
Transthoracic Echo Report Name: Bishnu Dowell Age: 52 Gender: M : 1970 Exam Date: 12/29/2022 09:10 Exam Location: [facility] Ht (in): 69 Wt (lb): 285 Ordering Physician: Arcadio Quarles MD ([id number]) Attending/Referring Phys: Internet Marketer Jasbir Sanchez RDCS Procedure CPT: Indications: OK Cardiac Hx: HTN; CAD; CP; SOB; Obesity; Technical Quality: Technically difficult study Contrast 1: Lumason Total Dose (mL): 4 Contrast 2: Total Dose (mL): MEASUREMENTS (Male / Female) Normal Values 2D ECHO LV Diastolic Diameter PLAX 3.0 cm 4.2 - 5.9 / 3.9 - 5.3 cm LV Systolic Diameter PLAX 2.5 cm LV Fractional Shortening PLAX 16.2 % IVS Diastolic Thickness 2.1 cm 0.6 - 1.0 / 0.6 - 0.9 cm IVS Systolic Thickness 2.2 cm LVPW Diastolic Thickness 1.6 cm 0.6 - 1.0 / 0.6 - 0.9 cm LVPW Systolic Thickness 1.9 cm LV Relative Wall Thickness 1.2 RV Internal Dim ED PLAX 2.2 cm LVOT Diameter 2.0 cm Aortic Root Diameter 3.0 cm LA Systolic Diameter LX 3.5 cm 3.0 - 4.0 / 2.7 - 3.8 cm LA Ao Ratio 1.2 LV Diastolic Volume MOD BP 56.1 cm??? 67 - 155 / 56 - 104 cm??? LV Systolic Volume MOD BP 19.6 cm??? 22 - 58 / 19 - 49 cm??? LV Ejection Fraction MOD BP 65.1 % >= 55 % LV Stroke Volume MOD BP 36.5 cm??? LV Diastolic Volume MOD 4C 45.7 cm??? LV Systolic Volume MOD 4C 12.0 cm??? LV Ejection Fraction MOD 4C 73.8 % LV Stroke Volume MOD 4C 33.7 cm??? LV Diastolic Length 4C 7.4 cm LV Systolic Length 4C 4.9 cm LV Diastolic Volume MOD 2C 58.0 cm??? LV Systolic Volume MOD 2C 20.3 cm??? LV Ejection Fraction MOD 2C 65.0 % LV Stroke Volume MOD 2C 37.7 cm??? LV Diastolic Length 2C 8.8 cm LV Systolic Length 2C 7.8 cm M-MODE Aortic Root Diameter MM 3.1 cm LA Systolic Diameter MM 4.4 cm LA Ao Ratio MM 1.4 AV Cusp Separation MM 1.9 cm DOPPLER AV Peak Velocity 118.0 cm/s AV Peak Gradient 5.6 mmHg MV Deceleration [place] 355.2 cm/s??? Mitral E Point Velocity 62.1 cm/s Mitral A Point Velocity 103.2 cm/s Mitral E to A Ratio 0.6 MV Deceleration Time 174.7 ms MV E' Velocity 5.6 cm/s Mitral E to MV E' Ratio 11.0 TR Peak Velocity 109.4 cm/s TR Peak Gradient 4.8 mmHg Right Ventricular Systolic Press 9.8 mmHg PV Peak Velocity 155.1 cm/s PV Peak Gradient 9.6 mmHg FINDINGS Left Ventricle Left ventricular ejection fraction is estimated at 55-60 %. Moderate concentric left ventricular hypertrophy. Grade 1 diastolic dysfunction. Normal basal systolic function. Right Ventricle Normal right ventricular size and function. Right Atrium Normal right atrial size. Left Atrium Normal left atrial size. Mitral Valve Mitral valve thickened. Trace mitral regurgitation. Aortic Valve Trileaflet aortic valve. Tricuspid Valve Trace to mild tricuspid regurgitation. Pulmonic Valve Structurally normal pulmonic valve. Valvular pulmonic stenosis (PVmax- 1.55 m/s) Pericardium Normal pericardium. No pericardial effusion. Aorta Normal size aortic root and proximal ascending aorta. CONCLUSIONS Normal LV size and systolic function Previewed by: Dr. Ulices Cornelius MD (Electronically Signed) Final Date: 29 December 2022 19:20
[2022-12-29 20:30] LABS: Glucose,Whole Blood 226 mg/dL (70-110)
[2022-12-29] MEDS: INSULIN DETEMIR (LEVEMIR) 100 UNIT/ML SYR SQ SCH (20:38)
[2022-12-29] MEDS ORDERED: ATORVASTATIN 80 MG TAB PO SCH ×2 (21:00)
[2022-12-29] MEDS ORDERED: PRAVASTATIN SODIUM 80 MG TAB PO SCH (21:00)
--- NOTE | 2022-12-29 23:33 | HP ---
HISTORY AND PHYSICAL HISTORY OF PRESENT ILLNESS: This -[id number] white male came to the hospital with left shoulder pain, significantly worsening on the night before he came, he came for a cardiac stent in 2017. He has a history of hypertension, diabetes mellitus. It was identical to prior heart attack, got worse, came to the hospital STEMI in the ER, gave him some aspirin, sent to the cardiac chemical laboratory technician for which he placed a stent in his left circumflex artery and with PTCA. HOME MEDICINES: 1. Pravastatin 80 daily. 2. Protonix 40 daily. 3. Toprol-XL 100 daily. 4. Lantus 30 units daily. 5. Humalog a.c. t.i.d. ALLERGIES: Prednisone, steroids. REVIEW OF SYSTEMS: A 14-point review of systems otherwise negative. FAMILY HISTORY: Father with DVT, hypertension, myocardial infarction. Mother with cancer of the brain. He has a history of bipolar and depression. Does not smoke. PHYSICAL EXAMINATION: VITAL SIGNS: Stable. Afebrile. HEENT: Normocephalic, atraumatic. Pupils equal, round, reactive. LUNGS: Clear. CARDIAC: S1, S2. HEMATOLOGY: Negative for Homans. PSYCH: Fair mood and affect. VITAL SIGNS: Blood pressure 140 to 150s over 80s to 90s, pulse 106 to 111, O2 98. Status post PTCA from a STEMI, inferior wall [place], bipolar, diabetes, hypertension, heart catheterization , chronic anemia, do a workup on reasons why he had a cardiac blockage in the next few days. His BUN was 39, creatinine 1.89, history of chronic kidney disease stage 3 with prerenal azotemia, acute on chronic anemia. Prognosis guarded. MMODL / IJN: [id number] /
[2022-12-30 05:35] LABS: Basophils % (A) 1 %; Eosinophils # (A) 0.2 k/uL (0-0.7); Eosinophils % (A) 3 %; HCT 31.5 % (39.0-53.0); HGB 10.7 gm/dL (13.0-17.5); Lymphocytes # (A) 1.3 k/uL (1.0-4.8); Lymphocytes % (A) 23 %; MCH 29.6 pg (25.0-35.0); MCHC 33.9 g/dL (31.0-37.0); MCV 87.5 fL (80.0-100.0); Mean Platelet Volume 8.8; Monocytes # (A) 0.5 k/uL (0-1.0); Monocytes % (A) 8 %; Neutrophils # (A) 3.8 k/uL (1.3-7.7); Neutrophils % (A) 64 %; Platelet Count 168 k/uL (150-450); RDW 14.2 % (11.5-15.5); WBC 5.9 k/uL (3.8-10.6)
[2022-12-30 05:46] LABS: Albumin 3.7 g/dL (3.5-5.0); Potassium 4.2 mmol/L (3.5-5.1); Total Bilirubin 0.3 mg/dL (0.2-1.3); Total Protein 6.6 g/dL (6.3-8.2)
[2022-12-30] MEDS: INSULIN ASPART (NovoLOG) 100 UNIT/ML VIAL SQ SCH (06:59)
[2022-12-30] MEDS: INSULIN DETEMIR (LEVEMIR) 100 UNIT/ML SYR SQ SCH (06:59)
[2022-12-30] MEDS: PANTOPRAZOLE 40 MG TABLET PO SCH (07:00)
--- NOTE | 2022-12-30 07:04 | HP ---
HISTORY AND PHYSICAL HISTORY OF PRESENT ILLNESS: This is a white male, who was admitted with a STEMI, taken to the crime lab analyst for which he was placed a stent in the right coronary artery. He is having chest pain over the last 2 weeks. He came into the hospital, he was admitted, and went to the crime lab analyst as mentioned for a STEMI with a heart catheterization and PTCA. Home medications were reviewed. Fourteen-point review of systems otherwise negative. PAST MEDICAL HISTORY: Father with diabetes mellitus, hypertension, DVT. Mother mass in the neck. REVIEW OF SYSTEMS: Fourteen-point review of systems negative. He is giving appropriate answers, talking to me in the ICU, laying flat on his back. PHYSICAL EXAMINATION: VITAL SIGNS: Blood pressure 140s over 70s to 80s, O2 98 to 99, heart rate is low 100s. CARDIOVASCULAR: S1, S2. LUNGS: Clear. GI: Soft. EXTREMITIES: Had 2+ edema. PSYCH: Fair mood and affect. NEUROLOGIC: Alert and oriented x3. He was given oxygen for comfort. Aspirin was started. Heart catheterization was done. He has acute on chronic anemia, elevated troponin. PROGNOSIS: Guarded. Wait for echo and heart catheterization. MMODL / IJN: [id number] /
[2022-12-30] MEDS ORDERED: ASPIRIN-ACET-CAFF 250-250-65MG 1 EACH TAB PO PRN (07:45)
[2022-12-30] MEDS: ASPIRIN 81 MG PO SCH (08:50)
[2022-12-30] MEDS: amLODIPine 5 MG TAB PO SCH (08:50)
--- NOTE | 2022-12-30 08:58 | P.PN ---
Subjective Progress Note Date: 12/30/22 PROGRESS NOTE The patient is a 52-year-old male with a known history of CAD, status post stenting of the LAD in 2017 who presented with an acute inferior wall myocardial infarction, his cardiac catheterization showed critical stenosis in the codominant left circumflex. He underwent stenting of that vessel. He is doing well this morning. He denies any chest discomfort, dizziness or palpitations. He continues to be in sinus mechanism. Hemodynamically he stable, in sinus mechanism with no arrhythmia. December 30: The patient feels well this morning, he denies any chest discomfort, dizziness or palpitations. He denies any nausea or vomiting. He is in sinus mechanism and hemodynamically stable. His blood pressures under better control. The patient has a known history of chronic kidney disease. He is anxious to go home. His echocardiogram showed a normal systolic function with no significant valvular disease Medications: Aspirin, Lipitor 80 mg daily, losartan 25 mg daily, metoprolol 50 mg twice a day, Effient 10 mg daily, Norvasc 5 mg daily, insulin,Farxiga 10 mg daily PHYSICAL EXAMINATION: Blood pressure 132/85 heart rate 80, obese LUNGS: Clear to auscultation HEART: Regular rate and rhythm, S1, S2. No S3. systolic ejection murmur ABDOMEN: Soft, nontender, no organomegaly EXTREMETIES: No edema, LAB: BUN and creatinine 27 and 1.65, improved compared to admission. His hemoglobin A1c was 9.7. IMPRESSION: 1. Status post inferior wall myocardial infarction and stenting of codominant left circumflex was preserved systolic function 2. Prior stenting of LAD in 2017, patent 3. hyperlipidemia 4. Diabetes, uncontrolled 5. History of hypertension 6. Chronic kidney disease PLAN 1. Continue present therapy 2. Discharged home today 3. Follow-up with Dr. Sam at the [facility] Objective - Vital Signs Vital signs: Vital Signs Temp 97.9 F 12/29/22 20:00 Pulse 76 12/29/22 15:00 Resp 17 12/30/22 00:00 BP 145/80 12/30/22 03:46 Pulse Ox 95 12/30/22 00:00 FiO2 Intake & Output 12/29/22 12/30/22 12/30/22 18:59 06:59 18:59 Intake Total 1242 20 Output Total 1725 500 Balance -483 -480 Weight 129.274 kg 130.2 kg Intake: IV 280 20 Invasive Line 1 20 20 Sodium Chloride 0.9% 1, 260 000 ml In Empty Bag 1 bag @ 1 ML/KG/HR 129.274 mls /hr IV .Q7H45M [facility] Rx#: [id number] Intake, IV Titration 130 Amount Sodium Chloride 0.9% 1, 130 000 ml In Empty Bag 1 bag @ 1 ML/KG/HR 129.274 mls /hr IV .Q7H45M [facility] Rx#: [id number] Oral 832 Output: Urine 1725 500 Other: Voiding Method Urinal Urinal # Voids 1 # Bowel Movements 0 - Labs CBC & Chem 7: 12/30/22 04:41 12/30/22 04:41 Labs: Abnormal Lab Results - Last 24 Hours (Table) 12/29/22 12/29/22 12/29/22 Range/Units 08:26 08:26 10:41 RBC (4.30-5.90) m/uL Hgb (13.0-17.5) gm/dL Hct (39.0-53.0) % BUN (9-20) mg/dL Creatinine (0.66-1.25) mg/dL Glucose (74-99) mg/dL POC Glucose (mg/dL) 268 H (70-110) mg/dL Hemoglobin A1c 9.7 H (0.0-6.0) % Troponin I 3.420 H* (0.000-0.034) ng/mL 12/29/22 12/29/22 12/30/22 Range/Units 16:04 20:29 04:41 RBC (4.30-5.90) m/uL Hgb (13.0-17.5) gm/dL Hct (39.0-53.0) % BUN 27 H (9-20) mg/dL Creatinine 1.65 H (0.66-1.25) mg/dL Glucose 153 H (74-99) mg/dL POC Glucose (mg/dL) 267 H 226 H (70-110) mg/dL Hemoglobin A1c (0.0-6.0) % Troponin I (0.000-0.034) ng/mL 12/30/22 Range/Units 04:41 RBC 3.60 L (4.30-5.90) m/uL Hgb 10.7 L (13.0-17.5) gm/dL Hct 31.5 L (39.0-53.0) % BUN (9-20) mg/dL Creatinine (0.66-1.25) mg/dL Glucose (74-99) mg/dL POC Glucose (mg/dL) (70-110) mg/dL Hemoglobin A1c (0.0-6.0) % Troponin I (0.000-0.034) ng/mL
[2022-12-30] MEDS ORDERED: METOPROLOL SUCCINATE (ER) 100 MG TAB.ER.24H PO SCH (09:00)
[2022-12-30] MEDS ORDERED: OLMESARTAN PO SCH (09:00)
[2022-12-30] MEDS ORDERED: LOSARTAN 25 MG TAB PO SCH (09:00)
[2022-12-30] MEDS ORDERED: LOSARTAN 50 MG TAB PO SCH (09:00)
[2022-12-30] MEDS ORDERED: HYDROCHLOROTHIAZIDE PO SCH (09:00)
[2022-12-30] MEDS ORDERED: [UNRECOGNIZED DRUG - OTHER] PO SCH (09:00)
[2022-12-30] MEDS ORDERED: DAPAGLIFLOZIN PROPANEDIOL 10 MG TABLET PO SCH (09:00)
[2022-12-30] MEDS ORDERED: hydroCHLOROthiazide 12.5 MG CAP PO SCH (09:00)
[2022-12-30] MEDS ORDERED: PRASUGREL 10 MG TAB PO SCH (09:00)
[2022-12-30 09:04] VITALS: BP 134/77; PULSE 78; RESP 16; TEMP 97.8
[2022-12-30] MEDS: METOPROLOL TARTRATE 50 MG TAB PO SCH (11:21)
== END 2022-12-30 12:30 | disposition home or self-care (01) | DRG 175 ==
LOC: EC 01:48 → 2SICU 02:34
PROVIDERS: ADMIT Family Medicine; ATTEND Family Medicine
PROC: B2111ZZ Fluoroscopy of Multiple Coronary Arteries using Low Osmolar Contrast (ICD-10-PCS; 2022-12-29)
PROC: 02703ZZ Dilation of Coronary Artery, One Artery, Percutaneous Approach (ICD-10-PCS; 2022-12-29)
PROC: 027034Z Dilation of Coronary Artery, One Artery with Drug-eluting Intraluminal Device, Percutaneous Approach (ICD-10-PCS; principal; 2022-12-29 02:24)
PROC: 4A023N7 Measurement of Cardiac Sampling and Pressure, Left Heart, Percutaneous Approach (ICD-10-PCS; 2022-12-29 02:24)
PROC: B241ZZ3 Ultrasonography of Multiple Coronary Arteries, Intravascular (ICD-10-PCS; 2022-12-29 02:24)
DX: I25.110 Atherosclerotic heart disease of native coronary artery with unstable angina pectoris (principal); D64.9 Anemia, unspecified; E11.22 Type 2 diabetes mellitus with diabetic chronic kidney disease; R79.89 Other specified abnormal findings of blood chemistry; I12.9 Hypertensive chronic kidney disease with stage 1 through stage 4 chronic kidney disease, or unspecified chronic kidney disease; I25.2 Old myocardial infarction; I08.1 Rheumatic disorders of both mitral and tricuspid valves; F31.9 Bipolar disorder, unspecified; N18.9 Chronic kidney disease, unspecified; Z79.4 Long term (current) use of insulin; Z79.899 Other long term (current) drug therapy; Z95.5 Presence of coronary angioplasty implant and graft; Z98.84 Bariatric surgery status
CPT/HCPCS: 36415; 71045; 80053; 80061; 83036; 84484; 85025; 85610; 85730; 92978; 93005; 93306; 93458; 96374; 99285

== ENCOUNTER 2023-02-25 23:48 | Observation (INO) | payer OTHER ==
--- NOTE | 2023-02-26 00:43 | ED ---
General Adult HPI - General Chief complaint: Urogenital Stated complaint: back pain Time Seen by Provider: 02/26/23 00:17 Source: patient Mode of arrival: EMS Limitations: no limitations - History of Present Illness Initial comments: Dictation was produced using [employer] dictation software. please excuse any grammatical, word or spelling errors. Chief Complaint: 52-year-old male with past medical history of CAD presents emergency Department with fatigue, acute on chronic back pain and oliguria History of Present Illness: Patient is a 52-year-old male who was at home by himself. Patient reports history of diabetes, dyslipidemia myocardial infarction infarction and chronic kidney disease. Over the last several hours he develop worsening weakness, fatigue and decreased urinary output. Denies any fever. Patient has no pain complaints. Patient arrived via EMS. He has no constitutional symptoms. Denies any upper respiratory symptoms. The ROS documented in this emergency department record has been reviewed and confirmed by me. Those systems with pertinent positive or negative responses have been documented in the HPI. All other systems are other negative and/or noncontributory. - Related Data Previous Rx's Medication Instructions Recorded Aspirin 81 mg PO DAILY 90 Days #90 tab 12/29/22 Atorvastatin [Lipitor] 80 mg PO HS 90 Days #90 tab 12/29/22 Dapagliflozin Propanediol [Farxiga] 10 mg PO DAILY 90 Days #90 tab 12/29/22 Insulin Detemir (Levemir) [Levemir] 40 unit SQ BID@0700,2100 30 Days 12/29/22 #240 each Losartan [Cozaar] 25 mg PO DAILY 90 Days #90 tab 12/29/22 Metoprolol Tartrate [Lopressor] 50 mg PO BID 90 Days #180 tab 12/29/22 Nitroglycerin Sl Tabs [Nitrostat] 0.4 mg SUBLINGUAL Q5M PRN 90 Days 12/29/22 #100 tab Pantoprazole [Protonix] 40 mg PO AC-BRKFST 30 Days #60 tab 12/29/22 Prasugrel [Effient] 10 mg PO DAILY 90 Days #90 tab 12/29/22 amLODIPine [Norvasc] 5 mg PO DAILY 90 Days #90 tab 12/29/22 Allergies Allergy/AdvReac Type Severity Reaction Status Date / Time prednisone AdvReac Steroid Verified 02/25/23 23:57 induced psychosis steroids AdvReac Unknown Hallucinati Uncoded 02/25/23 23:57 ons Review of Systems ROS Statement: Those systems with pertinent positive or pertinent negative responses have been documented in the HPI. ROS Other: All systems not noted in ROS Statement are negative. Past Medical History Past Medical History: Diabetes Mellitus, Hyperlipidemia, Hypertension, Myocardial Infarction (HI) Additional Past Medical History / Comment(s): hydrocephalus Last Myocardial Infarction Date:: 02/16/17 History of Any Multi-Drug Resistant Organisms: None Reported Past Surgical History: Appendectomy, Heart Catheterization, Heart Catheterization With Stent Additional Past Surgical History / Comment(s): lap band 2008, cardiac cath with stent to LAD 02/16/2017 Past Anesthesia/Blood Transfusion Reactions: No Reported Reaction Date of Last Stent Placement:: 02/16/17 Past Psychological History: Bipolar, Depression Smoking Status: Never smoker Past Alcohol Use History: None Reported Past Drug Use History: None Reported - Past Family History Father Family Medical History: Diabetes Mellitus, Deep Vein Thrombosis (DVT), Hypertension, Myocardial Infarction (HI) Mother Family Medical History: Cancer Additional Family Medical History / Comment(s): Brain tumor, mass removed from neck General Exam - General Exam Comments Initial Comments: PHYSICAL EXAM: General Impression: Alert and oriented x3, not in acute distress HEENT: Normocephalic atraumatic, extra-ocular movements intact, pupils equal and reactive to light bilaterally, mucous membranes moist. Cardiovascular: Heart regular rate and rhythm Chest: Able to complete full sentences, no retractions, no tachypnea Abdomen: abdomen soft, non-tender, non-distended, no organomegaly Musculoskeletal: Pulses present and equal in all extremities, no peripheral edema Motor: no focal deficits noted Neurological: CN II-XII grossly intact, no focal motor or sensory deficits noted Skin: Intact with no visualized rashes Psych: Normal affect and mood Limitations: no limitations Course Vital Signs 02/25/23 23:58 Temperature 98.2 F Pulse Rate 84 Respiratory 18 Rate Blood Pressure 126/87 O2 Sat by Pulse 99 Oximetry Medical Decision Making - Medical Decision Making Was pt. sent in by a medical professional or institution (, PA, INSTRUCTOR [employer]UST[employer], urgent care, hospital, or prison...) When possible be specific @ -No Did you speak to anyone other than the patient for history (EMS, parent, family, police, friend...)? What history was obtained from this source @ -No Did you review nursing and triage notes (agree or disagree)? Why? @ -I reviewed and agree with nursing and triage notes Were old charts reviewed (outside hosp., previous admission, EMS record, old EKG, old radiological studies, urgent care reports/EKG's, prison records)? Report findings @ -No old charts were reviewed Differential Diagnosis (chest pain, altered mental status, abdominal pain women, abdominal pain men, vaginal bleeding, musculoskeletal, weakness, fever, dyspnea, syncope, headache, dizziness, GI bleed, back pain, seizure, CVA, palpatations, mental health)? @ -Differential Weakness: Hypoglycemia, shock, sepsis, hyponatremia, anemia, infection, HI, ETOH, adverse medicine reaction, overdose, stroke, this is not meant to be an all-inclusive list. EKG interpreted by me (3pts min.). @ -My EKG interpretation: Ventricular rate 81, sinus rhythm,. 189, QRS 108, QTC 390. No [place] prolongation, no QTC prolongation, no ST or T-wave changes noted. Overall, this EKG is unremarkable X-rays interpreted by me (1pt min.). @ -None done CT interpreted by me (1pt min.). @ -None done U/S interpreted by me (1pt. min.). @ -None done What testing was considered but not performed or refused? (CT, X-rays, U/S, labs)? Why? @ -None What meds were considered but not given or refused? Why? @ -None Did you discuss the management of the patient with other professionals (professionals i.e. , PA, [employer], lab, RT, psych nurse, high school social studies tutor, medical physics researcher, teacher, transportation officer, assistant case manager)? Give summary @ -No Was smoking cessation discussed for >3mins.? @ -No Was critical care preformed (if so, how long)? @ -No Were there social determinants of health that impacted care today? How? (Homelessness, low income, unemployed, alcoholism, drug addiction, transportation, low edu. Level, literacy, decrease access to med. care, group home, rehab)? @ -No Was there de-escalation of care discussed even if they declined (Discuss DNR or withdrawal of care, Hospice)? DNR status @ -No What co-morbidities impacted this encounter? (DM, HTN, Smoking, COPD, CAD, Cancer, CVA, ARF, Chemo, Hep., AIDS, mental health diagnosis, sleep apnea, morbid obesity)? @ -None Was patient admitted / discharged? Hospital course, mention meds given and route, prescriptions, significant lab abnormalities, going to OR and other pertinent info. @ -52 Year-old male presents emergency Department with generalized weakness, and body shortness of breath. Patient vital signs are stable. Patient is well- appearing. Patient labs shows hypercalcemia of 14.3. No obvious source. Undiagnosed new problem with uncertain prognosis? @ -No Drug Therapy requiring intensive monitoring for toxicity (Heparin, Nitro, Insulin, Cardizem)? @ -No Were any procedures done? @ -No Diagnosis/symptom? Acute, or Chronic, or Acute on Chronic? Uncomplicated (without systemic symptoms) or Complicated (systemic symptoms)? @ -1. Hypercalcemia Side effects of treatment? @ -No Exacerbation, Progression, or Severe Exacerbation? @ -No Poses a threat to life or bodily function? How? (Chest pain, USA, HI, pneumonia, PE, COPD, DKA, ARF, appy, cholecystitis, CVA, Diverticulitis, Homicidal, Suicidal, threat to staff... and all critical care pts) @ -yes - Lab Data Result diagrams: 02/26/23 01:15 02/26/23 01:15 Lab Results 02/26/23 02/26/23 02/26/23 Range/Units 01:15 01:15 01:58 WBC 8.2 (3.8-10.6) k/uL RBC 4.87 (4.30-5.90) m/uL Hgb 13.6 (13.0-17.5) gm/dL Hct 41.4 (39.0-53.0) % MCV 85.0 (80.0-100.0) fL MCH 28.0 (25.0-35.0) pg MCHC 32.9 (31.0-37.0) g/dL RDW 13.3 (11.5-15.5) % Plt Count 212 (150-450) k/uL MPV 8.5 Neutrophils % 77 % Lymphocytes % 15 % Monocytes % 5 % Eosinophils % 1 % Basophils % 0 % Neutrophils # 6.4 (1.3-7.7) k/uL Lymphocytes # 1.2 (1.0-4.8) k/uL Monocytes # 0.4 (0-1.0) k/uL Eosinophils # 0.1 (0-0.7) k/uL Basophils # 0.0 (0-0.2) k/uL Sodium 133 L (137-145) mmol/L Potassium 4.5 (3.5-5.1) mmol/L Chloride 94 L (98-107) mmol/L Carbon Dioxide 25 (22-30) mmol/L Anion Gap 14 mmol/L BUN 33 H (9-20) mg/dL Creatinine 1.96 H (0.66-1.25) mg/dL Est GFR (CKD-EPI)AfAm 44 (>60 ml/min/1.73 sqM) Est GFR (CKD-EPI)NonAf 38 (>60 ml/min/1.73 sqM) Glucose 339 H (74-99) mg/dL Calcium 14.3 H* (8.4-10.2) mg/dL Magnesium 1.7 (1.6-2.3) mg/dL Total Bilirubin 0.6 (0.2-1.3) mg/dL AST 36 (17-59) U/L ALT 38 (4-49) U/L Alkaline Phosphatase 99 (38-126) U/L Total Protein 8.2 (6.3-8.2) g/dL Albumin 4.8 (3.5-5.0) g/dL Urine Color Light Yellow Urine Appearance Clear (Clear) Urine pH 5.5 (5.0-8.0) Ur Specific [place] 1.020 (1.001-1.035) Urine Protein 1+ H (Negative) Urine Glucose (UA) 4+ H (Negative) Urine Ketones 1+ H (Negative) Urine Blood Negative (Negative) Urine Nitrite Negative (Negative) Urine Bilirubin Negative (Negative) Urine Urobilinogen <2.0 (<2.0) mg/dL Ur Leukocyte Esterase Negative (Negative) Urine RBC 1 (0-5) /hpf Urine WBC 1 (0-5) /hpf Disposition Clinical Impression: Hypercalcemia Disposition: ADMITTED IP TO THIS [facility] Condition: Fair Referrals: Kenna Tran NPC [Primary Care Provider] - 1-2 days Decision Time: 03:00
[2023-02-26 01:25] LABS: Basophils % (A) 0 %; Eosinophils # (A) 0.1 k/uL (0-0.7); Eosinophils % (A) 1 %; HCT 41.4 % (39.0-53.0); HGB 13.6 gm/dL (13.0-17.5); Lymphocytes # (A) 1.2 k/uL (1.0-4.8); Lymphocytes % (A) 15 %; MCHC 32.9 g/dL (31.0-37.0); Mean Platelet Volume 8.5; Monocytes # (A) 0.4 k/uL (0-1.0); Monocytes % (A) 5 %; Neutrophils # (A) 6.4 k/uL (1.3-7.7); Neutrophils % (A) 77 %; Platelet Count 212 k/uL (150-450); RBC 4.87 m/uL (4.30-5.90); RDW 13.3 % (11.5-15.5); WBC 8.2 k/uL (3.8-10.6)
[2023-02-26 01:31] LABS: ALT 38 U/L (4-49); AST 36 U/L (17-59); African American GFR (CKD) 44 (>60 ml/min/1.73 sqM); Albumin 4.8 g/dL (3.5-5.0); Alkaline Phosphatase 99 U/L (38-126); Anion Gap 14 mmol/L; Blood Urea Nitrogen 33 mg/dL (9-20); Carbon Dioxide 25 mmol/L (22-30); Chloride 94 mmol/L (98-107); Glucose 339 mg/dL (74-99); Magnesium 1.7 mg/dL (1.6-2.3); Non-African American GFR(CKD) 38 (>60 ml/min/1.73 sqM); Potassium 4.5 mmol/L (3.5-5.1); Sodium 133 mmol/L (137-145); Total Bilirubin 0.6 mg/dL (0.2-1.3); Total Protein 8.2 g/dL (6.3-8.2)
[2023-02-26 02:26] LABS: Calcium 14.3 mg/dL (8.4-10.2)
[2023-02-26] MEDS ORDERED: SODIUM CHLORIDE 0.9% 1,000 ML IV STA (02:34)
[2023-02-26 02:56] LABS: Appearance,Urine Clear (Clear); Bilirubin,Urine Negative (Negative); Blood,Urine Negative (Negative); Color,Urine Light Yellow; Glucose,Urine (UA) 4+ (Negative); Ketones,Urine 1+ (Negative); Leukocyte Esterase,Urine Negative (Negative); Nitrite,Urine Negative (Negative); PH, Urine 5.5 (5.0-8.0); Protein,Urine 1+ (Negative); RBC,Urine 1 /hpf (0-5); Urobilinogen,Urine <2.0 mg/dL (<2.0); WBC,Urine 1 /hpf (0-5)
[2023-02-26] MEDS ORDERED: NALOXONE 0.4 MG/ML 1 ML VIAL IV PRN (03:14)
[2023-02-26 07:07] LABS: Glucose,Whole Blood 259 mg/dL (70-110)
[2023-02-26 11:04] LABS: Glucose,Whole Blood 427 mg/dL (70-110)
[2023-02-26] MEDS ORDERED: DEXTROSE 50% SYRINGE 50 ML IVP PRN ×2 (11:12)
--- NOTE | 2023-02-26 11:22 | HP ---
HISTORY AND PHYSICAL CHIEF COMPLAINT: Back pain. HISTORY OF PRESENT ILLNESS: This is a 52-year-old gentleman, who was admitted with fatigue, [id number] back pain, and oliguria. Also, he had a renal failure. The patient also was found to have significant hypercalcemia. Calcium was found to be 14.3. IV fluids were initiated. There is no history of any fever, rigors, or chills at this time. PAST MEDICAL HISTORY: Reviewed includes hypertension and hyperlipidemia. Rest of the history and rest of the chart are also reviewed. HOME MEDICATIONS: Reviewed include Norvasc. Rest of the medications and doses are reviewed. ALLERGIES: Reviewed include steroids. FAMILY HISTORY: Reviewed includes history of DVT. SOCIAL HISTORY: No history of smoking or alcohol. REVIEW OF SYSTEMS: Fourteen-point review is negative except as mentioned earlier. PHYSICAL EXAMINATION: VITAL SIGNS: Pulse 74, blood pressure 123/80, respirations 16. HEENT: Conjunctivae are normal. NECK: No jugular venous distention. CARDIOVASCULAR: S1 and S2. RESPIRATORY: Clear to auscultation. ABDOMEN: Soft. Obese. LEGS: No edema. NERVOUS SYSTEM: No focal deficit. SKIN: No ulcers or rashes. JOINTS: No active deforming arthropathy. LABORATORY DATA: Reviewed. ASSESSMENT: 1. Hypercalcemia, dehydration. 2. Acute renal failure, multifactorial. 3. Back pain and degenerative joint disease. 4. Diabetes mellitus, type 2. 5. Hypertension. 6. Hyperlipidemia. 7. Multiple medical issues. 8. Coronary artery disease, stent. RECOMMENDATIONS AND DISCUSSION: In this 52-year-old gentleman presented with multiple complex medical issues, we will monitor the patient closely. We will initiate IV fluids. Nephrology consultation. Monitor calcium closely. Exact etiology is unknown at this time. The prognosis is extremely guarded because of multiple complex medical issues. Further recommendations to follow. See orders for the details. MMODL / IJN: [id number] /
[2023-02-26] MEDS ORDERED: NITROGLYCERIN SL TABS 0.4 MG TAB SUBLINGUAL PRN (12:25)
[2023-02-26] MEDS ORDERED: LORATADINE 10 MG TAB PO PRN (12:25)
[2023-02-26] MEDS ORDERED: DAPAGLIFLOZIN PROPANEDIOL 10 MG TABLET PO SCH (12:30)
[2023-02-26] MEDS: INSULIN ASPART (NovoLOG) 100 UNIT/ML VIAL SQ SCH ×3 (12:40→21:10)
--- NOTE | 2023-02-26 13:05 | P.NPCON ---
History of Present Illness - Reason for Consult acute renal failure - History of Present Illness Patient is a 52-year-old male with history of chronic kidney disease NKF stage IV with baseline creatinine around 1.7-1.6 mg/dL. Patient is admitted to the hospital with complaints of increased fatigue and flank pain. Patient also noticed he was not voiding as much although he had been drinking large amount of fluid. Patient was started on farxiga a few months ago and has had increased urine output since the medication was started. Labs showed serum calcium of 14.3, creatinine at 1.9. Patient admitted to occasional use of Tums 2-3 times over the last couple of days as he ran out of [employer]. No other history of hypercalcemia. No respiratory symptoms No history of smoking. Started on IV fluids with improvement in urine output. Review of Systems As per HPI Past Medical History Past Medical History: Diabetes Mellitus, Hyperlipidemia, Hypertension, Myocardial Infarction ([place]) Additional Past Medical History / Comment(s): hydrocephalus Last Myocardial Infarction Date:: 12/31 History of Any Multi-Drug Resistant Organisms: None Reported Past Surgical History: Appendectomy, Heart Catheterization, Heart Catheterization With Stent Additional Past Surgical History / Comment(s): lap band 2008, cardiac cath with stent to LAD 02/16/2017; recently in December at [facility] Past Anesthesia/Blood Transfusion Reactions: No Reported Reaction Date of Last Stent Placement:: 12/31 Past Psychological History: Bipolar, Depression Smoking Status: Never smoker Past Alcohol Use History: None Reported Past Drug Use History: None Reported - Past Family History Father Family Medical History: Diabetes Mellitus, Deep Vein Thrombosis (DVT), Hypertension, Myocardial Infarction ([place]) Mother Family Medical History: Cancer Additional Family Medical History / Comment(s): Brain tumor, mass removed from neck Medications and Allergies Home Medications Medication Instructions Recorded Confirmed Type Aspirin 81 mg PO DAILY 90 Days #90 tab 12/29/22 02/26/23 Rx Atorvastatin [Lipitor] 80 mg PO HS 90 Days #90 tab 12/29/22 02/26/23 Rx Dapagliflozin Propanediol [Farxiga] 10 mg PO DAILY 90 Days #90 tab 12/29/22 02/26/23 Rx Insulin Detemir (Levemir) [Levemir] 40 unit SQ BID@0700,2100 30 Days 12/29/22 02/26/23 Rx #240 each Losartan [Cozaar] 25 mg PO DAILY 90 Days #90 tab 12/29/22 02/26/23 Rx Nitroglycerin Sl Tabs [Nitrostat] 0.4 mg SUBLINGUAL Q5M PRN 90 Days 12/29/22 02/26/23 Rx #100 tab Pantoprazole [Protonix] 40 mg PO AC-BRKFST 30 Days #60 tab 12/29/22 02/26/23 Rx Prasugrel [Effient] 10 mg PO DAILY 90 Days #90 tab 12/29/22 02/26/23 Rx amLODIPine [Norvasc] 5 mg PO DAILY 90 Days #90 tab 12/29/22 02/26/23 Rx Cetirizine HCl [Zyrtec] 10 mg PO DAILY PRN 02/26/23 02/26/23 History Insulin Lispro [Insulin Lispro See Protocol SQ AC-TID 02/26/23 02/26/23 History Kwikpen U-100] Mesal/Menth/Camph/Siberian Fir 1 inhalation NASAL Q1H PRN 02/26/23 02/26/23 History [Vicks Vapoinhaler] Metoprolol Tartrate [Lopressor] 100 mg PO BID 02/26/23 02/26/23 History Allergies Allergy/AdvReac Type Severity Reaction Status Date / Time prednisone AdvReac Steroid Verified 02/26/23 06:56 induced psychosis steroids AdvReac Unknown Hallucinati Uncoded 02/26/23 06:56 ons Physical Exam Vitals: Vital Signs Temp Pulse Pulse Resp BP BP Pulse Ox 02/26/23 12:24 98.5 F 80 16 150/79 97 02/26/23 07:07 97.9 F 74 16 153/88 98 02/26/23 05:57 98.9 F 78 18 140/84 98 02/26/23 04:00 98 F 75 16 157/75 100 02/25/23 23:58 98.2 F 84 18 126/87 99 Intake and Output 02/25/23 02/26/23 02/26/23 22:59 06:59 14:59 Other: Voiding Method Toilet Weight 124.738 kg Awake, comfortable, no acute distress Alert oriented 3 Examination of the heart S1 and S2 Examination of the lungs bilateral breath sounds are heard Abdomen is soft nontender Examination of lower extremities shows no evidence of edema COUNTER [employer]KER exam grossly intact Results - Lab Results Most recent lab results Calcium 14.3 mg/dL (8.4-10.2) H* 02/26/23 01:15 Magnesium 1.7 mg/dL (1.6-2.3) 02/26/23 01:15 02/26/23 01:15 02/26/23 01:15 Assessment and Plan Assessment: 1. Hypercalcemia with history of recent use of Tums although not a large amount. Patient is also hypovolemic and is currently being hydrated. Initial workup for hypercalcemia has been initiated. 2. Acute kidney injury associated with hypercalcemia and volume depletion 3. Chronic kidney disease NKF stage IIIB with baseline creatinine about 1.7 mg/dL etiology is likely diabetic kidney disease 4. Type 2 diabetes maintained on insulin, angiotensin receptor blockers and SGLT2 i 5. Coronary artery disease with history of recent [place] in December 2022 status post cardiac catheterization and coronary stent placement Plan: Continue with IV fluids Check PTH, 25-hydroxy vitamin D and 1, 25-hydroxy vitamin D, serum and urine immunofixation. Check Mau level Repeat labs in a.m. Avoid use of Tums [place] next Thank you for the consultation. We will continue to follow the patient with you during his hospitalization.
[2023-02-26] MEDS: amLODIPine 5 MG TAB PO SCH (13:38)
[2023-02-26] MEDS: SODIUM CHLORIDE 0.9% 1,000 ML IV SCH ×3 (13:44→21:30)
[2023-02-26] MEDS: INSULIN DETEMIR (LEVEMIR) 100 UNIT/ML SYR SQ SCH ×2 (14:41→21:15)
[2023-02-26 17:10] LABS: Glucose,Whole Blood 292 mg/dL (70-110)
[2023-02-26 20:20] LABS: Glucose,Whole Blood 472 mg/dL (70-110)
[2023-02-26] MEDS: PANTOPRAZOLE 40 MG/10 ML VIAL IVP SCH (21:10)
[2023-02-26] MEDS: METOPROLOL TARTRATE 50 MG TAB PO SCH (21:11)
[2023-02-26] MEDS: ATORVASTATIN 80 MG TAB PO SCH (21:11)
[2023-02-26 22:19] LABS: Glucose,Whole Blood 356 mg/dL (70-110)
[2023-02-27] MEDS ORDERED: ACETAMINOPHEN TAB 325 MG TAB PO PRN (00:32)
[2023-02-27] MEDS: SODIUM CHLORIDE 0.9% 1,000 ML IV SCH ×3 (04:51→17:57)
[2023-02-27 07:07] LABS: Glucose,Whole Blood 144 mg/dL (70-110)
[2023-02-27] MEDS: INSULIN ASPART (NovoLOG) 100 UNIT/ML VIAL SQ SCH ×4 (07:14→21:26)
[2023-02-27] MEDS ORDERED: PANTOPRAZOLE 40 MG TABLET PO SCH (07:30)
[2023-02-27] MEDS: INSULIN DETEMIR (LEVEMIR) 100 UNIT/ML SYR SQ SCH ×2 (08:34→21:26)
[2023-02-27] MEDS: PANTOPRAZOLE 40 MG/10 ML VIAL IVP SCH ×2 (08:34→21:26)
[2023-02-27] MEDS: PRASUGREL 10 MG TAB PO SCH (08:35)
[2023-02-27] MEDS: amLODIPine 5 MG TAB PO SCH (08:35)
[2023-02-27] MEDS: METOPROLOL TARTRATE 50 MG TAB PO SCH ×2 (08:35→21:26)
[2023-02-27] MEDS: ASPIRIN 81 MG PO SCH (08:35)
[2023-02-27] MEDS: LOSARTAN 25 MG TAB PO SCH (08:35)
[2023-02-27 09:28] LABS: Basophils # (A) 0.03 X 10*3/uL (0.00-0.10); Basophils % (A) 0.6 %; Eosinophils # (A) 0.19 X 10*3/uL (0.04-0.35); Eosinophils % (A) 3.7 %; HCT 33.2 % (39.6-50.0); HGB 10.8 d/dL (12.0-15.0); Lymphocytes # (A) 1.81 X 10*3/uL (0.90-5.00); Lymphocytes % (A) 34.9 %; MCH 27.8 pg (27.0-32.0); MCHC 32.5 d/dL (32.0-37.0); MCV 85.3 FL (80.0-97.0); Mean Platelet Volume 12.1 FL (9.5-12.2); Monocytes # (A) 0.46 X 10*3/uL (0.20-1.00); Monocytes % (A) 8.9 %; NRBC Per 100 WBC 0 X 10*3/uL (0.00-0.01); Neutrophils # (A) 2.68 X 10*3/uL (1.80-7.70); Neutrophils % (A) 51.7 %; Platelet Count 190 X 10*3/uL (140-440); RBC 3.89 X 10*6/uL (4.40-5.60); WBC 5.18 X 10*3/uL (4.50-10.00)
[2023-02-27 11:21] LABS: Angiotensin-1 Converting Enz. 25 U/L (8-52)
--- NOTE | 2023-02-27 11:21 | PN ---
PROGRESS NOTE DATE OF SERVICE: 02/27/2023 SUBJECTIVE: This is a 52-year-old gentleman admitted with significant hypercalcemia, dehydration, reporting not feeling well. Repeat calcium is not available at this time. Hypercalcemia could be due to a large amount of Tums usage. OBJECTIVE: VITAL SIGNS: Pulse is 58, blood pressure is 130/72, respirations 18. CHEST: Clear to auscultation. CARDIAC: S1, S2. ABDOMEN: Soft. NERVOUS SYSTEM: Nonfocal. LABORATORY DATA: Noted. ASSESSMENT: 1. Severe hypercalcemia, dehydration, present on admission. 2. Acute renal failure, multifactorial. 3. Back pain and degenerative joint disease. 4. Diabetes mellitus, type 2. 5. Hypertension. 6. Hyperlipidemia. 7. CAD, stent. 8. Multiple complex medical issues. RECOMMENDATIONS AND DISCUSSION: Recommend to continue current medications. Recommend Protonix also. Otherwise continue with IV fluids. Repeat labs in the morning. Further recommendations. Closely follow with Nephrology. MMODL / IJN: [id number] /
[2023-02-27 11:54] LABS: Glucose,Whole Blood 164 mg/dL (70-110)
--- NOTE | 2023-02-27 13:55 | P.PN ---
Subjective Patient is seen for follow-up for hypercalcemia and acute kidney injury on top of chronic kidney disease. Labs are pending from today. Overall patient states he has had good urine output PTH noted to be appropriately low. Currently maintained on normal saline. Objective - Vital Signs Vital signs: Vital Signs Temp 97.4 F L 02/27/23 07:23 Pulse 58 L 02/27/23 07:23 Resp 18 02/27/23 07:23 BP 137/74 02/27/23 07:23 Pulse Ox 95 02/27/23 07:23 FiO2 Intake & Output 02/26/23 02/27/23 02/27/23 18:59 06:59 18:59 Other: Voiding Method Toilet # Voids 2 2 # Bowel Movements 1 0 - Exam Awake, comfortable, no acute distress Alert oriented 3 Examination of the heart S1 and S2 Examination of the lungs bilateral breath sounds are heard Abdomen is soft nontender Examination of lower extremities shows no evidence of edema HAMMER REPAIRER exam grossly intact - Labs CBC & Chem 7: 02/27/23 05:59 02/26/23 01:15 Labs: Abnormal Lab Results - Last 24 Hours (Table) 02/26/23 02/26/23 02/26/23 Range/Units 10:23 17:08 20:18 RBC (4.40-5.60) X 10*6/uL Hgb (12.0-15.0) d/dL Hct (39.6-50.0) % POC Glucose (mg/dL) 292 H 472 H (70-110) mg/dL PTH Intact 7.8 L (14.0-72.0) pg/mL 02/26/23 02/27/23 02/27/23 Range/Units 22:17 05:59 07:06 RBC 3.89 L (4.40-5.60) X 10*6/uL Hgb 10.8 L (12.0-15.0) d/dL Hct 33.2 L (39.6-50.0) % POC Glucose (mg/dL) 356 H 144 H (70-110) mg/dL PTH Intact (14.0-72.0) pg/mL 02/27/23 Range/Units 11:53 RBC (4.40-5.60) X 10*6/uL Hgb (12.0-15.0) d/dL Hct (39.6-50.0) % POC Glucose (mg/dL) 164 H (70-110) mg/dL PTH Intact (14.0-72.0) pg/mL Assessment and Plan Assessment: 1. Hypercalcemia with history of recent use of Tums although not a large amount. Patient is also hypovolemic and is currently being hydrated. Initial workup for hypercalcemia has been initiated. 2. Acute kidney injury associated with hypercalcemia and volume depletion 3. Chronic kidney disease NKF stage IIIB with baseline creatinine about 1.7 mg/dL etiology is likely diabetic kidney disease 4. Type 2 diabetes maintained on insulin, angiotensin receptor blockers and SGLT2 i 5. Coronary artery disease with history of recent [place] in December 2022 status post cardiac catheterization and coronary stent placement Plan: Await lab results. Continue with saline for now Patient is advised to continue to avoid use of Tums.
[2023-02-27 17:25] LABS: Glucose,Whole Blood 246 mg/dL (70-110)
[2023-02-27 20:03] LABS: Glucose,Whole Blood 325 mg/dL (70-110)
[2023-02-27 20:53] LABS: ALT 24 U/L (10-49); AST 17 U/L (14-35); Albumin/Globulin Ratio 1.82 Ratio (1.60-3.17); Alkaline Phosphatase 80 U/L (41-126); BUN/Creat Ratio 15.11 Ratio (12.00-20.00); Blood Urea Nitrogen 28.7 mg/dL (9.0-27.0); Calcium 10.9 mg/dL (8.7-10.3); Carbon Dioxide 24.2 mmol/L (21.6-31.8); Chloride 104 mmol/L (96-109); Globulin 2.2 d/dL (1.6-3.3); Glucose 159 mg/dL (70-110); Potassium 3.9 mmol/L (3.5-5.5); Sodium 139 mmol/L (135-145); Total Bilirubin <0.2 mg/dL (0.3-1.2); Total Protein 6.2 d/dL (6.2-8.2)
[2023-02-27 20:55] LABS: Vitamin D, 1, 25-Dihydroxy 5 pg/mL (20 - 79)
[2023-02-27] MEDS: ATORVASTATIN 80 MG TAB PO SCH (21:26)
[2023-02-28] MEDS: SODIUM CHLORIDE 0.9% 1,000 ML IV SCH (05:31)
[2023-02-28 06:07] LABS: African American GFR (CKD) 47 (>60 ml/min/1.73 sqM); Anion Gap 5 mmol/L; Blood Urea Nitrogen 23 mg/dL (9-20); Calcium 9.2 mg/dL (8.4-10.2); Carbon Dioxide 25 mmol/L (22-30); Chloride 108 mmol/L (98-107); Glucose 169 mg/dL (74-99); Non-African American GFR(CKD) 41 (>60 ml/min/1.73 sqM); Potassium 3.8 mmol/L (3.5-5.1); Sodium 138 mmol/L (137-145)
[2023-02-28 06:22] LABS: Basophils % (A) 1 %; Eosinophils # (A) 0.2 k/uL (0-0.7); Eosinophils % (A) 4 %; HCT 32.6 % (39.0-53.0); HGB 10.9 gm/dL (13.0-17.5); Lymphocytes # (A) 1.5 k/uL (1.0-4.8); Lymphocytes % (A) 29 %; MCH 28.8 pg (25.0-35.0); MCHC 33.4 g/dL (31.0-37.0); MCV 86.3 fL (80.0-100.0); Mean Platelet Volume 8.8; Monocytes # (A) 0.3 k/uL (0-1.0); Monocytes % (A) 6 %; Neutrophils % (A) 59 %; Platelet Count 166 k/uL (150-450); RBC 3.77 m/uL (4.30-5.90); RDW 13.5 % (11.5-15.5); WBC 5.1 k/uL (3.8-10.6)
[2023-02-28 07:05] LABS: Glucose,Whole Blood 158 mg/dL (70-110)
--- NOTE | 2023-02-28 07:58 | P.PN ---
Subjective Patient is seen in follow-up for acute kidney injury on chronic kidney disease and hypercalcemia. Calcium level normal. Renal function also stable. Receiving IV fluids. No vomiting or diarrhea. Oral intake improved. Vital signs are stable. General: No acute distress. HEENT: Head exam is unremarkable. LUNGS: No audible rhonchi or wheezes. HEART: Rate and Rhythm are regular. ABDOMEN: Soft, obese. EXTREMITITES: No edema. Objective - Vital Signs Vital signs: Vital Signs Temp 98.4 F 02/28/23 02:42 Pulse 60 02/28/23 02:42 Resp 18 02/28/23 02:42 BP 168/82 02/28/23 02:42 Pulse Ox 99 02/28/23 02:42 FiO2 Intake & Output 02/27/23 02/28/23 02/28/23 18:59 06:59 18:59 Intake Total 1560 Balance 1560 Intake: Intake, IV Titration 1560 Amount Sodium Chloride 0.9% 1, 1560 000 ml @ 130 mls/hr IV . Q7H42M [facility] Rx#:[id number] Other: Voiding Method Toilet # Voids 2 - Labs CBC & Chem 7: 02/28/23 05:40 02/28/23 05:40 Labs: Abnormal Lab Results - Last 24 Hours (Table) 02/26/23 02/26/23 02/27/23 Range/Units 10:23 10:23 05:59 RBC (4.40-5.60) X 10*6/uL Hgb (12.0-15.0) d/dL Hct (39.6-50.0) % Chloride (98-107) mmol/L BUN (9.0-27.0) mg/dL Creatinine (0.6-1.5) mg/dL Est GFR (CKD-EPI) (>=60) Glucose (70-110) mg/dL POC Glucose (mg/dL) (70-110) mg/dL Hemoglobin A1c 10.2 H (<=6.0) % Calcium (8.7-10.3) mg/dL Total Bilirubin (0.3-1.2) mg/dL Vitamin D 25-Hydroxy 25.9 L (30.0-100.0) ng/mL Vit D 1,25-Dihydroxy 5 L (20 - 79) pg/mL 02/27/23 02/27/23 02/27/23 Range/Units 05:59 05:59 11:53 RBC 3.89 L (4.40-5.60) X 10*6/uL Hgb 10.8 L (12.0-15.0) d/dL Hct 33.2 L (39.6-50.0) % Chloride (98-107) mmol/L BUN 28.7 H (9.0-27.0) mg/dL Creatinine 1.9 H (0.6-1.5) mg/dL Est GFR (CKD-EPI) 41 L (>=60) Glucose 159 H (70-110) mg/dL POC Glucose (mg/dL) 164 H (70-110) mg/dL Hemoglobin A1c (<=6.0) % Calcium 10.9 H (8.7-10.3) mg/dL Total Bilirubin <0.2 L (0.3-1.2) mg/dL Vitamin D 25-Hydroxy (30.0-100.0) ng/mL Vit D 1,25-Dihydroxy (20 - 79) pg/mL 02/27/23 02/27/23 02/28/23 Range/Units 17:23 20:01 05:40 RBC 3.77 L (4.40-5.60) X 10*6/uL Hgb 10.9 L (12.0-15.0) d/dL Hct 32.6 L (39.6-50.0) % Chloride (98-107) mmol/L BUN (9.0-27.0) mg/dL Creatinine (0.6-1.5) mg/dL Est GFR (CKD-EPI) (>=60) Glucose (70-110) mg/dL POC Glucose (mg/dL) 246 H 325 H (70-110) mg/dL Hemoglobin A1c (<=6.0) % Calcium (8.7-10.3) mg/dL Total Bilirubin (0.3-1.2) mg/dL Vitamin D 25-Hydroxy (30.0-100.0) ng/mL Vit D 1,25-Dihydroxy (20 - 79) pg/mL 02/28/23 02/28/23 Range/Units 05:40 07:01 RBC (4.40-5.60) X 10*6/uL Hgb (12.0-15.0) d/dL Hct (39.6-50.0) % Chloride 108 H (98-107) mmol/L BUN 23 H (9.0-27.0) mg/dL Creatinine 1.83 H (0.6-1.5) mg/dL Est GFR (CKD-EPI) (>=60) Glucose 169 H (70-110) mg/dL POC Glucose (mg/dL) 158 H (70-110) mg/dL Hemoglobin A1c (<=6.0) % Calcium (8.7-10.3) mg/dL Total Bilirubin (0.3-1.2) mg/dL Vitamin D 25-Hydroxy (30.0-100.0) ng/mL Vit D 1,25-Dihydroxy (20 - 79) pg/mL Assessment and Plan Plan: Assessment: 1. Acute kidney injury mostly prerenal secondary to hypercalcemia-induced hypovolemia. Renal function improving. Creatinine 1.83. 2. Chronic kidney disease stage IIIB with baseline creatinine near 1.7. Suspect diabetic kidney disease. 3. Hypercalcemia secondary to volume contraction and Tums. Resolved with IV hydration. PTH low at 7.8. Vitamin D and 1,25D3 levels not high. AMISH normal. No monoclonality on serum immunofixation. 4. Hypertension with chronic kidney disease. 5. Diabetes mellitus. Plan: Hep-Lock IV fluids. Encouraged oral intake. Check PTH related peptide. Avoid nephrotoxic agents. Follow up outpatient 1-2 weeks post discharge.
[2023-02-28] MEDS: PANTOPRAZOLE 40 MG/10 ML VIAL IVP SCH (08:13)
[2023-02-28 08:14] VITALS: BP 145/79; PULSE 63; RESP 16; TEMP 97.8
[2023-02-28] MEDS: PRASUGREL 10 MG TAB PO SCH (08:14)
[2023-02-28] MEDS: METOPROLOL TARTRATE 50 MG TAB PO SCH (08:14)
[2023-02-28] MEDS: amLODIPine 5 MG TAB PO SCH (08:14)
[2023-02-28] MEDS: INSULIN ASPART (NovoLOG) 100 UNIT/ML VIAL SQ SCH ×2 (08:14→12:50)
[2023-02-28] MEDS: ASPIRIN 81 MG PO SCH (08:14)
[2023-02-28] MEDS: INSULIN DETEMIR (LEVEMIR) 100 UNIT/ML SYR SQ SCH (08:14)
[2023-02-28] MEDS: LOSARTAN 25 MG TAB PO SCH (08:14)
[2023-02-28 11:51] LABS: Glucose,Whole Blood 215 mg/dL (70-110)
[2023-02-28 11:57] VITALS: BMI 40.6
--- NOTE | 2023-03-01 06:40 | P.DS ---
Providers Date of admission: 02/26/23 03:15 Expected date of discharge: 02/28/23 Attending physician: Tamia Hannon Consults: 02/26/23 03:14 Consult Physician Routine Consulting Provider: Harmony Murphy Consult Reason/Comments: hypercalcemia Do you want consulting provider notified?: Yes Primary care physician: GOVIND Viera Hospital Course: Final diagnosis Severe hypercalcemia, dehydration, present on admission Acute renal failure, multifactorial Back pain and degenerative joint disease history Diabetes mellitus, type II Hypertension Hyperlipidemia Coronary artery disease with stenting Morbid obesity with BMI of 40.6 GI prophylaxis DVT prophylaxis Full code Discharge disposition Patient is being discharged in a stable condition with guarded prognosis to home. Patient will follow-up with Kenna Tran OIL WELL LOGGER in the outpatient setting upon discharge. Patient is to avoid Tums and excess calcium and recommend follow-up with nephrology outpatient as scheduled. Total time taken is greater than 35 minutes. Hospital course This is a 52-year-old male who was recently admitted with hypercalcemia and not feeling well. Patient was evaluated by nephrology and follow-up labs have improved recommending avoiding Tums and excess calcium. Patient feeling a little improved and able to tolerate oral intake and has been cleared by consultations. Please refer to consultation notes for further HPI. Currently no reports of chest pain, shortness of breath, or palpitations. Patient is afebrile. No reports of nausea or vomiting and patient is tolerating diet. P atient will be discharged home today. Physical exam: Gen: This is a 52-year-old male who is awake, alert and oriented 3, well- developed, well-nourished, morbidly obese HEENT: Head is atraumatic, normocephalic. Pupils equal, round. Sclerae is anicteric. NECK: Supple. No JVD. No lymphadenopathy. No thyromegaly. LUNGS: Clear to auscultation. No wheezes or rhonchi. No intercostal retractions. HEART: Regular rate and rhythm. No murmur. ABDOMEN: Soft. Obese. Bowel sounds are present. No masses. No tenderness. EXTREMITIES: No pedal edema. No calf tenderness. NEUROLOGICAL: Patient is awake, alert and oriented x3. Cranial nerves 2 through 12 are grossly intact. Please refer to medication reconciliation sheet for a list of medications. The impression and plan of care has been dictated by Celine Garcia, Nurse Practitioner as directed. Dr. Parvez MD I have performed a history and examination and MDM of this patient, discussed the same with the dictator, and agree with the dictator's assessment and plan as written ,documented as a scribe. Based on total visit time, I have performed more than 50% of the visit. Patient Condition at Discharge: Fair Plan - Discharge Summary New Discharge Prescriptions: New Acetaminophen Tab [Tylenol] 650 mg PO Q6HR PRN tab PRN Reason: Fever And/ Or Pain Continue Aspirin 81 mg PO DAILY 90 Days #90 tab Losartan [Cozaar] 25 mg PO DAILY 90 Days #90 tab Nitroglycerin Sl Tabs [Nitrostat] 0.4 mg SUBLINGUAL Q5M PRN 90 Days #100 tab PRN Reason: Chest Pain amLODIPine [Norvasc] 5 mg PO DAILY 90 Days #90 tab Metoprolol Tartrate [Lopressor] 100 mg PO BID Prasugrel [Effient] 10 mg PO DAILY 90 Days #90 tab Dapagliflozin Propanediol [Farxiga] 10 mg PO DAILY 90 Days #90 tab Insulin Detemir (Levemir) [Levemir] 40 unit SQ BID@0700,2100 30 Days #240 each Atorvastatin [Lipitor] 80 mg PO HS 90 Days #90 tab Pantoprazole [Protonix] 40 mg PO AC-BRKFST 30 Days #60 tab Mesal/Menth/Camph/Siberian Fir [Vicks Vapoinhaler] 1 inhalation NASAL Q1H PRN PRN Reason: Congestion Cetirizine HCl [Zyrtec] 10 mg PO DAILY PRN PRN Reason: Allergy Symptoms Insulin Lispro [Insulin Lispro Kwikpen U-100] See Protocol SQ AC-TID Discharge Medication List Aspirin 81 mg PO DAILY 90 Days #90 tab 12/29/22 [Rx] Atorvastatin [Lipitor] 80 mg PO HS 90 Days #90 tab 12/29/22 [Rx] Dapagliflozin Propanediol [Farxiga] 10 mg PO DAILY 90 Days #90 tab 12/29/22 [Rx] Insulin Detemir (Levemir) [Levemir] 40 unit SQ BID@0700,2100 30 Days #240 each 12/29/22 [Rx] Losartan [Cozaar] 25 mg PO DAILY 90 Days #90 tab 12/29/22 [Rx] Nitroglycerin Sl Tabs [Nitrostat] 0.4 mg SUBLINGUAL Q5M PRN 90 Days #100 tab 12/29/22 [Rx] Pantoprazole [Protonix] 40 mg PO AC-BRKFST 30 Days #60 tab 12/29/22 [Rx] Prasugrel [Effient] 10 mg PO DAILY 90 Days #90 tab 12/29/22 [Rx] amLODIPine [Norvasc] 5 mg PO DAILY 90 Days #90 tab 12/29/22 [Rx] Cetirizine HCl [Zyrtec] 10 mg PO DAILY PRN 02/26/23 [History] Insulin Lispro [Insulin Lispro Kwikpen U-100] See Protocol SQ AC-TID 02/26/23 [History] Mesal/Menth/Camph/Siberian Fir [Vicks Vapoinhaler] 1 inhalation NASAL Q1H PRN 02/26/23 [History] Metoprolol Tartrate [Lopressor] 100 mg PO BID 02/26/23 [History] Acetaminophen Tab [Tylenol] 650 mg PO Q6HR PRN tab 02/28/23 [Rx] Follow up Appointment(s)/Referral(s): Kenna Tran NPC [Primary Care Provider] - 03/07/23 11:00 am Nathen Granados DO [STAFF PHYSICIAN] - 03/30/23 9:20 am Ambulatory/Diagnostic Orders: Comprehensive Metabolic Panel [LAB.AMB] Time Frame: 3 Days, Location: None Selected Patient Instructions/Handouts: Hypercalcemia (DC) Discharge/Stand Alone Forms: Who Do I Call?, Community Resources, Help In The Home Discharge Disposition: HOME SELF-CARE
== END 2023-02-28 14:20 | disposition home or self-care (01) ==
LOC: EC 23:48 → INTOOBSV 02-26 03:15 → 5NMEDONC 02-26 03:15 → UNDODISIN 02-28 14:20
PROVIDERS: ADMIT Hospitalist; ATTEND Hospitalist
DX: E83.52 Hypercalcemia (principal); E86.0 Dehydration; N17.9 Acute kidney failure, unspecified; I12.9 Hypertensive chronic kidney disease with stage 1 through stage 4 chronic kidney disease, or unspecified chronic kidney disease; N18.32 Chronic kidney disease, stage 3b; E11.22 Type 2 diabetes mellitus with diabetic chronic kidney disease; E78.5 Hyperlipidemia, unspecified; E86.1 Hypovolemia; I25.10 Atherosclerotic heart disease of native coronary artery without angina pectoris; I25.2 Old myocardial infarction; G89.29 Other chronic pain; M19.90 Unspecified osteoarthritis, unspecified site; E66.01 Morbid (severe) obesity due to excess calories; Z68.41 Body mass index [BMI] 40.0-44.9, adult; F31.9 Bipolar disorder, unspecified; Z79.82 Long term (current) use of aspirin; Z79.02 Long term (current) use of antithrombotics/antiplatelets; Z79.84 Long term (current) use of oral hypoglycemic drugs; Z79.4 Long term (current) use of insulin; Z79.899 Other long term (current) drug therapy; Z88.8 Allergy status to other drugs, medicaments and biological substances; Z90.49 Acquired absence of other specified parts of digestive tract; Z98.84 Bariatric surgery status; Z86.69 Personal history of other diseases of the nervous system and sense organs; Z95.5 Presence of coronary angioplasty implant and graft; Z82.49 Family history of ischemic heart disease and other diseases of the circulatory system; Z83.3 Family history of diabetes mellitus; Z80.9 Family history of malignant neoplasm, unspecified
CPT/HCPCS: 96376 ×2; 96361 ×3; 96374; 99285; 36415; 93005; 83519; 82652; 80053 ×2; 80048; 82310; 82164; 83735; 85025 ×3; 81001; 82306; 83970; 86334; 86335; 83036; G0378 ×3; C9113 ×3; 96360

== ENCOUNTER 2023-07-07 18:13 | Emergency (ER) | payer OTHER ==
--- NOTE | 2023-07-07 18:46 | ED ---
General Adult HPI - General Source: patient, EMS Mode of arrival: EMS Limitations: no limitations <Zane Domingo - Last Filed: 07/07/23 20:35> <Juarez Noonan - Last Filed: 07/08/23 12:13> - General Chief complaint: Psychiatric Symptoms Stated complaint: Mental Health Time Seen by Provider: 07/07/23 18:16 - History of Present Illness Initial comments: Dictation was produced using [employer] dictation software. please excuse any grammatical, word or spelling errors. Chief Complaint: 52-year-old depressed male presents with suicidal ideation History of Present Illness: 52-year-old male presents to the emergency department via police and EMS from home. Is brought here for evaluation of s uicidality. He believes that his stepdaughter called on behalf of the patient because she is worried about his well-being. Patient states he is depressed because of family conflict. He does not have a plan. 6 depressed for one year. Patient has no physical complaints. The ROS documented in this emergency department record has been reviewed and confirmed by me. Those systems with pertinent positive or negative responses have been documented in the HPI. All other systems are other negative and/or noncontributory. (Zane Domingo) - Related Data Home Medications Medication Instructions Recorded Confirmed Cetirizine HCl [Zyrtec] 10 mg PO DAILY PRN 02/26/23 07/07/23 Butalbital/Aspirin/Caffeine 1 tab PO QID PRN 07/07/23 07/07/23 [Vhtpyv-Yrtyhpb-Netsnimm 50-325-40 mg] INSULIN LISPRO (HumaLOG) [humaLOG] See Protocol SQ AC-TID PRN 07/07/23 07/07/23 Insulin Glargine [Lantus Vial] 30 - 40 unit SQ BID 07/07/23 07/07/23 Metoprolol Tartrate [Lopressor] 100 mg PO BID 07/07/23 07/07/23 Previous Rx's Medication Instructions Recorded Aspirin 81 mg PO DAILY 90 Days #90 tab 12/29/22 Atorvastatin [Lipitor] 80 mg PO HS 90 Days #90 tab 12/29/22 Dapagliflozin Propanediol [Farxiga] 10 mg PO DAILY 90 Days #90 tab 12/29/22 Losartan [Cozaar] 25 mg PO DAILY 90 Days #90 tab 12/29/22 Nitroglycerin Sl Tabs [Nitrostat] 0.4 mg SUBLINGUAL Q5M PRN 90 Days 12/29/22 #100 tab Pantoprazole [Protonix] 40 mg PO AC-BRKFST 30 Days #60 tab 12/29/22 Prasugrel [Effient] 10 mg PO DAILY 90 Days #90 tab 12/29/22 amLODIPine [Norvasc] 5 mg PO DAILY 90 Days #90 tab 12/29/22 Allergies Allergy/AdvReac Type Severity Reaction Status Date / Time prednisone AdvReac Steroid Verified 07/07/23 21:22 induced psychosis steroids AdvReac Unknown Hallucinati Uncoded 07/07/23 18:40 ons Review of Systems ROS Other: All systems not noted in ROS Statement are negative. <Zane Domingo - Last Filed: 07/07/23 20:35> ROS Other: All systems not noted in ROS Statement are negative. <Juarez Noonan - Last Filed: 07/08/23 12:13> ROS Statement: Those systems with pertinent positive or pertinent negative responses have been documented in the HPI. Past Medical History Past Medical History: Diabetes Mellitus, Hyperlipidemia, Hypertension, Myocardial Infarction ([place]) Additional Past Medical History / Comment(s): hydrocephalus Last Myocardial Infarction Date:: 12/31 History of Any Multi-Drug Resistant Organisms: None Reported Past Surgical History: Appendectomy, Heart Catheterization, Heart Catheterization With Stent Additional Past Surgical History / Comment(s): lap band 2008, cardiac cath with stent to LAD 02/16/2017; recently in December at [facility] Past Anesthesia/Blood Transfusion Reactions: No Reported Reaction Date of Last Stent Placement:: 12/31 Past Psychological History: Bipolar, Depression Smoking Status: Never smoker Past Alcohol Use History: None Reported Past Drug Use History: None Reported - Past Family History Father Family Medical History: Diabetes Mellitus, Deep Vein Thrombosis (DVT), Hypertension, Myocardial Infarction ([place]) Mother Family Medical History: Cancer Additional Family Medical History / Comment(s): Brain tumor, mass removed from neck <Zane Domingo - Last Filed: 07/07/23 20:35> General Exam Limitations: no limitations <Zane Domingo - Last Filed: 07/07/23 20:35> - General Exam Comments Initial Comments: PHYSICAL EXAM: General Impression: Alert and oriented x3, not in acute distress HEENT: Normocephalic atraumatic, extra-ocular movements intact, pupils equal and reactive to light bilaterally, mucous membranes moist. Cardiovascular: Heart regular rate and rhythm Chest: Able to complete full sentences, no retractions, no tachypnea Musculoskeletal: Pulses present and equal in all extremities, no peripheral edema Motor: no focal deficits noted Neurological: CN II-XII grossly intact, no focal motor or sensory deficits noted Skin: Intact with no visualized rashes Psych: Normal affect and mood (Zane Domingo) Course Vital Signs 07/07/23 07/07/23 07/08/23 18:19 22:00 08:04 Temperature 98.2 F 989.1 F H 98.1 F Pulse Rate 74 104 H 86 Respiratory 18 18 16 Rate Blood Pressure 146/92 144/86 150/90 O2 Sat by Pulse 96 98 98 Oximetry Medical Decision Making <Zane Domingo - Last Filed: 07/07/23 20:35> - Lab Data Result diagrams: 07/07/23 21:20 07/07/23 21:20 <Juarez Noonan - Last Filed: 07/08/23 12:13> - Medical Decision Making Was pt. sent in by a medical professional or institution ([facility], [facility], urgent care, hospital, or usp...) When possible be specific @ -No Did you speak to anyone other than the patient for history (EMS, parent, family, police, friend...)? What history was obtained from this source @ -No Did you review nursing and triage notes (agree or disagree)? Why? @ -I reviewed and agree with nursing and triage notes Were old charts reviewed (outside hosp., previous admission, EMS record, old EKG, old radiological studies, urgent care reports/EKG's, usp records)? Report findings @ -No old charts were reviewed Differential Diagnosis (chest pain, altered mental status, abdominal pain women, abdominal pain men, vaginal bleeding, musculoskeletal, weakness, fever, dyspnea, syncope, headache, dizziness, GI bleed, back pain, seizure, CVA, palpatations, mental health)? @ -Differential Mental Health: Depression, anxiety, bipolar, psychosis, schizophrenia, borderline personality, situational depression, adjustment disorder, behavioral disorder, brain tumor, malingering, substance abuse, encephalopathy, medication reaction, dementia, hypothyroidism, degenerative neurologic disorder, lupus.... This is not meant to be all-inclusive list EKG interpreted by me (3pts min.). @ -None done X-rays interpreted by me (1pt min.). @ -None done CT interpreted by me (1pt min.). @ -None done U/S interpreted by me (1pt. min.). @ -None done What testing was considered but not performed or refused? (CT, X-rays, U/S, labs)? Why? @ -None What meds were considered but not given or refused? Why? @ -None Did you discuss the management of the patient with other professionals (professionals i.e. , PA, [facility], lab, RT, psych nurse, addiction social worker, [employer], teacher, chief lending officer, vocational case manager)? Give summary @ -Case discussed with EPS nurse recommended [facility] Was smoking cessation discussed for >3mins.? @ -No Was critical care preformed (if so, how long)? @ -No Were there social determinants of health that impacted care today? How? (Homelessness, low income, unemployed, alcoholism, drug addiction, transportation, low edu. Level, literacy, decrease access to med. care, fpc, rehab)? @ -No Was there de-escalation of care discussed even if they declined (Discuss DNR or withdrawal of care, Hospice)? DNR status @ -No What co-morbidities impacted this encounter? (DM, HTN, Smoking, COPD, CAD, Cancer, CVA, ARF, Chemo, Hep., AIDS, mental health diagnosis, sleep apnea, morbid obesity)? @ -None Was patient admitted / discharged? Hospital course, mention meds given and route, prescriptions, significant lab abnormalities, going to OR and other pertinent info. @ -52-year-old male presents with depression and suicidal ideation. Vital signs stable. Physical examination benign. Patient has no medical complaints. Pending psych evaluation. Patient is signed out to Dr. Campuzano at 9:00 PM Undiagnosed new problem with uncertain prognosis? @ -No Drug Therapy requiring intensive monitoring for toxicity (Heparin, Nitro, Insulin, Cardizem)? @ -No Were any procedures done? @ -No Diagnosis/symptom? Acute, or Chronic, or Acute on Chronic? Uncomplicated (without systemic symptoms) or Complicated (systemic symptoms)? @ -Suicidal ideation Side effects of treatment? @ -No Exacerbation, Progression, or Severe Exacerbation? @ -No Poses a threat to life or bodily function? How? (Chest pain, [place], [place], pneumonia, PE, COPD, DKA, ARF, appy, cholecystitis, CVA, Diverticulitis, Homicidal, Suicidal, threat to staff... and all critical care pts) @ -yes (Zane Domingo) Patient is a 52-year-old male who was brought here for evaluation by psychiatry. Had depression and suicidal ideation. Was pending EPS reevaluation. Initially, recommended [facility] however was reevaluated this morning and patient is improved. Patient normal longer meets inpatient criteria. Discussed the case with EPS Raeann. Patient will be with family members over the next 2 days and has close follow-up with psychiatry and a safety plan for home. Patient denies any current suicidal ideations. His no other acute complaints at this time. I believe it is safe for the patient be discharged home. EPS was in agreement with this plan. Patient discharged home with a safety plan. Diagnosis/symptom? @ -Depression, encounter for psychiatric evaluation Acute, or Chronic, or Acute on Chronic? @ -Acute Uncomplicated (without systemic symptoms) or Complicated (systemic symptoms)? @ -Uncomplicated Side effects of treatment? @ -none Exacerbation, Progression, or Severe Exacerbation] @ -no Poses a threat to life or bodily function? @ -no (Juarez Noonan) - Lab Data Lab Results 07/07/23 07/07/23 07/07/23 Range/Units 21:20 21:20 21:22 WBC 7.8 (3.8-10.6) k/uL RBC 4.60 (4.30-5.90) m/uL Hgb 13.0 (13.0-17.5) gm/dL Hct 39.3 (39.0-53.0) % MCV 85.4 (80.0-100.0) fL MCH 28.2 (25.0-35.0) pg MCHC 33.0 (31.0-37.0) g/dL RDW 14.4 (11.5-15.5) % Plt Count 194 (150-450) k/uL MPV 8.8 Sodium 138 (137-145) mmol/L Potassium 4.5 (3.5-5.1) mmol/L Chloride 99 (98-107) mmol/L Carbon Dioxide 27 (22-30) mmol/L Anion Gap 12 mmol/L BUN 33 H (9-20) mg/dL Creatinine 2.06 H (0.66-1.25) mg/dL Est GFR (CKD-EPI)AfAm 41 (>60 ml/min/1.73 sqM) Est GFR (CKD-EPI)NonAf 36 (>60 ml/min/1.73 sqM) Glucose 344 H (74-99) mg/dL Calcium 10.1 (8.4-10.2) mg/dL Total Bilirubin 0.6 (0.2-1.3) mg/dL AST 24 (17-59) U/L ALT 26 (4-49) U/L Alkaline Phosphatase 118 (38-126) U/L Total Protein 8.1 (6.3-8.2) g/dL Albumin 4.7 (3.5-5.0) g/dL TSH 0.662 (0.465-4.680) mIU/L Urine Color Urine Appearance (Clear) Urine pH (5.0-8.0) Ur Specific [place] (1.001-1.035) Urine Protein (Negative) Urine Glucose (UA) (Negative) Urine Ketones (Negative) Urine Blood (Negative) Urine Nitrite (Negative) Urine Bilirubin (Negative) Urine Urobilinogen (<2.0) mg/dL Ur Leukocyte Esterase (Negative) Urine RBC (0-5) /hpf Urine WBC (0-5) /hpf Ur Squamous Epith Cells (0-4) /hpf Urine Bacteria (None) /hpf Urine Opiates Screen (NotDetected) Ur Oxycodone Screen (NotDetected) Urine Methadone Screen (NotDetected) Ur Propoxyphene Screen (NotDetected) Ur Barbiturates Screen (NotDetected) U Tricyclic Antidepress (NotDetected) Ur Phencyclidine Scrn (NotDetected) Ur Amphetamines Screen (NotDetected) U Methamphetamines Scrn (NotDetected) U Benzodiazepines Scrn (NotDetected) Urine Cocaine Screen (NotDetected) U Marijuana (THC) Screen (NotDetected) Coronavirus (PCR) Not Detected (Not Detectd) 07/07/23 07/07/23 Range/Units 22:30 22:30 WBC (3.8-10.6) k/uL RBC (4.30-5.90) m/uL Hgb (13.0-17.5) gm/dL Hct (39.0-53.0) % MCV (80.0-100.0) fL MCH (25.0-35.0) pg MCHC (31.0-37.0) g/dL RDW (11.5-15.5) % Plt Count (150-450) k/uL MPV Sodium (137-145) mmol/L Potassium (3.5-5.1) mmol/L Chloride (98-107) mmol/L Carbon Dioxide (22-30) mmol/L Anion Gap mmol/L BUN (9-20) mg/dL Creatinine (0.66-1.25) mg/dL Est GFR (CKD-EPI)AfAm (>60 ml/min/1.73 sqM) Est GFR (CKD-EPI)NonAf (>60 ml/min/1.73 sqM) Glucose (74-99) mg/dL Calcium (8.4-10.2) mg/dL Total Bilirubin (0.2-1.3) mg/dL AST (17-59) U/L ALT (4-49) U/L Alkaline Phosphatase (38-126) U/L Total Protein (6.3-8.2) g/dL Albumin (3.5-5.0) g/dL TSH (0.465-4.680) mIU/L Urine Color Colorless Urine Appearance Clear (Clear) Urine pH 5.5 (5.0-8.0) Ur Specific [place] 1.022 (1.001-1.035) Urine Protein 1+ H (Negative) Urine Glucose (UA) 4+ H (Negative) Urine Ketones Negative (Negative) Urine Blood Negative (Negative) Urine Nitrite Negative (Negative) Urine Bilirubin Negative (Negative) Urine Urobilinogen <2.0 (<2.0) mg/dL Ur Leukocyte Esterase Negative (Negative) Urine RBC 1 (0-5) /hpf Urine WBC 2 (0-5) /hpf Ur Squamous Epith Cells <1 (0-4) /hpf Urine Bacteria Rare H (None) /hpf Urine Opiates Screen Not Detected (NotDetected) Ur Oxycodone Screen Not Detected (NotDetected) Urine Methadone Screen Not Detected (NotDetected) Ur Propoxyphene Screen Not Detected (NotDetected) Ur Barbiturates Screen Not Detected (NotDetected) U Tricyclic Antidepress Not Detected (NotDetected) Ur Phencyclidine Scrn Not Detected (NotDetected) Ur Amphetamines Screen Not Detected (NotDetected) U Methamphetamines Scrn Not Detected (NotDetected) U Benzodiazepines Scrn Not Detected (NotDetected) Urine Cocaine Screen Not Detected (NotDetected) U Marijuana (THC) Screen Not Detected (NotDetected) Coronavirus (PCR) (Not Detectd) Disposition <Zane Domingo - Last Filed: 07/07/23 20:35> Is patient prescribed a controlled substance at d/c from ED?: No Time of Disposition: 12:05 <Juarez Noonan - Last Filed: 07/08/23 12:13> Clinical Impression: Depression Disposition: HOME SELF-CARE Condition: Fair Additional Instructions: follow safety plan Referrals: Kenna Tran NPC [Family Provider] - 1-2 days
[2023-07-07 22:18] LABS: HCT 39.3 % (39.0-53.0); MCH 28.2 pg (25.0-35.0); MCV 85.4 fL (80.0-100.0); Mean Platelet Volume 8.8; Platelet Count 194 k/uL (150-450); RDW 14.4 % (11.5-15.5); WBC 7.8 k/uL (3.8-10.6)
[2023-07-07 22:57] LABS: ALT 26 U/L (4-49); AST 24 U/L (17-59); African American GFR (CKD) 41 (>60 ml/min/1.73 sqM); Albumin 4.7 g/dL (3.5-5.0); Alkaline Phosphatase 118 U/L (38-126); Anion Gap 12 mmol/L; Blood Urea Nitrogen 33 mg/dL (9-20); Calcium 10.1 mg/dL (8.4-10.2); Carbon Dioxide 27 mmol/L (22-30); Chloride 99 mmol/L (98-107); Glucose 344 mg/dL (74-99); Non-African American GFR(CKD) 36 (>60 ml/min/1.73 sqM); Potassium 4.5 mmol/L (3.5-5.1); Sodium 138 mmol/L (137-145); Total Bilirubin 0.6 mg/dL (0.2-1.3); Total Protein 8.1 g/dL (6.3-8.2)
[2023-07-07 23:07] LABS: Appearance,Urine Clear (Clear); Bacteria,Urine Rare /hpf; Bilirubin,Urine Negative (Negative); Blood,Urine Negative (Negative); Color,Urine Colorless; Glucose,Urine (UA) 4+ (Negative); Ketones,Urine Negative (Negative); Leukocyte Esterase,Urine Negative (Negative); Nitrite,Urine Negative (Negative); PH, Urine 5.5 (5.0-8.0); Protein,Urine 1+ (Negative); RBC,Urine 1 /hpf (0-5); Specific Gravity,Urine 1.022 (1.001-1.035); Squamous Epithelial Cell,Urine <1 /hpf (0-4); Urobilinogen,Urine <2.0 mg/dL (<2.0); WBC,Urine 2 /hpf (0-5)
[2023-07-07 23:16] LABS: Amphetamine Screen,Urine Not Detected (NotDetected); Barbiturate Screen,Urine Not Detected (NotDetected); Benzodiazepines Screen,Urine Not Detected (NotDetected); Cocaine Screen,Urine Not Detected (NotDetected); Methadone Screen, Urine Not Detected (NotDetected); Opiate Screen,Urine Not Detected (NotDetected); Oxycodone Screen, Urine Not Detected (NotDetected); Phencyclidine Screen,Urine Not Detected (NotDetected); Tricyclic Antidepressant,Urine Not Detected (NotDetected); Urn Cannabinoid Scrn Not Detected (NotDetected)
[2023-07-07] MEDS ORDERED: METOPROLOL TARTRATE 50 MG TAB PO STA (23:31)
[2023-07-07] MEDS ORDERED: ATORVASTATIN 80 MG TAB PO STA (23:32)
[2023-07-08 08:22] VITALS: RESP 16; TEMP 98.1
[2023-07-08 12:29] VITALS: BP 140/80; PULSE 85
== END 2023-07-08 12:25 | disposition home or self-care (01) ==
LOC: EC 18:13
DX: Z04.6 Encounter for general psychiatric examination, requested by authority (principal); F32.A Depression, unspecified; R45.851 Suicidal ideations; E11.9 Type 2 diabetes mellitus without complications; I10 Essential (primary) hypertension; I25.2 Old myocardial infarction; Z79.4 Long term (current) use of insulin; Z79.82 Long term (current) use of aspirin; Z79.899 Other long term (current) drug therapy; Z88.8 Allergy status to other drugs, medicaments and biological substances; Z20.822 Contact with and (suspected) exposure to COVID-19
CPT/HCPCS: 36415; 80053; 80306; 81001; 82075; 84443; 85027; 87635; 99285

== ENCOUNTER 2023-08-31 01:21 | Emergency (ER) | payer OTHER ==
[2023-08-31 02:23] VITALS: RESP 18; TEMP 98.9
--- NOTE | 2023-08-31 03:26 | ED ---
Extremity Problem HPI - General Source: patient, EMS Mode of arrival: EMS Limitations: physical limitation <Indy Hines - Last Filed: 08/31/23 03:26> <Zane Domingo - Last Filed: 08/31/23 05:39> - General Chief complaint: Extremity Problem,Nontraumatic Stated complaint: Leg cramps Time Seen by Provider: 08/31/23 03:26 - History of Present Illness Initial comments: 52-year-old male presenting with chief complaint of right lower leg pain. Patient states that he has history of focal seizures, he has had pain and cramping in the legs since around 8:30 this evening. (Indy Hines) Dictation was produced using [employer] dictation software. please excuse any grammatical, word or spelling errors. Chief Complaint: 52-year-old male presents with acute on chronic right lower extremity pain History of Present Illness: Patient's 52-year-old male who has past medical history of neuropathy. Chronic pain and neuropathic pain to his right lower extremity. States that he gets these cramping sensations that he takes magnesium 4. Started that these symptoms and started taking his oral magnesium pills. States that his symptoms were short-lived and he feels significantly better at this time. This patient is asymptomatic and has no other complaints. The ROS documented in this emergency department record has been reviewed and confirmed by me. Those systems with pertinent positive or negative responses have been documented in the HPI. All other systems are other negative and/or noncontributory. (Zane Domingo) - Related Data Home Medications Medication Instructions Recorded Confirmed Cetirizine HCl [Zyrtec] 10 mg PO DAILY PRN 02/26/23 07/07/23 Butalbital/Aspirin/Caffeine 1 tab PO QID PRN 07/07/23 07/07/23 [Ipzyfy-Yoaqfce-Unuftwje 50-325-40 mg] INSULIN LISPRO (HumaLOG) [humaLOG] See Protocol SQ AC-TID PRN 07/07/23 07/07/23 Insulin Glargine [Lantus Vial] 30 - 40 unit SQ BID 07/07/23 07/07/23 Metoprolol Tartrate [Lopressor] 100 mg PO BID 07/07/23 07/07/23 Previous Rx's Medication Instructions Recorded Aspirin 81 mg PO DAILY 90 Days #90 tab 12/29/22 Atorvastatin [Lipitor] 80 mg PO HS 90 Days #90 tab 12/29/22 Dapagliflozin Propanediol [Farxiga] 10 mg PO DAILY 90 Days #90 tab 12/29/22 Losartan [Cozaar] 25 mg PO DAILY 90 Days #90 tab 12/29/22 Nitroglycerin Sl Tabs [Nitrostat] 0.4 mg SUBLINGUAL Q5M PRN 90 Days 12/29/22 #100 tab Pantoprazole [Protonix] 40 mg PO AC-BRKFST 30 Days #60 tab 12/29/22 Prasugrel [Effient] 10 mg PO DAILY 90 Days #90 tab 12/29/22 amLODIPine [Norvasc] 5 mg PO DAILY 90 Days #90 tab 12/29/22 Allergies Allergy/AdvReac Type Severity Reaction Status Date / Time prednisone AdvReac Steroid Verified 08/31/23 02:06 induced psychosis steroids AdvReac Unknown Hallucinati Uncoded 08/31/23 02:06 ons Review of Systems ROS Other: All systems not noted in ROS Statement are negative. <Indy Hines - Last Filed: 08/31/23 03:26> ROS Other: All systems not noted in ROS Statement are negative. <Zane Domingo - Last Filed: 08/31/23 05:39> ROS Statement: Those systems with pertinent positive or pertinent negative responses have been documented in the HPI. Past Medical History Past Medical History: Diabetes Mellitus, Hyperlipidemia, Hypertension, Myocardial Infarction ([place]) Additional Past Medical History / Comment(s): hydrocephalus Last Myocardial Infarction Date:: 12/31 History of Any Multi-Drug Resistant Organisms: None Reported Past Surgical History: Appendectomy, Bariatric Surgery, Heart Catheterization, Heart Catheterization With Stent Additional Past Surgical History / Comment(s): lap band 2008, cardiac cath with stent to LAD 02/16/2017; [facility] Past Anesthesia/Blood Transfusion Reactions: No Reported Reaction Date of Last Stent Placement:: 12/31 Past Psychological History: Bipolar, Depression Smoking Status: Never smoker Past Alcohol Use History: None Reported Past Drug Use History: None Reported - Past Family History Father Family Medical History: Diabetes Mellitus, Deep Vein Thrombosis (DVT), Hyper tension, Myocardial Infarction ([place]) Mother Family Medical History: Cancer Additional Family Medical History / Comment(s): Brain tumor, mass removed from neck <Indy Hines - Last Filed: 08/31/23 03:26> General Exam Limitations: physical limitation <Indy Hines - Last Filed: 08/31/23 03:26> <Zane Domingo - Last Filed: 08/31/23 05:39> - General Exam Comments Initial Comments: Visual Physical Exam Vital signs reviewed General: Well-appearing, nontoxic, no acute distress. Head: Normocephalic, atraumatic Eyes: PERRLA, EOMI ENT: Airway patent Chest: Nonlabored breathing Skin: No visual rash, normal skin tone Neuro: Alert and oriented 3 Musculoskeletal: No gross abnormalities (Indy Hines) PHYSICAL EXAM: General Impression: Alert and oriented x3, not in acute distress HEENT: Normocephalic atraumatic, extra-ocular movements intact, pupils equal and reactive to light bilaterally, mucous membranes moist. Cardiovascular: Heart regular rate and rhythm Chest: Able to complete full sentences, no retractions, no tachypnea Abdomen: abdomen soft, non-tender, non-distended, no organomegaly Musculoskeletal: Pulses present and equal in all extremities, no peripheral edema Motor: no focal deficits noted Neurological: CN II-XII grossly intact, no focal motor or sensory deficits noted Skin: Intact with no visualized rashes Psych: Normal affect and mood (Zane Domingo) Course Vital Signs 08/31/23 02:06 Temperature 98.9 F Pulse Rate 102 H Respiratory 18 Rate Blood Pressure 149/94 O2 Sat by Pulse 97 Oximetry Medical Decision Making - Lab Data Result diagrams: 08/31/23 04:14 08/31/23 04:14 <Zane Domingo - Last Filed: 08/31/23 05:39> - Medical Decision Making Was pt. sent in by a medical professional or institution (, PA, CHILD CARE CENTER ADMINISTRATOR, urgent care, hospital, or jail...) When possible be specific @ -No Did you speak to anyone other than the patient for history (EMS, parent, family, police, friend...)? What history was obtained from this source @ -No Did you review nursing and triage notes (agree or disagree)? Why? @ -I reviewed and agree with nursing and triage notes Were old charts reviewed (outside hosp., previous admission, EMS record, old EKG, old radiological studies, urgent care reports/EKG's, jail records)? Report findings @ -No old charts were reviewed Differential Diagnosis (chest pain, altered mental status, abdominal pain women, abdominal pain men, vaginal bleeding, musculoskeletal, weakness, fever, dyspnea, syncope, headache, dizziness, GI bleed, back pain, seizure, CVA, palpatations, mental health)? @ -not applicable EKG interpreted by me (3pts min.). @ -None done X-rays interpreted by me (1pt min.). @ -None done CT interpreted by me (1pt min.). @ -None done U/S interpreted by me (1pt. min.). @ -None done What testing was considered but not performed or refused? (CT, X-rays, U/S, labs)? Why? @ -None What meds were considered but not given or refused? Why? @ -None Did you discuss the management of the patient with other professionals (professionals i.e. , PA, CHILD CARE CENTER ADMINISTRATOR, lab, RT, psych nurse, social director, elementary school librarian, teacher, community resource officer, immigration case worker)? Give summary @ -No Was smoking cessation discussed for >3mins.? @ -No Was critical care preformed (if so, how long)? @ -No Were there social determinants of health that impacted care today? How? (Homelessness, low income, unemployed, alcoholism, drug addiction, transportation, low edu. Level, literacy, decrease access to med. care, correction, rehab)? @ -No Was there de-escalation of care discussed even if they declined (Discuss DNR or withdrawal of care, Hospice)? DNR status @ -No What co-morbidities impacted this encounter? (DM, HTN, Smoking, COPD, CAD, Cancer, CVA, ARF, Chemo, Hep., AIDS, mental health diagnosis, sleep apnea, morbid obesity)? @ -None Was patient admitted / discharged? Hospital course, mention meds given and route, prescriptions, significant lab abnormalities, going to OR and other pertinent info. @ -52-year-old male with acute on chronic neuropathic right lower extremity pain. Vital signs stable. Patient well-appearing at the bedside he is tolerating oral intake and in no acute distress. Laboratory evaluation is unremarkable. Patient refusing analgesic medications and wants to be discharge. She is stable told to follow up with his outpatient doctors. Undiagnosed new problem with uncertain prognosis? @ -No Drug Therapy requiring intensive monitoring for toxicity (Heparin, Nitro, Insulin, Cardizem)? @ -No Were any procedures done? @ -No Diagnosis/symptom? Acute, or Chronic, or Acute on Chronic? Uncomplicated (without systemic symptoms) or Complicated (systemic symptoms)? @ -Acute on chronic right leg pain Side effects of treatment? @ -No Exacerbation, Progression, or Severe Exacerbation? @ -No Poses a threat to life or bodily function? How? (Chest pain, [place], [place], pneumonia, PE, COPD, DKA, ARF, appy, cholecystitis, CVA, Diverticulitis, Homicidal, Suicidal, threat to staff... and all critical care pts) @ -No (Zane Domingo) - Lab Data Lab Results 08/31/23 08/31/23 Range/Units 04:14 04:14 WBC 8.9 (3.8-10.6) k/uL RBC 4.40 (4.30-5.90) m/uL Hgb 12.4 L (13.0-17.5) gm/dL Hct 36.4 L (39.0-53.0) % MCV 82.8 (80.0-100.0) fL MCH 28.1 (25.0-35.0) pg MCHC 34.0 (31.0-37.0) g/dL RDW 14.1 (11.5-15.5) % Plt Count 187 (150-450) k/uL MPV 9.3 Neutrophils % 76 % Lymphocytes % 15 % Monocytes % 6 % Eosinophils % 1 % Basophils % 1 % Neutrophils # 6.7 (1.3-7.7) k/uL Lymphocytes # 1.3 (1.0-4.8) k/uL Monocytes # 0.6 (0-1.0) k/uL Eosinophils # 0.1 (0-0.7) k/uL Basophils # 0.0 (0-0.2) k/uL Sodium 134 L (137-145) mmol/L Potassium 3.7 (3.5-5.1) mmol/L Chloride 99 (98-107) mmol/L Carbon Dioxide 22 (22-30) mmol/L Anion Gap 13 mmol/L BUN 43 H (9-20) mg/dL Creatinine 1.95 H (0.66-1.25) mg/dL Est GFR (CKD-EPI)AfAm 44 (>60 ml/min/1.73 sqM) Est GFR (CKD-EPI)NonAf 38 (>60 ml/min/1.73 sqM) Glucose 245 H (74-99) mg/dL Calcium 9.2 (8.4-10.2) mg/dL Magnesium 2.0 (1.6-2.3) mg/dL Total Bilirubin 0.4 (0.2-1.3) mg/dL AST 25 (17-59) U/L ALT 22 (4-49) U/L Alkaline Phosphatase 114 (38-126) U/L Total Protein 7.0 (6.3-8.2) g/dL Albumin 4.2 (3.5-5.0) g/dL Disposition <Indy Hines - Last Filed: 08/31/23 03:26> Is patient prescribed a controlled substance at d/c from ED?: No Time of Disposition: 05:38 <Zane Domingo - Last Filed: 08/31/23 05:39> Clinical Impression: Leg pain Disposition: HOME SELF-CARE Condition: Good Instructions (If sedation given, give patient instructions): Leg Pain (ED) Referrals: None,Stated [REFERRING] - 1-2 days
[2023-08-31 04:40] LABS: Basophils % (A) 1 %; Eosinophils # (A) 0.1 k/uL (0-0.7); Eosinophils % (A) 1 %; HCT 36.4 % (39.0-53.0); HGB 12.4 gm/dL (13.0-17.5); Lymphocytes # (A) 1.3 k/uL (1.0-4.8); Lymphocytes % (A) 15 %; MCH 28.1 pg (25.0-35.0); MCV 82.8 fL (80.0-100.0); Mean Platelet Volume 9.3; Monocytes # (A) 0.6 k/uL (0-1.0); Monocytes % (A) 6 %; Neutrophils # (A) 6.7 k/uL (1.3-7.7); Neutrophils % (A) 76 %; Platelet Count 187 k/uL (150-450); RDW 14.1 % (11.5-15.5); WBC 8.9 k/uL (3.8-10.6)
[2023-08-31 04:49] LABS: ALT 22 U/L (4-49); AST 25 U/L (17-59); African American GFR (CKD) 44 (>60 ml/min/1.73 sqM); Albumin 4.2 g/dL (3.5-5.0); Alkaline Phosphatase 114 U/L (38-126); Anion Gap 13 mmol/L; Blood Urea Nitrogen 43 mg/dL (9-20); Calcium 9.2 mg/dL (8.4-10.2); Carbon Dioxide 22 mmol/L (22-30); Chloride 99 mmol/L (98-107); Glucose 245 mg/dL (74-99); Non-African American GFR(CKD) 38 (>60 ml/min/1.73 sqM); Potassium 3.7 mmol/L (3.5-5.1); Sodium 134 mmol/L (137-145); Total Bilirubin 0.4 mg/dL (0.2-1.3)
[2023-08-31 06:19] VITALS: BP 143/82; PULSE 79
== END 2023-08-31 06:05 | disposition home or self-care (01) ==
LOC: EC 01:21
DX: M79.661 Pain in right lower leg (principal); E11.9 Type 2 diabetes mellitus without complications; I10 Essential (primary) hypertension; I25.2 Old myocardial infarction; Z86.59 Personal history of other mental and behavioral disorders; Z79.899 Other long term (current) drug therapy; Z79.4 Long term (current) use of insulin; Z88.8 Allergy status to other drugs, medicaments and biological substances
CPT/HCPCS: 36415; 80053; 83735; 85025; 96372; 99283; 99284

== ENCOUNTER 2024-04-20 15:02 | Emergency (ER) | payer OTHER ==
[2024-04-20] MEDS ORDERED: LABETALOL 5 MG/ML VIAL MDV ONE (16:17)
[2024-04-20] MEDS ORDERED: HYDROmorphone 1 MG/ML 1 ML SYRINGE ONE (16:17)
[2024-04-20] MEDS ORDERED: SODIUM CHLORIDE 0.9% 1,000 ML BAG ONE (16:20)
--- NOTE | 2024-05-21 15:53 | XR ---
[id number] JIAN LUNDBERG : 1970 EXAM: Two-view chest radiograph DATE: 04/20/2024 17:29 INDICATION: Reason for study: CHEST PAIN COMPARISON: None, please note PACS downtime occurred during the radiologist interpretation of these i mages with limited priors/reports.. TECHNIQUE: Frontal and lateral views of the chest. FINDINGS: Lungs/Pleura: There is no evidence of pleural effusion, focal consolidation, or pneumothorax. Pulmonary vascularity: Unremarkable. Heart/mediastinum: Cardiomediastinal silhouette is unremarkable. Musculoskeletal: No acute osseous pathology. Other findings: No significant findings. IMPRESSION: No acute cardiopulmonary disease/process.
== END 2024-04-20 20:33 | disposition home or self-care (01) ==
LOC: EC 15:02
DX: R07.9 Chest pain, unspecified (principal)
CPT/HCPCS: 71046; 96374; 96375; 99285

== ENCOUNTER → 2024-08-06 | Outpatient (CLI) | payer OTHER ==
[2024-08-06 15:11] VITALS: BP 155/89; PULSE 79; RESP 16; TEMP 98.6; BMI 44.5
--- NOTE | 2024-08-06 15:28 | P.HPBAR ---
Bariatric H&P - History & Physicial H&P Date: 08/06/24 History & Physicial: Visit/CC: new pt Patient initial contact: Initial weight: Initial weight in pounds: Height: 5 ft 8 in Initial BMI: Last weight: Current weight: 132.903 kg Current weight in pounds: 293.00 Current BMI: 44.5 Mal[place] body weight (based on NIH guidelines): 69.853 kg Excess body weight loss: The patient is a 53 year-old M who presents for Bariatric Assessment. He had band in 2008. HE had 3 adjustments. Was 320 pounds. He lost support. He reports pain from the band. He was down to 265 pounds . 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 Has chronic kidney disease stage 3b. He was having seizures. Weight went up to 285 pounds. He lost 60 pounds in 2 months was off all medications. Was down to 225 pounds. HE moved in with relatives for home. He was waiting on pension without income. He gained 70 pounds for fast food. HE was bedridden for 1 year due to sleep apnea, excessive daytime. He had PPI problems with side effect. He developed narcolepsy from protontix. He reports heart attack, 2 stents, chronic kidney disease. He lives alone. HE wants to keep his lap band and get down to 180 pounds. He does not exercise and is active. He wants structure to stop bingng. He eats 4 meals a day and food lover. Band adjusted over 10 years ago. He was on PPI prior to his band. Recommend EGD and esophagram prior to adjustments. HE has been on PPI from 1994. Food journal. Needs medical escort. Past Medical History Past Medical History: Diabetes Mellitus, Hyperlipidemia, Hypertension, Myocardial Infarction ([place]) Additional Past Medical History / Comment(s): hydrocephalus, tachycardia Last Myocardial Infarction Date:: 12/31 History of Any Multi-Drug Resistant Organisms: None Reported Past Surgical History: Appendectomy, Bariatric Surgery, Heart Catheterization, Heart Catheterization With Stent Additional Past Surgical History / Comment(s): lap band 2008 at [facility], cardiac cath with stent to LAD 02/16/2017; 12/2022 left circ stenting Past Anesthesia/Blood Transfusion Reactions: No Reported Reaction Date of Last Stent Placement:: 12/29/22 Smoking Status: Never smoker - Past Family History Father Family Medical History: Diabetes Mellitus, Deep Vein Thrombosis (DVT), Hypertension, Myocardial Infarction ([place]) Mother Family Medical History: Cancer Additional Family Medical History / Comment(s): Brain tumor, mass removed from neck Surgical - Exam Vital Signs Temp Pulse Resp BP 98.6 F 79 16 155/89 08/06/24 15:00 08/06/24 15:00 08/06/24 15:00 08/06/24 15:00 Bariatric Checklist Checklist: Plan: Checklist: EGD: 1. Hiatal hernia: 2. H. Pylori: HgbA1c: Vitamin D: Smoking: Never smoker [facility]: Cardiology clearance: Sleep study: Diet journal: VTE risk score: VTE risk level: Rehab needs at discharge:
== END ==
LOC: BARWHC3 14:02
PROVIDERS: ATTEND Surgery Plastic and Reconstructive Surgery
DX: E66.01 Morbid (severe) obesity due to excess calories (principal); Z98.84 Bariatric surgery status; Z88.8 Allergy status to other drugs, medicaments and biological substances; Z68.41 Body mass index [BMI] 40.0-44.9, adult
CPT/HCPCS: 99211

== ENCOUNTER → 2024-08-08 | Outpatient (CLI) | payer OTHER ==
[2024-08-08 13:46] LABS: INR 0.9 (<1.2); Partial Thromboplastin Time 24.7 sec (22.0-30.0); Prothrombin Time 10.2 sec (10.0-12.5)
[2024-08-08 18:16] LABS: HCT 36.8 % (39.6-50.0); MCHC 32.6 g/dL (32.0-37.0); MCV 85.8 FL (80.0-97.0); Mean Platelet Volume 11.3 FL (9.5-12.2); NRBC Per 100 WBC 0 X 10*3/uL (0.00-0.01); Platelet Count 246 X 10*3/uL (140-440); RBC 4.29 X 10*6/uL (4.40-5.60); RDW 14.2 % (11.5-14.5); WBC 5.57 X 10*3/uL (4.50-10.00)
[2024-08-08 20:46] LABS: ALT 18 U/L (10-49); AST 24 U/L (14-35); Albumin 4.7 g/dL (3.8-4.9); Albumin/Globulin Ratio 1.47 Ratio (1.60-3.17); Alkaline Phosphatase 100 U/L (41-126); Blood Urea Nitrogen 30.8 mg/dL (9.0-27.0); Calcium 10.3 mg/dL (8.7-10.3); Carbon Dioxide 24.7 mmol/L (21.6-31.8); Chloride 102 mmol/L (96-109); Ferritin 95.2 ng/mL (22.0-322.0); Globulin 3.2 g/dL (1.6-3.3); Glucose 106 mg/dL (70-110); LDL Cholesterol,Calculated 145.8 mg/dL (0.0-131.0); Magnesium 1.7 mg/dL (1.5-2.4); Phosphorus 2.7 mg/dL (2.4-5.1); Sodium 141 mmol/L (135-145); Total Bilirubin 0.3 mg/dL (0.3-1.2); Total Protein 7.9 g/dL (6.2-8.2)
== END | disposition home or self-care (01) ==
LOC: LABWHC1 12:20
PROVIDERS: ATTEND Surgery Plastic and Reconstructive Surgery
DX: D50.9 Iron deficiency anemia, unspecified (principal); K91.2 Postsurgical malabsorption, not elsewhere classified; D50.8 Other iron deficiency anemias; E44.0 Moderate protein-calorie malnutrition; E44.1 Mild protein-calorie malnutrition; E45 Retarded development following protein-calorie malnutrition; E55.9 Vitamin D deficiency, unspecified; K74.1 Hepatic sclerosis; N19 Unspecified kidney failure; T56.894A Toxic effect of other metals, undetermined, initial encounter
CPT/HCPCS: 84255; 84134; 80061; 80053; 82607; 82728; 82525; 82746; 83735; 84100; 84443; 84590; 84630; 85027; 85610; 85730; 82306; 83970; 83036; 80307; 36415; G0480; 80323